=== PATIENT | female | born 1965 | race Caucasian/White ===

== ENCOUNTER → 2016-08-13 | Outpatient (CLI) | payer OTHER ==
[~2016-08-13] MED LIST: ACIDOPHILUS1 CAP PO; ALDACTONE 25MG25 MG PO; ASPIRIN CHILDRE81 M1 PO; BACTRIM DS 8001 TAB PO; CARVEDILOL12.5 MG PO; CARVEDILOL3.125 MG PO; CARVEDILOL6.25 MG PO; CECLOR PULVULE500 MG PO; COUMADIN3 M1 PO; COUMADIN3 MG PO; CYCLOPHOSPHAMID50 M1 PO; DIGOXIN0.25 MG PO; FAMOTIDINE20 MG PO; FOLIC ACID 1MG T1 MG PO; FUROSEMIDE80 M1 PO; HYDRALAZINE HCL25 M1 PO; HYDROCORT 1% OI30 GM TP; K-DUR 2020 MEQ PO; KCL 10% 2020 MEQ/15 PO; LASIX40 MG PO; LOSARTAN POTASS25 MG PO; LOSARTAN POTASS50 MG PO; MAGNESIUM OXID400 M1 PO; METOLAZONE 2.52.5 MG PO; MYCOPHENOLIC A360 MG PO; NYSTATIN SU60 ML/BOT PO; NYSTATIN100000 U/M PO; PEPCID 20MG TAB20 MG PO; PHENERGAN25 M3 PO; PLAQUENIL200 MG PO; POTASSIUM CHLO10 ME3 PO; PREDNISONE 10MG10 MG PO; PREDNISONE 20MG20 MG PO; PREDNISONE 5MG.5 MG PO; TAMIFLU 75MG CA75 MG PO; TORSEMIDE 20MG20 MG PO; TORSEMIDE20 M1 PO; VANCOCIN HCL P125 MG PO; VANCOCIN PO; VANCOMYCIN PO; VITAMIN D50000 IU PO
== END ==
LOC: LAB 15:03
DX: I42.9 Cardiomyopathy, unspecified (principal)

== ENCOUNTER → 2016-11-26 | Outpatient (CLI) | payer MEDICARE, OTHER | LOC: LAB 11:39 | DX: I42.9 Cardiomyopathy, unspecified (principal); Z79.01 Long term (current) use of anticoagulants; Z51.81 Encounter for therapeutic drug level monitoring ==

== ENCOUNTER → 2017-02-05 | Outpatient (CLI) | payer OTHER, MEDICARE | LOC: LAB 10:02 | DX: I42.9 Cardiomyopathy, unspecified (principal); Z79.01 Long term (current) use of anticoagulants; Z51.81 Encounter for therapeutic drug level monitoring ==

== ENCOUNTER → 2017-02-15 | Outpatient (CLI) | payer OTHER, MEDICARE | LOC: LAB 12:51 | DX: I42.9 Cardiomyopathy, unspecified (principal); Z79.01 Long term (current) use of anticoagulants; Z51.81 Encounter for therapeutic drug level monitoring ==

== ENCOUNTER → 2017-03-08 | Outpatient (CLI) | payer OTHER, MEDICARE ==
[2017-03-08 21:22] LABS: BUN 15 mg/dL (7-18)
[2017-03-08 21:24] LABS: GFR (ESTIMATED) 129 ML/MIN (59-)
--- NOTE | 2017-03-09 08:08 | RADIOLOGY REPORT PS360 ---
US PELVIS-TRANSVAGINAL ONLY HISTORY: ABDOMINAL PAIN,ABD DISTENSION,VAGINAL DISCHARGE left-sided pain left pelvic pain. Postmenopausal 5 years Patient Age: 51 years: FemaleOrdering Physician: Benjy Marcos MD TECHNIQUE: Transvaginal pelvic ultrasound COMPARISON February 2014 pelvic ultrasound.. :CT abdomen 03/16/2016 FINDINGS Uterus is moderate size measuring 5.75 seem in length x2.45 x 3.8 cm. Endometrial stripe measuring 3.6 mm the body of uterus is slightly more generous at the lower uterus. A calcification at the lower uterine segment. This calcification at or adjacent to endometrium measures roughly 1 cm length x 0.8 cm AP. It was seen on the prior CT studies from 2015 and unchanged. Could reflect a small calcified submucosal fibroid versus a dystrophic calcification of some some other form. The right ovary measures 2.2 x 1.5 x 1.7 cm. It appears similar to the 2013 pelvic ultrasound study. The left ovary is larger measuring 4.4 x 1.6 x 1.1 cm . Homogeneous the left ovary measures 3.1 cm with a slight additional area its proximal pole. Accounting for this total length. No cysts.. No shadowing calcified structures. No fluid in cul-de-sac IMPRESSION: The uterus is modest in size. Contains a calcified focus along endometrial canal at lower uterine segment. This is seen on CT pelvis February 2016, similar in size since then. Question small calcified fibroid subserosal versus some other form of dystrophic calcification. On the left ovary is larger than right. No ovarian cyst nor or unique solid adnexal mass on today's study. No fluid in cul-de-sac.
== END ==
LOC: LAB 14:36 → RAD 14:36
PROVIDERS: Internal Medicine Adolescent Medicine
DX: N89.8 Other specified noninflammatory disorders of vagina (principal); R14.0 Abdominal distension (gaseous); R10.84 Generalized abdominal pain; E87.6 Hypokalemia

== ENCOUNTER → 2017-04-15 | Outpatient (CLI) | payer OTHER, MEDICARE | LOC: LAB 13:39 | DX: I42.9 Cardiomyopathy, unspecified (principal); Z79.01 Long term (current) use of anticoagulants; Z51.81 Encounter for therapeutic drug level monitoring ==

== ENCOUNTER → 2017-04-28 | Outpatient (CLI) | payer OTHER, MEDICARE | LOC: LAB 07:09 | DX: I42.9 Cardiomyopathy, unspecified (principal); Z79.01 Long term (current) use of anticoagulants; Z51.81 Encounter for therapeutic drug level monitoring ==

== ENCOUNTER → 2017-05-12 | Outpatient (CLI) | payer OTHER, MEDICARE | LOC: LAB 07:44 | DX: I42.9 Cardiomyopathy, unspecified (principal); Z79.01 Long term (current) use of anticoagulants; Z51.81 Encounter for therapeutic drug level monitoring ==

== ENCOUNTER 2017-05-22 14:49 | Emergency (ER) | payer OTHER, MEDICARE ==
[~2017-05-22] VITALS: Ht 170.2 cm; Wt 69.9 kg
--- OUTSIDE RECORDS SUMMARY | 2017-05-22 15:07 | External Medical Summary Rpt | CCD ---
Author Author , [facility]YSE Organization AYSE Address Unknown Phone [email or web address] Care Team Providers Care Broke Beater Operator Name Role Phone ABBAS JAZMINE, ABBAS JAZMINE Unavailable Unavailable [facility], [facility] Unavailable Unavailable [facility], [facility] Unavailable Unavailable TANVIR MAGGIE, TANVIR Unavailable Unavailable MAGGIE HENDRIX SILVIANO, HENDRIX Unavailable Unavailable SILVIANO SARAHY KAN JARVIS, Unavailable Unavailable SARAHY KAN JARVIS [facility], Unavailable Unavailable [facility], Unavailable Unavailable [facility] [place] ALFARIS MOH, ALFARIS Unavailable Unavailable MOH ALMAGDUB IHA, Unavailable Unavailable ALMAGDUB IHA [facility], [facility] Unavailable Unavailable BERRY KAMILLA, BERRY KAMILLA Unavailable Unavailable AYACH JUAN R, AYACH JUAN R Unavailable Unavailable PAREDES ESTEBAN, PAREDES Unavailable Unavailable [facility] Unavailable Unavailable MEDICAL GROUP, [facility] Unavailable Unavailable [facility]OM[facility] C[facility], [facility] Unavailable Unavailable ONCOLOGY A, [facility] BEINEKE PATY, BEINEKE Unavailable Unavailable PATY BELCASTRO MAR, Unavailable Unavailable BELCASTRO MAR BESSON IJEOMA, BESSON Unavailable Unavailable IJEOMA KAYLEEN CHEVY, KAYLEEN CHEVY Unavailable Unavailable BOLIEK TYLER, BOLIEK Unavailable Unavailable TYLER BREAZEALE GRA, Unavailable Unavailable BREAZEALE GRA GARCIA SARAH, GARCIA Unavailable Unavailable SARAH CANDELARIA ASH, CANDELARIA Unavailable Unavailable ASH [facility] Unavailable Unavailable SERVICE, [facility] Unavailable Unavailable SERVICE, [facility] VICTOR M KET, VICTOR M KET Unavailable Unavailable MARINA CAR, MARINA Unavailable Unavailable CAR CARDOZA LEI, Unavailable Unavailable CARDOZA LEI CAMP TYLER, CAMP TYLER Unavailable Unavailable BRUSH DIETER, Unavailable Unavailable [facility] DIET[facility] Unavailable Unavailable [facility] Unavailable Unavailable [facility], [facility] Unavailable Unavailable [facility], [facility] CHIPPS GREYSON & Unavailable Unavailable DUBILIER, [facility] DUBILIER [facility], Unavailable Unavailable [facility] COLON-LYN CHRIS, Unavailable Unavailable COLON-LYN CHRIS BAY JR BETHANY, Unavailable Unavailable BAY JR BETHANY [facility] Unavailable Unavailable EQUIPMENT, [facility] Unavailable Unavailable EQUIP[facility], [facility], Unavailable Unavailable [facility] CRAGER JAM, CRAGER Unavailable Unavailable JAM JAIRON LIZZIE, Unavailable Unavailable JAIRON LIZZIE ABRAHAN TYLER, ABRAHAN Unavailable Unavailable TYLER DAY KRI, DAY KRI Unavailable Unavailable MERRY PHI, Unavailable Unavailable MERRY PHI DISANTIS SILVIANO, Unavailable Unavailable DISANTIS SILVIANO EL-SIOUFI SHE, Unavailable Unavailable EL-SIOUFI SHE MARY ELLEN KAMILLA, MARY ELLEN Unavailable Unavailable KAMILLA ENDEAN MEAGAN, ENDEAN Unavailable Unavailable MEAGAN JYOTSNA GENNA, Unavailable Unavailable JYOTSNA GENNA OLIVARES NAN, OLIVARES Unavailable Unavailable NAN BLACK MAR, BLACK MAR Unavailable Unavailable FRANCISCO, JR DISLA, Unavailable Unavailable FRANCISCO, JR ELZ YOSEF ASH, YOSEF Unavailable Unavailable ASH KARMEN SUSANNA, KARMEN Unavailable Unavailable SUSANNA GERHARDSTEIN DON, Unavailable Unavailable GERHARDSTEIN DON HARTMAN CHEVY, HARTMAN CHEVY Unavailable Unavailable LIZZIE THO, LIZZIE THO Unavailable Unavailable PRAJAPATI BERHANE, PRAJAPATI Unavailable Unavailable BERHANE PRAJAPATI RAC, PRAJAPATI Unavailable Unavailable RAC [facility] Unavailable Unavailable INC, [facility] Unavailable Unavailable HOSPITAL P, [facility] Unavailable Unavailable INC, [facility] WILSON LESLEY, WILSON Unavailable Unavailable [facility], Unavailable Unavailable [facility] BOYLE IJEOMA, BOYLE IJEOMA Unavailable Unavailable HOLLAN TRA, HOLLAN Unavailable Unavailable TRA HORN ASH, HORN ASH Unavailable [facility]available [facility] Unavailable Unavailable SERVICES,, [facility], PELAEZ WARD, PELAEZ Unavailable Unavailable WARD ROSANGELA RYA, ROSANGELA RYA Unavailable Unavailable Andrea Newton MD, Unavailable Unavailable Andrea Newton MD [facility] Unavailable Unavailable IMAGING ASS, [facility] Unavailable Unavailable MEDICAL G, [facility] ESAU CONLEY, ESAU Unavailable Unavailable JARVIS GIRALDO JUSTUS, KRISTAL JUSTUS Unavailable Unavailable SESAR NATHAN, SESAR NATHAN Unavailable Unavailable [facility] NURSE Unavailable Unavailable PRACTITIONER GR, [facility] N[facility] PRACTITIONER GR MARYAM ESTEBAN, Unavailable Unavailable KOSTEJF ESTEBAN KSEIBI IVANNA, KSEIBI Unavailable Unavailable IVANNA APRYL [facility], [facility] Un[facility] LENERT KIRIT, LENERT Unavailable Unavailable KIRIT BOWEN JR DWI, BOWEN Unavailable Unavailable JR DWI [facility] Unavailable Unavailable AT [facility], [facility] Unavailable Unavailable INTERNAL MED, [facility] MED GIOVANNA JENNA, GIOVANNA Unavailable Unavailable JENNA MIS JR TRACIE, Unavailable Unavailable MIS JR TRACIE MONISHA KRI, MONISHA KRI Unavailable Unavailable [facility], [facility] Unavailable Unavailable RICARDO KARLY, RICARDO Unavailable Unavailable KARLY [facility] Unavailable Unavailable SERVICES, [facility] MASKEY MANE, MASKEY Unavailable Unavailable MANE MAWAD ARROYO, MAWAD ARROYO Unavailable Unavailable MC VIRGINIA BETHANY, MC Unavailable Unavailable VIRGINIA BETHANY CARDONA MAT, Unavailable Unavailable CARDONA MAT SULLIVAN MERLIN, SULLIVAN MERLIN Unavailable Unavailable MINION SILVIANO, MINION Unavailable Unavailable SILVIANO MOHAMED [facility], [facility] Unavailable Unavailable [facility] ELIZONDO-BUSTAMANTE MANE, Unavailable Unavailable ELIZONDO-BUSTAMANTE MANE MEDRANO ANH, MEDRANO ANH Unavailable Unavailable [facility] Unavailable Unavailable P[facility], [facility] RADHA TRACIE, Unavailable Unavailable RADHA TRACIE HARRIS TER, HARRIS Unavailable Unavailable TER JERI ARV, Unavailable Unavailable JERI ARV [facility], Unavailable [facility]available [facility], [facility] MACKENZIE GIPSON ADO, Unavailable Unavailable MACKENZIE GIPSON ADO JOHNS DEN, Unavailable Unavailable JOHNS DEN PICKLESIMER JR SANDEEP, Unavailable Unavailable PICKLESIMER JR SANDEEP Xavier Ram MD, Unavailable Unavailable Xavier Ram MD REENA TOD, REENA TOD Unavailable Unavailable REKHRAJ CAIN, REKHRAJ Unavailable Unavailable CAIN VACA IV HEN, Unavailable Unavailable VACA IV HEN BARTLETT FER, Unavailable Unavailable BARTLETT FER GRAYSON YOLANDA, GRAYSON Unavailable Unavailable YOLANDA SALAM MAA, SALAM MAA Unavailable Unavailable SCHUMER BAR, SCHUMER Unavailable Unavailable BAR SCHWARCZ THO, Unavailable Unavailable SCHWARCZ THO REINA NINOSKA, REINA Unavailable Unavailable NINOSKA ATIF ELL, ATIF Unavailable Unavailable PONCHO ELLIS ADA, ELLIS ADA Unavailable Unavailable ELLIS MARISOL, ELLIS MARISOL Unavailable Unavailable ELLIS NINOSKA, ELLIS NINOSKA Unavailable Unavailable ELLIS BRITTANY, ELLIS BRITTANY Unavailable Unavailable SORIAL EHA, SORIAL Unavailable Unavailable EHA OLVIN PAULO, OLVIN Unavailable Unavailable PAULO [facility] BUDDY KAMILLA, BUDDY Unavailable Unavailable KAMILLA JESS JENNA, JESS Unavailable Unavailable JENNA [facility], Unavailable Unavailable [facility] DENISE SHASTA DO, Unavailable Unavailable DENISE SHASTA DO BAUMAN SCO, BAUMAN Unavailable Unavailable SCO SUPINSKI GILBERT, Unavailable Unavailable SUPINSKI GILBERT YOUNG HANSEL IJEOMA, Unavailable Unavailable YOUNG HANSEL IJEOMA TZOUANAKIS KIRIT, Unavailable Unavailable TZOUANAKIS KIRIT [facility] Unavailable Unavailable MEDICINE , [facility], Unavailable Unavailable [facility] Unavailable Unavailable [facility], [facility] USERY AND, USERY AND Unavailable Unavailable VERHEY PET, VERHEY Unavailable Unavailable PET [facility] Unavailable Unavailable [facility]ENC[facility], [facility] DEE DEE KRISTAL, DEE DEE GIRALDO Unavailable Unavailable WEST SILVIANO, WEST SILVIANO Unavailable Unavailable SIMON IV ALL, Unavailable Unavailable SIMON IV ALL WHAYNE JR THO, WHAYNE Unavailable Unavailable JR THO ARSLAN ASH, ARSLAN Unavailable Unavailable ASH WOODY WARD, WOODY WARD Unavailable Unavailable XENOS VIRGINIA, XENOS VIRGINIA Unavailable Unavailable ALBERTS MAT, Unavailable Unavailable ALBERTS MAT Purpose Continuity of Care Document - 04-10-2013 through 2016 Problems Code Diagnosis DOS Provider Status [id number] ENCOUNTER 12-23-2015 [facility] THERAPEUTIC INC DRUG LEVEL MONITORING Z7901 CLAIM MANAGER 12-23-2015 [facility] CURRENT USE [facility] OF INC ANTICOAGULA NTS E559 VITAMIN D 12-12-2015 [facility] UNSPECIFIED [id number] ACUTE EMBO 12-12-2015 [facility] DEEP VEINS UNS LOW EXTREM M329 SYSTEMIC 12-12-2015 [facility] ERYTHEMATOS US UNSPECIFIED R760 RAISED 12-12-2015 [facility] TITER Z7952 LONGTERM 12-12-2015 [facility] OF [facility] SYSTEMIC STEROIDS [id number] OTHER LONG 12-12-2015 [facility] CURRENT DRUG THERAPY N950 POSTMENOPAU 11-12-2015 [facility] BLEEDING HOSPI N952 POSTMENOPAU 11-12-2015 [facility] ATROPHIC HOSPI VAGINITIS B78189 SATISFACTOR 11-12-2015 [facility] HOS[facility] TRANSFORMAT N ZONE H109 UNSPECIFIED 10-25-2015 [facility] CON[facility]UNCT[facility] TIS D509 IRON 10-16-2015 [facility] DEFICIENCY [facility] ANEMIA INC UNSPECIFIED I352 NONRHEUMATI 10-16-2015 [facility] AORTIC [facility] VALVE INC STENOSIS W/INSUFF B373 CANDIDIASIS 10-03-2015 [facility] VULVA SERV AND VAGINA FOUNDATION H2513 AGE-RELATED 10-03-2015 [facility] CATARACT BILATERAL Z9119 PATIENTS 10-03-2015 [facility] NONCOMPLIAN SERV CE W/OTH FOUNDATION MED TX & REGIMEN E876 HYPOKALEMIA 08-23-2015 [facility] J101 FLU D/T OTH 08-23-2015 [facility] P RESP MANIFESTATI ONS J1189 FLU D/T 08-23-2015 [facility] UNIDENTIFIE PHYSICIANS, D FLU VIRUS PLLC W/OTH MANIF R05 COUGH 08-23-2015 [facility] R509 FEVER 08-23-2015 [facility]PEC[facility]IED [facility] I509 HEART 06-18-2015 [facility] FAILURE [facility]ALTH UNSPECIFIED MEDICAL GROUP R0600 DYSPNEA 06-18-2015 [facility] UNSPECIFIED [facility]ALTH MEDICAL GROUP E871 HYPO-OSMOLA 05-24-2015 [facility] LITOsmar AND PHYSICIANS, HYPONATREMI PLLC A I10 ESSENTIAL 05-24-2015 [facility] HYPERTENSIO INC N N3000 ACUTE 05-24-2015 [facility] CYSTITIS PHYSICIANS, WITHOUT PLLC HEMATURIA N390 URINARY 05-24-2015 [facility] TRACT PHYSICIANS, INFECTION PLLC SITE NOT SPECIFIED 5259 UNSPECIFIED 03-28-2015 [facility] DISORDER [facility] TEETH&SUPPO FOUNDATION RTING STRUCTURES 7100 SYSTEMIC 03-28-2015 [facility] [place] [address] OTHER&UNSPE 03-28-2015 [facility] C SERV NONSPECIFIC FOUNDATION IMMUNOLOGIC AL FINDINGS V1251 PERSONAL 03-28-2015 [facility] HISTORY, SERV VENOUS FOUNDATION THROMBOSIS AND EMBOLISM V1581 PERS HX 03-28-2015 [facility] NONCOMPLIAN SERV CE W/MED TX FOUNDATION PRS HAZARDS HLTH V5869 LONG-TERM 03-28-2015 [facility] (CURRENT) SERV USE OF FOUNDATION OTHER MEDICATIONS V5883 ENCOUNTER 03-28-2015 [facility] FOR SERV THERAPEUTIC [facility] DRUG MONITORING 64207 AC CHENCHO 03-27-2015 [facility] THROMB INC UNSPEC DEEP VES LOWER EXT 4019 UNSPECIFIED 02-27-2015 [facility] E[facility]ENTIAL [facility]ALTH HYPERTENSIO AGENCY N 75535 UNSPECIFIED 02-27-2015 [facility] SYSTOLIC HEALTH HEART AGENCY FAILURE 6959 UNSPECIFIED 02-27-2015 [facility] HEALTH ERYTHEMATOU AGENCY S CONDITION 45083 MUSCLE 02-27-2015 [facility] WEAKNESS HEALTH (GENERALIZE AGENCY D) V5861 LONG-TERM 02-27-2015 [facility] (CURRENT) HEALTH [place] 54825 STEELE 02-15-2015 [facility] SYNDROME MEDICAL EQUIPMENT 486 PNEUMONIA, 02-15-2015 [facility] ORGANISM MEDICAL UNSPECIFIED EQUIPMENT 86709 VOMITING 01-01-2015 [facility] ALONE [facility] 21395 DIARRHEA 01-01-2015 [facility] 2830 AUTOIMMUNE 12-31-2014 [facility] HEMOLYTIC [facility] ANEMIAS INC 82975 SUPRAVENTRI 12-19-2014 [facility] PREMATURE MEDICAL BEATS GROUP 4280 CONGESTIVE 12-19-2014 [facility] FAILURE MEDICAL UNSPECIFIED GROUP 83014 OTHER 11-26-2014 [facility] A 7906 OTHER 11-26-2014 [facility] ABNORMAL FAMILY BLOOD MEDICINE P CHEMISTRY 09491 NEUTROPENIA 11-14-2014 [facility] UNSPECIFIED FOUNDATION 85536 CHRONIC 11-14-2014 [facility] SYSTOLIC SERV HEART [facility]OUND[facility] FAILURE 49249 ACUT CHENCHO 11-14-2014 [facility] EMBO&THROMB SERV DEEP VES FOUNDATION PROX LOWR EXTREM 4820 PNEUMONIA 11-13-2014 [facility] DUE TO KLEBSIELLA PNEUMONIAE 44258 SEPSIS 11-13-2014 [facility] 0539 HERPES 11-12-2014 [facility] NURSE ZOSTER PRACTITIONE WITHOUT R GR MENTION OF COMPLICATIO N 71635 DYSPHAGIA 11-02-2014 [facility] UNSPECIFIED SERV FOUNDATION 2639 UNSPECIFIED 10-31-2014 [facility] PROTEIN-DEBI [facility] ORIE MALNUTRITIO N 03030 CALCU 10-28-2014 [facility] GALLBLADD SERV W/O MENTION FOUNDATION CHOLECYST/O BST 3561 PERONEAL 10-26-2014 [facility]CULAR [facility] ATROPHY [facility] 3599 UNSPECIFIED 10-26-2014 [facility] MYOPATHY SERV [facility] 01245 OTHER 10-26-2014 [facility] MALAISE AND SERV FATIGUE FOUNDATION 2761 HYPOSMOLALI 10-24-2014 [facility] TY AND/OR SERV HYPONATREMI FOUNDATION A 2859 UNSPECIFIED 10-23-2014 [facility] ANEMIA [facility] V5865 LONG-TERM 10-23-2014 [facility] USE OF SERV STEROIDS FOUNDATION 98783 OTH & UNS E 10-22-2014 [facility] COLI SERV INFECTION [facility] CLASS ELSW UNS SITE 21649 ACUT CA 10-22-2014 [facility] SUBENDOCARD SERV IAL INFARCT FOUNDATION INIT EPIS CARE 80781 ACUTE 10-22-2014 [facility] SERV FAILURE [facility] 8208 CLOSED 10-22-2014 [facility] FRACTURE SERV UNSPECIFIED FOUNDATION PART NECK FEMUR 58909 SEVERE 10-22-2014 [facility] SEPSIS SERV [facility] V7281 PRE-OPERATI 10-22-2014 [facility] VE SERV CARDIOVASCU FOUNDATION LAR EXAMINATION 08887 ACUTE AND 10-19-2014 [facility] NURSE CHRONIC PRACTITIONE RESPIRATORY R GR FAILURE 4254 OTHER 10-18-2014 [facility] PRIMARY SERV CARDIOMYOPA FOUNDATION PETRA 4293 CARDIOMEGAL 10-18-2014 [facility] Y SERV [facility] 18676 NONSPECIFIC 10-18-2014 [facility] ABNORMAL SERV ELECTROCARD FOUNDATION IOGRAM 4240 MITRAL 10-16-2014 [facility] VAL[facility] DISORDERS [facility] 88433 CHRONIC 10-15-2014 [facility] RESPIRATORY SERV FAILURE [facility]OUND[facility] 42840 OTHER 10-11-2014 [facility] NONSPECIFIC SERV ABNORMAL FOUNDATION FINDING OF LUNG FIELD 5119 UNSPECIFIED 10-10-2014 [facility] PLEURAL SERV EFFUSION FOUNDATION 5180 PULMONARY 10-10-2014 [facility] COLLAPSE SERV [facility] V5882 ENCOUNTER 10-10-2014 [facility] FITTING&ADJ SERV [facility]OUND[facility] NON-VASCULA R CATHETER NEC 0417 PSEUDOMONAS 10-07-2014 [facility] INFECTION SERV IN CCE & FOUNDATION UNS SITE 5990 URINARY 10-07-2014 [facility] TRACT [facility] INFECTION F[facility] SITE NOT SPECIFIED 88478 FEVER 10-02-2014 [facility] UNSPECIFIED SERV FOUNDATION 05519 OTHER FLUID 09-30-2014 [facility] OVERLOAD [facility] 38494 OTHER 09-28-2014 [facility] DISEASES OF SERV LUNG NOT FOUNDATION ELSEWHERE CLASSIFIED 514 PULMONARY 09-26-2014 [facility] CONGESTION SERV AND FOUNDATION HYPOSTASIS 02074 NEUROGENIC 09-25-2014 [facility] BLADDER, SERV NOS FOUNDATION 4590 UNSPECIFIED 09-22-2014 [facility] HEMORRHAGE SERV [facility] 02397 OTHER 09-21-2014 [facility] SEPTICEMIA SERV DUE TO FOUNDATION GRAM-NEGATI VE ORGANISM 5846 ACUTE 09-21-2014 [facility]NEY [facility] FAILURE [facility] W/LES RENAL CORTICAL NECRO V4611 DEPENDENCE 09-20-2014 [facility] ON [facility] RESPIRATOR FOUNDATION STATUS 5289 OTHER&UNSPE 09-19-2014 [facility] CIFIED SERV DISEASES FOUNDATION THE ORAL SOFT TISSUES 0389 UNSPECIFIED 09-17-2014 [facility] SEPTICEMIA SERV FOUNDATION 93675 OTHER 09-15-2014 [facility] DISEASES OF SERV NASAL FOUNDATION CAVITY AND SINUSES 5849 ACUTE 09-15-2014 [facility] FAILURE [facility] UNSPECIFIED 7842 SWELLING 09-15-2014 [facility] MASS OR SERV LUMP IN FOUNDATION HEAD AND NECK 2760 HYPEROSMOLA 09-14-2014 [facility] LITY AND/OR SERV FOUNDATION HYPERNATREM IA 4476 UNSPECIFIED 09-14-2014 [facility] ARTERITIS SERV [facility] 5845 ACUTE 09-14-2014 [facility] FAILURE [facility] W/LESION TUBULAR NECROSIS 91637 SEPTIC 09-14-2014 [facility] SHOCK [facility] 20319 OTHER 09-13-2014 [facility] SPECIFIED SERV CARDIAC FOUNDATION DYSRHYTHMIA S 73920 SHORTNESS 09-11-2014 [facility] OF BREATH SERV FOUNDATION 21364 OTHER 09-06-2014 [facility] PREMATURE SERV BEATS FOUNDATION 5168 OTH SPEC 09-06-2014 [facility] ALVEOL&BUBBA SERV ETOALVEOL FOUNDATION PNEUMONOPAT HIES 56089 HYPOXEMIA 09-06-2014 [facility] 2762 ACIDOSIS 09-01-2014 [facility] 11087 UNSPECIFIED 09-01-2014 [facility] SHOCK [facility] 7873 FLATULENCE 09-01-2014 [facility] ERUCTATION SERV AND GAS FOUNDATION PAIN V5881 FITTING AND 08-31-2014 [facility] ADJUSTMENT SERV OF FOUNDATION VASCULAR CATHETER 30546 OTHER 08-29-2014 [facility] ASCITES SERV [facility] 61558 SEPTICEMIA 08-28-2014 [facility] ESCHERICHIA COLI 07168 ANEMIA OF 08-28-2014 [facility] CHRONIC HOSPI DISEASE 56879 LEUKOCYTOPE 08-28-2014 [facility] UNSPECIFIED HOSPI 33647 CRITICAL 08-28-2014 [facility] MYOPATHY 4139 OTHER AND 08-28-2014 [facility] UNSPECIFIED [facility] ANGINA INC PECTORIS 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 5853 CHRONIC 08-28-2014 [place] DISEASE STAGE III (MODERATE) 94814 OTHER 08-28-2014 [facility] BLOOD CELLS 7910 PROTEINURIA 07-23-2014 [facility] 4299 UNSPECIFIED 07-16-2014 [facility] DISEASE MEDICAL G 49070 CORONARY 07-14-2014 [facility] CORONARY ARTERY 2851 ACUTE 07-07-2014 [facility] ANEMIA MEDICAL G 4279 UNSPECIFIED 07-05-2014 [facility] CARDIAC DYSRHYTHMIA 36473 ACUTE 07-02-2014 [facility] SYSTOLIC HEALTH HEART MEDICAL G FAILURE 02848 SWELLING OF 06-29-2014 [facility] G 2724 OTHER AND 06-28-2014 [facility]PECIFIED [facility] HYPERLIPIDE ZEINAB 15129 ANEMIA IN 06-25-2014 [facility] CHRONIC KIDNEY CARE KIDNEY DISEASE 4539 EMBOLISM 06-25-2014 [facility] THROMBOS[facility] MEDICAL G OF UNSPECIFIED SITE 2839 ACQUIRED 06-24-2014 [facility] UNSPECIFIED 7103 DERMATOMYOS 06-20-2014 [facility] 7919 OTHER 06-19-2014 [facility] [place] NONSPECIFIC RADIOLOGY FINDING EXAMINATION OF URINE 50187 ACUTE ON 06-18-2014 [facility] SYSTOLIC HEART FAILURE 4599 UNSPECIFIED 06-18-2014 [facility] CIRCULATORY INC SYSTEM DISORDER 5187 TRANSFUSION 06-18-2014 [facility] ACUTE LUNG INJURY V148 PERSONAL 06-18-2014 [facility] HISTORY [facility] ALLERGY OTH INC SPEC MEDICINAL AGTS 92868 DEHYDRATION 06-15-2014 [facility] 4239 UNSPECIFIED 06-15-2014 [place] [facility] OF SERV [facility]OUND[facility] PERICARDIUM 4589 UNSPECIFIED 06-15-2014 [facility] HYPOTENSION FOUNDATION 37090 HEMATURIA 06-15-2014 [facility] UNSPECIFIED SERV FOUNDATION 05252 MICROSCOPIC 06-13-2014 [facility] HEMATURIA [facility] INC 98918 ABDOMINAL 06-13-2014 [place] [facility] [place] SPECIFIED INTERNAL SITE MED V1083 PERSONAL 06-05-2014 [facility] H[facility]ORY [facility] OTHER INC MALIGNANT NEOPLASM SKIN V140 PERSONAL 06-05-2014 [facility]ORY OF [facility]OS[facility] ALLERGY TO INC PENICILLIN V141 PERSONAL 06-05-2014 [facility]ORY [facility] ALLERGY INC OTHER ANTIBIOTIC AGENT V142 PERSONAL 06-05-2014 [facility] H[facility]ORY OF [facility]OS[facility] ALLERGY TO INC SULFONAMIDE S 4289 UNSPECIFIED 05-18-2014 [facility] FAILURE [facility]OSP 04907 OTHER 05-09-2014 [facility] ONCOLOG[facility] A AND INFARCTION 6202 OTHER AND 05-09-2014 [facility] UNSPECIFIED [facility]ATIONAL OVARIAN HOSP CYST 1120 CANDIDIASIS 10-07-2014 [facility], 4919 UNSPECIFIED 04-18-2014 [facility] CHRONIC GREYSON & BRONCHITIS DUBILIER 5183 PULMONARY 04-18-2014 [facility] EOSINOPHILI RADIOLOGY A ASSOC 3970 DISEASES OF 04-13-2014 [place] TRICUSPID CARDIOLOGY VALVE AT CENT 79149 OTHER 04-13-2014 [facility] PULMONARY AMBULANCE INSUFFICIEN SERVICE CY NEC 64809 OTHER 04-13-2014 [facility] DYSPNEA [facility] [place] [address] OTHER 04-13-2014 [facility] HEMOPTYSIS [facility]ATIONAL [facility]OSP V642 SURG/OTH 04-10-2014 [facility] PROC NOT MEM [facility]OS[facility] CARRIED OUT INC BECAUSE PTS DECN 5859 CHRONIC 03-31-2014 [facility] KIDNEY PHYSICIANS DISEASE GROUP UNSPECIFIED 5939 UNSPECIFIED 03-31-2014 [facility] DISORDER [facility]OS[facility] OF KIDNEY INC AND URETER 7892 SPLENOMEGAL 03-31-2014 [facility] Y PHYSICIANS GROUP 6259 UNSPEC 03-22-2014 [facility] WOMEN'S W/FEMALE CARE GENITAL ORGANS V7231 ROUTINE 03-22-2014 [facility] GYNECOLOGIC HEALTH AL WOMEN'S EXAMINATION CARE 64102 ABDOMINAL 03-19-2014 [facility], LEFT N EMERGENCY LOWER PHYS QUADRANT 5756 CHOLESTEROL 03-08-2014 [facility] OF MEDICAL GALLBLADDER IMAGING ASS 39810 ABDOMINAL 03-08-2014 [facility] PAIN, MEDICAL UNSPECIFIED IMAGING ASS SITE V1090 PERSONAL 03-08-2014 [facility] HISTORY [facility] UNSPECIFIED INC MALIGNANT NEOPLASM 44679 DIAB W/O 02-26-2014 [facility] COMP TYPE PHYSICIANS II/UNS NOT GROUP STATED UNCNTRL 4011 ESSENTIAL 02-26-2014 [facility] HYPERTENSIO PHYSICIANS N, BENIGN GROUP 95975 OTHER 02-19-2014 [facility] NEUTROPENIA [facility] 43648 HTN CKD UNS 02-19-2014 [facility] W/CKD [facility] STAGE I INC THRU STAGE IV/UNS 5239 UNSPECIFIED 02-19-2014 [facility] GINGIVAL DENOMINATIONAL AND HOSP PERIODONTAL DISEASE 7291 UNSPECIFIED 02-19-2014 [facility] MYALGIA [facility]ATIONAL AND HOSP MYOSITIS 7862 COUGH 02-19-2014 [facility]ULANCE SERVICE [id number] OTHER 02-19-2014 [facility] [id number] FEVER 01-26-2014 [facility] CONDITIONS INC CLASSIFIED ELSEWHERE [id number] DIZZINESS 08-21-2013 [facility] [id number] Neutropenic [facility] [id number] [facility] Allergies, Adverse Reactions, Alerts Type Drug Allergy Adverse Reaction to Substance Substance Reaction Severity Penicillin TINGUE SPLIT OPEN Unknown SULFA (sulfonamide) I-RASH Unknown Cephalexin Unknown Unknown Tetracycline UNKNOWN Unknown Atropine UNKNOWN Unknown Chlorpheniramine UNKNOWN Unknown Amoxicillin UNKNOWN Unknown Nitrofurantoin UNKNOWN Unknown Guaifenesin I-RASH Unknown Pseudoephedrine UNKNOWN Unknown Gentamicin I-RASH Unknown Phenobarbital I-RASH Unknown Acetaminophen DEPEND ON DOSE 750MG Unknown CAUSES C.P. Scopolamine UNKNOWN Unknown Hyoscyamine UNKNOWN Unknown Medications Na ND Rx Da Fi Fi Am Da Di Ph RX Ph St me C No te ll ll ou ys ag ar # ys at rm s nt no ma ic us Or Da si cy ia de te s n re d DI 63 12 0 No TX 32 -1 IV 30 2- Lo AN 26 20 ng 96 13 er 1, 5 00 Ac 0 ti MG ve /1 00 ML AL Sa 63 12 0 No li 80 -1 ne 70 2- Lo 10 20 ng Fl 07 13 er us 5 h Ac 10 ti ML ve Sy ri ng e IP 00 12 0 No RA 48 -1 T- 70 2- Lo AL 20 20 ng BU 10 13 er T 1 0. Ac 5- ti 3( ve 2. 5) MG /3 ML SO 00 12 0 No JEANA 00 -1 -M 90 2- Lo ED 04 20 ng RO 72 13 er L 2 12 Ac 5 ti MG ve AL Mo 00 12 0 No rp 40 -1 hi 91 2- Lo ne 25 20 ng 83 13 er 4M 0 G/ Ac Ml ti ve Sy ri ng e AM 00 12 0 No ID 40 -1 AT 96 2- Lo E 69 20 ng 40 50 13 er 2 MG Ac /2 ti 0 ve ML AL QU 00 12 0 No EL 40 -1 IC 96 2- Lo IN 62 20 ng 90 13 er 20 2 0 Ac MG ti /1 ve 0 ML AL VA 00 12 0 No NC 40 -1 OM 94 2- Lo YC 33 20 ng IN 20 13 er 1 50 Ac 0 ti MG ve AL SO 00 12 0 No DI 40 -1 UM 97 2- Lo 98 20 ng CH 30 13 er LO 2 RI Ac DE ti ve 0. 9% SO JEANA TI ON Sa 63 12 0 No li 80 -1 ne 70 2- Lo 10 20 ng Fl 07 13 er us 5 h Ac 10 ti ML ve Sy ri ng e Mo 00 12 0 No rp 40 -1 hi 91 2- Lo ne 25 20 ng 83 13 er 4M 0 G/ Ac Ml ti ve Sy ri ng e Sa 63 11 0 No li 80 -2 ne 70 2- Lo 10 20 ng Fl 07 13 er us 5 h Ac 10 ti ML ve Sy ri ng e Sa 63 11 0 No li 80 -2 ne 70 2- Lo 10 20 ng Fl 07 13 er us 5 h Ac 10 ti ML ve Sy ri ng e Sa 63 09 0 No li 80 -1 ne 70 6- Lo 10 20 ng Fl 07 13 er us 5 h Ac 10 ti ML ve Sy ri ng e CE 60 09 0 No FE 50 -1 PI 50 6- Lo ME 68 20 ng 10 13 er HC 4 L Ac 2 ti GR ve AM AL SO 00 09 0 No DI 40 -1 UM 97 6- Lo 98 20 ng CH 43 13 er LO 7 RI Ac DE ti ve 0. 9% SO JEANA TI ON VA 00 09 0 No NC 40 -1 OM 96 6- Lo YC 53 20 ng IN 50 13 er 1 1 Ac GM ti ve AD D- VA N AL Vital Signs 08-21-2013 12:16 Name Value Interpretat Reference Comment ion Range Body 98.2 [degF] Temperature BP 58 mm[Hg] Diastolic BP Systolic 108 mm[Hg] Heart 88 /min Rate/Pulse O2% 100 % Respiratory 20 /min Rate 08-21-2013 10:51 Name Value Interpretat Reference Comment ion Range BP 69 mm[Hg] Diastolic BP Systolic 95 mm[Hg] Heart 90 /min Rate/Pulse O2% 100 % Respiratory 20 /min Rate 07-06-2013 10:07 Name Value Interpretat Reference Comment ion Range Body 98.9 [degF] Temperature BP 57 mm[Hg] Diastolic BP Systolic 87 mm[Hg] Heart 87 /min Rate/Pulse O2% 100 % Respiratory 12 /min Rate 07-06-2013 08:58 Name Value Interpretat Reference Comment ion Range Body 99.2 [degF] Temperature 07-06-2013 05:01 Name Value Interpretat Reference Comment ion Range BP 99 mm[Hg] Diastolic BP Systolic 168 mm[Hg] Heart 150 /min Rate/Pulse O2% 82 % Respiratory 36 /min Rate 06-16-2013 12:14 Name Value Interpretat Reference Comment ion Range Body 98.2 [degF] Temperature BP 65 mm[Hg] Diastolic BP Systolic 112 mm[Hg] Heart 90 /min Rate/Pulse O2% 97 % Respiratory 18 /min Rate 04-10-2013 16:48 Name Value Interpretat Reference Comment ion Range BP 64 mm[Hg] Diastolic BP Systolic 136 mm[Hg] Heart 92 /min Rate/Pulse O2% 98 % Respiratory 20 /min Rate 04-10-2013 16:20 Name Value Interpretat Reference Comment ion Range Body 100.2 Temperature [degF] 04-10-2013 16:14 Name Value Interpretat Reference Comment ion Range Body 100.3 Temperature [degF] 04-10-2013 13:13 Name Value Interpretat Reference Comment ion Range BP 70 mm[Hg] Diastolic BP Systolic 127 mm[Hg] Heart 105 /min Rate/Pulse O2% 92 % Respiratory 18 /min Rate Results Labs Lab Lab Date Result Refere Interp Status Commen Order Detail nces retati t Range on Whole blood INR measurement (05-12-2017 07:47) Prothro = 31.4 9.4-11. complet mbin 017 SECONDS 8 ed time 07:47 (PT) in platele t poor p Whole = 2.88 0.9-1.1 complet blood 017 ed INR 07:47 measure ment Comment: INDICATION INR RANGE Comment: Comment: THERAPY FOR DVT, PE, ATRIAL FIB; 2.0 - 3.0 Comment: PROPHYLAXIS FOR VTE Comment: Comment: THERAPY FOR MECHANICAL HEART 2.5 - 3.5 Comment: VALVE; PREVENTION OF SYSTEMIC Comment: EMBOLISM SECONDARY TO AMI Bacteria identified in Urine by Culture (12-30-2016 14:32) Bacteri YEAST complet a 017 ID- ed identif 14:32 NICOLAS ied in Urine ALBICAN by S Culture Bacteri Yeast complet a 017 ed identif 14:32 ied in Urine by Culture Urinalysis dipstick W Reflex Microscopic panel in Urine (12-30-2016 14:32) Bacteri 2+ O complet a 017 ed [Presen 14:32 ce] in Urine sedimen t by Light microsc opy Erythro 3-5 0 complet cytes 017 ed [Presen 14:32 ce] in Urine sedimen t by Light microsc opy Epithel NONE 0#/hp complet ial 017 f - ed cells.s 14:32 5#/hp quamous f [Presen ce] in Urine sedimen t by Microsc opy high power field Leukocy 20-50 O complet nick 017 wbc/hpf ed [#/volu 14:32 me] in Urine Protein [Presence] in Urine (12-30-2016 14:32) Protein 72.4 0.0mg High complet 017 /dL - ed [Presen 14:32 11.9m ce] in g/dL Urine Urinalysis dipstick W Reflex Microscopic panel in Urine (12-30-2016 14:32) Appeara SL CLEAR complet nce of 017 CLOUDY ed Urine 14:32 Bilirub NEGATIV NEG complet in 017 E ed [Presen 14:32 ce] in Urine by Test strip Erythro 3+ NEG Abnorma complet cytes 017 l ed [Presen 14:32 ce] in Urine Color YELLOW YELLOW complet of 017 ed Urine 14:32 Ketones NEGATIV NEG complet 017 E ed [Presen 14:32 ce] in Urine by Automat ed test strip Mucus 2+ NEG Abnorma complet [Presen 017 l ed ce] in 14:32 Urine sedimen t by Light microsc opy Nitrite POSITIV NEG Abnorma complet 017 E l ed [Presen 14:32 ce] in Urine by Test strip Urobili 0.2 NEG complet nogen 017 ed [Presen 14:32 ce] in Urine by Test strip dsDNA Ab Titr Ser VASU (12-30-2016 11:51) dsDNA [id number] complet Ab Titr 017 07 ed Ser 11:51 antibod VASU y titer measure ment SCT D40 POSITIV E THROUGH 1:40 DILUTIO N L ESR Bld Qn (12-30-2016 11:51) ESR Bld 19 0-20 complet Qn 017 mm/hr ed 11:51 CRP SerPl-mCnc (12-30-2016 11:51) CRP 0.1 0-0.9 complet SerPl-m 017 mg/dL ed Cnc 11:51 C4 SerPl-mCnc (12-30-2016 11:51) C4 18 13-36 complet SerPl-m 017 mg/dL ed Cnc 11:51 C3c SerPl-mCnc (12-30-2016 11:51) C3c 100 84-166 complet SerPl-m 017 mg/dL ed Cnc 11:51 COMPREHENSIVE METABOLIC PANEL (08-21-2013 10:49) Glucose 89 74-106 complet 014 mg/dL ed Bld-mCn 10:49 c BUN 20 7-18 complet Bld-mCn 014 mg/dL ed c 10:49 Creat 1.1 0.6-1.0 complet SerPl-m 014 mg/dL ed Cnc 10:49 Creat 60 50-200 complet Cl 014 ML/MIN ed predict 10:49 ed SerPl C-G-vRa te GFR/BSA 53 59- complet .pred 014 ML/MIN ed SerPl 10:49 Schwart z-vRate Sodium 133 136-145 complet SerPl-s 014 mmoL/L ed Cnc 10:49 Potassi 3.8 3.5-5.1 complet um 014 mmoL/L ed SerPl-s 10:49 Cnc Chlorid 97 98-107 complet e 014 mmoL/L ed SerPl-s 10:49 Cnc CO2 30 21.0-32 complet SerPl-s 014 mmoL/L .0 ed Cnc 10:49 Calcium 8.8 8.5-10. complet 014 mg/dL 1 ed SerPl-m 10:49 Cnc Prot 7.7 6.4-8.2 complet SerPl-m 014 gm/dL ed Cnc 10:49 Albumin 3.5 3.4-5.0 complet 014 gm/dL ed SerPl-m 10:49 Cnc Globuli 4.2 1.3-3.2 complet n 014 gm/dL ed Ser-mCn 10:49 c Albumin 0.8 UNK 1.1-1.8 complet /Glob 014 ed SerPl-m 10:49 Rto Bilirub 01-27-2 0.2 0.2-1.0 complet 014 mg/dL ed SerPl-m 10:49 Cnc AST 08-21-2 20 U/L 15-37 complet SerPl-c 014 ed Cnc 10:49 ALT 08-21-2 32 U/L 12-78 complet SerPl-c 014 ed Cnc 10:49 ALP 2 75 U/L 50-136 complet SerPl-c 014 ed Cnc 10:49 CBC with AUTO DIFF (08-21-2013 10:49) WBC # 08-21-2 3.9 4.8-10. complet Bld 014 K/MM3 8 ed Auto 10:49 RBC # 08-21-2 3.97 4.2-5.4 complet Bld 014 M/mm3 ed Auto 10:49 Hgb 2 11.7 12.2-16 complet Bld-mCn 014 g/dL .2 ed c 10:49 Hct Fr 33.3 % 37.0-47 complet Bld 014 .0 ed 10:49 MCV RBC 2 83.9 fl 82.2-97 complet 014 .8 ed 10:49 MCH RBC 08-21-2 29.4 pg 27-31.2 complet Qn 014 ed Auto 10:49 MEAN 08-21-2 35.1 31.8-35 complet CORPUSC 014 g/dl .4 ed ULAR 10:49 HGB CONC RDW RBC 08-21-2 17.5 % 11.5-17 complet Auto 014 .5 ed 10:49 Platele 2 328 142-424 complet t Bld 014 K/mm3 ed Ql 10:49 Manual MEAN 2 6.9 fl 7.4-10. complet PLATELE 014 4 ed T 10:49 VOLUME Granulo 08-21-2 86.1 % 37.0-80 complet cytes 014 .0 ed Fr Bld 10:49 Auto LYMPH % 08-21-2 9.7 % 10-50.0 complet 014 ed 10:49 Monocyt 08-21-2 2.6 % 1.7-9.3 complet es Fr 014 ed Bld 10:49 Auto Eosinop 08-21-2 0.9 % 0.1-12. complet hil Fr 014 0 ed Bld 10:49 Auto Basophi 08-21-2 0.7 % 0.1-2.0 complet ls Fr 014 ed Bld 10:49 Auto Granulo 08-21-2 3.3 1.8-7.8 complet cytes # 014 K/mm3 ed Bld 10:49 Auto Lymphoc 08-21-2 0.4 0.7-4.5 complet ytes Fr 014 K/mm3 ed Bld 10:49 Auto Monocyt 08-21-2 0.1 0.1-1.0 complet es # 014 K/mm3 ed Bld 10:49 Auto Eosinop 08-21-2 0.0 0.0-0.4 complet hil # 014 K/mm3 ed Bld 10:49 Auto Basophi 08-21-2 0.0 0-0.2 complet ls # 014 K/MM3 ed Bld 10:49 Auto URINALYSIS/COMPLETE (07-06-2013 07:35) URINE 07-06-2 YELLOW YELLOW complet COLOR 013 ed 07:35 URINE 2 CLEAR CLEAR complet APPEARA 013 ed NCE 07:35 URINE 07-06-2 NEGATIV NEG complet GLUCOSE 013 E ed - 07:35 DIPSTIC K URINE 07-06-2 NEGATIV NEG complet BILIRUB 013 E ed IN - 07:35 DIPSTIC K URINE 07-06-2 NEGATIV NEG complet KETONE 013 E mg/dL ed 07:35 URINE 07-06-2 Greater 1.005-1 complet SPECIFI 013 than .030 ed C 07:35 or GRAVITY equal to 1.030 URINE 2 3+ NEG complet BLOOD 013 ed 07:35 URINE 07-06-2 6.0 UNK 5.0-8.5 complet PH 013 ed 07:35 URINE 07-06-2 3+ NEG complet PROTEIN 013 mg/dL ed - 07:35 DIPSTIC K URINE 07-06-2 0.2 NEG complet UROBILI 013 E.U./dL ed NOGEN - 07:35 DIPSTIC K URINE 1212-2 NEGATIV NEG complet NITRATE 013 E ed - 07:35 DIPSTIC K URINE 12-12-2 NEGATIV NEG complet LEUK 013 E ed ESTERAS 07:35 E URINE 07-06-2 20-50 0 complet RBC 013 rbc/hpf ed 07:35 URINE 1212-2 10-20 O complet WBC 013 wbc/hpf ed 07:35 URINE 07-06-2 5-10 0-5 complet SQUAMOU 013 #/hpf ed S CELLS 07:35 URINE 2 1+ O complet BACTERI 013 ed A 07:35 URINE 07-06-2 3+ NONE complet AMORPH 013 ed SEDIMEN 07:35 T BASIC METABOLIC PANEL (07-06-2013 07:10) Glucose 195 74-106 complet 013 mg/dL ed Bld-mCn 07:10 c BUN 15 7-18 complet Bld-mCn 013 mg/dL ed c 07:10 Creat 1.1 0.6-1.0 complet SerPl-m 013 mg/dL ed Cnc 07:10 Creat 68 50-200 complet Cl 013 ML/MIN ed predict 07:10 ed SerPl C-G-vRa te GFR/BSA 53 59- complet .pred 013 ML/MIN ed SerPl 07:10 Schwart z-vRate Sodium 138 136-145 complet SerPl-s 013 mmoL/L ed Cnc 07:10 Potassi 3.5 3.5-5.1 complet um 013 mmoL/L ed SerPl-s 07:10 Cnc Chlorid 104 98-107 complet e 013 mmoL/L ed SerPl-s 07:10 Cnc CO2 25 21.0-32 complet SerPl-s 013 mmoL/L .0 ed Cnc 07:10 Calcium 8.2 8.5-10. complet 013 mg/dL 1 ed SerPl-m 07:10 Cnc LIVER PROFILE (07-06-2013 07:10) Prot 07-06- 7.0 6.4-8.2 complet SerPl-m 013 gm/dL ed Cnc 07:10 Albumin 07-06- 3.0 3.4-5.0 complet 013 gm/dL ed SerPl-m 07:10 Cnc Bilirub 07-06- 0.3 0.2-1.0 complet 013 mg/dL ed SerPl-m 07:10 Cnc Bilirub 07-06-2 0.12 0.0-0.2 complet Direct 013 mg/dL ed 07:10 SerPl-m Cnc Bilirub 12-12-2 0.18 0-0.9 complet 013 mg/dL ed Indirec 07:10 t SerPl-m Cnc AST 12-12-2 60 U/L 15-37 complet SerPl-c 013 ed Cnc 07:10 ALT 12-12-2 37 U/L 30-65 complet SerPl-c 013 ed Cnc 07:10 ALP 12-12-2 82 U/L 50-136 complet SerPl-c 013 ed Cnc 07:10 BNP Bld-mCnc (07-06-2013 07:10) BNP 12-12-2 886 0-100 complet Bld-mCn 013 pg/mL ed c 07:10 CBC with AUTO DIFF (07-06-2013 07:10) WBC # 12-12-2 13.3 4.8-10. complet Bld 013 K/MM3 8 ed Auto 07:10 RBC # 12-12-2 2.79 4.2-5.4 complet Bld 013 M/mm3 ed Auto 07:10 Hgb 12-12-2 8.1 12.2-16 complet Bld-mCn 013 g/dL .2 ed c 07:10 Hct Fr 1212-2 24.9 % 37.0-47 complet Bld 013 .0 ed 07:10 MCV RBC 12-12-2 89.2 fl 82.2-97 complet 013 .8 ed 07:10 MCH RBC 12-12-2 28.9 pg 27-31.2 complet Qn 013 ed Auto 07:10 MEAN 12-12-2 32.4 31.8-35 complet CORPUSC 013 g/dl .4 ed ULAR 07:10 HGB CONC RDW RBC 12-12-2 23.8 % 11.5-17 complet Auto 013 .5 ed 07:10 Platele 12-12-2 425 142-424 complet t Bld 013 K/mm3 ed Ql 07:10 Manual MEAN 12-12-2 7.4 fl 7.4-10. complet PLATELE 013 4 ed T 07:10 VOLUME Granulo 12-12-2 86.8 % 37.0-80 complet cytes 013 .0 ed Fr Bld 07:10 Auto LYMPH % 12-12-2 10.8 % 10-50.0 complet 013 ed 07:10 Monocyt 12-12-2 1.7 % 1.7-9.3 complet es Fr 013 ed Bld 07:10 Auto Eosinop 12-12-2 0.5 % 0.1-12. complet hil Fr 013 0 ed Bld 07:10 Auto Basophi 12-12-2 0.3 % 0.1-2.0 complet ls Fr 013 ed Bld 07:10 Auto Granulo 12-12-2 11.5 1.8-7.8 complet cytes # 013 K/mm3 ed Bld 07:10 Auto Lymphoc 12-12-2 1.4 0.7-4.5 complet ytes Fr 013 K/mm3 ed Bld 07:10 Auto Monocyt 12-12-2 0.2 0.1-1.0 complet es # 013 K/mm3 ed Bld 07:10 Auto Eosinop 12-12-2 0.1 0.0-0.4 complet hil # 013 K/mm3 ed Bld 07:10 Auto Basophi 12-12-2 0.0 0-0.2 complet ls # 013 K/MM3 ed Bld 07:10 Auto ESR Bld Qn 15M (07-06-2013 07:10) ESR Bld 12-12-2 45 0-20 complet Qn 15M 013 mm/hr ed 07:10 ARTERIAL BLOOD GAS (07-06-2013 04:43) ARTERIA 12-12-2 7.24 7.35-7. Low complet L PH 013 MMOL/L 45 alert ed 04:43 ARTERIA 12-12-2 31.6 35.0-45 complet L PCO2 013 MMHG .0 ed 04:43 ARTERIA 12-12-2 105.5 80-100 complet L PO2 013 MMHG ed 04:43 ARTERIA 12-12-2 13.2 22.0-26 complet L HCO3 013 MMOL/L .0 ed 04:43 ARTERIA 12-12-2 14.1 23-27 complet L TCO2 013 MMOL/L ed 04:43 Base 12-12-2 -14.2 -2.4-+2 complet excess 013 MMOL/L .3 ed BldA-sC 04:43 nc ARTERIA 12-12-2 96.4 % 90-100 complet L O2 013 ed SAT 04:43 OXYGEN 12-12-2 100% X complet 013 10 MIN ed 04:43 Arteria 12-12-2 ACCEPTA complet l 013 BLE ed patency 04:43 Wrist a Blood group antibodies SerPl (06-16-2013 11:30) Blood ANTI-A1 complet group 013 , WARM ed antibod 11:30 AUTOAB ies SerPl COMPREHENSIVE METABOLIC PANEL (06-16-2013 10:30) Glucose 94 74-106 complet 013 mg/dL ed Bld-mCn 10:30 c BUN 20 7-18 complet Bld-mCn 013 mg/dL ed c 10:30 Creat 1.0 0.6-1.0 complet SerPl-m 013 mg/dL ed Cnc 10:30 Creat 73 50-200 complet Cl 013 ML/MIN ed predict 10:30 ed SerPl C-G-vRa te GFR/BSA 59 59- complet .pred 013 ML/MIN ed SerPl 10:30 Schwart z-vRate Sodium 136 136-145 complet SerPl-s 013 mmoL/L ed Cnc 10:30 Potassi 3.4 3.5-5.1 complet um 013 mmoL/L ed SerPl-s 10:30 Cnc Chlorid 102 98-107 complet e 013 mmoL/L ed SerPl-s 10:30 Cnc CO2 22 21.0-32 complet SerPl-s 013 mmoL/L .0 ed Cnc 10:30 Calcium 06-16- 8.2 8.5-10. complet 013 mg/dL 1 ed SerPl-m 10:30 Cnc Prot 06-16- 7.1 6.4-8.2 complet SerPl-m 013 gm/dL ed Cnc 10:30 Albumin 06-16-2 2.9 3.4-5.0 complet 013 gm/dL ed SerPl-m 10:30 Cnc Globuli 06-16-2 4.2 1.3-3.2 complet n 013 gm/dL ed Ser-mCn 10:30 c Albumin 06-16-2 0.7 UNK 1.1-1.8 complet /Glob 013 ed SerPl-m 10:30 Rto Bilirub 06-16-2 0.4 0.2-1.0 complet 013 mg/dL ed SerPl-m 10:30 Cnc AST 11-22-2 44 U/L 15-37 complet SerPl-c 013 ed Cnc 10:30 ALT 11-22-2 34 U/L 30-65 complet SerPl-c 013 ed Cnc 10:30 ALP 11-22-2 65 U/L 50-136 complet SerPl-c 013 ed Cnc 10:30 CBC with AUTO DIFF (06-16-2013 10:30) WBC # 11-22-2 3.1 4.8-10. complet Bld 013 K/MM3 8 ed Auto 10:30 RBC # 11-22-2 2.48 4.2-5.4 complet Bld 013 M/mm3 ed Auto 10:30 Hgb 11-22-2 7.0 12.2-16 Low complet Bld-mCn 013 g/dL .2 alert ed c 10:30 Hct Fr 11-22-2 21.6 % 37.0-47 Low complet Bld 013 .0 alert ed 10:30 MCV RBC 11-22-2 86.9 fl 82.2-97 complet 013 .8 ed 10:30 MCH RBC 11-22-2 28.4 pg 27-31.2 complet Qn 013 ed Auto 10:30 MEAN 11-22-2 32.6 31.8-35 complet CORPUSC 013 g/dl .4 ed ULAR 10:30 HGB CONC RDW RBC 11-22-2 17.1 % 11.5-17 complet Auto 013 .5 ed 10:30 Platele 11-22-2 361 142-424 complet t Bld 013 K/mm3 ed Ql 10:30 Manual MEAN 11-22-2 7.5 fl 7.4-10. complet PLATELE 013 4 ed T 10:30 VOLUME Granulo 11-22-2 73.6 % 37.0-80 complet cytes 013 .0 ed Fr Bld 10:30 Auto LYMPH % 11-22-2 20.2 % 10-50.0 complet 013 ed 10:30 Monocyt 11-22-2 5.3 % 1.7-9.3 complet es Fr 013 ed Bld 10:30 Auto Eosinop 11-22-2 0.7 % 0.1-12. complet hil Fr 013 0 ed Bld 10:30 Auto Basophi 11-22-2 0.2 % 0.1-2.0 complet ls Fr 013 ed Bld 10:30 Auto Granulo 11-22-2 2.3 1.8-7.8 complet cytes # 013 K/mm3 ed Bld 10:30 Auto Lymphoc 11-22-2 0.6 0.7-4.5 complet ytes Fr 013 K/mm3 ed Bld 10:30 Auto Monocyt 11-22-2 0.2 0.1-1.0 complet es # 013 K/mm3 ed Bld 10:30 Auto Eosinop 11-22-2 0.0 0.0-0.4 complet hil # 013 K/mm3 ed Bld 10:30 Auto Basophi 11-22-2 0.0 0-0.2 complet ls # 013 K/MM3 ed Bld 10:30 Auto URINALYSIS/COMPLETE (04-10-2013 13:30) URINE 09-16-2 YELLOW YELLOW complet COLOR 013 ed 13:30 URINE 09-16-2 SL CLEAR complet APPEARA 013 CLOUDY ed NCE 13:30 URINE 09-16-2 NEGATIV NEG complet GLUCOSE 013 E ed - 13:30 DIPSTIC K URINE 09-16-2 NEGATIV NEG complet BILIRUB 013 E ed IN - 13:30 DIPSTIC K URINE 09-16-2 NEGATIV NEG complet KETONE 013 E mg/dL ed 13:30 URINE 09-16-2 1.020 1.005-1 complet SPECIFI 013 UNK .030 ed C 13:30 GRAVITY URINE 09-16-2 3+ NEG complet BLOOD 013 ed 13:30 URINE 09-16-2 6.5 UNK 5.0-8.5 complet PH 013 ed 13:30 URINE 09-16-2 3+ NEG complet PROTEIN 013 mg/dL ed - 13:30 DIPSTIC K URINE 09-16-2 1.0 NEG complet UROBILI 013 E.U./dL ed NOGEN - 13:30 DIPSTIC K URINE 09-16-2 NEGATIV NEG complet NITRATE 013 E ed - 13:30 DIPSTIC K URINE 09-16-2 1+ NEG complet LEUK 013 ed ESTERAS 13:30 E URINE 09-16-2 20-50 0 complet RBC 013 rbc/hpf ed 13:30 URINE 09-16-2 3-5 O complet WBC 013 wbc/hpf ed 13:30 URINE 09-16-2 5-10 0-5 complet SQUAMOU 013 #/hpf ed S CELLS 13:30 URINE 1+ O complet BACTERI 013 ed A 13:30 URINE 1+ NONE complet AMORPH 013 ed SEDIMEN 13:30 T COMPREHENSIVE METABOLIC PANEL (04-10-2013 13:20) Glucose 96 74-106 complet 013 mg/dL ed Bld-mCn 13:20 c BUN 11 7-18 complet Bld-mCn 013 mg/dL ed c 13:20 Creat 1.0 0.6-1.0 complet SerPl-m 013 mg/dL ed Cnc 13:20 ESTIMAT 80 50-200 complet ED 013 ML/MIN ed CREATIN 13:20 INE CLEARAN CE GFR 59 59- complet (ESTIMA 013 ML/MIN ed MALIKA) 13:20 Sodium 128 136-145 complet SerPl-s 013 mmoL/L ed Cnc 13:20 Potassi 3.7 3.5-5.1 complet um 013 mmoL/L ed SerPl-s 13:20 Cnc Chlorid 95 98-107 complet e 013 mmoL/L ed SerPl-s 13:20 Cnc CO2 24 21.0-32 complet SerPl-s 013 mmoL/L .0 ed Cnc 13:20 Calcium 7.7 8.5-10. complet 013 mg/dL 1 ed SerPl-m 13:20 Cnc Prot 6.9 6.4-8.2 complet SerPl-m 013 gm/dL ed Cnc 13:20 Albumin 3.1 3.4-5.0 complet 013 gm/dL ed SerPl-m 13:20 Cnc Globuli 3.8 1.3-3.2 complet n 013 gm/dL ed Ser-mCn 13:20 c Albumin 0.8 UNK 1.1-1.8 complet /Glob 013 ed SerPl-m 13:20 Rto Bilirub 0.4 0.2-1.0 complet 013 mg/dL ed SerPl-m 13:20 Cnc AST 09-16-2 47 U/L 15-37 complet SerPl-c 013 ed Cnc 13:20 ALT 09-16-2 34 U/L 30-65 complet SerPl-c 013 ed Cnc 13:20 ALP 09-16-2 64 U/L 50-136 complet SerPl-c 013 ed Cnc 13:20 CBC with AUTO DIFF (04-10-2013 13:20) WBC # 09-16-2 1.6 4.8-10. Low complet Bld 013 K/MM3 8 alert ed Auto 13:20 RBC # 09-16-2 2.68 4.2-5.4 complet Bld 013 M/mm3 ed Auto 13:20 Hgb 09-16-2 8.3 12.2-16 complet Bld-mCn 013 g/dL .2 ed c 13:20 Hct Fr 09-16-2 24.0 % 37.0-47 complet Bld 013 .0 ed 13:20 MCV RBC 09-16-2 89.5 fl 82.2-97 complet 013 .8 ed 13:20 MCH RBC 09-16-2 31.1 pg 27-31.2 complet Qn 013 ed Auto 13:20 MEAN 09-16-2 34.8 31.8-35 complet CORPUSC 013 g/dl .4 ed ULAR 13:20 HGB CONC RDW RBC 09-16-2 16.5 % 11.5-17 complet Auto 013 .5 ed 13:20 Platele 09-16-2 260 142-424 complet t Bld 013 K/mm3 ed Ql 13:20 Manual MEAN 09-16-2 7.4 fl 7.4-10. complet PLATELE 013 4 ed T 13:20 VOLUME Granulo 09-16-2 75.2 % 37.0-80 complet cytes 013 .0 ed Fr Bld 13:20 Auto LYMPH % 09-16-2 20.5 % 10-50.0 complet 013 ed 13:20 Monocyt 09-16-2 3.1 % 1.7-9.3 complet es Fr 013 ed Bld 13:20 Auto Eosinop 09-16-2 0.6 % 0.1-12. complet hil Fr 013 0 ed Bld 13:20 Auto Basophi 09-16-2 0.6 % 0.1-2.0 complet ls Fr 013 ed Bld 13:20 Auto Granulo 04-10-2 1.2 1.8-7.8 complet cytes # 013 K/mm3 ed Bld 13:20 Auto Lymphoc 16-2 0.3 0.7-4.5 complet ytes Fr 013 K/mm3 ed Bld 13:20 Auto Monocyt 16-2 0.1 0.1-1.0 complet es # 013 K/mm3 ed Bld 13:20 Auto Eosinop 16-2 0.0 0.0-0.4 complet hil # 013 K/mm3 ed Bld 13:20 Auto Basophi 16-2 0.0 0-0.2 complet ls # 013 K/MM3 ed Bld 13:20 Auto Procedures Procedure DOS Code Location Performer Comment PROTHROMB [id number] [facility] COLLECTIO [id number] [facility] N VENOUS 6 [facility] BLOOD INC INC VENIPUNCT URE COMPLEMEN [id number] [facility] T ANTIGEN 6 [facility] COMPONENT PROTHROMB [id number] [facility] UNIVERS IN TIME 6 Y Y HOSPITAL HOSPITAL C-REACTIV 01726 [facility] E PROTEIN 6 Y Y [facility]PITAL FLUORESCE 79216 [facility] UNIVERS NT 6 Y Y NONNFCT [facility] AGT ANTB TITER EA ANTIBODY SEDIMENTA 39415 [facility] TION RATE 6 Y Y RBC [facility] AUTOMATED FLUORESCE 94318 [facility] UN[facility] NT 6 Y Y NONNFCT [facility] AGT ANTB SCREEN EA ANTIBODY URNLS DIP 54270 [facility] UNIVERS 6 Y Y STICK/TAB [facility] LET REAGENT AUTO MICROSCOP Y BLOOD 10620 [facility] UNIVERS COUNT 6 Y Y COMPLETE HOSPITAL HOSPITAL AUTO&AUTO DIFRNTL WBC 25 41171 [facility] HYDROXY 6 Y Y INCLUDES HOSPITAL HOSPITAL FRACTIONS IF PERFORMED COL-CHR/M 00179 [facility] S NONDRUG 6 Y Y ANALYTE [facility]PITAL AYDIN QUAL/PAULO EA SPEC CREATININ 33352 [facility] E OTHER 6 Y Y SOURCE [facility] DXA BONE 72902 RIGOBERTO ARROYO DENSITY 6 MEDICAL STUDY 1/> SERV SITES FOUNDATIO AXIAL N SKEL COMPREHEN 46284 [facility] SIVE 6 Y [facility] PANEL PROTEIN 49915 [facility] TOTAL 6 Y Y XCPT [facility] REFRACTOM ETRY URINE PROTHROMB 65904 [facility] 6 [facility] INC INC COLLECTIO 50145 [facility] B[facility] N VENOUS 6 [facility] BLOOD INC INC VENIPUNCT URE CYTP 41284 [facility] CERVICAL/ 6 Y OF [facility] INTERP PHYSICIAN CYTP C/V 49403 [facility] AUTO THIN 6 Y Y LYR [facility] PREPJ SCR MNL RESCR PHYS IADNA 90259 [facility] NEISSERIA 6 Y Y [facility] GONORRHOE AE AMPLIFIED PROBE TQ SUSCEPTIB 19780 [facility] LTY STDY 6 Y Y ANTIMICRB [facility] IAL MICRO/AGA R DILUTJ SMR PRIM 42074 [facility] SRC 6 Y Y GRAM/GIEM [facility] SA STAIN BCT FUNGI/MARLON L CUL BACT 38936 [facility] XCPT 6 Y Y URINE [facility] BLOOD/STO OL AEROBIC ISOL CUL BACT 76389 [facility] AEROBIC 6 Y Y ADDL [facility] METHS DEFINITIV E EA ISOL IADNA 79662 [facility] CHLAMYDIA 6 Y Y [facility] TRACHOMAT IS AMPLIFIED PROBE TQ IADNA 47560 [facility] HUMAN 6 Y Y [place] [facility] VIRUS HIGH-RISK TYPES COLLECTIO 77623 [facility] N VENOUS 6 [facility] BLOOD INC INC VENIPUNCT URE PROTHROMB 02049 [facility] 6 [facility] INC INC PROTHROMB 92150 [facility] B[facility] 6 [facility] INC INC COLLECTIO 27578 [facility] N VENOUS 6 [facility] BLOOD INC INC VENIPUNCT URE COLLECTIO 53345 [facility] B[facility] N VENOUS 6 [facility] BLOOD INC INC VENIPUNCT URE PROTHROMB 53967 [facility] 6 [facility] INC INC PROTHROMB 15844 [facility] B[facility] 6 [facility] INC COLLECTIO 06282 [facility] N VENOUS 6 [facility] [place] [address] [facility] IRON 6 [facility] INC COLLECTIO 21925 [facility] N [facility]ENOUS 6 [facility] BLOOD INC INC VENIPUNCT URE PROTHROMB 71813 [facility] B[facility] TIME 6 [facility] INC INC COLLECTIO 01920 [facility] UNIVERS N VENOUS 6 Y Y BLOOD [facility] VENIPUNCT URE COMPLEMEN 99037 [facility] T ANTIGEN 6 Y Y [facility] COMPONENT C-REACTIV 63482 [facility] E PROTEIN 6 Y Y [facility] FLUORESCE 62802 [facility] UNIVERS NT 6 Y Y NONNFCT [facility] AGT ANTB TITER EA ANTIBODY SEDIMENTA 34570 [facility] TION RATE 6 Y Y RBC [facility] AUTOMATED FLUORESCE 00553 [facility] NT 6 Y Y NONNFCT [facility] AGT ANTB SCREEN EA ANTIBODY 25 18906 [facility] HYDROXY 6 Y Y INCLUDES HOSPITAL HOSPITAL FRACTIONS IF PERFORMED COL-CHR/M 59925 [facility] S NONDRUG 6 Y Y ANALYTE [facility] AYDIN QUAL/PAULO EA SPEC BLOOD 88277 [facility] UNIVERSIT COUNT 6 Y Y COMPLETE [facility] AUTO&AUTO DIFRNTL WBC URNLS DIP 31184 [facility] UNIVERS 6 Y Y STICK/TAB [facility] LET REAGENT AUTO MICROSCOP Y CREATININ 72472 [facility] UNIVERS E OTHER 6 Y Y SOURCE [facility] COMPREHEN 48261 [facility] SIVE 6 Y Y METABOLIC [facility] PANEL PROTEIN 58862 [facility] TOTAL 6 Y Y XCPT [facility] REFRACTOM ETRY URINE COLLECTIO 34398 [facility] B[facility] N VENOUS 6 [facility] BLOOD INC INC VENIPUNCT URE PROTHROMB 02246 [facility] TIME 6 [facility] INC INC PROTHROMB 84918 [facility] IN TIME 6 [facility] INC INC IAADI 12588 ST[facility] B[facility] INFLUENZA 6 [facility] B VIRUS INC INC IAADI 46766 ST[facility] B[facility]OWS INFFLUENZ 6 [facility] A VIRUS INC INC RADIOLOGI 30715 ST[facility] BURROWS C EXAM 6 [facility] CHEST 2 INC INC VIEWS FRONTAL&L ATERAL BLOOD 95893 STORMY BURROWS COUNT 6 [facility] COMPLETE INC INC AUTO&AUTO DIFRNTL WBC ECG 54889 STORMY WISEMAN JR ROUTINE 6 [facility] W/LEAST P 12 LDS I&R ONLY ECG 05166 STORMY BURROWS ROUTINE 6 [facility] ECG INC INC W/LEAST 12 LDS TRCG ONLY W/O I&R COMPREHEN 45287 [facility]OWS SIVE 6 [facility] METABOLIC INC INC PANEL PROTHROMB 69845 ST[facility]URROWS IN TIME 6 [facility] INC INC COLLECTIO 14391 ST[facility] BUR[facility]OWS N VENOUS 6 [facility] BLOOD INC INC VENIPUNCT URE COLLECTIO 41947 ST[facility] BURROWS N VENOUS 6 [facility] BLOOD INC INC VENIPUNCT URE PROTHROMB 60157 ST[facility]MY BURROWS IN TIME 6 [facility] INC INC PROTHROMB 19503 ST[facility]MY BURROWS IN TIME 5 [facility] INC INC COLLECTIO 62253 ST[facility] BURROWS N VENOUS 5 [facility] BLOOD INC INC VENIPUNCT URE COLLECTIO 34449 ST[facility] BURROWS N VENOUS 5 [facility] BLOOD INC INC VENIPUNCT URE PROTHROMB 73765 [facility] BURROWS IN TIME 5 [facility] INC INC PROTHROMB 78585 ST[facility] BURROWS IN TIME 5 [facility] INC INC COLLECTIO 15180 [facility] B[facility] N VENOUS 5 [facility] BLOOD INC INC VENIPUNCT URE COLLECTIO 72686 STORMYJASON BURROWS N VENOUS 5 [facility] BLOOD INC INC VENIPUNCT URE PROTHROMB 37980 [facility] B[facility] IN TIME 5 [facility] INC INC RADIOLOGI 35445 ST[facility] BURROWS C EXAM 5 [facility] CHEST 2 INC INC VIEWS FRONTAL&L ATERAL CULTURE 44288 [facility] B[facility] BCT 5 [facility] ISOL&PRSM INC INC PTV ID ISOLATE EA URINE CULTURE 81173 STORMYJASON BURROWS BACTERIAL 5 [facility] INC INC QUANTTATI VE COLONY COUNT URINE SUSCEPTIB 04634 ST[facility] B[facility]OWS LTY STDY 5 [facility] ANTIMICRB INC [place] IAL [place] [address] ST[facility] BURROWS INFUSION 5 [facility] THERAPY/P INC INC ROPHYLAXI S /DX 1ST TO 1 HR BLOOD 32978 [facility] COUNT 5 [facility] COMPLETE INC INC AUTO&AUTO DIFRNTL WBC URNLS DIP 56607 [facility] 5 [facility] STICK/TAB INC INC LET REAGENT AUTO MICROSCOP Y COMPREHEN 09651 [facility] SIVE 5 [facility] METABOLIC INC INC PANEL VISUAL 94407 [place] [facility] XM 5 MEDICAL JR BETHANY UNI/BI SERV W/INTERP FOUNDATIO EXTENDED N EXAM COMPREHEN 34089 [facility] 5 Y Y [facility] PANEL PROTEIN 70747 [facility] TOTAL 5 Y Y XCPT [facility] REFRACTOM ETRY URINE CREATININ 24210 [facility] E OTHER 5 Y Y SOURCE [facility] CHROMATOG 33844 [facility] ALYSHA 5 Y Y [facility] COLUMN 1 ANALYTE AYDIN URNLS DIP 99158 [facility] 5 Y Y STICK/TAB [facility] LET REAGENT AUTO MICROSCOP Y BLOOD 64071 [facility] Y Y COMPLETE [facility] AUTO&AUTO DIFRNTL WBC SEDIMENTA 56151 [facility] UN[facility]ERS TION RATE 5 Y Y RBC HOSPITAL HOSPITAL AUTOMATED COLLECTIO 51183 [facility] N [facility]ENOUS 5 Y Y BLOOD [facility] VENIPUNCT URE COMPLEMEN 06402 [facility] T ANTIGEN 5 Y Y EACH [facility]ITAL HOSPITAL COMPONENT C-REACTIV 76248 [facility] E PROTEIN 5 Y Y [facility] DNA 33878 [facility] UNIVERS ANTIBODY 5 Y Y STILLAGUAMISH/DO HOSPITAL HOSPITAL UBLE STRANDED COLLECTIO 98729 [facility] N VENOUS 5 [facility] BLOOD INC INC VENIPUNCT URE PROTHROMB 69641 [facility] B[facility]ROWS IN TIME 5 [facility] INC INC SERVICE G0151 [facility] HOME AGENCY AGENCY HLTH/HOSP ICE EA 15 MIN DIRECT G0154 [facility] SK[facility] 5 HOME [facility] AGENCY AGENCY HH/HOSPIC E EA 15 MIN SERVICE G0151 [facility] 5 HOME HOME [facility] HOME AGENCY AGENCY HLTH/HOSP ICE EA 15 MIN DIRECT G0154 [facility] SKILL 5 HOME [facility] AGENCY AGENCY HH/HOSPIC E EA 15 MIN DIRECT G0154 [facility] SKILL 5 HOME HOME [facility] AGENCY AGENCY HH/HOSPIC E EA 15 MIN DIRECT G0154 [facility] SKILL 5 HOME HOME [facility] AGENCY AGENCY HH/HOSPIC E EA 15 MIN SERVICE G0151 [facility] 5 HOME HOME [facility] HOME AGENCY AGENCY HLTH/HOSP ICE EA 15 MIN O2 CONC 1 E1390 [facility] [place] 5 MEDICAL MEDICAL 85%/>02 EQUIPMENT EQUIPMENT CONC AT [facility] FLW RATE PRTBLE E0431 MURPHY MURPHY GASEOUS 5 MEDICAL MEDICAL O2 SYS EQUIPMENT EQUIPMENT RENT; FLWMTR HUMIDFR&M ASK SERVICE G0151 [facility] 5 HOME HOME [facility] HOME AGENCY AGENCY HLTH/HOSP ICE EA 15 MIN PROTHROMB 47184 [place] IN TIME 5 [place] [facility] P SERVICE G0151 [facility] 5 HOME HOME [facility] HOME AGENCY AGENCY HLTH/HOSP ICE EA 15 MIN DIRECT G0154 [facility] SKILL 5 HOME HOME [facility] AGENCY AGENCY HH/HOSPIC E EA 15 MIN SEDIMENTA 29732 [facility] TION RATE 5 Y Y RBC [facility] AUTOMATED COMPLEMEN 03149 [facility] T ANTIGEN 5 Y Y EACH [facility]PITAL COMPONENT COLLECTIO 55297 [facility] N VENOUS 5 Y Y BLOOD [facility] VENIPUNCT URE SYPHILIS 36024 [facility] TEST 5 Y Y NON-TREPO [facility] NEMAL ANTIBODY QUAL SYPHILIS 70142 [facility] TEST 5 Y Y QUANTITAT [facility] CRISTIAN C-REACTIV 99744 [facility] E PROTEIN 5 Y Y [facility] DNA 43038 [facility] ANTIBODY 5 Y Y STILLAGUAMISH/DO [facility] UBLE STRANDED ANTIBODY 93453 [facility] TREPONEMA 5 Y Y PALLIDUM [facility] BLOOD 02779 [facility] COUNT 5 Y Y COMPLETE [facility] AUTO&AUTO DIFRNTL WBC URNLS DIP 69903 [facility] 5 Y Y STICK/TAB [facility] LET REAGENT AUTO MICROSCOP Y 25 48429 [facility] HYDROXY 5 Y Y INCLUDES HOSPITAL HOSPITAL FRACTIONS IF PERFORMED COMPREHEN 34162 [facility] SIVE 5 Y Y METABOLIC [facility] PANEL SERVICE G0151 [facility] 5 HOME HOME [facility] HOME AGENCY AGENCY HLTH/HOSP ICE EA 15 MIN SERVICE G0151 [facility] 5 HOME HOME [facility] HOME AGENCY AGENCY HLTH/HOSP ICE EA 15 MIN DIRECT G0154 [facility] SKILL 5 HOME HOME [facility] SERVICES AGENCY AGENCY HH/HOSPIC E EA 15 MIN SERVICE G0151 [facility] 5 HOME HOME [facility]ER[facility] HOME AGENCY AGENCY HLTH/HOSP ICE EA 15 MIN SERVICE G0151 [facility] 5 HOME HOME [facility] HOME AGENCY AGENCY HLTH/HOSP ICE EA 15 MIN DIRECT G0154 [facility] SKILL 5 HOME HOME [facility] AGENCY AGENCY HH/HOSPIC E EA 15 MIN O2 CONC 1 E1390 [facility] [place] 5 MEDICAL MEDICAL 85%/>02 EQUIPMENT EQUIPMENT CONC AT PRS FLW RATE PRTBLE E0431 M[facility] MURPHY GASEOUS 5 MEDICAL MEDICAL O2 SYS EQUIPMENT EQUIPMENT RENT; FL[facility]TR HUMIDFR&M ASK SERVICE G0151 [facility] 5 HOME HOME [facility] HOME AGENCY AGENCY HLTH/HOSP ICE EA 15 MIN SERVICE G0151 [facility] 5 HOME HOME [facility] HOME AGENCY AGENCY HLTH/HOSP ICE EA 15 MIN DIRECT G0154 [facility] SKILL 5 HOME HOME [facility] AGENCY AGENCY HH/HOSPIC E EA 15 MIN PROTHROMB 56129 [place] IN TIME 5 [place] [facility] P SERVICE G0151 [facility] 5 HOME HOME [facility] HOME AGENCY AGENCY HLTH/HOSP ICE EA 15 MIN SERVICE G0151 [facility] 5 HOME HOME [facility] HOME AGENCY AGENCY HLTH/HOSP ICE EA 15 MIN DIRECT G0154 [facility] SKILL 5 HOME HOME [facility] AGENCY AGENCY HH/HOSPIC E EA 15 MIN PROTHROMB 52304 RIGOBERTO PAREDES IN TIME 5 MEDICAL ESTEBAN SERV FOUNDATIO N COLLECTIO 90336 [facility] N VENOUS 5 [facility] BLOOD INC INC VENIPUNCT URE BLOOD 24850 [facility] COUNT 5 [facility] COMPLETE INC INC AUTO&AUTO DIFRNTL WBC DIRECT G0154 [facility] SKILL 5 HOME HOME [facility] AGENCY AGENCY HH/HOSPIC E EA 15 MIN SERVICE G0151 [facility] 5 HOME HOME [facility] HOME AGENCY AGENCY HLTH/HOSP ICE EA 15 MIN SERVICE G0151 [facility] 5 HOME HOME [facility] HOME AGENCY AGENCY HLTH/HOSP ICE EA 15 MIN DIRECT G0154 [facility] SKILL 5 HOME HOME [facility] AGENCY AGENCY HH/HOSPIC E EA 15 MIN PROTHROMB 02476 RIGOBERTO PAREDES IN TIME 5 MEDICAL ESTEBAN SERV FOUNDATIO N SERVICE G0151 [facility] 5 HOME HOME [facility] HOME AGENCY AGENCY HLTH/HOSP ICE EA 15 MIN SERVICE G0151 [facility] 5 HOME HOME [facility] HOME AGENCY AGENCY HLTH/HOSP ICE EA 15 MIN O2 CONC 1 E1390 [facility] 5 MEDICAL MEDICAL 85%/>02 EQUIPMENT EQUIPMENT CONC AT [facility] FLW RATE PRTBLE E0431 MURPHY MURPHY GASEOUS 5 MEDICAL MEDICAL O2 SYS EQUIPMENT EQUIPMENT RENT; FLWMTR HUMIDFR&M ASK SERVICE G0151 [facility] 5 HOME HOME [facility] HOME AGENCY AGENCY HLTH/HOSP ICE EA 15 MIN DIRECT G0154 [facility] SKILL 5 HOME HOME [facility] AGENCY AGENCY HH/HOSPIC E EA 15 MIN SERVICE G0151 [facility] 5 HOME HOME [facility] HOME AGENCY AGENCY HLTH/HOSP ICE EA 15 MIN SERVICE G0151 [facility] 5 HOME HOME [facility] HOME AGENCY AGENCY HLTH/HOSP ICE EA 15 MIN SERVICE G0151 [facility] 5 HOME HOME [facility] HOME AGENCY AGENCY HLTH/HOSP ICE EA 15 MIN DIRECT G0154 [facility] SKILL 5 HOME HOME [facility] AGENCY AGENCY HH/HOSPIC E EA 15 MIN COLLECTIO 70949 [facility] N VENOUS 5 [facility] [place] [address] [facility] B[facility] THYROID 5 [facility] STIMULATI INC INC NG HORMONE TSH DIRECT G0154 [facility] SKILL 5 HOME HOME [facility] AGENCY AGENCY HH/HOSPIC E EA 15 MIN SERVICE G0151 [facility] 5 HOME HOME [facility] HOME AGENCY AGENCY HLTH/HOSP ICE EA 15 MIN SERVICE G0151 [facility] 5 HOME HOME [facility] HOME AGENCY AGENCY HLTH/HOSP ICE EA 15 MIN SEDIMENTA 66143 [facility] TI RATE 5 Y Y [facility] AUTOMATED URNLS DIP 18639 [facility] UNIVERS 5 Y Y STICK/TAB HOSPITAL HOSPITAL LET REAGENT AUTO MICROSCOP Y COLLECTIO 12925 [facility]IVERS N VENOUS 5 Y Y BLOOD [facility] VENIPUNCT URE COMPLEMEN 97402 [facility] UNIVERS T ANTIGEN 5 Y Y [facility] COMPONENT ANTIBODY 22739 [facility] TREPONEMA 5 Y [facility] CARD[facility] 83315 [facility] UNIVERS IN 5 Y Y ANTIBODY [facility] EACH IG CLASS DNA 56359 [facility]ERS ANTIBODY 5 Y Y STILLAGUAMISH/DO [facility] UBLE STRANDED C-REACTIV 17285 [facility] E PROTEIN 5 Y Y [facility] SYPHILIS 13686 [facility] TEST 5 [facility] SYPHIL[facility] 24742 [facility] TEST 5 Y Y NON-TREPO [facility] NEMAL ANTIBODY QUAL CLOTTING 29780 [facility]IVERS INHIBITOR 5 Y Y S [facility] ANTITHROM BIN III ACTIVITY BLOOD 39201 [facility] COUNT 5 Y Y COMPLETE [facility] AUTO&AUTO DIFRNTL WBC BETA-2 20228 [facility] MICROGLOB 5 Y Y [facility] CREATININ 41469 [facility]ERS E OTHER 5 Y Y SOURCE [facility] CHROMATOG 43828 [facility]ERS ALYSHA 5 Y Y [facility] COLUMN 1 ANALYTE AYDIN COMPREHEN 36320 [facility] SIVE 5 Y Y METABOLIC [facility] PANEL PROTEIN 99121 [facility] TOTAL 5 Y Y XCPT [facility] REFRACTOM ETRY URINE SERVICE G0151 [facility] 5 HOME HOME [facility] HOME AGENCY AGENCY HLTH/HOSP ICE EA 15 MIN DIRECT G0154 [facility] SKILL 5 HOME HOME [facility] AGENCY AGENCY HH/HOSPIC E EA 15 MIN O2 CONC 1 E1390 [facility] [place] 5 MEDICAL MEDICAL 85%/>02 EQUIPMENT EQUIPMENT CONC AT PRSC FLW RATE PRTBLE E0431 M[facility] MURPHY GASEOUS 5 MEDICAL MEDICAL O2 SYS EQUIPMENT EQUIPMENT RENT; [facility] 49125 [facility] 5 NURSE LESLEY DAY PRACTITIO MANAGEMEN NER GR T 30 MIN/< SBSQ 69965 [place] [address] MEDICAL CARE/DAY SERV 25 FOUNDATIO MINUTES N SBSQ 32104 [place] [address] MEDICAL CARE/DAY SERV 25 FOUNDATIO MINUTES N SBSQ 28573 [facility] 5 NURSE LESLEY CARE/DAY PRACTITIO 25 NER GR MINUTES COMMODE E0163 [facility] 5 MOBILE OR STATIONAR Y W/FIXED ARMS SBSQ 05599 [place] [address] NURSE LESLEY CARE/DAY PRACTITIO 25 NER GR MINUTES SBSQ 12245 [place] [address] MEDICAL CARE/DAY SERV 25 FOUNDATIO MINUTES N SBSQ 50124 [facility] 5 MEDICAL CARE/DAY SERV 25 FOUNDATIO MINUTES N SBSQ 80136 [facility] 5 MEDICAL CARE/DAY SERV 25 FOUNDATIO MINUTES N SBSQ 42015 [facility] 5 MEDICAL CARE/DAY SERV 25 FOUNDATIO MINUTES N SBSQ 54125 [facility] 5 MEDICAL CARE/DAY SERV 25 FOUNDATIO MINUTES N WALKER E0143 [facility] 5 WHEELED ADJUSTABL E/FIXED HEIGHT SBSQ 55728 [facility] 5 NURSE LESLEY CARE/DAY PRACTITIO 25 NER GR MINUTES SBSQ 27979 [facility] 5 NURSE LESLEY CARE/DAY PRACTITIO 25 NER GR MINUTES SBSQ 76739 [facility] 5 NURSE LESLEY CARE/DAY PRACTITIO 25 NER GR MINUTES SBSQ 13856 [facility] 5 NURSE LESLEY CARE/DAY PRACTITIO 25 NER GR MINUTES SBSQ 07337 [facility] 5 NURSE LESLEY CARE/DAY PRACTITIO 25 NER GR MINUTES SWALLOWIN 49599 RIGOBERTO SIERRACJ 5 MEDICAL SCO W/CINERAD SERV IOGRAPY/V FOUNDATIO IDRADIOG N SBSQ 56877 [facility] 5 MEDICAL IHA CARE/DAY SERV 25 FOUNDATIO MINUTES N SBSQ 32304 [facility] 5 MEDICAL IHA CARE/DAY SERV 25 FOUNDATIO MINUTES N SBSQ 03236 [facility] 5 NURSE LESLEY CARE/DAY PRACTITIO 25 NER GR MINUTES SBSQ 80407 [place] [address] NURSE LESLEY CARE/DAY PRACTITIO 25 NER GR MINUTES SBSQ 89751 [facility] 5 MEDICAL CARE/DAY [place] [address] [facility] ABDOMINAL 5 MEDICAL REAL SERV TIME FOUNDATIO W/IMAGE N LIMITED SBSQ 41899 [facility] 5 MEDICAL CARE/DAY SERV 25 FOUNDATIO MINUTES N SBSQ 83391 [facility] 5 MEDICAL CARE/DAY SERV 25 FOUNDATIO MINUTES N INITIAL 55122 [facility] INPATIENT 5 MEDICAL CONSULT SERV NEW/ESTAB FOUNDATIO PT 55 N MIN SBSQ 95762 [facility] 5 MEDICAL CARE/DAY SERV 25 FOUNDATIO MINUTES N SBSQ 21715 [facility] 5 MEDICAL TRACIE CARE/DAY SERV 25 FOUNDATIO MINUTES N SBSQ 56189 [facility] 5 NURSE LESLEY CARE/DAY PRACTITIO 25 NER GR MINUTES SBSQ 68781 [facility] 5 MEDICAL KIRIT CARE/DAY SERV 35 FOUNDATIO MINUTES N INITIAL 57427 [facility] INPATIENT 5 MEDICAL KAN JARVIS CONSULT SERV NEW/ESTAB FOUNDATIO PT 110 N MIN SBSQ 92052 [facility] 5 MEDICAL TRACIE CARE/DAY SERV 25 FOUNDATIO MINUTES N SBSQ 98288 [facility] 5 MEDICAL KIRIT CARE/DAY SERV 35 FOUNDATIO MINUTES N SBSQ 35352 [facility] 5 NURSE LESLEY CARE/DAY PRACTITIO 25 NER GR MINUTES SBSQ 19430 [facility] 5 NURSE LESLEY CARE/DAY PRACTITIO 25 NER GR MINUTES SBSQ 04091 [facility] 5 NURSE LESLEY CARE/DAY PRACTITIO 25 NER GR MINUTES SBSQ 45100 [place] [address] MEDICAL KIRIT CARE/DAY SERV 35 FOUNDATIO MINUTES N SBSQ 80024 [place] [address] MEDICAL KIRIT CARE/DAY SERV 35 FOUNDATIO MINUTES N SBSQ 75021 [place] [address] MEDICAL GIPSON CARE/DAY SERV ADO 25 FOUNDATIO MINUTES N ECG 90002 [facility] 5 MEDICAL NAN ECG SERV W/LEAST FOUNDATIO 12 LDS N I&R ONLY SBSQ 46589 [place] [address] MEDICAL KIRIT CARE/DAY SERV 35 FOUNDATIO MINUTES N INITIAL 08023 [facility]IENT 5 MEDICAL THO CONSULT SERV NEW/ESTAB FOUNDATIO PT 110 N MIN O2 CONC 1 E1390 [facility] [place] 5 MEDICAL MEDICAL 85%/>02 EQUIPMENT EQUIPMENT CONC AT PRS FLW RATE SBSQ 75240 [place] [address] MEDICAL KIRIT CARE/DAY SERV 35 FOUNDATIO MINUTES N ECHO 44911 [facility]-T 5 MEDICAL PAULO 2D SERV W/WOM-MOD FOUNDATIO E COMPL N SPEC&COLR D PRTBLE E0431 M[facility] MURPHY GASEOUS 5 MEDICAL MEDICAL O2 SYS EQUIPMENT EQUIPMENT RENT; FLWMTR HUMIDFR&M ASK SBSQ 73420 [place] [address] MEDICAL KIRIT CARE/DAY SERV 35 FOUNDATIO MINUTES N SBSQ 98405 [place] [address] MEDICAL KIRIT CARE/DAY SERV 35 FOUNDATIO MINUTES N SBSQ 20640 [place] [address] MEDICAL KIRIT CARE/DAY SERV 35 FOUNDATIO MINUTES N RADIOLOGI 03430 [place] [address] MEDICAL ASH EXAMINATI SERV ON CHEST FOUNDATIO SINGLE N VIEW FRONTAL RADIOLOGI 02641 [place] [facility] 5 MEDICAL ASH EXAMINATI SERV ON CHEST FOUNDATIO SINGLE N [place]IEW FRONTAL RADIOLOGI 08105 [place] [facility] 5 MEDICAL ASH EXAMINATI SERV ON CHEST FOUNDATIO SINGLE N VIEW FRONTAL SBSQ 61972 [place] [address] MEDICAL KIRIT CARE/DAY SERV 35 FOUNDATIO MINUTES N RADIOLOGI 24153 [place] [facility] 5 MEDICAL ASH EXAMINATI SERV ON CHEST FOUNDATIO SINGLE N VIEW FRONTAL SBSQ 21435 [place] [address] MEDICAL LEI CARE/DAY SERV 35 FOUNDATIO MINUTES N RADIOLOGI 68034 [place] [facility] 5 MEDICAL AKMILLA EXAMINATI SERV ON CHEST FOUNDATIO SINGLE N [place]IEW FRONTAL RADIOLOGI 04528 [place] [facility] 5 MEDICAL KAMILLA EXAMINATI SERV ON CHEST FOUNDATIO SINGLE N VIEW FRONTAL SBSQ 70106 [place] [address] MEDICAL LEI CARE/DAY SERV 35 FOUNDATIO MINUTES N SBSQ 81821 [place] [address] MEDICAL CARE/DAY SERV 35 FOUNDATIO MINUTES N RADIOLOGI 11040 [place] [facility] 5 MEDICAL EXAMINATI SERV ON CHEST FOUNDATIO SINGLE N [place] FRONTAL [place] 05255 [place] DISANTIS G FUNCJ 5 MEDICAL SILVIANO W/CINERAD SERV IOGRAPY/V FOUNDATIO IDRADIOG N SBSQ 72056 [place] [address] MEDICAL CARE/DAY SERV 35 FOUNDATIO MINUTES N SBSQ 45515 [place] [address] MEDICAL CARE/DAY SERV 35 FOUNDATIO MINUTES N SBSQ 48553 [place] [address] MEDICAL CARE/DAY SERV 35 FOUNDATIO MINUTES N RADIOLOGI 47190 [place] [facility] 5 MEDICAL ASH EXAMINATI SERV ON CHEST FOUNDATIO SINGLE N [place]IEW FRONTAL RADEX 35657 [place] DISANTIS ABDOMEN 1 5 MEDICAL SILVIANO SERV ANTEROPOS FOUNDATIO TERIOR N VIEW RADIOLOGI 11102 [place] [facility] 5 MEDICAL ASH EXAMINATI SERV ON CHEST FOUNDATIO SINGLE N VIEW FRONTAL SBSQ 02998 [place] [address] MEDICAL CARE/DAY SERV 35 FOUNDATIO MINUTES N DUP-SCAN 68529 [place] MINION XTR VEINS 5 MEDICAL SILVIANO COMPLETE SERV FOUNDATIO BILATERAL N STUDY CRITICAL 94710 [place] [facility] 5 MEDICAL GILBERT ILL/INJUR SERV ED FOUNDATIO PATIENT N INIT 30-74 MIN RADIOLOGI 58273 [place] SESAR NATHAN C 5 MEDICAL EXAMINATI SERV ON CHEST FOUNDATIO SINGLE N VIEW FRONTAL RADIOLOGI 62597 [place] SESAR NATHAN C 5 MEDICAL EXAMINATI SERV ON CHEST FOUNDATIO SINGLE N VIEW FRONTAL CRITICAL 44404 [place] [facility] 5 MEDICAL GILBERT ILL/INJUR SERV ED FOUNDATIO PATIENT N INIT 30-74 MIN RADIOLOGI 32537 [place] [facility] 5 MEDICAL EXAMINATI SERV ON CHEST FOUNDATIO SINGLE N VIEW FRONTAL SBSQ 40216 [place] [facility] MEDICAL CARE/DAY SERV 35 FOUNDATIO MINUTES N SBSQ 35808 [place] [facility] 5 MEDICAL CARE/DAY SERV 35 FOUNDATIO MINUTES N RADIOLOGI 18240 [place] [facility] 5 MEDICAL ASH EXAMINATI SERV ON CHEST FOUNDATIO SINGLE N VIEW FRONTAL SBSQ 00878 [place] [facility] 5 MEDICAL CARE/DAY SERV 35 FOUNDATIO MINUTES N RADIOLOGI 88297 [place] [facility] 5 MEDICAL ASH EXAMINATI SERV ON CHEST FOUNDATIO SINGLE N VIEW FRONTAL CT THORAX [address]132 [place] [facility] W/O 5 MEDICAL CONTRAST SERV MATERIAL FOUNDATIO N SBSQ 62770 [place] [facility] 5 MEDICAL CARE/DAY SERV 35 FOUNDATIO MINUTES N SBSQ 11001 [place] [facility] 5 MEDICAL CARE/DAY SERV 35 FOUNDATIO MINUTES N RADIOLOGI 84451 [place] [facility] 5 MEDICAL ASH EXAMINATI SERV ON CHEST FOUNDATIO SINGLE N VIEW FRONTAL CRITICAL 16147 [place] [facility] 5 MEDICAL SILVIANO ILL/INJUR SERV ED FOUNDATIO PATIENT N INIT 30-74 MIN CRITICAL 24014 [place] [facility] 5 MEDICAL SILVIANO ILL/INJUR SERV ED FOUNDATIO PATIENT N INIT 30-74 MIN RADIOLOGI 00255 [place] [facility] 5 MEDICAL EXAMINATI SERV ON CHEST FOUNDATIO SINGLE N VIEW FRONTAL RADIOLOGI 47690 [place] [facility] 5 MEDICAL EXAMINATI SERV ON CHEST FOUNDATIO SINGLE N VIEW FRONTAL SBSQ 33591 [place] [facility] 5 MEDICAL CARE/DAY SERV 35 FOUNDATIO MINUTES N TEMPORARY 311 [facility] Y [facility] CRITICAL 39998 [place] [facility] 5 MEDICAL HANSEL ILL/INJUR SERV IJEOMA ED FOUNDATIO PATIENT N INIT 30-74 MIN TRACHEOST 45452 [place] [facility] 5 MEDICAL MANE PLANNED SERV SEPARATE FOUNDATIO PROCEDURE N CRITICAL 14662 [place] [facility] 5 MEDICAL HANSEL ILL/INJUR SERV IJEOMA ED FOUNDATIO PATIENT N INIT 30-74 MIN CRITICAL 49047 [place] [facility] 5 MEDICAL HANSEL ILL/INJUR SERV IJEOMA ED FOUNDATIO PATIENT N INIT 30-74 MIN O2 CONC 1 [id number] [facility] [place] 5 MEDICAL MEDICAL 85%/>02 EQUIPMENT EQUIPMENT [facility]C AT [facility] FLW RATE PRTBLE [id number] M[facility] MUR[facility] 5 MEDICAL MEDICAL O2 SYS EQUIPMENT EQUIPMENT RENT; FLWIAR HUMIDFR&M ASK RADIOLOGI 98339 [place] [facility] 5 MEDICAL ASH EXAMINATI SERV ON CHEST FOUNDATIO SINGLE N VIEW FRONTAL ECHO 35381 [place] [facility] R-T 5 MEDICAL 2D SERV W/WOM-MOD FOUNDATIO E COMPL N SPEC&COLR D SBSQ 02560 [place] [facility] 5 MEDICAL CARE/DAY SERV [address] THORAX [address]900 [place] [facility] W/O 5 MEDICAL CONTRAST SERV MATERIAL FOUNDATIO N CRITICAL 22834 [place] [facility] 5 MEDICAL Y-BUSTAMANTE ILL/INJUR SERV MANE ED FOUNDATIO PATIENT N INIT 30-74 MIN CRITICAL 92498 [place] [facility] 5 MEDICAL Y-[place]AN[place] ILL/INJUR SERV MANE ED FOUNDATIO PATIENT N INIT 30-74 MIN RADIOLOGI 88394 [place] [facility] 5 MEDICAL EXAMINATI SERV ON CHEST FOUNDATIO SINGLE N VIEW FRONTAL RADIOLOGI 01786 [place] [facility] 5 MEDICAL EXAMINATI SERV ON CHEST FOUNDATIO SINGLE N VIEW FRONT[place] SOFT 53457 [place] [facility] T[facility] 5 MEDICAL NECK W/O SERV CONTRAST FOUNDATIO MATERIAL N CRITICAL 93096 [place] [facility] 5 MEDICAL Y-BUSTAMANTE ILL/INJUR SERV MANE ED FOUNDATIO PATIENT N INIT 30-74 MIN US SOFT 56128 [place] [facility] 5 MEDICAL SUSANNA HEAD & SERV NECK REAL FOUNDATIO TIME N IMGE DOCM CRITICAL 24582 [place] [facility] 5 MEDICAL HANSEL ILL/INJUR SERV IJEOMA ED FOUNDATIO PATIENT N INIT 30-74 MIN RADIOLOGI 99696 [place] [facility] 5 MEDICAL ASH EXAMINATI SERV ON CHEST FOUNDATIO SINGLE N VIEW FRONTAL SBSQ 23899 [facility] 5 MEDICAL CARE/DAY SERV 35 FOUNDATIO MINUTES N SBSQ 74394 [place] [address] MEDICAL FER CARE/DAY SERV 35 FOUNDATIO MINUTES N RADIOLOGI 13153 [place] [facility] 5 MEDICAL EXAMINATI SERV ON CHEST FOUNDATIO SINGLE N [place] FRONT[place] [address] [place] [facility] ROUTINE 5 MEDICAL ECG SERV W/LEAST FOUNDATIO 12 LDS N I&R ONLY CRITICAL 21479 [facility] 5 MEDICAL HANSEL ILL/INJUR SERV IJEOMA ED FOUNDATIO PATIENT N INIT 30-74 MIN INITIAL 73128 [facility] INPATIENT 5 CLINIC TYLER CONSULT NEW/ESTAB PT 40 MIN CRITICAL 78234 [facility] 5 MEDICAL HANSEL ILL/INJUR SERV IJEOMA ED FOUNDATIO PATIENT N INIT 30-74 MIN SBSQ 03531 [place] [address] MEDICAL FER CARE/DAY SERV 35 FOUNDATIO MINUTES N SBSQ 46966 [place] [address] MEDICAL AMR CARE/DAY SERV 35 FOUNDATIO MINUTES N RADIOLOGI 07364 [place] [facility] 5 MEDICAL EXAMINATI SERV ON CHEST FOUNDATIO SINGLE N VIEW FRONTAL CRITICAL 14543 [place] [facility] 5 MEDICAL HANSEL ILL/INJUR SERV IJEOMA ED FOUNDATIO PATIENT N INIT 30-74 MIN DUP-SCAN 75419 [place] [facility] [place] [facility] 5 MEDICAL COMPLETE SERV FOUNDATIO BILATERAL N STUDY CRITICAL 61171 [place] [facility] 5 MEDICAL HANSEL ILL/INJUR SERV IJEOMA ED FOUNDATIO PATIENT N INIT 30-74 MIN RADIOLOGI 93184 [place] [facility] 5 MEDICAL EXAMINATI SERV ON CHEST FOUNDATIO SINGLE N VIEW FRONTAL SBSQ 46271 [place] [facility] 5 MEDICAL AMR CARE/DAY SERV 35 FOUNDATIO MINUTES N RADIOLOGI 22006 [place] [facility] 5 MEDICAL EXAMINATI SERV ON CHEST FOUNDATIO SINGLE N VIEW FRONTAL CRITICAL 53889 [facility] 5 MEDICAL LEI ILL/INJUR SERV ED FOUNDATIO PATIENT N INIT 30-74 MIN CRITICAL 22634 [place] [facility] 5 MEDICAL LEI ILL/INJUR SERV ED FOUNDATIO PATIENT N INIT 30-74 MIN RADIOLOGI 60729 [place] [facility] 5 MEDICAL EXAMINATI SERV ON CHEST FOUNDATIO SINGLE N VIEW FRONTAL SBSQ 64066 [place] [facility] 5 MEDICAL BETHANY CARE/DAY SERV 35 FOUNDATIO MINUTES N SBSQ 38640 [facility] 5 MEDICAL SILVIANO CARE/DAY SERV 35 FOUNDATIO MINUTES N ECG 84316 [place] [facility] 5 MEDICAL ECG SERV W/LEAST FOUNDATIO 12 LDS N I&R ONLY RADIOLOGI 83520 [facility] 5 MEDICAL EXAMINATI SERV ON CHEST FOUNDATIO SINGLE N VIEW FRONTAL ECG [address] [facility] ROUTINE 5 MEDICAL ECG SERV W/LEAST FOUNDATIO 12 LDS N I&R ONLY SBSQ 87155 [place] [facility] 5 MEDICAL CARE/DAY SERV 35 FOUNDATIO MINUTES N SBSQ 51852 [place] [facility] 5 MEDICAL CARE/DAY SERV 35 FOUNDATIO MINUTES N DUP-SCAN 47231 [place] [facility] 5 MEDICAL MEAGAN COMPLETE SERV FOUNDATIO BILATERAL N STUDY CRITICAL 12471 [place] [facility] 5 MEDICAL SILVIANO ILL/INJUR SERV ED FOUNDATIO PATIENT N INIT 30-74 MIN SBSQ 37830 [place] [facility] 5 MEDICAL AMR CARE/DAY SERV 35 FOUNDATIO MINUTES N RADIOLOGI 49720 [place] [facility] 5 MEDICAL ASH EXAMINATI SERV ON CHEST FOUNDATIO SING[place] N [place] FRONTAL INITIAL 61172 [place] [facility] K[facility] INPATIENT 5 MEDICAL CONSULT SERV NEW/ESTAB FOUNDATIO PT 110 N MIN CRITICAL 84217 [place] [facility] 5 MEDICAL SILVIANO ILL/INJUR SERV ED FOUNDATIO PATIENT N INIT 30-74 MIN CRITICAL 36845 [place] [facility] 5 MEDICAL ILL/INJUR SERV ED FOUNDATIO PATIENT N INIT 30-74 MIN RADEX 85566 [place] [facility]OM[facility] 1 5 MEDICAL SERV ANTEROPOS FOUNDATIO TERIOR N VIEW RADIOLOGI 08631 [place] [facility] 5 MEDICAL EXAMINATI SERV ON CHEST FOUNDATIO SINGLE N VIEW FRONTAL SBSQ 78258 [place] [facility] 5 MEDICAL OS DIETER CARE/DAY SERV 35 FOUNDATIO MINUTES N SBSQ 52273 [facility] 5 MEDICAL OS DIETER CARE/DAY SERV 35 FOUNDATIO MINUTES N RADIOLOGI 63000 [place] [facility] 5 MEDICAL EXAMINATI SERV ON CHEST FOUNDATIO SINGLE N VIEW FRONTAL CRITICAL 90289 [place] [facility] 5 MEDICAL ILL/INJUR SERV ED FOUNDATIO PATIENT N INIT 30-74 MIN CRITICAL 51549 [place] [facility] 5 MEDICAL SILVIANO ILL/INJUR SERV ED FOUNDATIO PATIENT N INIT 30-74 MIN RADIOLOGI 12527 [place] [facility] 5 MEDICAL ASH EXAMINATI SERV ON CHEST FOUNDATIO SINGLE N VIEW FRONTAL SBSQ 80506 [place] [facility] 5 MEDICAL AMR CARE/DAY SERV 35 FOUNDATIO MINUTES N SBSQ 76827 [place] [facility] 5 MEDICAL AMR CARE/DAY SERV 35 FOUNDATIO MINUTES N RADIOLOGI 03213 [place] [facility] 5 MEDICAL ASH EXAMINATI SERV ON CHEST FOUNDATIO SINGLE N VIEW FRONTAL CRITICAL 55164 [place] [facility] 5 MEDICAL SILVIANO ILL/INJUR SERV ED FOUNDATIO PATIENT N INIT 30-74 MIN CRITICAL 91303 [place] [facility] 5 MEDICAL SILVIANO ILL/INJUR SERV ED FOUNDATIO PATIENT N INIT 30-74 MIN BLOOD 54723 [facility] 5 Y OF [facility] PHYS W/WRIT REPORT RADIOLOGI 32036 [place] [facility] 5 MEDICAL EXAMINATI SERV ON [place] [address] [place] [facility] RETROPER[facility] 5 MEDICAL TONEAL SERV REAL TIME FOUNDATIO W/IMAGE N COMPLETE SBSQ 79320 [place] [facility] 5 MEDICAL AMR CARE/DAY SERV 35 FOUNDATIO MINUTES N ARTL 57949 [place] VICTOR M KET CATHJ/CAN 5 MEDICAL NULJ SERV MNTR/HEATON FOUNDATIO SFUSION N SPX PRQ INSJ 10348 [place] [facility] NON-TUNNE 5 MEDICAL SILVIANO LED SERV CENTRAL FOUNDATIO VENOUS N CATH AGE 3 YR/> CULTURE 25519 [facility] BACTERIAL 5 [facility] BLOOD INC INC AEROBIC W/ID ISOLATES CYTP 06798 [facility] SILVIANO SLCTV 5 Y OF CELL [facility] INTER[facility] XCPT C/V COLLECTIO 01295 [facility] N VENOUS 5 [facility] BLOOD INC INC VENIPUNCT URE RADIOLOGI 84949 [facility] C 5 [facility] EXAMINATI INC INC ON CHEST SINGLE VIEW FRONTAL INITIAL [address] [place] [facility] INPATIENT 5 MEDICAL AMR CONSULT SERV NEW/ESTAB FOUNDATIO PT 110 N MIN CUL BACT 79766 [facility] AEROBIC 5 [facility] ADDL INC INC METHS DEFINITIV E EA ISOL BRNCHSC 37963 [place] [facility] W/BRNCL 5 MEDICAL SILVIANO ALVEOLAR SERV LAVAGE FOUNDATIO N SUSCEPTIB 81049 [facility] LTY STDY 5 [facility] ANTIMICRB INC INC IAL MICRO/AGA R DILUTJ THERAPEUT 11010 [facility] IC 5 [facility] INJECTION INC INC IV PUSH EACH NEW DRUG CREATINE 35789 [facility] KINASE 5 [facility] TOTAL INC INC ECG 73406 [facility] ROUTINE 5 [facility] ECG INC INC W/LEAST 12 LDS TRCG ONLY W/O I&R ECG 01543 [facility] ROUTINE [facility] W/LEAST P 12 LDS I&R ONLY ECHO 68821 [facility] MEDICAL 2D SERV W/WOM-MOD FOUNDATIO E COMPL N SPEC&COLR D PRESSURIZ 41255 [facility] ED/NONPRE 5 [facility] SSURIZED [place] [address] [facility] INFUSION 5 [facility] THERAPY/P INC INC ROPHYLAXI S /DX 1ST [place] 1 [place] [address] [facility] TROPONIN 5 [facility] QUANTITAT INC INC CRISTIAN BLOOD 47495 [facility] COUNT 5 [facility] COMPLETE INC INC AUTO&AUTO DIFRNTL WBC BLOOD 83843 [facility] ESAU SMEAR 5 Y OF JARVIS PERIPHERA [facility] PHYS W/WRIT REPORT DUP-SCAN 68276 [place] S[facility] XTR [facility] 5 MEDICAL EHA COMPLETE SERV FOUNDATIO BILATERAL N STUDY CONT 9672 [facility] INVASIVE 5 Y Y [facility] 96 CONSECUTI VE HRS/MORE CENTRAL 3897 [facility] VENOUS 5 Y Y CATHETER [facility] PLACEMENT WITH GUIDANCE ARTERIAL 3891 [facility] CATHETER 5 Y Y [facility] INSERTION 9604 [facility] 5 Y Y [facility] [place] [address] [facility] INFUSION 5 [facility] THER INC INC PROPH ADDL SEQUENTIA L TO 1 HR CRITICAL 87371 [facility] 5 MEDICAL SILVIANO ILL/INJUR SERV ED FOUNDATIO PATIENT N INIT 30-74 MIN COMPREHEN 27799 [facility] SIVE 5 [facility] METABOLIC INC INC PANEL CREATINE 08124 [facility] KINASE MB 5 [facility] FRACTION INC INC ONLY BLOOD 41904 [facility] COUNT 5 [facility] COMPLETE INC INC AUTO&AUTO DIFRNTL WBC COLLECTIO 18139 [facility] N VENOUS 5 [facility] BLOOD INC INC VENIPUNCT URE COLLECTIO 24349 [facility] N VENOUS 5 [facility] BLOOD INC INC VENIPUNCT URE BLOOD 57711 [facility] COUNT 5 [facility] COMPLETE INC INC AUTO&AUTO DIFRNTL WBC PRTBLE E0431 MURPHY MURPHY GASEOUS 5 MEDICAL MEDICAL O2 SYS EQUIPMENT EQUIPMENT RENT; FLWMTR HUMIDFR&M ASK O2 CONC 1 E1390 MURPHY MURPHY [place] 5 MEDICAL MEDICAL 85%/>02 EQUIPMENT EQUIPMENT CONC AT [facility] FLW RATE TRANSFUSI 89428 [facility] ON 5 [facility] BLOOD/BLO INC INC OD COMPONENT S BLOOD 25774 [facility] COUNT 5 [facility] HEMOGLOBI INC INC N RED BLOOD P9016 [facility] CELLS 5 [facility] LEUKOCYTE INC INC S REDUCED EACH UNIT BLOOD 52888 [facility] COUNT 5 [facility] HEMATOCRI INC INC T BLOOD 23356 [facility] COUNT 5 [facility] COMPLETE INC INC AUTO&AUTO DIFRNTL WBC COLLECTIO 40911 [facility] N VENOUS 5 [facility] BLOOD INC INC VENIPUNCT URE ANTIBODY 03064 [facility] SCREEN 5 [facility] RBC EACH INC INC SERUM TECHNIQUE BLOOD 36624 [facility] TYPING 5 [facility] SEROLOGIC INC INC ABO ANTIBODY 28382 [facility] ID RBC 5 [facility] ANTIBODIE INC INC S EA PANEL EA SERUM TQ COMPATIBI 52649 [facility] B[facility] LITY EACH 5 [facility] UNIT INC INC ANTIGLOBU HARINI COMPATIBI 16026 [facility] LITY EACH 5 [facility] UNIT INC INC IMMEDIATE SPIN TECHNIQUE BLOOD 57651 [facility] TYPING 5 [facility] SEROLOGIC INC INC RH (D) COLLECTIO 18774 [facility]JASON [facility] N VENOUS 5 [facility] BLOOD INC INC VENIPUNCT URE BLOOD 29222 [facility] [place] COUNT 5 [facility] COMPLETE INC INC AUTO&AUTO DIFRNTL WBC BLOOD 97217 [facility] COUNT 5 [facility] HEMOGLOBI INC INC N RED BLOOD P9016 [facility] [place] CELLS 5 [facility] LEUKOCYTE INC INC S REDUCED EACH UNIT TRANSFUSI 98292 [facility] ON 5 [facility] BLOOD/BLO INC INC OD COMPONENT S BLOOD 62565 [facility] COUNT 5 [facility] HEMATOCRI INC INC T COMPREHEN 02271 [facility] SIVE 5 [facility] METABOLIC INC INC PANEL ANTIBODY 07768 [facility] ID RBC 5 [facility] ANTIBODIE INC INC S EA PANEL EA SERUM TQ BLOOD 40468 [facility] TYPING 5 [facility] SEROLOGIC INC INC ABO ANTIBODY 06536 [facility] SCREEN 5 [facility] RBC EACH INC INC SERUM TECHNIQUE BLOOD 14371 [facility] TYPING 5 [facility] SEROLOGIC INC INC RH (D) COMPATIBI 62492 [facility] LITY EACH 5 [facility] UNIT INC INC IMMEDIATE SPIN TECHNIQUE COMPATIBI 49537 [facility] LITY EACH 5 [facility] UNIT INC INC ANTIGLOBU HARINI BLOOD 65562 [facility] COUNT 5 [facility] COMPLETE INC INC AUTO&AUTO DIFRNTL WBC BLOOD 29373 [facility] COUNT 4 [facility] COMPLETE INC INC AUTO&AUTO DIFRNTL WBC COMPREHEN 27350 [facility] B[facility] SIVE 4 [facility] METABOLIC INC INC PANEL [facility]OSP[facility] 91801 [place] [facility] MANAGEMEN PSC T > 30 MIN PRTBLE E0431 MURPHY MURPHY GASEOUS 4 MEDICAL MEDICAL O2 SYS EQUIPMENT EQUIPMENT RENT; FLWMTR HUMIDFR&M ASK O2 CONC 1 E1390 M[place]PHY [place] 4 MEDICAL MEDICAL 85%/>02 EQUIPMENT EQUIPMENT CONC AT [facility] FLW RATE SBSQ [address] JENNA CARE/DAY CLINIC 25 PSC MINUTES SBSQ [address] [place] CARE/DAY CLINIC 25 PSC MINUTES RADIOLOGI 59235 [facility] [place] C EXAM 4 RADIOLOGY CAR CHEST 2 VIEWS FRONTAL&L ATERAL SBSQ [address] [place] CARE/DAY CLINIC 25 PSC MINUTES SBSQ [address] CAIN CARE/DAY CLINIC 25 PSC MINUTES SBSQ [address] [place] CARE/DAY CLINIC 35 PSC MINUTES SBSQ [address] [place] CARE/DAY CLINIC 25 PSC MINUTES SBSQ [address] MAT CARE/DAY CLINIC 15 PSC MINUTES SBSQ [address] [place] CARE/DAY CLINIC 25 PSC MINUTES SBSQ [address] CARE/DAY MEDICAL 25 G MINUTES SBSQ [address] MAT CARE/DAY CLINIC 15 PSC MINUTES SBSQ [address] JEN[place] CARE/DAY CLINIC 35 PSC MINUTES RADIOLOGI 61617 [facility] [place] PRAJAPATI C EXAM 4 RADIOLOGY BERHANE CHEST 2 VIEWS FRONTAL&L ATERAL ECHO 90356 [facility] 4 [facility] 2D CLINIC W/WOM-MOD PSC E COMPL SPEC&COLR D SBSQ [address] [place] CARE/DAY CLINIC 25 PSC MINUTES SBSQ [address] [place] CARE/DAY CLINIC 25 PSC MINUTES SBSQ 90810 [facility] 4 MIDDLE BASS JENNA CARE/DAY CLINIC 25 PSC MINUTES SBSQ 92158 [facility] 4 MIDDLE BASS JENNA CARE/DAY CLINIC 25 PSC MINUTES SBSQ 29210 [facility] 4 [facility] CARE/DAY MEDICAL 35 G MINUTES SBSQ 59662 [facility] 4 NE HEALTH GRA CARE/DAY MEDICAL 35 G MINUTES SBSQ 07926 [facility] 4 MIDDLE BASS JENNA CARE/DAY CLINIC 25 PSC MINUTES RADIOLOGI 53294 [facility] [place] WE[place] C 4 RADIOLOGY LD IV ALL EXAMINATI ON CHEST SINGLE VIEW FRONTAL ECG 71912 LAURIE SHEEHAN ROUTINE 4 BAR ECG W/LEAST 12 LDS I&R ONLY SBSQ 42266 [facility] 4 NE HEALTH GRA CARE/DAY MEDICAL 35 G MINUTES SBSQ [address] JEN[place] CARE/DAY CLINIC 25 PSC MINUTES RADIOLOGI 52349 [facility] [place] TANVIR C 4 RADIOLOGY MAGGIE EXAMINATI [place] [address] [facility] [place] KOSTELIC ANGIOGRAP 4 RADIOLOGY ESTEBAN HY CHEST W/CONTRAS T/NONCONT RAST SBSQ [address] JENNA CARE/DAY CLINIC 25 PSC MINUTES SBSQ 58186 [facility] 4 NE HEALTH GRA CARE/DAY MEDICAL 25 G MINUTES SBSQ 71818 [facility] 4 MIDDLE BASS JENNA CARE/DAY CLINIC 35 PSC MINUTES RADIOLOGI 51826 [facility] [place] C EXAM 4 RADIOLOGY LD IV ALL CHEST 2 VIEWS FRONTAL&L ATERAL SBSQ 66487 [facility] 4 MIDDLE BASS CARE/DAY CLINIC 25 PSC MINUTES SBSQ [address] CARE/DAY CLINIC 25 PSC MINUTES SBSQ [address] CARE/DAY CLINIC 25 PSC MINUTES SBSQ [address] CARE/DAY CLINIC 25 PSC MINUTES DUP-SCAN 45691 [facility] THO XTR VEINS 4 [facility] MEDICAL UNILATERA G L/LIMITED STUDY SBSQ 60097 [facility] 4 MIDDLE BASS CARE/DAY CLINIC 15 PSC MINUTES RADIOLOGI 13430 [facility] [place] KOSTELIC C EXAM 4 RADIOLOGY ESTEBAN CHEST 2 VIEWS FRONTAL&L ATERAL SBSQ [address] CARE/DAY CLINIC 25 PSC MINUTES SBSQ [address] CARE/DAY CLINIC 25 PSC MINUTES SBSQ 47066 [facility] 4 [facility] CARE/DAY MEDICAL 35 G MINUTES SBSQ [address] CARE/DAY CLINIC 25 PSC MINUTES SBSQ [address] CARE/DAY CARE 25 MINUTES SBSQ [address] CARE/DAY CLINIC 35 PSC MINUTES RADIOLOGI 42834 [facility] [place] EXAM 4 RADIOLOGY LD IV ALL CHEST 2 VIEWS FRONTAL&L ATERAL SBSQ [address] CARE/DAY CLINIC 25 PSC MINUTES SBSQ [address] CARE/DAY CLINIC 25 PSC MINUTES SBSQ [address] CARE/DAY CLINIC 15 PSC MINUTES SBSQ [address] CARE/DAY CLINIC 15 PSC MINUTES SBSQ 78547 [facility] 4 [facility] CARE/DAY MEDICAL 35 G MINUTES RADIOLOGI 36203 [facility] [place] C 4 RADIOLOGY CAR EXAMINATI ON CHEST SINGLE VIEW FRONTAL SBSQ [address] CARE/DAY CLINIC 25 PSC MINUTES SBSQ [address] CARE/DAY CLINIC 25 PSC MINUTES INITIAL [address] MAT CONSULT CLINIC NEW/ESTAB PSC PT 40 MIN SBSQ 62776 [facility] 4 MIDDLE BASS RAC CARE/DAY CLINIC 25 PSC MINUTES RADIOLOGI 80116 [facility] [place] TANVIR C 4 RADIOLOGY MAGGIE EXAMINATI ON CHEST SINGLE VIEW FRONTAL ECHO 66000 [facility] MOLINA T[facility]RC R-T 4 MIDDLE BASS CAIN 2D CLINIC W/WOM-MOD PSC E COMPL SPEC&COLR D INITIAL 24379 [facility] 4 MIDDLE BASS CARE/DAY CLINIC 30 PSC MINUTES SBSQ [address] [facility] 4 [place] KIDNEY CARE/DAY CARE 35 MINUTES SBSQ 74198 [facility] 4 MIDDLE BASS JENNA CARE/[place] 25 [place] [address] [facility] [place] RETROPERI 4 RADIOLOGY CAR TONEAL REAL TIME W/IMAGE LIMITED INITIAL 28708 [facility] 4 UT KIDNEY KAMILLA CARE/DAY CARE 50 MINUTES INITIAL 60941 [facility] INPATIENT 4 [facility] CONSULT MEDICAL NEW/ESTAB G PT [address] THORAX 23760 [facility] [place] W/O 4 RADIOLOGY CAR CONTRAST MATERIAL DUP-SCAN [address] [facility] XTR VEINS [address] COMPLETE CLINIC PSC BILATERAL STUDY AMB [id number] [facility] SERVICE 4 AMBULANCE AMBULANCE ALS SERVICE SERVICE EMERGENCY TRANSPORT LEVEL 1 GROUND A0425 [facility] MILEAGE 4 AMBULANCE AMBULANCE PER SERVICE SERVICE STATUTE MILE INITIAL 32661 [facility] 4 MIDDLE BASS JENNA CARE/DAY CLINIC 70 PSC MINUTES RADIOLOGI 50413 [facility] [place] ANGELICAERALLIE C 4 RADIOLOGY LD IV ALL EXAMINATI ON CHEST SINGLE VIEW FRONTAL ECG 17286 [facility] WISEMAN JR ROUTINE 4 [facility] W/LEAST P 12 LDS I&R ONLY RADIOLOGI 05697 [facility] JA[facility] C 4 MEDICAL LIZZIE EXAMINATI IMAGING ON CHEST ASS SINGLE VIEW FRONTAL ECHO 07431 [facility] R-T 4 MEDICAL PAULO 2D SERV W/WOM-MOD FOUNDATIO E COMPL N SPEC&COLR D HOSP[facility] 68393 [facility] 4 [facility] DAY INTERNAL MANAGEMEN MED T 30 MIN/< SBSQ 95440 [facility] 4 JAROSO CARE/DAY INTERNAL 25 MED MINUTES INITIAL 31942 [facility] 4 [facility] CARE/DAY INTERNAL 50 MED MINUTES INSJ PRPH 80509 [facility] REENA TOD CTR VAD 4 PHYSICIAN W/SUBQ S GROUP PORT AGE 5 YR/> TRANSFUSI 9904 [facility] ON OF 4 MEM H[facility] PACKED INC INC CELLS VENOUS 3893 [facility] CATHETERI 4 [facility] HOSP ZATION INC INC NOT ELSEWHERE CLASSIFIE D URNLS DIP 81005 [facility] JYOTS[facility] 4 JAROSO GENNA STICK/TAB INTERNAL LET RGNT MED NON-AUTO W/O [facility] [id number] [facility] OBSERVATI 4 [facility]OS[facility] ON INC INC SERVICE PER HOUR BLOOD 66066 [facility] COUNT 4 [facility] HOSP HEMATOCRI INC INC T UNCLASSIF J3490 [facility] B[facility] IED DRUGS 4 [facility]OS[facility] INC INC OBSERVATI 26143 [facility] ON CARE 4 [facility] DISCHARGE INTERNAL MED MANAGEMEN T RED BLOOD P9016 [facility] CELLS 4 [facility] HOSP LEUKOCYTE INC INC S REDUCED EACH UNIT BLOOD 29175 [facility] OCCULT 4 [facility] HOSP PEROXIDAS INC INC E ACTV QUAL FECES 1-3 SPEC BLOOD 30621 [facility] COUNT 4 [facility] HEMOGLOBI INC INC N BLOOD 90303 [facility] COUNT 4 [facility] COMPLETE INC INC AUTO&AUTO DIFRNTL WBC PROTHROMB 11542 [facility] IN TIME 4 [facility] INC INC ANTIBODY 47718 [facility] B[facility] ID RBC 4 [facility] ANTIBODIE INC INC S EA PANEL EA SERUM TQ ANTIBODY 77239 [facility] SCREEN 4 [facility] RBC EACH INC INC SERUM TECHNIQUE BLOOD 45582 [facility] TYPING 4 [facility] SEROLOGIC INC INC ABO URNLS DIP 68880 ST[facility]MYJASON [facility]UR[facility]OWS 4 [facility] STICK/TAB INC INC LET REAGENT AUTO MICROSCOP Y INITIAL 54050 [facility] OBSERVATI 4 [facility]/DAY MED 30 MINUTES COMPATIBI 46793 [facility] LITY EACH 4 [facility] UNIT INC INC ANTIGLOBU HARINI COMPATIBI 91001 [facility] LITY EACH 4 [facility] UN[facility] INC INC IMMEDIATE SPIN TECHNIQUE BLOOD 43445 [facility] TYPING 4 [facility] SEROLOGIC INC INC RH (D) UNCLASSIF J3490 [facility] IED DRUGS 4 [facility] INC INC HOSPITAL [id number] [facility] OBSERVATI 4 [facility] ON INC INC SERVICE PER HOUR COMPREHEN 96922 [facility] SIVE 4 [facility] METABOLIC INC INC PANEL PROTHROMB 85822 [facility] IN TIME 4 [facility] INC INC PROTHROMB 91156 [facility] IN TIME 4 [facility] INC INC PROTHROMB 69553 [facility] IN TIME 4 [facility] INC INC TRANSFUSI 68975 [facility] ON 4 [facility] BLOOD/BLO INC INC OD COMPONENT S BLOOD 86328 [facility] COUNT 4 [facility] HEMOGLOBI INC INC N RED BLOOD P9016 [facility] CELLS 4 [facility] LEUKOCYTE INC INC S REDUCED EACH UNIT BLOOD 82765 [facility] COUNT 4 [facility] HEMATOCRI INC INC T UNCLASSIF J3490 [facility] B[facility] IED DRUGS 4 [facility] INC INC BASIC 01273 [facility] METABOLIC 4 [facility] PANEL [facility] CALCIUM TOTAL NATRIURET 45905 [facility] IC 4 [facility] PEPTIDE [facility]OS[facility] BLOOD 75406 [facility] COUNT 4 [facility]ATIONAL COMPLETE HOSP HOSP AUTOMATED PROTHROMB 90266 [facility] IN TIME 4 [facility] HOSP PROTHROMB 44037 [facility] IN TIME 4 [facility] HOSP COLLECTIO 40497 [facility] N VENOUS 4 [facility] BLOOD HOSP HOSP VENIPUNCT URE BLOOD 06281 [facility] COUNT 4 [facility] COMPLETE HOSP HOSP AUTO&AUTO DIFRNTL WBC PROTHROMB 95277 [facility] IN TIME 4 [facility] INC INC SBSQ 38033 [facility] 4 MEDICINE CARE/DAY SERVICES, 25 MINUTES SBSQ 71962 [facility] 4 MEDICINE CARE/DAY SERVICES, 35 MINUTES SBSQ 07189 [facility] 4 MEDICINE DEN CARE/DAY SERVICES, 35 MINUTES SBSQ [phone] [place] [address] MEDICINE DEN CARE/DAY SERVICES, [address]Q [phone] [place] [address] 4 PULMONARY SHE CARE/DAY & 25 CRITICAL MINUTES SBSQ [phone] [place] [address] ARV CARE/DAY ONCOLOGY 15 A MINUTES RADIOLOGI 68929 [facility] 4 RADIOLOGY [facility] ON CHEST [place] FRONTAL SBSQ [phone] [place] [address] 4 PULMONARY S KIRIT CARE/DAY & 25 CRITICAL MINUTES SBSQ [phone] [place] [address] 4 PULMONARY S KIRIT CARE/DAY & 25 CRITICAL MINUTES SBSQ [phone] [place] [address] AN ARV CARE/DAY ONCOLOGY 15 A MINUTES RADIOLOGI 09843 [facility] ADA C 4 [facility]IOLOGY EX[facility]INATI [facility] ON CHEST SINGLE VIEW FRONTAL SBSQ [id number] [place] [address] ARV CARE/DAY ONCOLOGY 25 A MINUTES SBSQ [address] [place] [address] 4 PULMONARY MAT CARE/DAY & 35 CRITICAL MINUTES SBSQ [address] [place] [address] 4 PULMONARY MAT CARE/DAY & 35 CRITICAL MINUTES SBSQ 88374 [facility] 4 PULMONARY MAT CARE/DAY & 35 CRITICAL MINUTES CYTP 40295 [facility] SLCTV 4 GREYSON & ER JR SANDEEP CELL DUBILIER ENHANCEME NT INTERPJ XCP[place] C/[place] [address] [facility] SURG 4 GREYSON & ER JR SANDEEP PATHOLOGY DUBILIER GROSS&ASH ROSCOPIC EXAM RADIOLOGI 04050 [facility] P[facility] C 4 RADIOLOGY WARD EXAMINATI ASSOC ON CHEST SINGLE VIEW FRONTAL SBSQ 21172 [facility] 4 [facility] ARV CARE/DAY ONCOLOGY 15 A MINUTES CONTROL 2101 [facility] OF 4 [facility]OM[facility]ATIONAL [facility] HOSP BY ANTERIOR NASAL PACKING CLOSED 3324 [facility] BIOPSY OF 4 DENOMINATIONAL DENOMINATIONAL BRONCHUS HOSP HOSP INITIAL 63826 [facility] INPATIENT 4 SURGICAL THO CONSULT ASSOCIATE NEW/ESTAB S PT 80 MIN RADIOLOGI 90050 [facility] BLACK MAR C 4 RADIOLOGY EXAMINATI ASSOC ON CHEST SINGLE VIEW FRONTAL SBSQ 88155 [facility] 4 [facility] ARV CARE/DAY ONCOLOGY 35 A MINUTES SBSQ 55193 [facility] 4 JAM CARE/DAY CARDIOLOG 25 Y AT CENT MINUTES RADIOLOGI 92007 [facility] PELAEZ C 4 RADIOLOGY WARD EXAMINATI ASSOC ON CHEST SINGLE VIEW FRONTAL SBSQ 01009 [facility] 4 PULMONARY MAT CARE/DAY & 35 CRITICAL MINUTES INITIAL 00229 [facility] INPATIENT 4 IV HEN CONSULT CARDIOLOG NEW/ESTAB Y AT CENT PT 40 MIN RADIOLOGI 66147 [facility] C 4 RADIOLOGY WARD EXAMINATI ASSOC ON CHEST SINGLE VIEW FRONTAL DUP-SCAN 09683 [facility] XTR VEINS 4 NINOSKA CARDIOLOG UNILATERA Y AT CENT L/LIMITED STUDY SBSQ 33559 [facility] 4 PULMONARY EIN DON CARE/DAY & 25 CRITICAL MINUTES RADIOLOGI 93936 [facility] PELAEZ C 4 RADIOLOGY WARD EXAMINATI ASSOC ON CHEST SINGLE VIEW FRONTAL SBSQ 20419 [facility] 4 PULMONARY EIN DON CARE/DAY & 35 CRITICAL MINUTES IAADI 57352 [facility] INFLUENZA 4 [facility] B VIRUS INC INC IAADI 82411 [facility] INFFLUENZ 4 [facility] A A VIRUS INC INC CULTURE 18762 [facility] B[facility] BACTERIAL 4 [facility] BLOOD INC INC AEROBIC W/ID ISOLATES GROUND A[address] [facility] MILEAGE 4 AMBULANCE AMBULANCE PER SERVICE SERVICE STATUTE MILE ROTARY A0436 AIR AIR WING AIR 4 METHODS [facility] PER STATUTE MILE ECHO 87722 [facility] TTHRC R-T 4 JAM 2D CARDIOLOG W/WOM-MOD Y AT CENT E COMPL SPEC&[place] [address] [facility] INFUSION 4 [facility] THERAPY/P INC INC ROPHYLAXI S /DX 1ST TO 1 HR BLOOD 16563 [facility] COUNT 4 [facility] COMPLETE INC INC AUTO&[place] [address] [facility] B[facility] TROPONIN 4 [facility] QUANTITAT INC INC CRISTIAN NATRIURET 11418 [facility] B[facility] IC 4 [facility] PEPTIDE INC INC BLOOD 60025 [facility] OCCULT 4 [facility] PEROXIDAS INC INC E ACTV QUAL FECES 1-3 SPEC BLOOD 40318 [facility] GASES ANY 4 [facility] INC INC COMBINATI ON PH PCO2 PO2 CO2 HCO3 RADIOLOGI 97765 [place] [facility] 4 MEDICAL LIZZIE EXAMINATI IMAGING ON CHEST ASS SINGLE VIEW FRONTAL AMB A0431 AIR AIR SERVICE 4 METHODS METHODS CONVNTION [facility] SRVC TRANSPORT [address] THERAPEUT 56633 [facility] IC 4 [facility] INJECTION INC INC IV PUSH EACH NEW DRUG CREATINE 74248 [facility] B[facility] KINASE 4 [facility] TOTAL INC INC ECG 98928 [facility] ROUTINE 4 [facility] ECG INC INC W/LEAST 12 LDS TRCG ONLY W/O I&R CRITICAL 31996 [facility] CARE 4 [facility] ILL/INJUR INC INC ED PATIENT INIT 30-74 MIN INJECTION J0456 [facility] AZITHROMY INC INC KIANNA 500 MG CREATINE 74334 [facility] KINASE MB 4 [facility] FRACTION INC INC ONLY INSERTION 9604 [facility] OF 4 DENOMINATIONAL DENOMINATIONAL ENDOTRACH HOSP HOSP EAL TUBE VENOUS 3893 [facility] CATHETERI 4 DENOMINATIONAL DENOMINATIONAL ZATION HOSP HOSP NOT ELSEWHERE CLASSIFIE D CONT 9671 [facility] INVASIVE 4 DENOMINATIONAL DENOMINATIONAL [facility] HOSP < 96 CONSECUTI VE HOURS AMB A0427 [facility] SERVICE 4 AMBULANCE AMBULANCE ALS SERVICE SERVICE EMERGENCY [place]ORT L[place] 1 [place] [address] [facility] INFUSION 4 [facility] THER INC INC PROPH ADDL SEQUENTIA L TO 1 HR COMPREHEN 26271 [facility] B[facility] SIVE 4 [facility] METABOLIC INC INC PANEL COMPREHEN 25750 [facility] SIVE 4 [facility] METABOLIC INC INC PANEL CREATINE 32578 [facility] B[facility] KINASE MB 4 [facility] FRACTION INC INC ONLY CREATINE 67323 [facility] B[facility] KINASE 4 [facility] [place] [address] [facility] B[facility] TROPONIN 4 [facility] QUANTITAT INC INC CRISTIAN NATRIURET 62054 [facility] IC 4 [facility] PEPTIDE INC INC BLOOD 38341 [facility] COUNT 4 [facility] COMPLETE INC INC AUTO&AUTO DIFRNTL WBC RADIOLOGI 75281 [facility] B[facility] C EXAM 4 [facility] CHEST 2 INC INC VIEWS FRONTAL&L [facility] 62033 [facility] 4 PHYSICIAN ASH DAY S GROUP MANAGEMEN T 30 MIN/< SBSQ 39624 [facility] 4 PHYSICIAN ASH CARE/DAY S GROUP 15 MINUTES INITIAL 13349 [facility] 4 PHYSICIAN ASH CARE/DAY S GROUP 50 MINUTES US PELVIC 63773 NICHELLE MORAN 4 [facility] NONOBSTET [facility] REAL-TIME IMAGE COMPLETE BLOOD 59694 [facility] COUNT 4 [facility] COMPLETE INC INC AUTO&AUTO DIFRNTL WBC CULTURE 08658 [facility] BACTERIAL 4 [facility] BLOOD INC INC AEROBIC W/ID ISOLATES COMPREHEN 49337 [facility] SIVE 4 [facility] METABOLIC INC INC PANEL UNCLASSIF J3490 [facility] IED DRUGS 4 [facility] INC INC BLOOD 26909 [facility] B[facility] COUNT 4 [facility] HEMATOCRI INC INC T TRANSFUSI 66916 [facility] ON 4 [facility] BLOOD/BLO INC INC OD COMPONENT S BLOOD 31006 [facility] COUNT 4 [facility] HEMOGLOBI INC INC N RED BLOOD P9016 [facility] CELLS 4 [facility] LEUKOCYTE INC INC S REDUCED EACH UNIT BLOOD 95179 [facility] COUNT 4 [facility] COMPLETE INC INC AUTO&AUTO DIFRNTL WBC ANTIBODY 50740 [facility] ID RBC 4 [facility] ANTIBODIE INC INC S EA PANEL EA SERUM TQ BLOOD 36653 [facility] TYPING 4 [facility] SEROLOGIC INC INC ABO ANTIBODY 85499 [facility] B[facility] SCREEN 4 [facility] RBC EACH INC INC SERUM TECHNIQUE RADIOLOGI 22877 [facility] C EXAM 4 [facility] CHEST 2 INC INC VIEWS FRONTAL&L ATERAL COMPATIBI 66847 [facility] LITY EACH 4 [facility] UNIT INC INC ANTIGLOBU HARINI BLOOD 47414 [facility] TYPING 4 [facility] SEROLOGIC INC INC RH (D) COMPATIBI 62159 [facility] LITY EACH 4 [facility] UNIT INC INC IMMEDIATE SPIN TECHNIQUE BLOOD 03096 [facility] TYPING 4 [facility] SEROLOGIC INC INC RH (D) THROMBOPL 60849 [facility] ASTIN 4 [facility] TIME INC INC PARTIAL PLASMA/WH OLE BLOOD SUSCEPTIB 84307 [facility] LTY STDY 4 [facility] ANTIMICRB INC INC IAL MICRO/AGA R DILUTJ COMPATIBI 26999 [facility] LITY EACH 4 [facility] UNIT INC INC IMMEDIATE SPIN TECHNIQUE COMPATIBI 58735 [facility] LITY EACH 4 [facility] UNIT INC INC ANTIGLOBU HARINI CULTURE 10042 [facility] B[facility] BCT 4 [facility] ISOL&PRSM INC INC PTV ID ISOLATE EA URINE CULTURE 46026 [facility] [place] BACTERIAL 4 [facility] INC INC QUANTTATI VE COLONY COUNT URINE ANTIBODY 24088 [facility] SCREEN 4 [facility] RBC EACH INC INC SERUM TECHNIQUE BLOOD 09773 [facility] TYPING 4 [facility] SEROLOGIC INC INC ABO ANTIBODY 39590 [facility] ID RBC 4 [facility] ANTIBODIE INC INC S EA PANEL EA SERUM TQ PROTHROMB 32069 [facility] IN TIME 4 [facility] INC INC BLOOD 64289 [facility] COUNT 4 [facility] COMPLETE INC INC AUTO&AUTO DIFRNTL WBC URNLS DIP 54216 [facility] 4 [facility] STICK/TAB INC [place] [address] [facility] ABDOMINAL 4 MEDICAL LIZZIE REAL IMAGING [place] [address] [facility] ABDOMINAL 4 [facility] REAL INC INC TIME W/[place] [address] [facility] TRANSVAGI 4 [facility] NAL INC INC FIBRIN 28828 [facility] B[facility] DGRADJ 4 [facility] PRODUCTS INC INC D-DIMER QUAL/SEMI PAULO COMPREHEN 94350 [facility] SIVE 4 [facility] METABOLIC INC INC PANEL HOSPITAL 15858 [facility] DISCHARGE 4 PHYSICIAN ASH DAY S GROUP MANAGEMEN T 30 MIN/< SBSQ 69692 [facility] 4 PHYSICIAN ASH CARE/DAY S GROUP 15 MINUTES INITIAL 72094 [facility] 4 PHYSICIAN ASH CARE/DAY S GROUP 50 MINUTES HOSPITAL 67308 [facility] 4 MEDICINE MAR DAY SERVICES, MANAGEMEN T 30 MIN/< SBSQ 52186 [place] [address] MEDICINE CARE/DAY SERVICES, 35 MINUTES SBSQ 53821 [place] [address] MEDICINE CARE/DAY SERVICES, 35 MINUTES SBSQ [address] CARE/DAY CARDIOLOG 25 Y AT CENT MINUTES SBSQ 48524 [place] [address] MEDICINE CARE/DAY SERVICES, 35 MINUTES ECG 64156 [facility] ROUTINE 4 TYLER ECG CARDIOLOG W/LEAST Y AT CENT 12 LDS I&R ONLY FLOW 55472 [facility] CYTOMETRY 4 [facility] INTERPRET FOUNDATIO INC ATION N 16/> MARKERS INITIAL 06008 [facility] INPATIENT 4 [facility]ER CONSULT CARDIOLOG NEW/ESTAB Y AT CENT PT 40 MIN ONDANSETR S0119 [facility] ON ORAL 4 4 [facility] MG INC INC BASIC 61548 [facility] B[facility] METABOLIC 4 [facility] PANEL INC INC CALCIUM TOTAL RADIOLOGI 60912 [facility] 4 RADIOLOGI PET EXAMINATI C ON CHEST PROFESSIO SINGLE VIEW FRONTAL GROUND A0425 [facility]ULANCE AMBULANCE [place] [address] [facility] INFUSION 4 [facility] THERAPY/P INC INC ROPHYLAXI S /DX 1ST TO 1 HR BLOOD 03060 [facility] COUNT 4 [facility] COMPLETE INC INC AUTO&AUTO DIFRNTL WBC INITIAL 14303 [facility] 4 MEDICINE CARE/DAY SERVICES, 70 MINUTES BLOOD 47155 [facility] COUNT 4 [facility] COMPLETE INC INC AUTO&AUTO DIFRNTL WBC HEMOGLOBI 91793 [facility] N 4 [facility] GLYCOSYLA INC INC MALIKA A1C LIPID 11407 [facility] B[facility] PANEL 4 [place] [address] [place] [facility] 4 MEDICAL PATY TONEAL IMAGING REAL TIME [place] W/[place] [address] [facility] B[facility] RETROPERI 4 [facility] TONEAL INC INC REAL TIME W/IMAGE COMPLETE CYANOCOBA 22233 [facility] BOBBI 4 [facility] VITAMIN INC INC B-12 [place] [address] [facility] THYROXINE 4 [facility] [place] [address] [facility] B[facility] THYROID 4 [facility] STIMULATI INC INC NG HORMONE TSH THERAPEUT 22461 [facility] IC 4 PHYSICIAN ASH PROPHYLAC S GROUP TIC/DX INJECTION SUBQ/IM HOSPITAL 41637 [facility] DISCHARGE 4 PHYSICIAN ASH DAY S GROUP MANAGEMEN T 30 MIN/< SBSQ 38545 [facility] 4 PHYSICIAN ASH CARE/DAY S GROUP 15 MINUTES ECG 91868 [facility] ROUTINE 4 DIMITRI ASH ECG EMERGENCY W/LEAST PHYS 12 LDS I&R ONLY INITIAL 45824 [facility] 4 PHYSICIAN ASH CARE/DAY S GROUP 50 MINUTES BLOOD 46436 [facility] COUNT 4 [facility] COMPLETE INC INC AUTO&AUTO DIFRNTL WBC RED BLOOD P9016 [facility] CELLS 4 [facility] LEUKOCYTE INC INC S REDUCED EACH UNIT HOSPITAL G0378 [facility] OBSERVATI 4 [facility] ON INC INC SERVICE PER HOUR UNCLASSIF J3490 [facility] IED DRUGS 4 [facility] INC INC UNCLASSIF J3490 [facility] B[facility] IED DRUGS 4 [facility] INC INC COMPREHEN 71872 [facility] B[facility] SIVE 4 [facility] METABOLIC INC INC PANEL HOSPITAL G0378 [facility] OBSERVATI 4 [facility] ON INC INC SERVICE PER HOUR UNCLASSIF C9399 [facility] IED DRUGS 4 [facility] OR INC INC BIOLOGICA LS BLOOD 22466 [facility] COUNT 4 [facility] COMPLETE INC INC AUTO&AUTO DIFRNTL WBC RADIOLOGI 42325 [facility] 4 MEDICAL LIZZIE EXAMINATI IMAGING [place] [address] [facility] INFUSION 4 [facility] THERAPY/P INC INC ROPHYLAXI S /DX 1ST TO 1 HR URNLS DIP 62372 [facility] [place] 4 [facility] STICK/TAB INC INC LET REAGENT AUTO MICROSCOP Y COMPATIBI 98158 [facility] LITY EACH 4 [facility] UNIT INC INC ANTIGLOBU HARINI BLOOD 78700 [facility] TYPING 4 [facility] SEROLOGIC INC INC RH (D) COMPATIBI 21742 [facility] LITY EACH 4 [facility] UNIT INC INC IMMEDIATE SPIN TECHNIQUE CULTURE 47997 [facility] BACTERIAL 4 [facility] BLOOD INC INC AEROBIC W/ID ISOLATES ANTIBODY 63039 [facility] ID RBC 4 [facility] ANTIBODIE INC INC S EA PANEL EA SERUM TQ BLOOD 54271 [facility] TYPING 4 [facility] SEROLOGIC INC INC ABO ANTIBODY 18880 [facility] SCREEN 4 [facility] RBC EACH INC INC SERUM TECHNIQUE ECHO 75544 VERENA ELW TTHRC R-T 4 JAM 2D CARDIOLOG W/WOM-MOD Y AT CENT E COMPL SPEC&COLR D BLOOD 17362 [facility] COUNT 4 [facility] COMPLETE INC INC AUTO&[place] [address] [facility] FERRITIN 4 [facility] INC INC RHEUMATOI 26096 [facility] B[facility] D FACTOR 4 [facility] QUANTITAT INC INC CRISTIAN ANTINUCLE 71075 [facility] B[facility] AR 4 [facility] [place] [address] [facility] B[facility] THYROID 4 [facility] STIMULATI INC INC NG HORMONE TSH COMPREHEN 23766 [facility] SIVE 4 [facility] METABOLIC INC INC PANEL BLOOD 20461 [facility] COUNT 4 [facility] [place]IC[place] [address] [facility] B[facility] THYROXINE 4 [facility] TOTAL INC INC BASIC 36326 [facility] METABOLIC 4 DENOMINATIONAL DENOMINATIONAL PANEL HOSP HOSP CALCIUM TOTAL NATRIURET 03130 [facility] IC 4 DENOMINATIONAL DENOMINATIONAL PEPTIDE HOSP HOSP BLOOD 87321 [facility] COUNT 4 DENOMINATIONAL DENOMINATIONAL COMPLETE HOSP HOSP AUTOMATED BLOOD 59816 [facility] COUNT 4 [facility] COMPLETE INC INC AUTO&[place] [address] [facility] B[facility] TROPONIN 4 [facility] QUANTITAT INC INC CRISTIAN CREATINE 56402 [facility] KINASE 4 [facility] TOTAL INC INC ECG 15032 [facility] ROUTINE 4 [facility] ECG INC INC W/LEAST 12 LDS TRCG ONLY W/O I&R THROMBOPL 20074 [facility] ASTIN 4 [facility] TIME INC INC PARTIAL PLASMA/WH OLE BLOOD RADIOLOGI 91028 [facility] C EXAM 4 [facility] CHEST 2 INC INC VIEWS FRONTAL&L ATERAL CULTURE 50623 [facility] B[facility] BACTERIAL 4 [facility] BLOOD INC INC AEROBIC W/ID ISOLATES PROTHROMB 40572 [facility] IN TIME 4 [facility] INC INC COMPREHEN 51215 [facility] B[facility] SIVE 4 [facility] METABOLIC INC INC PANEL CREATINE 86693 [facility] KINASE MB 4 [facility] FRACTION INC INC ONLY RADIOLOGI 12658 [facility] C EXAM 4 [facility] CHEST 2 INC INC VIEWS FRONTAL&L ATERAL BLOOD 18800 [facility] COUNT 4 [facility] COMPLETE INC INC AUTO&[place] [address] [facility] B[facility] ABDOMINAL 4 [facility] REAL INC INC TIME W/IMAGE DOCUMENTA TION INSERT 96.04 DENISE ENDOTRACH SHASTA DO EAL TUBE VENOUS 38.93 Andrea INIGUEZ MD NEC Encounters Encounter Start End Date Code Location Performer Type Date [facility] - 6 6 [facility] [place] [facility] 6 MEDICAL T VISIT SERV 25 FOUNDATIO MINUTES [facility] UNIVERSIT [facility] 6 6 [facility] - 6 6 [facility] OFFICE 33294 [facility] 6 6 [place] [facility] T [facility]ISIT MEDICINE 15 P MINUTES [facility] UN[facility]ERS[facility] - 6 6 Y [facility] - 6 6 [facility] EMERGENC[facility] 95602 [facility] NAVAS 6 6 PHYSICIAN ASH GUZMAN SSHARIF T VISIT MODERATE SEVERITY [facility] STORMY - 6 6 [facility] ST[facility] - 6 6 [facility] STORMY - 6 6 [facility] UNIVERSIT - 6 6 Y [facility] OFF[facility] [address]85 [place] ZAMUDIO [facility] 6 6 MEDICAL T VISIT SERV 25 FOUNDATIO MINUTES [facility] STORMY - 6 6 [facility] 6 [facility] EM[facility]ENC[facility] 67005 MARLON GERBER 6 6 PHYSICIAN JR DISLA VISIT S, PLLC HIGH SEVERITY& THREAT FUNCJ EMERGENCY 12288 [facility] 6 6 [facility] T VISIT MODERATE SEVERITY [facility]OSPITAL [facility] - 6 6 [facility] OUTPATIEN [facility] STORMY - 6 6 [facility] - 5 [facility] STORMY - 5 5 [facility] STORMY - 5 5 [facility]PATI[facility] STORMY - 5 5 [facility] OFFICE 89482 NICHELLE LEW [facility] 5 5 [facility] T [facility]ISIT MEDICAL 15 GROUP MINUTES EMERGENCY 38588 [facility] 5 5 PHYSICIAN KARLY GUZMAN S, [facility] T VISIT HIGH/URGE NT SEVERITY HOSPITAL [facility] - 5 5 [facility] OUTPATIEN [facility] HOSPITAL UNIVERSIT - 5 5 Y [facility] T OFFICE [address]36 [place] MONISHA KRI OUTPATIEN 5 5 MEDICAL T VISIT SERV 40 FOUNDATIO MINUTES HOSPITAL STORMY - 5 5 [facility], 5 5 HOME INPATIENT HEALTH AGENCY OFFICE [id number] [facility] ATIF OUTPATIEN 5 5 [place] FAMILY ELL T VISIT MEDICINE 15 P MINUTES HOSPITAL [facility] - 5 [facility] [address] [place] MIS OUTPATIEN 5 5 MEDICAL JR TRACIE T VISIT SERV 40 FOUNDATIO MINUTES N HOME [facility] 5 5 HOME INPATIENT HEALTH AGENCY OFFICE 05098 [facility] [place] OUTPATIEN 5 5 [place] SARAH T VISIT MEDICINE 15 P MINUTES OFFICE 81595 [place] PAREDES OUTPATIEN 5 5 MEDICAL ESTEBAN T VISIT SERV 25 FOUNDATIO MINUTES HOSPITAL [facility] - 5 5 [facility] OUTPATIEN INC T HOME [facility], 5 5 HOME INPATIENT HEALTH AGENCY OFFICE 38050 RIGOBERTO PAREDES OUTPATIEN 5 5 MEDICAL ESTEBAN T VISIT SERV 15 FOUNDATIO MINUTES N OFFICE 65553 DENOMINATIONALTabatha LEW OUTPATIEN 5 5 HEALTH JAM T VISIT MEDICAL 15 GROUP MINUTES HOSPITAL [facility] - 5 5 [facility] OUTPATIEN INC T OFFICE 19101 RIGOBERTO ZAMUDIO OUTPATIEN 5 5 MEDICAL T VISIT SERV 40 FOUNDATIO MINUTES [facility] 5 5 [facility] 81158 [facility] 5 [place] [facility] GUERRERO T NEW 45 MEDICINE MINUTES P HOME [facility] 5 5 HOME INPATIENT HEALTH AGENCY HOME [facility], 5 5 HOME [facility] 5 5 Y INPATIENT HOSPITAL EMERGENCY 29965 [facility] DEPT 5 5 [facility] VISIT INC HIGH SEVERITY& THREAT FUNCJ EMERGENCY 41833 [facility] NAVAS 5 5 [facility] T VISIT P HIGH/URGE NT SEVERITY [facility]OSPITAL [facility] - 5 5 [facility] OUTPATIEN [facility] - 5 5 [facility] - 5 5 [facility] 5 5 [facility]EN [facility] 5 5 [facility]EN [facility] 5 5 [facility] OUTPATIEN [facility] HOSPITAL STORMY - 5 5 [facility] OUTPATIEN [facility]PITAL STORMY [facility] 4 4 [facility] OUTPATIEN [facility] OFFICE 51111 [facility] OUTPATIEN 4 4 [facility] JENNA T VISIT CLINIC 25 [facility] [place] [id number] 4 HOSPITAL INPATIENT OFF[facility] 16401 [place] JYOT[facility] OUTPATIEN 4 4 [facility] VISIT INTERNAL 15 MED [facility] STORMY [facility] 4 4 [facility] INPATIENT INC OFFICE 07511 [facility] REENA BRIGHT OUTPATI[facility] 4 4 PHYSICIAN T [facility] STORMY [facility] 4 4 [facility] OUTPATIEN [facility] ST[facility] 4 4 [facility] OUTPATIEN [facility]PITAL STORMY - 4 4 [facility] OUTPATIEN [facility] STORMY [facility] 4 4 [facility] OUTPATIEN [facility]PITAL STORMY [facility] 4 4 [facility] OUTPATIEN [facility] - 4 4 DENOMINATIONAL OUTPATIEN [facility] OFFICE [id number] DENOMINATIONAL [facility] OUTPATIEN 4 4 HEART AND TRA T VISIT VASCULAR 25 I MINUTES OFFICE [id number] DENOMINATIONAL [facility] OUTPATIEN 4 4 [place] AN ARV T VISIT ONCOLOGY 15 A MINUTES [facility] CENTRAL - 4 4 DENOMINATIONAL OUTPATIEN [facility] STORMY - 4 4 [facility] OUTPATIEN [facility] CENTRAL - 4 4 DENOMINATIONAL INPATIENT [facility] STORMY [facility] 4 4 [facility] OUTPATIEN [facility] EMERGENCY 36110 STORMY 4 4 [facility] DEPARTMEN INC T VISIT HIGH/URGE NT SEVERITY HOSPITAL STORMY [facility] 4 4 [facility] INPATIENT INC EMERGENCY 88539 [facility] SARY DEPT 4 4 DIMITRI MOH VISIT EMERGENCY HIGH PHYS SEVERITY& THREAT FUNJ OFFICE 94830 DENOMINATIONAL [facility] OUTPATIEN 4 4 HEALTH HOP T VISIT WOMEN'S 15 CARE MINUTES OFFICE 84667 [facility] OUTPATIEN 4 4 [facility] T [facility]ISIT CARDIOLOG 15 Y AT [facility] STORMY [facility] 4 4 [facility] OUTPATIEN [facility] T EMERGENCY 04517 STORMY 4 4 [facility] DEPARTMEN INC T VISIT LOW/MODER SEVERITY EMERGENCY 28626 [facility] YOSEF DEPT 4 4 DIMITRI ASH VISIT EMERGENCY HIGH PHYS SEVERITY& THREAT [facility] STORMY - 4 4 [facility] OUTPATIEN INC T HOSPITAL STORMY [facility] 4 4 [facility] OUTPATIEN [facility] T OFFICE 96715 [facility] YOSEF OUTEVAEN 4 4 PHYSICIAN ASH T VISIT S GROUP 10 MINUTES EMERGENCY 40715 STOR[facility] 4 4 [facility] DEPARTMEN INC T VISIT MODERATE SEVERITY HOSPITAL STORMY - 4 4 [facility] OUTPATIEN INC T HOSPITAL STORMY - 4 4 [facility] INPATIENT INC EMERGENCY 73795 JUAN GIRALDO DEPT 4 4 DIMITRI VISIT EMERGENCY HIGH PHYS SEVERITY& THREAT FUN EMERGENCY 16588 ST[facility] 4 4 [facility] DEPARTMEN INC T VISIT HIGH/URGE NT SEVERITY EMERGENCY 96780 JUAN GIRALDO DEPT 4 4 DIMITRI VISIT EMERGENCY HIGH PHYS SEVERITY& THREAT [facility] ANASTAS[facility] - 4 4 DENOMINATIONAL INPATIENT [facility] STORMY - 4 4 [facility] OUTPATIEN [facility] 62256 [facility] PHYSICIAN ASH T VISIT 5 S GROUP [facility] STORMY - 4 4 [facility] INPATIENT INC EMERGENCY 39356 [facility] DEPT 4 4 DIMITRI ASH VISIT EMERGENCY HIGH PHYS SEVERITY& THREAT FUN EMERGENCY 14393 STORMY 4 4 [facility] DEPARTMEN INC T VISIT HIGH/URGE NT SEVERITY HOSPITAL STORMY - 4 4 [facility] OUTPATIEN [facility] CENTRAL - 4 4 DENOMINATIONAL OUTPATIEN [facility] STORMY [facility] 4 4 [facility] OUTPATIEN [facility] OFFICE 20540 [facility] MERRY OUTPATIEN [address] CENTRAL - 4 4 DENOMINATIONAL OUTPATIEN [facility] Emergency LINDA BALLARD MD (ER) 4 10:31 4 12:21 [facility] STORMY - 4 4 [facility] OUTPATIEN [facility] EMERGENCY 63673 ST[facility] DEPT 4 4 [facility] VISIT INC HIGH [facility]VERITY& THREAT [facility] STORMY - 4 4 [facility] OUTPATIEN [facility] Emergency LINDA VEGAS DO (ER) 3 04:33 3 10:15 [facility] Emergency LINDA Moe MD (ER) 3 10:21 3 12:18 [facility] Emergency LINDA OKEEFE (ER) 3 12:32 3 16:57 [facility]
--- OUTSIDE RECORDS SUMMARY | 2017-05-22 15:07 | External Medical Summary Rpt | CCD ---
Author Author , [facility] Organization [facility] Address Unknown Phone Care Team Providers Care Stone Paver Name Role Phone ABBAS JAZMINE, ABBAS JAZMINE Unavailable Unavailable [facility], [facility] Unavailable Unavailable [facility], [facility] Unavailable Unavailable TNAVIR MAGGIE, TANVIR Unavailable Unavailable MAGGIE HENDRIX SILVIANO, HENDRIX Unavailable Unavailable SILVIANO SARAHY KAN JARVIS, Unavailable Unavailable SARAHY KAN JARVIS [facility], Unavailable Unavailable [facility], Unavailable Unavailable [facility] [place] ALFARIS MOH, ALFARIS Unavailable Unavailable MOH ALMAGDUB IHA, Unavailable Unavailable ALMAGDUB IHA [facility] MOS, [facility] MOS Unavailable Unavailable BERRY KAMILLA, BERRY KAMILLA Unavailable Unavailable AYACH JUAN R, AYACH JUAN R Unavailable Unavailable PAREDES ESTEBAN, PAREDES Unavailable Unavailable [facility] Unavailable Unavailable [facility], [facility] Unavailable Unavailable [facility]OM[facility] C[facility], [facility] Unavailable Unavailable ONCOLOGY A, [facility] BEINEKE PATY, BEINEKE Unavailable Unavailable PATY BELCASTRO MAR, Unavailable Unavailable BELCASTRO MAR BESSON IJEOMA, BESSON Unavailable Unavailable IJEOMA KAYLEEN CHEVY, KAYLEEN CHEVY Unavailable Unavailable BOLIEK TLYER, BOLIEK Unavailable Unavailable TYLER BREAZEALE GRA, Unavailable Unavailable BREAZEALE GRA GARCIA SARAH, GARCIA Unavailable Unavailable SARAH CANDELARIA ASH, CANDELARIA Unavailable Unavailable ASH [facility] Unavailable Unavailable SERVICE, [facility] Unavailable Unavailable SERVICE, [facility] VICTOR M KET, VICTOR M KET Unavailable Unavailable MARINA CAR, MARINA Unavailable Unavailable CAR CARDOZA LEI, Unavailable Unavailable CARDOZA LEI CAMP TYLER, CAMP TYLER Unavailable Unavailable [facility]ET[facility], Unavailable Unavailable [facility] Unavailable Unavailable [facility] Unavailable Unavailable CARE, [facility] [...] BERHANE PRAJAPATI RAC, PRAJAPATI Unavailable Unavailable RAC [facility] Unavailable Unavailable INC, [facility] Unavailable [facility]available HOSPITAL P, [facility] Unavailable Unavailable INC, [facility] WILSON LESLEY, WILSON Unavailable Unavailable [facility], Unavailable Unavailable [facility] BOYLE IJEOMA, BOYLE IJEOMA Unavailable Unavailable HOLLAN TRA, HOLLAN Unavailable Unavailable TRA HORN ASH, HORN ASH Unavailable Unavailable [facility] Unavailable Unavailable SERVICES,, [facility], PELAEZ WARD, PELAEZ Unavailable Unavailable WARD ROSANGELA RYA, ROSANGELA RYA Unavailable Unavailable Andrea Newton MD, Unavailable Unavailable Andrea Newton MD [facility] Unavailable Unavailable IM[facility]ING [facility], [facility] Unavailable Unavailable MEDICAL G, [facility] ESAU CONLEY, ESAU Unavailable Unavailable [...] JR DWI, BOWEN Unavailable Unavailable JR DWI [facility] Unavailable Unavailable AT [facility], [facility] Unavailable Unavailable INTERNAL MED, [facility] MED GIOVANNA JENNA, GIOVANNA Unavailable Unavailable JENNA MIS JR TRACIE, Unavailable Unavailable MIS JR TRACIE MONISHA KRI, MONISHA KRI Unavailable Unavailable [facility], [facility] Unavailable Unavailable RICARDO KARLY, RICARDO Unavailable Unavailable KARLY [facility] Unavailable Unavailable SERVICES, [facility] MASKEY MANE, MASKEY Unavailable Unavailable MANE MAWAD ARROYO, MAWAD ARROYO Unavailable Unavailable MC VIRGINIA BETHANY, MC Unavailable Unavailable VIRGINIA BETHANY CARDONA MAT, Unavailable Unavailable CARDONA MAT SULLIVAN MERLIN, SULLIVAN MERLIN Unavailable Unavailable MINION SLIVIANO, MINION Unavailable Unavailable SILVIANO MOHAMED [facility], [facility] Unavailable Unavailable [facility] ELIZONDO-BUSTAMANTE MANE, Unavailable Unavailable ELIZONDO[facility]BUSTAMANTE MANE MEDRANO ANH, MEDRANO ANH Unavailable Unavailable [facility] Unavailable Unavailable [facility], [facility] RADHA TRACIE, Unavailable Unavailable RADHA TRACIE [...] KAMILLA JESS JENNA, JESS Unavailable Unavailable JENNA [facility], Unavailable Unavailable [facility] DENISE SHASTA DO, Unavailable Unavailable DENISE SHASTA DO BAUMAN SCO, BAUMAN Unavailable Unavailable SCO SUPINSKI GILBERT, Unavailable Unavailable SUPINSKI GILBERT YOUNG HANSEL IJEOMA, Unavailable Unavailable YOUNG HANSEL IJEOMA TZOUANAKIS KIRIT, Unavailable Unavailable TZOUANAKIS KIRIT [facility] Unavailable Unavailable MEDICINE , [facility], Unavailable Unavailable [facility] Unavailable Unavailable [facility], [facility] USERY AND, USERY AND Unavailable Unavailable VERHEY PET, VERHEY Unavailable Unavailable PET [facility] Unavailable Unavailable AGENCY, [facility] DEE DEE KRISTAL, DEE [...] Provider Status [id number] ENCOUNTER 12-23-2015 [facility] THERAPEUTIC INC DRUG LEVEL MONITORING Z7901 STEM MAKER 12-23-2015 [facility] CURRENT USE [facility] OF INC ANTICOAGULA NTS E559 VITAMIN D 12-12-2015 [facility] UNSPECIFIED [id number] ACUTE EMBO 12-12-2015 [facility] DEEP VEINS UNS LOW EXTREM M329 SYSTEMIC 12-12-2015 [facility] ERYTHEMATOS US UNSPECIFIED R760 RAISED 12-12-2015 [facility] TITER Z7952 HALF-WAY 12-12-2015 [facility] CURRENT USE SERV OF FOUNDATION SYSTEMIC STEROIDS U76116 OTHER LONG 12-12-2015 [facility] CURRENT DRUG THERAPY N950 POSTMENOPAU 11-12-2015 [facility] N952 POSTMENOPAU 11-12-2015 [facility] VAGINITIS B88149 SATISFACTOR 11-12-2015 [facility] L[facility] HOS[facility] TRANSFORMAT N ZONE H109 UNSPECIFIED 10-25-2015 [facility], CONJUNCTIVI PLLC TIS D509 IRON 10-16-2015 [facility] DEFICIENCY [facility] ANEMIA INC UNSPECIFIED I352 NONRHEUMATI 10-16-2015 [facility] AORT[facility] VALVE INC STENOSIS W/INSUFF B373 CANDIDIASIS 10-03-2015 [facility] OF VULVA SERV AND VAGINA FOUNDATION H2513 AGE-RELATED 10-03-2015 [facility] CATARACT BILATERAL Z9119 PATIENTS 10-03-2015 [facility] NONCOMPLIAN SERV CE W/OTH FOUNDATION MED TX & REGIMEN E876 HYPOKALEMIA 08-23-2015 [facility] PLLC J101 FLU D/T OTH 08-23-2015 [facility] ID FLU [facility] VIRUS OT HOSPITAL P RESP MANIFESTATI ONS J1189 FLU D/T 08-23-2015 [facility] UNIDENTIFIE PHYSICIANS, D FLU VIRUS PLLC W/OTH MANIF R05 COUGH 08-23-2015 [facility] R509 FEVER 08-23-2015 [facility]PECIFIED [facility] I509 HEART 06-18-2015 [facility] UNSPECIFIED MEDICAL GROUP R0600 DYSPNEA 06-18-2015 [facility] UNSPECIFIED [facility]ALTH MEDICAL GROUP E871 HYPO-OSMOLA 05-24-2015 [facility] LITOsmar AND PHYSICIANS, HYPONATREMI PLLC A I10 ESSENTIAL 05-24-2015 [facility] HYPERTENSIO INC N N3000 ACUTE 05-24-2015 [facility] CYSTITIS PHYSICIANS, WITHOUT PLLC HEMATURIA N390 URINARY 05-24-2015 [facility] TRACT PHYSICIANS, INFECTION PLLC SITE NOT SPECIFIED 5259 UNSPECIFIED 03-28-2015 [facility] DISORDER SERV TEETH&SUPPO FOUNDATION RTING STRUCTURES 7100 SYSTEMIC 03-28-2015 [facility] [place] [address] OTHER&UNSPE 03-28-2015 [facility] C SERV NONSPECIFIC FOUNDATION IMMUNOLOGIC AL FINDINGS V1251 PERSONAL 03-28-2015 [facility] HISTORY, SERV VENOUS FOUNDATION THROMBOSIS AND EMBOLISM V1581 PERS HX 03-28-2015 [facility] NONCOMPLIAN SERV CE W/MED TX FOUNDATION PRS HAZARDS HLTH V5869 LONG-TERM 03-28-2015 [facility] (CURRENT) SERV USE OF FOUNDATION OTHER MEDICATIONS V5883 ENCOUNTER 03-28-2015 [facility] FOR SERV THERAPEUTIC FOUNDATION DRUG MONITORING 78311 AC CHENCHO 03-27-2015 [facility] THROMB INC UNSPEC DEEP VES LOWER EXT 4019 UNSPECIFIED 02-27-2015 [facility] HYPERTENSIO AGENCY N 95109 UNSPECIFIED 02-27-2015 [facility] SYSTOLIC HEALTH HEART AGENCY FAILURE 6959 UNSPECIFIED 02-27-2015 [facility] ERYTHEMATOU AGENCY S CONDITION 47974 MUSCLE 02-27-2015 [facility] WEAKNESS HEALTH (GENERALIZE AGENCY D) V5861 LONG-TERM 02-27-2015 [facility] (CURRENT) HEALTH USE OF AGENCY ANTICOAGULA NTS 91710 STEELE 02-15-2015 [facility] MEDICAL EQUIPMENT 486 PNEUMONIA, 02-15-2015 [facility] ORGANISM MEDICAL UNSPECIFIED EQUIPMENT 00865 VOMITING 01-01-2015 [facility] ALONE SERV [facility] 10119 DIARRHEA 01-01-2015 [facility] 2830 AUTOIMMUNE 12-31-2014 [facility] HEMOLYTIC [facility] ANEMIAS INC 06769 SUPRAVENTRI 12-19-2014 [facility] 4280 CONGESTIVE 12-19-2014 [facility] FAILURE MEDICAL UNSPECIFIED GROUP 27999 OTHER 11-26-2014 [facility] A 7906 OTHER 11-26-2014 [facility] ABNORMAL FAMILY BLOOD MEDICINE P CHEMISTRY 95015 NEUTROPENIA 11-14-2014 [facility] SERV UNSPECIFIED FOUNDATION 43533 CHRONIC 11-14-2014 [facility] SYSTOLIC SERV HEART FOUNDATION FAILURE 11035 ACUT CHENCHO 11-14-2014 [facility] EMBO&THROMB SERV DEEP VES FOUNDATION PROX LOWR EXTREM 4820 PNEUMONIA 11-13-2014 [facility] DUE TO KLEBSIELLA PNEUMONIAE 83186 SEPSIS 11-13-2014 [facility] 0539 HERPES 11-12-2014 [facility] NURSE ZOSTER PRACTITIONE WITHOUT R GR MENTION OF COMPLICATIO N 35832 DYSPHAGIA 11-02-2014 [facility] UNSPECIFIED SERV FOUNDATION 2639 UNSPECIFIED 10-31-2014 [facility] SERV PROTEIN-DEBI FOUNDATION ORIE MALNUTRITIO N 63634 CALCU 10-28-2014 [facility] GALLBLADD SERV W/O MENTION FOUNDATION CHOLECYST/O BST 3561 PERONEAL 10-26-2014 [facility] MUSCULAR SERV ATROPHY FOUNDATION 3599 UNSPECIFIED 10-26-2014 [facility] MYOPATHY SERV FOUNDATION 31406 OTHER 10-26-2014 [facility] MALAISE AND SERV FATIGUE FOUNDATION 2761 HYPOSMOLALI 10-24-2014 [facility] TY AND/OR SERV HYPONATREMI FOUNDATION A 2859 UNSPECIFIED 10-23-2014 [facility] ANEMIA SERV FOUNDATION V5865 LONG-TERM 10-23-2014 [facility] USE OF SERV STEROIDS FOUNDATION 97784 OTH & UNS E 10-22-2014 [facility] COLI SERV INFECTION FOUNDATION CLASS ELSW UNS SITE 83820 ACUT VT 10-22-2014 [facility] SUBENDOCARD SERV IAL INFARCT FOUNDATION INIT EPIS CARE 08128 ACUTE 10-22-2014 [place] [facility] RESPIRATORY SERV FAILURE [facility]OUNDATION 8208 CLOSED 10-22-2014 [facility] FRACTURE SERV UNSPECIFIED FOUNDATION PART NECK FEMUR 11344 SEVERE 10-22-2014 [facility] SEPSIS SERV FOUNDATION V7281 PRE-OPERATI 10-22-2014 [facility] VE SERV CARDIOVASCU FOUNDATION LAR EXAMINATION 11048 ACUTE AND 10-19-2014 [facility] NURSE CHRONIC PRACTITIONE RESPIRATORY R GR FAILURE 4254 OTHER 10-18-2014 [facility] PRIMARY SERV CARDIOMYOPA FOUNDATION PETRA 4293 CARDIOMEGAL 10-18-2014 [facility] Y SERV FOUNDATION 48545 NONSPECIFIC 10-18-2014 [facility] ABNORMAL SERV ELECTROCARD FOUNDATION IOGRAM 4240 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 FOUNDATION 22980 CHRONIC 10-15-2014 [facility] RESPIRATORY SERV FAILURE FOUNDATION 37776 OTHER 10-11-2014 [facility] NONSPECIFIC SERV ABNORMAL FOUNDATION FINDING OF LUNG FIELD 5119 UNSPECIFIED 10-10-2014 [facility] PLEURAL SERV EFFUSION FOUNDATION 5180 PULMONARY 10-10-2014 [facility] COLLAPSE SERV FOUNDATION V5882 ENCOUNTER 10-10-2014 [facility] FITTING&ADJ SERV FOUNDATION NON-VASCULA R CATHETER NEC 0417 PSEUDOMONAS 10-07-2014 [facility] INFECTION SERV IN CCE & FOUNDATION UNS SITE 5990 URINARY 10-07-2014 [facility] TRACT SERV INFECTION FOUNDATION SITE NOT SPECIFIED 19447 FEVER 10-02-2014 [facility] UNSPECIFIED SERV FOUNDATION 50182 OTHER FLUID 09-30-2014 [place] [facility] OVERLOAD SERV [facility]OUND[facility] 78706 OTHER 09-28-2014 [facility] DISEASES OF SERV LUNG NOT FOUNDATION ELSEWHERE CLASSIFIED 514 PULMONARY 09-26-2014 [facility] CONGESTION SERV AND FOUNDATION HYPOSTASIS 91146 NEUROGENIC 09-25-2014 [facility] BLADDER, SERV NOS FOUNDATION 4590 UNSPECIFIED 09-22-2014 [facility] HEMORRHAGE SERV FOUNDATION 45902 OTHER 09-21-2014 [facility] SEPTICEMIA SERV DUE TO FOUNDATION GRAM-NEGATI VE ORGANISM 5846 ACUTE 09-21-2014 [facility] KIDNEY SERV FAILURE FOUNDATION W/LES RENAL CORTICAL NECRO V4611 DEPENDENCE 09-20-2014 [facility] ON SERV RESPIRATOR FOUNDATION STATUS 5289 OTHER&UNSPE 09-19-2014 [facility] CIFIED SERV DISEASES FOUNDATION THE ORAL SOFT TISSUES 0389 UNSPECIFIED 09-17-2014 [facility] SEPTICEMIA SERV FOUNDATION 52538 OTHER 09-15-2014 [facility] DISEASES OF SERV NASAL FOUNDATION CAVITY AND SINUSES 5849 ACUTE 09-15-2014 [facility] KIDNEY SERV FAILURE FOUNDATION UNSPECIFIED 7842 SWELLING 09-15-2014 [facility] MASS OR SERV LUMP IN FOUNDATION HEAD AND NECK 2760 HYPEROSMOLA 09-14-2014 [facility] LITY AND/OR SERV FOUNDATION HYPERNATREM IA 4476 UNSPECIFIED 09-14-2014 [facility] ARTERITIS SERV FOUNDATION 5845 ACUTE 09-14-2014 [facility] KIDNEY SERV FAILURE FOUNDATION W/LESION TUBULAR NECROSIS 38280 SEPTIC 09-14-2014 [facility] SHOCK SERV FOUNDATION 43860 OTHER 09-13-2014 [facility] SPECIFIED SERV CARDIAC FOUNDATION DYSRHYTHMIA S 75726 SHORTNESS 09-11-2014 [facility] OF BREATH SERV FOUNDATION 72316 OTHER 09-06-2014 [facility] PREMATURE SERV BEATS FOUNDATION 5168 OTH SPEC 09-06-2014 [facility] ALVEOL&BUBBA SERV ETOALVEOL FOUNDATION PNEUMONOPAT HIES 39578 HYPOXEMIA 09-06-2014 [facility] 2762 ACIDOSIS 09-01-2014 [facility] 10421 UNSPECIFIED 09-01-2014 [facility] SHOCK SERV [facility]OUNDATION 7873 FLATULENCE 09-01-2014 [facility] ERUCTATION SERV AND GAS FOUNDATION PAIN V5881 FITTING AND 08-31-2014 [facility] ADJUSTMENT SERV OF FOUNDATION VASCULAR CATHETER 07925 OTHER 08-29-2014 [facility] ASCITES SERV FOUNDATION 44549 SEPTICEMIA 08-28-2014 [facility] ESCHERICHIA COLI 47546 ANEMIA OF 08-28-2014 [facility] CHRONIC HOSPI DISEASE 32236 LEUKOCYTOPE 08-28-2014 [facility] UNSPECIFIED HOSPI 30355 CRITICAL 08-28-2014 [facility] MYOPATHY 4139 OTHER AND 08-28-2014 [facility] UNSPECIFIED [facility] ANGINA INC PECTORIS 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 5853 CHRONIC 08-28-2014 [facility] KIDNEY [facility] DISEASE STAGE III (MODERATE) 85594 OTHER 08-28-2014 [facility] BLOOD CELLS 7910 PROTEINURIA 07-23-2014 [facility] 4299 UNSPECIFIED 07-16-2014 [facility] DISEASE MEDICAL G 41329 CORONARY 07-14-2014 [facility] CORONARY ARTERY 2851 ACUTE 07-07-2014 [facility]IC ANEMIA MEDICAL G 4279 UNSPECIFIED 07-05-2014 [facility]LIN CARDIAC DYSRHYTHMIA 88132 ACUTE 07-02-2014 [facility] SYSTOLIC HEALTH HEART MEDICAL G FAILURE 67286 SWELLING OF 06-29-2014 [facility] MEDICAL G 2724 OTHER AND 06-28-2014 [facility] UNSPECIFIED [facility] HYPERLIPIDE ZEINAB 81553 ANEMIA IN 06-25-2014 [facility] CHRONIC KIDNEY CARE KIDNEY DISEASE 4539 EMBOLISM 06-25-2014 [facility] THROMBOSIS MEDICAL G OF UNSPECIFIED SITE 2839 ACQUIRED 06-24-2014 [facility]TIC [facility] UNSPECIFIED 7103 DERMATOMYOS 06-20-2014 NEW ITIS [facility] 7919 OTHER 06-19-2014 [facility] [place] NONSPECIFIC RADIOLOGY FINDING EXAMINATION OF URINE 55760 ACUTE ON 06-18-2014 [facility] SYSTOLIC HEART FAILURE 4599 UNSPECIFIED 06-18-2014 [facility] CIRCULATORY INC SYSTEM DISORDER 5187 TRANSFUSION 06-18-2014 [facility] ACUTE LUNG INJURY V148 PERSONAL 06-18-2014 [facility] HISTORY [facility] ALLERGY OTH INC SPEC MEDICINAL AGTS 66243 DEHYDRATION 06-15-2014 [facility] 4239 UNSPECIFIED 06-15-2014 [place] [facility] DISEASE OF SERV FOUNDATION PERICARDIUM 4589 UNSPECIFIED 06-15-2014 [facility] HYPOTENSION FOUNDATION 72203 HEMATURIA 06-15-2014 [facility] UNSPECIFIED SERV FOUNDATION 61714 MICROSCOPIC 06-13-2014 [facility] HEMATURIA [facility] INC 55857 ABDOMINAL 06-13-2014 [place] OTHER [place] SPECIFIED [...] SULFONAMIDE S 4289 UNSPECIFIED 05-18-2014 [facility]URE [facility] 56174 OTHER 05-09-2014 [facility] E[facility] ONCOLOGY A AND INFARCTION 6202 OTHER AND 05-09-2014 [facility] UNSPECIFIED [facility]IAN [facility] CYST 1120 CANDIDIASIS 10-07-2014 [facility], 4919 UNSPECIFIED 04-18-2014 [facility] CHRONIC GREYSON & BRONCHITIS DUBILIER 5183 PULMONARY 04-18-2014 [facility] EOSINOPHILI RADIOLOGY A ASSOC 3970 DISEASES OF 04-13-2014 [place] TRICUSPID CARDIOLOGY VALVE AT CENT 18690 OTHER 04-13-2014 [facility] PULMONARY AMBULANCE INSUFFICIEN SERVICE CY NEC 40202 OTHER 04-13-2014 [facility] DYSPNEA AND [facility] [place] [address] OTHER 04-13-2014 [facility]EMOPTYSIS [facility] V642 SURG/OTH 04-10-2014 [facility] PROC NOT [facility] CARRIED OUT INC BECAUSE PTS DECN 5859 CHRONIC 03-31-2014 [facility] KIDNEY PHYSICIANS DISEASE GROUP UNSPECIFIED 5939 UNSPECIFIED 03-31-2014 [facility] DISORDER [facility] OF KIDNEY INC AND URETER 7892 SPLENOMEGAL 03-31-2014 [facility] Y PHYSICIANS GROUP 6259 UNSPEC 03-22-2014 [facility] WOMEN'S W/FEMALE CARE GENITAL ORGANS V7231 ROUTINE 03-22-2014 [facility] GYNECOLOGIC HEALTH AL WOMEN'S EXAMINATION CARE 61881 ABDOMINAL 03-19-2014 [facility], LEFT N EMERGENCY LOWER PHYS QUADRANT 5756 CHOLESTEROL 03-08-2014 [place] [facility] GALLBLADDER IMAGING ASS 66170 ABDOMINAL 03-08-2014 [place] PAIN, MEDICAL UNSPECIFIED IMAGING ASS SITE V1090 PERSONAL 03-08-2014 [facility] HISTORY [facility] UNSPECIFIED INC MALIGNANT NEOPLASM 15265 DIAB W/O 02-26-2014 [facility] COMP TYPE PHYSICIANS II/UNS NOT GROUP STATED UNCNTRL 4011 ESSENTIAL 02-26-2014 [facility] HYPERTENSIO PHYSICIANS N, BENIGN GROUP 29753 OTHER 02-19-2014 [facility]UTROPENIA [facility] 00230 HTN CKD UNS 02-19-2014 [facility] W/CKD [facility] STAGE I INC THRU STAGE IV/UNS 5239 UNSPECIFIED 02-19-2014 [facility] GINGIVAL [facility] PERIODONTAL DISEASE 7291 UNSPECIFIED 02-19-2014 [facility] MYALGIA [facility] MYOSITIS 7862 COUGH 02-19-2014 [facility] AMBULANCE SERVICE 08233 OTHER 02-19-2014 [facility] RES[place]AT[place] [address] FEVER 01-26-2014 [facility] PRESENTING [facility] CONDITIONS INC CLASSIFIED ELSEWHERE 7804 DIZZINESS 08-21-2013 [facility] GIDDINESS SERVICES [id number] Neutropenic [facility] [id number] [facility] Allergies, Adverse Reactions, Alerts Type Drug Allergy [...] re d DI 63 12 0 No NC 32 -1 IV 30 2- Lo AN [...] Ab Titr Ser VASU (12-30-2016 11:51) dsDNA [id number] complet Ab Titr 017 07 ed Ser [...] Procedure DOS Code Location Performer Comment PROTHROMB 10184 [facility] BURROWS IN TIME 6 [facility] INC INC COLLECTIO 09233 [facility] BURROWS N VENOUS 6 [facility] BLOOD INC INC VENIPUNCT URE COMPLEMEN [address] [facility] [place] T ANTIGEN 6 Y Y EACH HOSPITAL HOSPITAL COMPONENT PROTHROMB 42643 [facility] UNIVERS IN TIME 6 Y Y HOSPITAL HOSPITAL C-REACTIV [address] [facility] E PROTEIN 6 Y Y [facility] HOSPITAL FLUORESCE 69173 [facility] UNIVERS NT [address] [facility] AGT ANTB TITER EA ANTIBODY SEDIMENTA [address] [facility] TION RATE [address] [facility] AUTOMATED FLUORESCE 72577 [facility] [address] [facility] AGT ANTB SCREEN EA ANTIBODY URNLS DIP 45691 [facility] UNIVERS 6 Y Y STICK/TAB [facility] LET REAGENT AUTO MICROSCOP Y BLOOD 35419 [facility] UNIVERS COUNT 6 Y Y COMPLETE HOSPITAL HOSPITAL AUTO&AUTO DIFRNTL WBC [address] [facility] HYDROXY 6 Y Y INCLUDES HOSPITAL HOSPITAL FRACTIONS IF PERFORMED COL-CHR/M [address] [facility] S NONDRUG 6 Y Y ANALYTE [facility] HOSPITAL AYDIN QUAL/PAULO EA SPEC CREATININ [address] [facility] E OTHER 6 Y Y SOURCE [facility] HOSPITAL DXA BONE 90090 RIGOBERTO ARROYO DENSITY 6 MEDICAL STUDY 1/> SERV SITES FOUNDATIO AXIAL N SKEL COMPREHEN [address] [facility] SIVE 6 Y [facility] PANEL PROTEIN [address] [facility] TOTAL [address] [facility] REFRACTOM ETRY URINE PROTHROMB 39975 [facility] BURROWS IN TIME 6 [facility] INC INC COLLECTIO 30464 [facility] BURROWS N VENOUS 6 [facility] H[facility] BLOOD INC INC VENIPUNCT URE CYTP 98245 [facility] CERVICAL/ 6 Y OF JENNA VAGINAL [facility] REQ HOSPI INTERP PHYSICIAN CYTP C/V [address] [facility] AUTO THIN [address] [facility] PREPJ SCR MNL RESCR PHYS IADNA [address] [facility] NEISSERIA [address] [facility] GONORRHOE AE AMPLIFIED PROBE TQ SUSCEPTIB [address] [facility] LTY STDY [address] [facility] IAL MICRO/AGA R DILUTJ SMR PRIM [address] [facility] SRC 6 Y Y GRAM/GIEM [facility] SA STAIN BCT FUNGI/MARLON L CUL BACT [address] [facility] XCPT [address] [facility] BLOOD/STO OL AEROBIC ISOL CUL BACT [address] [facility] [place] AEROBIC [address] [facility] METHS DEFINITIV E EA ISOL IADNA [address] [facility] [place] CHLAMYDIA [address] [facility] TRACHOMAT IS AMPLIFIED PROBE TQ IADNA [id number] [facility] [place] HUMAN [address] [facility] VIRUS HIGH-RISK TYPES COLLECTIO 45010 [facility] N VENOUS 6 [facility] BLOOD INC INC VENIPUNCT URE PROTHROMB 77510 [facility] TIME 6 [facility] INC INC PROTHROMB 79986 [facility] B[facility] IN TIME 6 [facility] INC INC COLLECTIO 24782 [facility] N VENOUS 6 [facility] BLOOD INC INC VENIPUNCT URE COLLECTIO 64349 [facility] N VENOUS 6 [facility] BLOOD INC INC VENIPUNCT URE PROTHROMB 16144 [facility] IN TIME 6 [facility] INC INC PROTHROMB 85637 [facility] TIME 6 [facility] INC INC COLLECTIO 77819 [facility] N VENOUS 6 [facility] [place] [address] [facility] IRON 6 [facility] INC INC COLLECTIO 21507 [facility] N VENOUS 6 [facility] BLOOD INC INC VENIPUNCT URE PROTHROMB 45572 [facility] IN TIME 6 [facility] INC INC COLLECTIO 15233 [facility] UNIVERS N VENOUS [address] [facility] VENIPUNCT URE COMPLEMEN [address] [facility] [place] T ANTIGEN 6 Y Y EACH [facility] COMPONENT C-REACTIV [address] [facility] [place] E PROTEIN 6 Y Y [facility] FLUORESCE 86481 [facility] NT [address] [facility] AGT ANTB TITER EA ANTIBODY SEDIMENTA [address] [facility] [place] TION RATE [address] [facility] AUTOMATED FLUORESCE [address] [facility] [place] NT [address] [facility] AGT ANTB SCREEN EA ANTIBODY [id number] [facility] [place] HYDROXY 6 Y Y INCLUDES HOSPITAL HOSPITAL FRACTIONS IF PERFORMED COL-CHR/M [id number] [facility] [facility] [place] S NONDRUG [address] [facility] AYDIN QUAL/PAULO EA SPEC BLOOD 14576 [facility] UNIVERSIT COUNT [address] [facility] AUTO&AUTO DIFRNTL WBC URNLS DIP 04499 [facility] UNIVERS 6 Y Y STICK/TAB [facility] LET REAGENT AUTO MICROSCOP Y CREATININ 60502 [facility] UNIVERS E OTHER 6 Y Y SOURCE [facility] COMPREHEN [address] [facility] [place] SIVE [address] [facility] PANEL PROTEIN [address] [facility] TOTAL [address] [facility] REFRACTOM ETRY URINE COLLECTIO 12455 [facility] BUR[facility]OWS N VENOUS 6 [facility] BLOOD INC INC VENIPUNCT URE PROTHROMB 20183 [facility] BURROWS IN TIME 6 [facility] INC INC PROTHROMB 95318 [facility] B[facility] IN TIME 6 [facility] INC INC IAADI 68879 [facility] B[facility] INFLUENZA 6 [facility] B VIRUS INC INC IAADI 27295 [facility] B[facility] INFFLUENZ 6 [facility] A A VIRUS INC INC RADIOLOGI 10457 ST[facility] BURROWS C EXAM 6 [facility] CHEST 2 INC INC VIEWS FRONTAL&L ATERAL BLOOD 52226 [facility] B[facility]OWS COUNT 6 [facility] COMPLETE INC INC AUTO&AUTO DIFRNTL WBC ECG 09542 STORMY WISEMAN JR ROUTINE 6 [facility] W/LEAST P 12 LDS I&R ONLY ECG 03038 [facility] BURROWS ROUTINE 6 [facility] ECG INC INC W/LEAST 12 LDS TRCG ONLY W/O I&R COMPREHEN 17058 [facility]OWS SIVE 6 [facility] METABOLIC INC INC PANEL PROTHROMB 56465 [facility] BURROWS IN TIME 6 [facility] INC INC COLLECTIO 57268 [facility] BURROWS N VENOUS 6 [facility] BLOOD INC INC VENIPUNCT URE COLLECTIO 11595 [facility] N VENOUS 6 [facility] BLOOD INC INC VENIPUNCT URE PROTHROMB 90353 [facility] BURROWS IN TIME 6 [facility] INC INC PROTHROMB 87192 ST[facility] BURROWS IN TIME 5 [facility] INC INC COLLECTIO 64584 [facility] BURROWS N VENOUS 5 [facility] BLOOD INC INC VENIPUNCT URE COLLECTIO 62247 ST[facility] BURROWS N VENOUS 5 [facility] BLOOD INC INC VENIPUNCT URE PROTHROMB 78706 [facility] BURROWS IN TIME 5 [facility] INC INC PROTHROMB 67247 ST[facility]MY BURROWS IN TIME 5 [facility] INC INC COLLECTIO 15798 [facility] BUR[facility]OWS N VENOUS 5 [facility] BLOOD INC INC VENIPUNCT URE COLLECTIO 10880 STORMYJASON BURROWS N VENOUS 5 [facility] BLOOD INC INC VENIPUNCT URE PROTHROMB 70620 [facility] B[facility]OWS IN TIME 5 [facility] INC INC RADIOLOGI 23862 [facility] BUR[facility]OWS C EXAM 5 [facility] CHEST 2 INC INC VIEWS FRONTAL&L ATERAL CULTURE 73624 [facility] B[facility] BCT 5 [facility] ISOL&PRSM INC INC PTV ID ISOLATE EA URINE CULTURE 21456 STORMYJASON BURROWS BACTERIAL 5 [facility] INC INC QUANTTATI VE COLONY COUNT URINE SUSCEPTIB 00166 [facility] B[facility] LTY STDY 5 [facility] ANTIMICRB INC INC IAL MICRO/[place] [address] [facility] BURROWS INFUSION 5 [facility] THERAPY/P INC INC ROPHYLAXI S /DX 1ST TO 1 HR BLOOD 96685 [facility] COUNT 5 [facility] COMPLETE INC INC AUTO&AUTO DIFRNTL WBC URNLS DIP 51835 [facility] 5 [facility] STICK/TAB INC INC LET REAGENT AUTO MICROSCOP Y COMPREHEN 97617 [facility] SIVE 5 [facility] METABOLIC INC INC PANEL VISUAL 66422 [place] [facility] XM 5 MEDICAL JR BETHANY UNI/BI SERV W/INTERP FOUNDATIO EXTENDED N EXAM COMPREHEN 65025 [facility] 5 Y Y [facility] PANEL [facility]OTEIN [address] [facility] TOTAL [address] [facility] REFRACTOM ETRY URINE CREATININ [address] [facility] E OTHER 5 Y Y SOURCE [facility] HOSPITAL CHROMATOG [address] [facility] ALYSHA 5 Y Y [facility] COLUMN 1 ANALYTE AYDIN URNLS DIP [address] [facility] 5 Y Y STICK/TAB [facility] LET REAGENT AUTO MICROSCOP Y BLOOD 07374 [facility] [address] [facility] AUTO&AUTO DIFRNTL WBC SEDIMENTA 91485 [facility] UNIVERS TION RATE 5 Y Y [facility]PITAL AUTOMATED COLLECTIO 82869 [facility] UNIVERS N VENOUS 5 Y Y BLOOD [facility] HOSPITAL VENIPUNCT URE COMPLEMEN [address] [facility] [place] T ANTIGEN 5 Y Y EACH [facility] HOSPITAL COMPONENT C-REACTIV [address] [facility] [place] E PROTEIN 5 Y Y [facility] DNA 62505 [facility] UNIVERS ANTIBODY 5 Y Y [place] HOSPITAL UBLE STRANDED COLLECTIO 97382 [facility] N VENOUS 5 [facility] BLOOD INC INC VENIPUNCT URE PROTHROMB 88803 [facility] B[facility] IN TIME 5 [facility] HOSP [...] MEDICAL MEDICAL 85%/>02 EQUIPMENT EQUIPMENT [facility] FLW RATE PRTBLE E0431 MURPHY MURPHY GASEOUS 5 MEDICAL MEDICAL O2 SYS EQUIPMENT EQUIPMENT RENT; FLWMTR HUMIDFR&M ASK SERVICE G0151 [facility] 5 HOME HOME [facility] HOME AGENCY AGENCY HLTH/HOSP ICE EA 15 MIN PROTHROMB 02839 [place] 5 [place] [facility] MEDICINE P SERVICE G0151 [facility] 5 HOME HOME THERAP [facility] HEALTH HOME AGENCY AGENCY HLTH/HOSP ICE EA 15 MIN DIRECT G0154 [facility] SKILL 5 HOME HOME NURSE HEALTH HEALTH SERVICES AGENCY AGENCY HH/HOSPIC E EA 15 MIN SEDIMENTA 54654 [facility] UNIVERSIT TION RATE [address] [facility] AUTOMATED COMPLEMEN 51171 [facility]IT UNIVERSIT T ANTIGEN 5 Y Y EACH [facility]OSPITAL HOSPITAL COMPONENT COLLECTIO 35065 [facility] UNIVERS N VENOUS [address] [facility] VENIPUNCT URE SYPHILIS 41643 [facility] UNIVERS TEST 5 Y Y NON-TREPO [facility] NEMAL ANTIBODY QUAL SYPHILIS 11457 [facility] UNIVERS TEST [address] [facility] CRISTIAN C-REACTIV 50812 [facility] UNIVERS E PROTEIN [address] [facility] DNA 16175 [facility] UNIVERS ANTIBODY 5 Y Y KALSKAG/DO [facility] UBLE STRANDED ANTIBODY [address] [facility] [place] TREPONEMA [address] [facility] BLOOD 73107 [facility] UNIVERSIT COUNT 5 Y Y COMPLETE [facility] HOSPITAL AUTO&AUTO DIFRNTL WBC URNLS DIP 40257 [facility] UNIVERSIT 5 Y Y STICK/TAB [facility] LET REAGENT AUTO MICROSCOP Y 25 57539 [facility]IT UNIVERSIT HYDROXY 5 Y Y INCLUDES HOSPITAL HOSPITAL FRACTIONS IF PERFORMED COMPREHEN 62732 [facility] UNIVERS SIVE 5 Y Y METABOLIC [facility] HOSPITAL PANEL SERVICE G0151 [facility] [...] AGENCY HH/HOSPIC E EA 15 MIN PROTHROMB 15414 [place] 5 [place] [facility] P SERVICE G0151 [facility] 5 HOME HOME THERAP [facility] HEALTH HOME AGENCY AGENCY HLTH/HOSP ICE EA 15 MIN SERVICE G0151 [facility] PH[facility] 5 HOME HOME THERAP [facility] HEALTH HOME AGENCY AGENCY HLTH/HOSP ICE EA 15 MIN DIRECT G0154 [facility] SKILL 5 HOME HOME NURSE [facility] HEALTH SERVICES AGENCY AGENCY HH/HOSPIC E EA 15 MIN PROTHROMB 19712 RIGOBERTO PAREDES IN TIME 5 MEDICAL ESTEBAN SERV FOUNDATIO N COLLECTIO 63655 [facility] N VENOUS 5 [facility] BLOOD INC INC VENIPUNCT URE BLOOD 24266 [facility] COUNT 5 [facility] MEM [...] AGENCY HH/HOSPIC E EA 15 MIN PROTHROMB 12559 RIGOBERTO PAREDES IN TIME 5 MEDICAL ESTEBAN [...] MEDICAL MEDICAL 85%/>02 EQUIPMENT EQUIPMENT [facility] FLW RATE PRTBLE E0431 MURPHY MURPHY [...] AGENCY HH/HOSPIC E EA 15 MIN COLLECTIO 65110 [facility] N VENOUS 5 [facility] [place] [address] [facility] B[facility] THYROID 5 MEM HOSP MEM [...] AGENCY HLTH/HOSP ICE EA 15 MIN SEDIMENTA 89142 UNIVERSIT UNIVERS TI RATE 5 Y Y [facility] AUTOMATED URNLS DIP 50851 [facility] UNIVERS 5 Y Y STICK/TAB HOSPITAL HOSPITAL LET REAGENT AUTO MICROSCOP Y COLLECTIO 07540 [facility] UNIVERS N VENOUS [address] [facility] VENIPUNCT URE COMPLEMEN 90471 [facility] UNIVERS T ANTIGEN 5 Y Y EACH [facility] HOSPITAL COMPONENT ANTIBODY [address] [facility] [place] TREPONEMA 5 Y Y [facility] CARDIOLIP 89397 [facility] UNIVERS IN [address] [facility] EACH IG CLASS DNA 71045 [facility] UNIVERS ANTIBODY 5 Y Y KALSKAG/DO [facility] UBLE STRANDED C-REACTIV [address] [facility] E PROTEIN [address] [facility] SYPHILIS [address] [facility] [place] TEST 5 Y [facility] [address] [facility] [place] TEST [address] Y Y NON-[facility] NEMAL ANTIBODY QUAL CLOTTING 99842 [facility] UNIVERS INHIBITOR [address] [facility] ANTITHROM BIN III ACTIVITY BLOOD 77927 [facility] UNIVERS COUNT [address] [facility] AUTO&AUTO DIFRNTL WBC BETA-[address] [facility] MICROGLOB 5 Y Y [facility] CREATININ 73698 [facility] UNIVERS E OTHER [address] [facility] CHROMATOG 60433 [facility] UNIVERS ALYSHA 5 Y Y [facility] COLUMN 1 ANALYTE AYDIN COMPREHEN [address] [facility] SIVE [address] [facility] PANEL PROTEIN 85997 [facility] UNIVERS TOTAL [address] [facility] REFRACTOM ETRY URINE SERVICE G0151 [facility] [...] MEDICAL O2 SYS EQUIPMENT EQUIPMENT RENT; FLWMTR [facility] 59358 [facility] 5 NURSE LESLEY DAY PRACTITIO MANAGEMEN NER GR T 30 MIN/< SBSQ 87990 [place] [address] MEDICAL CARE/DAY SERV 25 FOUNDATIO MINUTES N SBSQ 44136 [place] [address] MEDICAL CARE/DAY SERV 25 FOUNDATIO MINUTES N SBSQ 47628 [facility] 5 NURSE LESLEY CARE/DAY PRACTITIO 25 NER GR MINUTES COMMODE E0163 [facility] 5 MOBILE OR STATIONAR Y W/FIXED ARMS SBSQ 61259 [place] [address] NURSE LESLEY CARE/DAY PRACTITIO 25 NER GR MINUTES SBSQ 52574 [place] [address] MEDICAL CARE/DAY SERV 25 FOUNDATIO MINUTES N SBSQ 60445 [facility] 5 MEDICAL CARE/DAY SERV 25 FOUNDATIO MINUTES N SBSQ 74596 [facility] 5 MEDICAL CARE/DAY SERV 25 FOUNDATIO MINUTES N SBSQ 31348 [facility] 5 MEDICAL CARE/DAY SERV 25 FOUNDATIO MINUTES N SBSQ 75598 [facility] 5 MEDICAL CARE/DAY SERV 25 FOUNDATIO MINUTES N WALKER E0143 [facility] FOLDING 5 WHEELED ADJUSTABL E/FIXED HEIGHT SBSQ 85988 [facility] 5 NURSE LESLEY CARE/DAY PRACTITIO 25 NER GR MINUTES SBSQ 80850 [facility] 5 NURSE LESLEY CARE/DAY PRACTITIO 25 NER GR MINUTES SBSQ 79553 [facility] 5 NURSE LESLEY CARE/DAY PRACTITIO 25 NER GR MINUTES SBSQ 76819 [facility] 5 NURSE LESLEY CARE/DAY PRACTITIO 25 NER GR MINUTES SBSQ 42343 [facility] 5 NURSE LESLEY CARE/DAY PRACTITIO 25 NER GR MINUTES SWALLOWIN 71308 RIGOBERTO SIERRACJ 5 MEDICAL SCO W/CINERAD SERV IOGRAPY/V FOUNDATIO IDRADIOG N SBSQ 04463 [facility] 5 MEDICAL IHA CARE/DAY SERV 25 FOUNDATIO MINUTES N SBSQ 53086 [facility] 5 MEDICAL IHA CARE/DAY SERV 25 FOUNDATIO MINUTES N SBSQ 49560 [facility] 5 NURSE LESLEY CARE/DAY PRACTITIO 25 NER GR MINUTES SBSQ 22064 [place] [address] NURSE LESLEY CARE/DAY PRACTITIO 25 NER GR MINUTES SBSQ 09434 [facility] 5 MEDICAL CARE/DAY [place] [address] [place] MEDRAN[facility] ANH ABDOMINAL 5 MEDICAL REAL SERV TIME FOUNDATIO W/IMAGE N LIMITED SBSQ 03538 [facility] 5 MEDICAL CARE/DAY SERV 25 FOUNDATIO MINUTES N SBSQ 57566 [facility] 5 MEDICAL CARE/DAY SERV 25 FOUNDATIO MINUTES N INITIAL 81864 [facility] INPATIENT 5 MEDICAL CONSULT SERV NEW/ESTAB FOUNDATIO PT 55 N MIN SBSQ 41202 [facility] 5 MEDICAL CARE/DAY SERV 25 FOUNDATIO MINUTES N SBSQ 70239 [facility] 5 MEDICAL TRACIE CARE/DAY SERV 25 FOUNDATIO MINUTES N SBSQ 07012 [facility] 5 NURSE LESLEY CARE/DAY PRACTITIO 25 NER GR MINUTES SBSQ 16613 [facility] 5 MEDICAL KIRIT CARE/DAY SERV 35 FOUNDATIO MINUTES N INITIAL 10315 [facility] INPATIENT 5 MEDICAL KAN JARVIS CONSULT SERV NEW/ESTAB FOUNDATIO PT 110 N MIN SBSQ 11962 [facility] 5 MEDICAL TRACIE CARE/DAY SERV 25 FOUNDATIO MINUTES N SBSQ 35795 [facility] 5 MEDICAL KIRIT CARE/DAY SERV 35 FOUNDATIO MINUTES N SBSQ 99966 [facility] 5 NURSE LESLEY CARE/DAY PRACTITIO 25 NER GR MINUTES SBSQ 47292 [facility] 5 NURSE LESLEY CARE/DAY PRACTITIO 25 NER GR MINUTES SBSQ 89485 [facility] 5 NURSE LESLEY CARE/DAY PRACTITIO 25 NER GR MINUTES SBSQ 00498 [place] [address] MEDICAL KIRIT CARE/DAY SERV 35 FOUNDATIO MINUTES N SBSQ 02043 [place] [address] MEDICAL KIRIT CARE/DAY SERV 35 FOUNDATIO MINUTES N SBSQ 23117 [place] [address] MEDICAL GIPSON CARE/DAY SERV ADO 25 FOUNDATIO MINUTES N ECG 83883 [facility] 5 MEDICAL NAN ECG SERV W/LEAST FOUNDATIO 12 LDS N I&R ONLY SBSQ 55518 [place] [address] MEDICAL KIRIT CARE/DAY SERV 35 FOUNDATIO MINUTES N INITIAL 56793 [facility] INPATIENT 5 MEDICAL THO CONSULT SERV NEW/ESTAB FOUNDATIO PT 110 N MIN O2 CONC 1 E1390 [facility] [place] 5 MEDICAL MEDICAL 85%/>02 EQUIPMENT EQUIPMENT CONC AT PRS FLW RATE SBSQ 33602 [place] [address] MEDICAL KIRIT CARE/DAY SERV 35 FOUNDATIO MINUTES N ECHO 69078 [place] OLVIN TTHRC R-T 5 MEDICAL PAULO 2D SERV W/WOM-MOD FOUNDATIO E COMPL N SPEC&COLR D PRTBLE E0431 MURPHY MURPHY GASEOUS 5 MEDICAL MEDICAL O2 SYS EQUIPMENT EQUIPMENT RENT; FLWMTR HUMIDFR&M ASK SBSQ 44227 [place] [address] MEDICAL KIRIT CARE/DAY SERV 35 FOUNDATIO MINUTES N SBSQ 88760 [place] [address] MEDICAL KIRIT CARE/DAY SERV 35 FOUNDATIO MINUTES N SBSQ 28853 [place] [address] MEDICAL KIRIT CARE/DAY SERV 35 FOUNDATIO MINUTES N RADIOLOGI 46347 [place] [address] MEDICAL ASH EXAMINATI SERV ON CHEST FOUNDATIO SINGLE N VIEW FRONTAL RADIOLOGI 93477 [place] ARSLAN [facility] 5 MEDICAL ASH EXAMINATI SERV ON CHEST FOUNDATIO SINGLE N VIEW FRONTAL RADIOLOGI 15368 [place] [facility] 5 MEDICAL ASH EXAMINATI SERV ON CHEST FOUNDATIO SINGLE N VIEW FRONTAL SBSQ 54837 [place] [address] MEDICAL KIRIT CARE/DAY SERV 35 FOUNDATIO MINUTES N RADIOLOGI 00343 [place] [facility] 5 MEDICAL ASH EXAMINATI SERV ON CHEST FOUNDATIO SINGLE N VIEW FRONTAL SBSQ 00459 [place] [address] MEDICAL LEI CARE/DAY SERV 35 FOUNDATIO MINUTES N RADIOLOGI 19955 [place] [facility] 5 MEDICAL KAMILLA EXAMINATI SERV ON CHEST FOUNDATIO SINGLE N VIEW FRONTAL RADIOLOGI 92016 [place] [facility] 5 MEDICAL KAMILLA EXAMINATI SERV ON CHEST FOUNDATIO SINGLE N VIEW FRONTAL SBSQ 98263 [place] [address] MEDICAL LEI CARE/DAY SERV 35 FOUNDATIO MINUTES N SBSQ 23974 [place] [address] MEDICAL CARE/DAY SERV 35 FOUNDATIO MINUTES N RADIOLOGI 07166 [place] [facility] 5 MEDICAL EXAMINATI SERV ON CHEST FOUNDATIO SINGLE N [place]IEW FRONTAL SWALLOWIN 95462 [place] DISANTIS G FUNCJ 5 MEDICAL SILVIANO W/CINERAD SERV IOGRAPY/V FOUNDATIO IDRADIOG N SBSQ 54664 [place] [address] MEDICAL CARE/DAY SERV 35 FOUNDATIO MINUTES N SBSQ 50992 [place] [address] MEDICAL CARE/DAY SERV 35 FOUNDATIO MINUTES N SBSQ 89592 [place] [address] MEDICAL CARE/DAY SERV 35 FOUNDATIO MINUTES N RADIOLOGI 31782 [place] [facility] 5 MEDICAL ASH EXAMINATI SERV ON CHEST FOUNDATIO SINGLE N VIEW FRONTAL RADEX 33126 [place] DISANTIS ABDOMEN 1 5 MEDICAL SILVIANO SERV ANTEROPOS FOUNDATIO TERIOR N VIEW RADIOLOGI 17944 [place] [facility] 5 MEDICAL ASH EXAMINATI SERV ON CHEST FOUNDATIO SINGLE N VIEW FRONTAL SBSQ 49928 [place] [address] MEDICAL CARE/DAY SERV 35 FOUNDATIO MINUTES N DUP-SCAN 83712 [place] MINION XTR VEINS 5 MEDICAL SILVIANO COMPLETE SERV FOUNDATIO BILATERAL N STUDY CRITICAL 83722 [place] [facility] 5 MEDICAL GILBERT ILL/INJUR SERV ED FOUNDATIO PATIENT N INIT 30-74 MIN RADIOLOGI 86889 [place] SESAR NATHAN C 5 MEDICAL EXAMINATI SERV ON CHEST FOUNDATIO SINGLE N VIEW FRONTAL RADIOLOGI 06881 [place] SESAR NTAHAN C 5 MEDICAL EXAMINATI SERV ON CHEST FOUNDATIO SINGLE N VIEW FRONTAL CRITICAL 06865 [place] [facility] 5 MEDICAL GILBERT ILL/INJUR SERV ED FOUNDATIO PATIENT N INIT 30-74 MIN RADIOLOGI 54641 [place] BOYLE IJEOMA C 5 MEDICAL EXAMINATI SERV ON CHEST FOUNDATIO SINGLE N VIEW FRONTAL SBSQ 09828 [place] [facility] 5 MEDICAL CARE/DAY SERV 35 FOUNDATIO MINUTES N SBSQ 49862 [place] [facility] 5 MEDICAL CARE/DAY SERV 35 FOUNDATIO MINUTES N RADIOLOGI 90927 [place] CANDELARIA C 5 MEDICAL ASH EXAMINATI SERV ON CHEST FOUNDATIO SINGLE N VIEW FRONTAL SBSQ 32871 [place] [facility] 5 MEDICAL CARE/DAY SERV 35 FOUNDATIO MINUTES N RADIOLOGI 99182 [place] ARSLAN C 5 MEDICAL ASH EXAMINATI SERV ON CHEST FOUNDATIO SINGLE N VIEW FRONTAL CT THORAX 70568 [place] BOYLE IJEOMA W/O 5 MEDICAL CONTRAST SERV MATERIAL FOUNDATIO N SBSQ 64868 [place] [facility] 5 MEDICAL CARE/DAY SERV 35 FOUNDATIO MINUTES N SBSQ 02647 [place] [facility] 5 MEDICAL CARE/DAY SERV 35 FOUNDATIO MINUTES N RADIOLOGI 64481 [place] ARSLAN C 5 MEDICAL ASH EXAMINATI SERV ON CHEST FOUNDATIO SINGLE N VIEW FRONTAL CRITICAL 71585 [place] [facility] 5 MEDICAL SILVIANO ILL/INJUR SERV ED FOUNDATIO PATIENT N INIT 30-74 MIN CRITICAL 85886 [place] [facility] 5 MEDICAL SILVIANO ILL/INJUR SERV ED FOUNDATIO PATIENT N INIT 30-74 MIN RADIOLOGI 47233 [place] SES[facility] NATHAN C 5 MEDICAL EXAMINATI SERV ON CHEST FOUNDATIO SINGLE N VIEW FRONTAL RADIOLOGI 87033 [place] [facility] 5 MEDICAL EXAMINATI SERV ON CHEST FOUNDATIO SINGLE N VIEW FRONTAL SBSQ 44331 [place] [facility] 5 MEDICAL CARE/DAY SERV 35 FOUNDATIO MINUTES N TEMPORARY 311 [facility] Y Y TRACHEOST [facility] CRITICAL 87984 [place] [facility] 5 MEDICAL HANSEL ILL/INJUR SERV IJEOMA ED FOUNDATIO PATIENT N INIT 30-74 MIN TRACHEOST 32939 [place] [facility] 5 MEDICAL MANE PLANNED SERV SEPARATE FOUNDATIO PROCEDURE N CRITICAL 42538 [facility] 5 MEDICAL HANSEL ILL/INJUR SERV IJEOMA ED FOUNDATIO PATIENT N INIT 30-74 MIN CRITICAL 58055 [facility] 5 MEDICAL HANSEL ILL/INJUR SERV IJEOMA ED FOUNDATIO PATIENT N INIT 30-74 MIN O2 CONC 1 E1390 [facility] [place] 5 MEDICAL MEDICAL 85%/>02 EQUIPMENT EQUIPMENT [facility]C AT [facility] FLW RATE PRTBLE E0431 MURPHY MURPHY GASEOUS 5 MEDICAL MEDICAL O2 SYS EQUIPMENT EQUIPMENT RENT; FLWOHR HUMIDFR&M ASK RADIOLOGI 08787 [place] CANDELARIA C 5 MEDICAL ASH EXAMINATI SERV ON CHEST FOUNDATIO SINGLE N VIEW FRONTAL ECHO 63675 [place] RHONDA SOTO TTHRC R-T 5 MEDICAL 2D SERV W/WOM-MOD FOUNDATIO E COMPL N SPEC&COLR D SBSQ 98212 [place] [facility] 5 MEDICAL CARE/DAY SERV [address] THORAX [address] [place] [facility] IJEOMA W/O 5 MEDICAL CONTRAST SERV MATERIAL FOUNDATIO N CRITICAL 53332 [place] [facility] 5 MEDICAL Y-BUSTAMANTE ILL/INJUR SERV MANE ED FOUNDATIO PATIENT N INIT 30-74 MIN CRITICAL 31964 [place] [facility] 5 MEDICAL Y-BUSTAMANTE ILL/INJUR SERV MANE ED FOUNDATIO PATIENT N INIT 30-74 MIN RADIOLOGI 18610 [place] [facility] NATH[facility] C 5 MEDICAL EXAMINATI SERV ON CHEST FOUNDATIO SINGLE N VIEW FRONTAL RADIOLOGI 06178 [place] [facility] 5 MEDICAL EXAMINATI SERV ON CHEST FOUNDATIO SINGLE [place] SOFT 57712 [place] KRISTAL JUST[facility] TISSUE 5 MEDICAL NECK W/O SERV CONTRAST FOUNDATIO MATERIAL N CRITICAL 59238 [place] [facility] 5 MEDICAL Y-BUSTAMANTE ILL/INJUR SERV MANE ED FOUNDATIO PATIENT N INIT 30-74 MIN US SOFT 77637 [place] [facility] TISSUE 5 MEDICAL SUSANNA HEAD & SERV NECK REAL FOUNDATIO TIME N IMGE DOCM CRITICAL 14682 [place] [facility] 5 MEDICAL HANSEL ILL/INJUR SERV IJEOMA ED FOUNDATIO PATIENT N INIT 30-74 MIN RADIOLOGI 63455 [place] [facility] C 5 MEDICAL ASH EXAMINATI SERV ON CHEST FOUNDATIO SINGLE N VIEW FRONTAL SBSQ [address] [facility] 5 MEDICAL CARE/DAY SERV 35 FOUNDATIO MINUTES N SBSQ 59278 [place] [address] MEDICAL FER CARE/DAY SERV 35 FOUNDATIO MINUTES N RADIOLOGI 55174 [place] [facility] IJEOMA C 5 MEDICAL EXAMINATI SERV ON CHEST FOUNDATIO SINGLE N VIEW FRONTAL ECG 09661 [place] [facility] ROUTINE 5 MEDICAL ECG SERV W/LEAST FOUNDATIO 12 LDS N I&R ONLY CRITICAL 21442 [facility] 5 MEDICAL HANSEL ILL/INJUR SERV IJEOMA ED FOUNDATIO PATIENT N INIT 30-74 MIN INITIAL 84534 [facility] INPATIENT 5 [facility] CONSULT NEW/ESTAB PT 40 MIN CRITICAL 98434 [facility] 5 MEDICAL HANSEL ILL/INJUR SERV IJEOMA ED FOUNDATIO PATIENT N INIT 30-74 MIN SBSQ 55188 [place] [address] MEDICAL FER CARE/DAY SERV 35 FOUNDATIO MINUTES N SBSQ 77130 [place] [address] MEDICAL AMR CARE/DAY SERV 35 FOUNDATIO MINUTES N RADIOLOGI 54103 [place] [facility] [facility] 5 MEDICAL EXAMINATI SERV ON CHEST FOUNDATIO SINGLE N VIEW FRONTAL CRITICAL 35558 [facility] 5 MEDICAL HANSEL ILL/INJUR SERV IJEOMA ED FOUNDATIO PATIENT N INIT 30-74 MIN DUP-SCAN 99293 [place] [facility] [place] [facility] 5 MEDICAL COMPLETE SERV FOUNDATIO BILATERAL N STUDY CRITICAL 83672 [facility] 5 MEDICAL HANSEL ILL/INJUR SERV IJEOMA ED FOUNDATIO PATIENT N INIT 30-74 MIN RADIOLOGI 65029 [place] [facility] 5 MEDICAL EXAMINATI SERV ON CHEST FOUNDATIO SINGLE N VIEW FRONTAL SBSQ 60189 [place] [facility] 5 MEDICAL AMR CARE/DAY SERV 35 FOUNDATIO MINUTES N RADIOLOGI 23643 [place] [facility] 5 MEDICAL EXAMINATI SERV ON CHEST FOUNDATIO SINGLE N VIEW FRONTAL CRITICAL 25228 [facility] 5 MEDICAL LEI ILL/INJUR SERV ED FOUNDATIO PATIENT N INIT 30-74 MIN CRITICAL 20779 [place] [facility] 5 MEDICAL LEI ILL/INJUR SERV ED FOUNDATIO PATIENT N INIT 30-74 MIN RADIOLOGI 89883 [place] [facility] 5 MEDICAL EXAMINATI SERV ON CHEST FOUNDATIO SINGLE N VIEW FRONTAL SBSQ 41042 [place] [facility] 5 MEDICAL BETHANY CARE/DAY SERV 35 FOUNDATIO MINUTES N SBSQ 57165 [facility] 5 MEDICAL SILVIANO CARE/DAY SERV 35 FOUNDATIO MINUTES N ECG 22135 [place] [facility] MEDICAL ECG SERV W/LEAST FOUNDATIO 12 LDS N I&R ONLY RADIOLOGI 15230 [place] [facility] 5 MEDICAL EXAMINATI SERV ON CHEST FOUNDATIO SINGLE N VIEW FRONTAL ECG 52108 [place] [facility] 5 MEDICAL ECG SERV W/LEAST FOUNDATIO 12 LDS N I&R ONLY SBSQ 47186 [place] [facility] 5 MEDICAL CARE/DAY SERV 35 FOUNDATIO MINUTES N SBSQ 16581 [place] [facility] 5 MEDICAL CARE/DAY SERV 35 FOUNDATIO MINUTES N DUP-SCAN 25507 [place] [facility] 5 MEDICAL MEAGAN COMPLETE SERV FOUNDATIO BILATERAL N STUDY CRITICAL 39284 [place] [facility] 5 MEDICAL SILVIANO ILL/INJUR SERV ED FOUNDATIO PATIENT N INIT 30-74 MIN SBSQ 76245 [place] [facility] 5 MEDICAL AMR CARE/DAY SERV 35 FOUNDATIO MINUTES N RADIOLOGI 06058 [place] [facility] 5 MEDICAL ASH EXAMINATI SERV ON CHEST FOUNDATIO SINGLE N VIEW FRONTAL INITIAL 72126 [place] [facility] INPATIENT 5 MEDICAL CONSULT SERV NEW/ESTAB FOUNDATIO PT 110 N MIN CRITICAL 23678 [place] [facility] 5 MEDICAL SILVIANO ILL/INJUR SERV ED FOUNDATIO PATIENT N INIT 30-74 MIN CRITICAL 02615 [place] [facility] CARE 5 MEDICAL ILL/INJUR SERV ED FOUNDATIO PATIENT N INIT 30-74 MIN RADEX 28063 [place] MIN[facility] [facility] ABDOMEN 1 5 MEDICAL SERV ANTEROPOS FOUNDATIO TERIOR N VIEW RADIOLOGI 87514 [place] [facility] 5 MEDICAL EXAMINATI SERV ON CHEST FOUNDATIO SINGLE N VIEW FRONTAL SBSQ 23510 [place] [facility] 5 MEDICAL OS DIETER CARE/DAY SERV 35 FOUNDATIO MINUTES N SBSQ [address] [facility] 5 MEDICAL OS DIETER CARE/DAY SERV 35 FOUNDATIO MINUTES N RADIOLOGI 10903 [place] MIN[place] [facility] C 5 MEDICAL EXAMINATI SERV ON CHEST FOUNDATIO SINGLE N VIEW FRONTAL CRITICAL 47044 [place] [facility] CARE 5 MEDICAL ILL/INJUR SERV ED FOUNDATIO PATIENT N INIT 30-74 MIN CRITICAL 76806 [place] [facility] 5 MEDICAL SILVIANO ILL/INJUR SERV ED FOUNDATIO PATIENT N INIT 30-74 MIN RADIOLOGI 54650 [place] [facility]RSAL[facility] C 5 MEDICAL ASH EXAMINATI SERV ON CHEST FOUNDATIO SINGLE N VIEW FRONTAL SBSQ 03742 [place] [facility] 5 MEDICAL AMR CARE/DAY SERV 35 FOUNDATIO MINUTES N SBSQ 59837 [place] [facility] 5 MEDICAL AMR CARE/DAY SERV 35 FOUNDATIO MINUTES N RADIOLOGI 37426 [place] [facility]RS[facility] 5 MEDICAL ASH EXAMINATI SERV ON CHEST FOUNDATIO SINGLE N VIEW FRONTAL CRITICAL 78894 [place] [facility] 5 MEDICAL SILVIANO ILL/INJUR SERV ED FOUNDATIO PATIENT N INIT 30-74 MIN CRITICAL 72071 [place] [facility] 5 MEDICAL SILVIANO ILL/INJUR SERV ED FOUNDATIO PATIENT N INIT 30-74 MIN BLOOD 17866 [facility] 5 [facility] PHYS W/WRIT REPORT RADIOLOGI 79122 [place] [facility] IJEOMA C 5 MEDICAL EXAMINATI SERV ON [place] [address] [place] MEDRANO ANH RETROPERI 5 MEDICAL TONEAL SERV REAL TIME FOUNDATIO W/IMAGE N COMPLETE SBSQ 65278 [place] [facility] 5 MEDICAL AMR CARE/DAY SERV 35 FOUNDATIO MINUTES N ARTL 40404 [place] VICTOR M KET CATHJ/CAN 5 MEDICAL NULJ SERV MNTR/HEATON FOUNDATIO SFUSION N SPX PRQ INSJ 60714 [place] [facility] NON-TUNNE 5 MEDICAL SILVIANO LED SERV CENTRAL FOUNDATIO VENOUS N CATH AGE 5 YR/> CULTURE 26883 [facility] BACTERIAL 5 [facility] BLOOD INC INC AEROBIC W/ID ISOLATES CYTP 03789 [facility] S[facility] SLCTV 5 Y OF [facility]LL [facility] INTERPJ XCPT C/V COLLECTIO 69493 [facility] N VENOUS 5 [facility] BLOOD INC INC VENIPUNCT URE RADIOLOGI 65500 [facility] C 5 [facility] EXAMINATI INC INC ON CHEST SINGLE VIEW FRONTAL INITIAL 18131 [place] [facility] INPATIENT 5 MEDICAL AMR CONSULT SERV NEW/ESTAB FOUNDATIO PT 110 N MIN CUL BACT 85479 [facility] AEROBIC 5 [facility] ADDL INC INC METHS DEFINITIV E EA ISOL BRNCHSC 11730 [place] [facility] W/BRNCL 5 MEDICAL SILVIANO ALVEOLAR SERV LAVAGE FOUNDATIO N SUSCEPTIB 79502 [facility] LTY STDY 5 [facility] ANTIMICRB INC INC IAL MICRO/AGA R DILUTJ THERAPEUT 75731 ST[facility] ST[facility]MY IC 5 [facility] INJECTION INC INC IV PUSH EACH NEW DRUG CREATINE 03023 ST[facility] KINASE 5 [facility] TOTAL INC INC ECG 07567 ST[facility] STORMY ROUTINE 5 [facility] ECG INC INC W/LEAST 12 LDS TRCG ONLY W/O I&R ECG 01588 ST[facility] PETRONA ROUTINE 5 [facility] W/LEAST P 12 LDS I&R ONLY ECHO 12281 [facility] 5 MEDICAL 2D SERV W/WOM-MOD FOUNDATIO E COMPL N SPEC&COLR D PRESSURIZ 97801 [facility] ED/NONPRE 5 [facility] SSURIZED [place] [address] ST[facility] INFUSION 5 [facility] THERAPY/P INC INC ROPHYLAXI S /DX 1ST TO [address] [place] [address] [facility] TROPONIN 5 [facility] QUANTITAT INC INC CRISTIAN BLOOD 10086 [facility] COUNT 5 [facility] COMPLETE INC INC AUTO&AUTO DIFRNTL WBC BLOOD 85900 [facility] ESAU SMEAR 5 Y OF JARVIS PERIPHERA [facility] INTERP HOSPI PHYS W/WRIT REPORT DUP-SCAN 75836 [place] SORIAL XTR VEINS 5 MEDICAL EHA COMPLETE SERV FOUNDATIO BILATERAL N STUDY CONT [address] [facility] [place] INVASIVE 5 Y Y [facility] 96 CONSECUTI VE HRS/MORE CENTRAL [address] [facility] VENOUS [address] [facility] PLACEMENT WITH GUIDANCE ARTERIAL [address] [facility] [place] CATHETER 5 Y Y [facility] INSERTION 9604 [facility] 5 Y Y [facility] [place] [address] [facility] INFUSION 5 [facility] THER INC INC PROPH ADDL SEQUENTIA L TO 1 HR CRITICAL 42526 R[facility]ERT[facility] CARE 5 MEDICAL SILVIANO ILL/INJUR SERV ED FOUNDATIO PATIENT N INIT 30-74 MIN COMPREHEN 55804 [facility] SIVE 5 [facility] METABOLIC INC INC PANEL CREATINE 75713 [facility] KINASE MB 5 [facility] FRACTION INC INC ONLY BLOOD 68855 [facility] COUNT 5 [facility] COMPLETE INC INC AUTO&AUTO DIFRNTL WBC COLLECTIO 95329 [facility] B[facility] N VENOUS 5 [facility] BLOOD INC INC VENIPUNCT URE COLLECTIO 54718 [facility] N VENOUS 5 [facility] BLOOD INC INC VENIPUNCT URE BLOOD 67004 [facility] COUNT 5 [facility] COMPLETE INC INC AUTO&AUTO DIFRNTL WBC PRTBLE E0431 MURPHY MURPHY GASEOUS 5 MEDICAL MEDICAL O2 SYS EQUIPMENT EQUIPMENT RENT; FLWMTR HUMIDFR&M ASK O2 CONC 1 E1390 MURPHY MURPHY [place] 5 MEDICAL MEDICAL 85%/>02 EQUIPMENT EQUIPMENT CONC AT [facility] FLW RATE TRANSFUSI 79914 ST[facility] BURROWS ON 5 [facility] BLOOD/BLO INC INC OD COMPONENT S BLOOD 68432 [facility] COUNT 5 [facility] HEMOGLOBI INC INC N RED BLOOD P9016 [facility] CELLS 5 [facility] LEUKOCYTE INC INC S REDUCED EACH UNIT BLOOD 38304 [facility] B[facility]OWS COUNT 5 [facility] HEMATOCRI INC INC T BLOOD 24366 [facility] COUNT 5 [facility] COMPLETE INC INC AUTO&AUTO DIFRNTL WBC COLLECTIO 47874 [facility] N VENOUS 5 [facility] BLOOD INC INC VENIPUNCT URE ANTIBODY 07015 [facility] B[facility] SCREEN 5 [facility] RBC EACH INC INC SERUM TECHNIQUE BLOOD 87689 [facility] TYPING 5 [facility] SEROLOGIC INC INC ABO ANTIBODY 16289 [facility] ID RBC 5 [facility] ANTIBODIE INC INC S EA PANEL EA SERUM TQ COMPATIBI 48433 [facility] LITY EACH 5 [facility] UNIT INC INC ANTIGLOBU HARINI COMPATIBI 71871 STORYM BURROWS LITY EACH 5 [facility] UNIT INC INC IMMEDIATE SPIN TECHNIQUE BLOOD 55063 [facility] TYPING 5 [facility] SEROLOGIC INC INC RH (D) COLLECTIO 30640 STORMYJASON BURROWS N VENOUS 5 [facility] BLOOD INC INC VENIPUNCT URE BLOOD 39452 ST[facility] [place] COUNT 5 [facility] COMPLETE INC INC AUTO&AUTO DIFRNTL WBC BLOOD 69010 [facility] COUNT 5 [facility] HEMOGLOBI INC INC N RED BLOOD P9016 ST[facility] [place]ON CELLS 5 [facility] LEUKOCYTE INC INC S REDUCED EACH UNIT TRANSFUSI 17073 ST[facility] BURROWS ON 5 [facility] BLOOD/BLO INC INC OD COMPONENT S BLOOD 41546 [facility] COUNT 5 [facility] HEMATOCRI INC INC T COMPREHEN 46073 [facility] SIVE 5 [facility] METABOLIC INC INC PANEL ANTIBODY 20207 [facility] ID RBC 5 [facility] ANTIBODIE INC INC S EA PANEL EA SERUM TQ BLOOD 76613 [facility] TYPING 5 [facility] SEROLOGIC INC INC ABO ANTIBODY 27124 [facility] SCREEN 5 [facility] RBC EACH INC INC SERUM TECHNIQUE BLOOD 76366 [facility] TYPING 5 [facility] SEROLOGIC INC INC RH (D) COMPATIBI 77201 [facility] LITY EACH 5 [facility] UNIT INC INC IMMEDIATE SPIN TECHNIQUE COMPATIBI 13969 [facility] LITY EACH 5 [facility] UNIT INC INC ANTIGLOBU HARINI BLOOD 11970 [facility] COUNT 5 [facility] COMPLETE INC INC AUTO&AUTO DIFRNTL WBC BLOOD 25945 [facility] COUNT 4 [facility] COMPLETE INC INC AUTO&AUTO DIFRNTL WBC COMPREHEN 36582 [facility] B[facility] SIVE 4 [facility] METABOLIC INC INC PANEL HOSP[facility] 02920 [place] [facility] 4 [facility] CL[facility] MANAGEMEN PSC T > 30 MIN PRTBLE E0431 MURPHY MURPHY GASEOUS 4 MEDICAL MEDICAL O2 SYS EQUIPMENT EQUIPMENT RENT; FLWMTR HUMIDFR&M ASK O2 CONC 1 E1390 MURPHY MURPHY [place] 4 MEDICAL MEDICAL 85%/>02 EQUIPMENT EQUIPMENT CONC AT [facility] FLW RATE SBSQ [address] [place] CARE/DAY CLINIC 25 PSC MINUTES SBSQ [address] [place] CARE/DAY CLINIC 25 PSC MINUTES RADIOLOGI 69533 [facility] [place] C EXAM 4 RADIOLOGY CAR CHEST 2 VIEWS FRONTAL&L ATERAL SBSQ [address] [facility]EN[place] CARE/DAY CLINIC 25 PSC MINUTES SBSQ [address] CAIN CARE/DAY CLINIC 25 PSC MINUTES SBSQ [address] [place] CARE/DAY CLINIC 35 PSC MINUTES SBSQ [address] [place] CARE/DAY CLINIC 25 PSC MINUTES SBSQ [address] MAT CARE/DAY CLINIC 15 PSC MINUTES SBSQ [address] [place] CARE/DAY CLINIC 25 PSC MINUTES SBSQ [address] CARE/DAY MEDICAL 25 G MINUTES SBSQ [address] MAT CARE/DAY CLINIC 15 PSC MINUTES SBSQ [address] [place] CARE/DAY CLINIC 35 PSC MINUTES RADIOLOGI 46171 [facility] [place] PRAJAPATI C EXAM 4 RADIOLOGY [place] CHEST 2 VIEWS FRONTAL&L ATERAL ECHO 23204 [facility] CLIN[facility] W/WOM-MOD PSC E COMPL SPEC&COLR D SBSQ [address] [place] CARE/DAY CLINIC 25 PSC MINUTES SBSQ [address] [place] CARE/DAY CLINIC 25 PSC MINUTES SBSQ 26826 [facility] 4 [place] CARE/DAY CLINIC 25 PSC MINUTES SBSQ 03298 [facility] 4 [place] CARE/DAY CLINIC 25 PSC MINUTES SBSQ 63319 [facility] CARE/DAY MEDICAL 35 G MINUTES SBSQ 47540 [facility] 4 NE HEALTH GRA CARE/DAY MEDICAL 35 G MINUTES SBSQ 78415 [facility] 4 [place] CARE/DAY CLINIC 25 PSC MINUTES RADIOLOGI 25237 [facility] [place] C 4 RADIOLOGY LD IV ALL EXAMINATI ON CHEST SINGLE VIEW FRONTAL ECG 78835 LAURIE SHEEHAN ROUTINE 4 BAR ECG W/LEAST 12 LDS I&R ONLY SBSQ 80350 [facility] 4 NE [facility]ALTH GRA CARE/DAY MEDICAL 35 G MINUTES SBSQ [address] [place] CARE/DAY CLINIC 25 PSC MINUTES RADIOLOGI 78261 [facility] [place] TANVIR C 4 RADIOLOGY MAGGIE EXAMINATI [place] [address] [facility] [place] KOSTELIC ANGIOGRAP 4 RADIOLOGY ESTEBAN HY CHEST W/CONTRAS T/NONCONT RAST SBSQ [address] JENNA CARE/DAY CLINIC 25 PSC MINUTES SBSQ 50320 [facility] 4 NE HEALTH GRA CARE/DAY MEDICAL 25 G MINUTES SBSQ 33560 [facility] 4 [place] CARE/DAY CLINIC 35 PSC MINUTES RADIOLOGI 86521 [facility] [place] C EXAM 4 RADIOLOGY LD IV ALL CHEST 2 VIEWS FRONTAL&L ATERAL SBSQ 66305 [facility] 4 [place] CARE/DAY CLINIC 25 PSC MINUTES SBSQ [address] CARE/DAY CLINIC 25 PSC MINUTES SBSQ [address] CARE/DAY CLINIC 25 PSC MINUTES SBSQ [address] CARE/DAY CLINIC 25 PSC MINUTES DUP-SCAN 19633 [facility] THO XTR VEINS 4 [facility] MEDICAL UNILATERA G L/LIMITED STUDY SBSQ 83027 [facility] 4 [place] CARE/DAY CLINIC 15 PSC MINUTES RADIOLOGI 36169 [facility] [place] KOSTELIC C EXAM 4 RADIOLOGY ESTEBAN CHEST 2 VIEWS FRONTAL&L ATERAL SBSQ [address] CARE/DAY CLINIC 25 PSC MINUTES SBSQ [address] CARE/DAY CLINIC 25 PSC MINUTES SBSQ 70712 [facility] 4 [facility] CARE/DAY MEDICAL 35 G MINUTES SBSQ [address] CARE/DAY CLINIC 25 PSC MINUTES SBSQ [address] CARE/DAY CARE 25 MINUTES SBSQ [address] CARE/DAY CLINIC 35 PSC MINUTES RADIOLOGI 04278 [facility] [place] C EXAM 4 RADIOLOGY LD IV ALL CHEST 2 VIEWS FRONTAL&L ATERAL SBSQ [address] CARE/DAY CLINIC 25 PSC MINUTES SBSQ [address] CARE/DAY CLINIC 25 PSC MINUTES SBSQ [address] CARE/DAY CLINIC 15 PSC MINUTES SBSQ [address] CARE/DAY CLINIC 15 PSC MINUTES SBSQ 66448 [facility] 4 [facility] CARE/DAY MEDICAL 35 G MINUTES RADIOLOGI 21435 [facility] [place] C 4 RADIOLOGY CAR EXAMINATI ON CHEST SINGLE VIEW FRONTAL SBSQ [address] CARE/DAY CLINIC 25 PSC MINUTES SBSQ [address] CARE/DAY CLINIC 25 PSC MINUTES INITIAL [address] MAT CONSULT CLINIC NEW/ESTAB PSC PT 40 MIN SBSQ 54194 [facility] 4 [place] RAC CARE/DAY CLINIC 25 PSC MINUTES RADIOLOGI 07969 [facility] [place] TANVIR C 4 RADIOLOGY MAGGIE EXAMINATI ON CHEST SINGLE VIEW FRONTAL ECHO 51796 [facility] M[facility] TTHRC R-T 4 [place] CAIN 2D CLINIC W/WOM-MOD PSC E COMPL SPEC&COLR D INITIAL 07224 [facility] 4 [place] CARE/DAY CLINIC 30 PSC MINUTES SBSQ 87615 [facility] 4 [place] K[place] CARE/DAY CARE 35 MINUTES SBSQ 38594 [facility] 4 [place] JENNA CARE/DAY CLIN[place] 25 [place] [address] [facility] [place] RETROPERI 4 RADIOLOGY CAR TONEAL REAL TIME W/IMAGE LIMITED INITIAL 08907 [facility] 4 [place] KIDNEY [place] CARE/DAY CARE 50 MINUTES INITIAL 09968 [facility] INPATIENT 4 [facility] CONSULT MEDICAL NEW/ESTAB G PT [address] THORAX 60545 [facility] [place] W/O 4 RADIOLOGY CAR CONTRAST MATERIAL DUP-SCAN 94923 [facility] XTR VEINS [address] [place] [address] COMPLETE CLINIC PSC BILATERAL STUDY AMB A0427 [facility] SERVICE 4 AMBULANCE AMBULANCE ALS SERVICE SERVICE EMERGENCY TRANSPORT LEVEL 1 GROUND A0425 [facility] MILEAGE 4 AMBULANCE AMBULANCE PER SERVICE SERVICE STATUTE MILE INITIAL 49590 [facility] 4 [place]ENNA CARE/DAY CLINIC 70 PSC MINUTES RADIOLOGI 56861 [facility] [place] ANGELICAERALLIE C 4 RADIOLOGY LD IV ALL EXAMINATI ON CHEST SINGLE VIEW FRONTAL ECG 00728 STORMY WISEMAN JR ROUTINE 4 [facility] W/LEAST P 12 LDS I&R ONLY RADIOLOGI 68543 [facility] JAIRON C 4 MEDICAL LIZZIE EXAMINATI IMAGING ON CHEST ASS SINGLE VIEW FRONTAL ECHO 45651 RIGOBERTO [facility]AH [facility] R-T 4 MEDICAL PAULO 2D SERV W/WOM-MOD FOUNDATIO E COMPL N SPEC&COLR D HOSPITAL 52611 [place] [facility] DIS[facility]GE 4 [facility] DAY INTERNAL MANAGEMEN MED T 30 MIN/< SBSQ 28642 [facility] 4 [place] CARE/DAY INTERNAL 25 MED MINUTES INITIAL 40363 [place] [facility] 4 [facility] CARE/DAY INTERNAL 50 MED MINUTES INSJ PRPH 43877 [facility] REENA TOD CTR VAD 4 PHYSICIAN W/SUBQ S GROUP PORT AGE 5 YR/> TRANSFUSI 9904 [facility] ON OF 4 [facility] PACKED INC INC CELLS VENOUS 3893 [facility] CATHETERI 4 [facility] HOSP ZATION INC INC NOT ELSEWHERE CLASSIFIE D URNLS DIP 18580 [place] JYOTSNA 4 [place] GENNA STICK/TAB INTERNAL LET RGNT MED NON-AUTO W/O [facility] G0378 [facility] OBSERVATI 4 [facility]OS[facility] ON INC INC SERVICE PER HOUR BLOOD 94229 [facility] COUNT 4 [facility] HOSP HEMATOCRI INC INC T UNCLASSIF J3490 [facility] B[facility] IED DRUGS 4 [facility] INC INC OBSERVATI 01068 [place] [facility] CARE 4 [facility] DISCHARGE INTERNAL MED MANAGEMEN T RED BLOOD P9016 [facility] CELLS 4 [facility] HOSP LEUKOCYTE INC INC S REDUCED EACH UNIT BLOOD 38824 [facility] OCCULT 4 [facility] HOSP PEROXIDAS INC INC E ACTV QUAL FECES 1-3 SPEC BLOOD 78190 [facility] COUNT 4 [facility] HEMOGLOBI INC INC N BLOOD 72540 [facility] COUNT 4 [facility] COMPLETE INC INC AUTO&AUTO DIFRNTL WBC PROTHROMB 63947 [facility] B[facility] IN TIME 4 [facility]OS[facility] INC INC ANTIBODY 06301 [facility] ID RBC 4 [facility] ANTIBODIE INC INC S EA PANEL EA SERUM TQ ANTIBODY 10949 [facility] SCREEN 4 [facility]OS[facility] RBC EACH INC INC SERUM TECHNIQUE BLOOD 18883 [facility] TYPING 4 [facility] SEROLOGIC INC INC ABO URNLS DIP 64127 STORMYJASON BURROWS 4 [facility] STICK/TAB INC INC LET REAGENT AUTO MICROSCOP Y INITIAL 83508 [place] [facility] OBSERVATI 4 [facility] INTER[facility] CARE/DAY MED 30 MINUTES COMPATIBI 75907 [facility] B[facility] LITY EACH 4 [facility] UNIT INC INC ANTIGLOBU HARINI COMPATIBI 67624 [facility] LITY EACH 4 [facility]OS[facility] UNIT INC INC IMMEDIATE SPIN TECHNIQUE BLOOD 71892 [facility] TYPING 4 [facility] SEROLOGIC INC INC RH (D) UNCLASSIF J3490 ST[facility] BUR[facility]OWS IED DRUGS 4 [facility] INC INC HOSPITAL G0378 [facility] B[facility] OBSERVATI 4 [facility] ON INC INC SERVICE PER HOUR COMPREHEN 23136 [facility] SIVE 4 [facility] METABOLIC INC INC PANEL PROTHROMB 77343 [facility] BURROWS IN TIME 4 [facility] INC INC PROTHROMB 28279 [facility] IN TIME 4 [facility] INC INC PROTHROMB 85251 [facility] B[facility] IN TIME 4 [facility] INC INC TRANSFUSI 41101 [facility] ON 4 [facility] BLOOD/BLO INC INC OD COMPONENT S BLOOD 67706 [facility] COUNT 4 [facility] HEMOGLOBI INC INC N RED BLOOD P9016 [facility] BUR[facility]OWS CELLS 4 [facility] LEUKOCYTE INC INC S REDUCED EACH UNIT BLOOD 95539 [facility] COUNT 4 [facility] HEMATOCRI INC INC T UNCLASSIF [id number] [facility] B[facility] IED DRUGS 4 [facility] INC INC BASIC 47402 [facility] METABOLIC 4 [facility] CALCIUM TOTAL NATRIURET 29826 [facility] IC 4 [facility] BLOOD 19196 [facility] COUNT 4 [facility] AUTOMATED PROTHROMB 13080 [facility] IN TIME 4 [facility] PROTHROMB 31002 [facility] IN TIME 4 [facility] COLLECTIO 14021 [facility] N VENOUS 4 [facility] BLOOD [facility]OS[facility] HOSP VENIPUNCT URE BLOOD 77555 [facility] COUNT 4 [facility] HOSP AUTO&AUTO DIFRNTL WBC PROTHROMB 68577 [facility] IN TIME 4 [facility] INC INC SBSQ 98654 [facility] 4 MEDICINE CARE/DAY SERVICES, 25 MINUTES SBSQ 74556 [facility] 4 MEDICINE CARE/DAY SERVICES, 35 MINUTES SBSQ 43233 [facility] 4 MEDICINE DEN CARE/DAY SERVICES, 35 MINUTES SBSQ [phone] [place] [address] MEDICINE DEN CARE/DAY SERVICES, 35 MINUTES SBSQ [phone] [place] [address] 4 PULMONARY SHE CARE/DAY & 25 CRITICAL MINUTES SBSQ [phone] [place] [address] ARV CARE/DAY ONCOLOGY 15 A MINUTES RADIOLOGI 07963 [facility] PELAEZ C 4 RADIOLOGY WARD EX[facility]I [facility] ON [place] FRONTAL SBSQ [phone] [place] [address] 4 PULMONARY S KIRIT CARE/DAY & 25 CRITICAL MINUTES SBSQ [phone] [place] [address] 4 PULMONARY S KIRIT CARE/DAY & 25 CRITICAL MINUTES SBSQ [phone] [place] [address] AN ARV CARE/DAY ONCOLOGY 15 A MINUTES RADIOLOGI 33179 [facility] ELLIS ADA C 4 RADIOLOGY EXAMINATI ASSOC ON [place] FRONTAL SBSQ [phone] [place] [address] ARV CARE/DAY ONCOLOGY 25 A MINUTES SBSQ [address] [place] [address] 4 PULMONARY MAT CARE/DAY & 35 CRITICAL MINUTES SBSQ [address] [place] [address] 4 PULMONARY MAT CARE/DAY & 35 CRITICAL MINUTES SBSQ 67171 [facility] 4 PULMONARY MAT CARE/DAY & 35 CRITICAL MINUTES CYTP 28119 [facility] SL[facility]V 4 GREYSON & ER JR SANDEEP CELL DUBILIER ENHANCEME NT INTERP[place] XCP[place] C/[place] L[place] [address] [facility] SURG 4 [facility]YS[facility] & ER JR SANDEEP PATHOLOGY DUBILIER GROSS&ASH ROSCOPIC EXAM RADIOLOGI 73988 [facility] C 4 RADIOLOGY WARD EXAMINATI ASSOC ON [place] FRONTAL SBSQ 76190 [facility] [place] 4 [facility] ARV CARE/DAY ONCOLOGY 15 A MINUTES CONTROL 2101 [facility] OF 4 [facility] BY ANTERIOR NASAL PACKING CLOSED 3324 [facility] BIOPSY OF 4 [facility] INITIAL 11115 [facility] INPATIENT 4 SURGICAL THO CONSULT ASSOCIATE NEW/ESTAB S PT 80 MIN RADIOLOGI 20020 [facility] BLACK MAR C 4 RADIOLOGY EXAMINATI ASSOC ON [place] FRONTAL SBSQ 77595 [facility] [place] 4 [facility] ARV CARE/DAY ONCOLOGY 35 A MINUTES SBSQ 37174 [facility] 4 JAM CARE/DAY CARDIOLOG 25 Y AT CENT MINUTES RADIOLOGI 63776 [facility] PELAEZ C 4 RADIOLOGY WARD EXAMINATI ASSOC ON [place] FRONTAL SBSQ 07806 [facility] 4 PULMONARY MAT CARE/DAY & 35 CRITICAL MINUTES INITIAL 08968 [facility] INPATIENT 4 IV HEN CONSULT CARDIOLOG NEW/ESTAB Y AT CENT PT 40 MIN RADIOLOGI 82835 [facility] C 4 RADIOLOGY WARD EXAMINATI ASS[facility] ON [place] FRONTAL DUP-SCAN 20610 [facility] XTR VEINS 4 [facility] CARDIOLOG [place] Y AT CENT L/LIMITED STUDY SBSQ 36661 [facility] 4 PULMONARY EIN DON CARE/DAY & 25 CRITICAL MINUTES RADIOLOGI 41082 [facility] PELAEZ C 4 RADIOLOGY WARD EXAMINATI [facility] ON [place] FRONTAL SBSQ 39770 [facility] 4 PULMONARY EIN DON CARE/DAY & 35 CRITICAL MINUTES IAADI 07020 [facility] BURRWOS INFLUENZA 4 [facility] B VIRUS INC INC IAADI 23653 [facility] INFFLUENZ 4 [facility] A A VIRUS INC INC CULTURE 57752 [facility] BUR[facility]OWS BACTERIAL 4 [facility] BLOOD INC INC AEROBIC W/ID ISOLATES GROUND [id number] [facility] 4 AMBULANCE AMBULANCE PER SERVICE SERVICE STATUTE MILE ROTARY [id number] AIR [facility] WING AIR 4 METHODS [facility] PER STATUTE MILE ECHO 23325 [facility] TTH[facility] R-T 4 JAM 2D CARDIOLOG W/WOM-MOD Y AT CENT E COMPL SPEC&[place] [address] [facility] INFUSION 4 [facility] THERAPY/P INC INC ROPHYLAXI S /DX 1ST TO 1 HR BLOOD 90790 [facility] COUNT 4 [facility] COMPLETE INC INC AUTO&[place] [address] [facility] B[facility] TROPONIN 4 [facility] QUANTITAT INC INC CRISTIAN NATRIURET 71443 [facility] B[facility] IC 4 [facility] PEPTIDE INC INC BLOOD 46231 [facility] OCCULT 4 [facility] PEROXIDAS INC INC E ACTV QUAL FECES 1-3 SPEC BLOOD 22129 [facility] GASES ANY 4 [facility] INC INC COMBINATI ON PH PCO2 PO2 CO2 HCO3 RADIOLOGI 82981 [place] [facility] 4 MEDICAL LIZZIE EXAMINATI IMAGING ON CHEST ASS SINGLE VIEW FRONTAL AMB A0431 AIR AIR SERVICE 4 METHODS METHODS CONVNTION [facility] SRVC TRANSPORT [address] THERAPEUT 93604 [facility] IC 4 [facility] INJECTION INC INC IV PUSH EACH NEW DRUG CREATINE 97789 [facility] B[facility] KINASE 4 [facility] TOTAL INC INC ECG 90950 [facility] ROUTINE 4 [facility] ECG INC INC W/LEAST 12 LDS TRCG ONLY W/O I&R CRITICAL 39467 [facility] CARE 4 [facility] ILL/INJUR INC INC ED PATIENT INIT 30-74 MIN INJECTION J0456 [facility] 4 [facility] AZITHROMY INC INC KIANNA 500 MG CREATINE 53250 [facility] B[facility] KINASE MB 4 [facility] FRACTION INC INC ONLY INSERTION 9604 [facility] OF 4 [facility] EAL TUBE VENOUS 3893 [facility] CATHETERI 4 [facility] HOSP NOT ELSEWHERE CLASSIFIE D CONT 9671 [facility] INVASIVE 4 [facility] HOSP < 96 CONSECUTI VE HOURS AMB A0427 [facility] SERVICE 4 AMBULANCE AMBULANCE ALS SERVICE SERVICE [place]ERG[place]SP[place] 1 [place] [address] [facility] INFUSION 4 [facility] THER INC INC PROPH ADDL SEQUENTIA L TO 1 HR COMPREHEN 22895 [facility] B[facility] SIVE 4 [facility] METABOLIC INC INC PANEL COMPREHEN 84143 [facility] B[facility] SIVE 4 [facility] METABOLIC INC INC PANEL CREATINE 22867 [facility] B[facility] KINASE MB 4 [facility] FRACTION INC INC ONLY CREATINE 05363 [facility] B[facility] KINASE 4 [facility] [place] [address] [facility] B[facility] TROPONIN 4 [facility] QUANTITAT INC INC CRISTIAN NATRIURET 37048 [facility] B[facility] IC 4 [facility] PEPTIDE INC INC BLOOD 02321 [facility] COUNT 4 [facility] COMPLETE INC INC AUTO&AUTO DIFRNTL WBC RADIOLOGI 82856 [facility] B[facility] C EXAM 4 [facility] CHEST 2 INC INC VIEWS FRONTAL&L [facility] 47487 [facility] 4 PHYSICIAN ASH DAY S GROUP MANAGEMEN T 30 MIN/< SBSQ 81135 [facility] 4 PHYSICIAN ASH CARE/DAY S GROUP 15 MINUTES INITIAL 42330 [facility] 4 PHYSICIAN ASH CARE/DAY S GROUP 50 MINUTES US PELVIC 33125 NICHELLE MORAN 4 [facility] REAL-TIME IMAGE COMPLETE BLOOD 94494 [facility] COUNT 4 [facility] COMPLETE INC INC AUTO&AUTO DIFRNTL WBC CULTURE 48274 [facility] BACTERIAL 4 [facility] BLOOD INC INC AEROBIC W/ID ISOLATES COMPREHEN 81422 [facility] B[facility] SIVE 4 [facility] METABOLIC INC INC PANEL UNCLASSIF J3490 [facility] IED DRUGS 4 [facility] INC INC BLOOD 91028 [facility] COUNT 4 [facility] HEMATOCRI INC INC T TRANSFUSI 04304 [facility] ON 4 [facility] BLOOD/BLO INC INC OD COMPONENT S BLOOD 17544 [facility] COUNT 4 [facility] HEMOGLOBI INC INC N RED BLOOD P9016 [facility] CELLS 4 [facility] LEUKOCYTE INC INC S REDUCED EACH UNIT BLOOD 12321 [facility] COUNT 4 [facility] COMPLETE INC INC AUTO&AUTO DIFRNTL WBC ANTIBODY 96815 [facility] ID RBC 4 [facility] ANTIBODIE INC INC S EA PANEL EA SERUM TQ BLOOD 38193 [facility] TYPING 4 [facility] SEROLOGIC INC INC ABO ANTIBODY 43257 [facility] B[facility] SCREEN 4 [facility] RBC EACH INC INC SERUM TECHNIQUE RADIOLOGI 45553 [facility] B[facility] C EXAM 4 [facility] CHEST 2 INC INC VIEWS FRONTAL&L ATERAL COMPATIBI 85445 [facility] LITY EACH 4 [facility] UNIT INC INC ANTIGLOBU HARINI BLOOD 49890 [facility] TYPING 4 [facility] SEROLOGIC INC INC RH (D) COMPATIBI 58669 [facility] LITY EACH 4 [facility] UNIT INC INC IMMEDIATE SPIN TECHNIQUE BLOOD 33520 [facility] TYPING 4 [facility] SEROLOGIC INC INC RH (D) THROMBOPL 51140 [facility] ASTIN 4 [facility] TIME INC INC PARTIAL PLASMA/WH OLE BLOOD SUSCEPTIB 65363 [facility] LTY STDY 4 [facility] ANTIMICRB INC INC IAL MICRO/AGA R DILUTJ COMPATIBI 32170 [facility] LITY EACH 4 [facility] UNIT INC INC IMMEDIATE SPIN TECHNIQUE COMPATIBI 41502 [facility] LITY EACH 4 [facility] UNIT INC INC ANTIGLOBU HARINI CULTURE 94050 [facility] B[facility] BCT 4 [facility] ISOL&PRSM INC INC PTV ID ISOLATE EA URINE CULTURE 31912 [facility] [place] BACTERIAL 4 [facility] INC INC QUANTTATI VE COLONY COUNT URINE ANTIBODY 58262 ST[facility] ST[facility]MY SCREEN 4 [facility] RBC EACH INC INC SERUM TECHNIQUE BLOOD 15865 ST[facility] ST[facility]MY TYPING 4 [facility] SEROLOGIC INC INC ABO ANTIBODY 89430 [facility] B[facility] ID RBC 4 [facility] ANTIBODIE INC INC S EA PANEL EA SERUM TQ PROTHROMB 05756 [facility] IN TIME 4 [facility] INC INC BLOOD 46108 ST[facility] ST[facility]MY COUNT 4 [facility] COMPLETE INC INC AUTO&AUTO DIFRNTL WBC URNLS DIP 54479 [facility] B[facility]OWS 4 [facility] STICK/TAB INC INC [place] [address] [place] [place] [facility] O ABDOMINAL 4 MEDICAL LIZZIE REAL IMAGING [place] W/[place] [address] [facility] ABDOMINAL 4 [facility] REAL INC INC TIME [place] [address] [facility] B[facility] TRANSVAGI 4 [facility] NAL INC INC FIBRIN 72373 [facility] B[facility] DGRADJ 4 [facility] PRODUCTS INC INC D-DIMER QUAL/SEMI PAULO COMPREHEN 35879 [facility] SIVE 4 [facility] METABOLIC INC INC PANEL HOSPITAL 40183 [facility] DISCHARGE 4 PHYSICIAN ASH DAY S GROUP MANAGEMEN T 30 MIN/< SBSQ 74336 [facility] 4 PHYSICIAN ASH CARE/DAY S GROUP 15 MINUTES INITIAL 95399 [facility] 4 PHYSICIAN ASH CARE/DAY S GROUP 50 MINUTES HOSPITAL 92455 [facility] 4 MEDICINE MAR DAY SERVICES, MANAGEMEN T 30 MIN/< SBSQ 11950 [place] [address] MEDICINE CARE/DAY SERVICES, 35 MINUTES SBSQ 19184 [place] [address] MEDICINE CARE/DAY SERVICES, 35 MINUTES SBSQ [address] CARE/DAY CARDIOLOG 25 Y AT CENT MINUTES SBSQ 65313 [place] [address] MEDICINE CARE/DAY SERVICES, 35 MINUTES ECG 67050 [facility] ROUTINE 4 TYLER ECG CARDIOLOG W/LEAST Y AT CENT 12 LDS I&R ONLY FLOW 92001 [place] CYTOMETRY [facility] INTERPRET FOUNDATIO INC ATION N 16/> MARKERS INITIAL 51064 [facility] INPATIENT 4 [facility] CONSULT CARDIOLOG NEW/ESTAB Y AT CENT PT 40 MIN ONDANSETR S0119 [facility] ON ORAL 4 4 [facility] MG INC INC BASIC 71614 [facility] B[facility] METABOLIC 4 [facility] PANEL INC INC CALCIUM TOTAL RADIOLOGI 93288 [facility] 4 RADIOLOGI PET EXAMINATI C ON CHEST PROFESSIO SINGLE VIEW FRONTAL GROUND A0425 [facility]ANCE AM[place]UL[place] [address] [facility] INFUSION 4 [facility] THERAPY/P INC INC ROPHYLAXI S /DX 1ST TO 1 HR BLOOD 02944 [facility] COUNT 4 [facility] COMPLETE INC INC AUTO&AUTO DIFRNTL WBC INITIAL 71554 [facility] 4 MEDICINE CARE/DAY SERVICES, 70 MINUTES BLOOD 34505 [facility] COUNT 4 [facility] COMPLETE INC INC AUTO&AUTO DIFRNTL WBC HEMOGLOBI 76379 [facility] N 4 [facility] GLYCOSYLA INC INC MALIKA A1C LIPID 04369 [facility] B[facility] PANEL 4 [place] [address] [place] [facility] 4 MEDICAL PATY TONEAL IMAGING REAL TIME ASS W/[place] [address] [facility] B[facility] RETROPERI 4 [facility] TONEAL INC INC REAL TIME W/IMAGE COMPLETE CYANOCOBA 29008 [facility] BOBBI 4 [facility] VITAMIN INC INC B-12 [place] [address] [facility] THYROXINE 4 [facility] [place] [address] [facility] B[facility] THYROID 4 [facility] STIMULATI INC INC NG HORMONE TSH THERAPEUT 75915 [facility] IC 4 PHYSICIAN ASH PROPHYLAC S GROUP TIC/DX INJECTION SUBQ/IM HOSPITAL 78383 [facility] DISCHARGE 4 PHYSICIAN ASH DAY S GROUP MANAGEMEN T 30 MIN/< SBSQ 69187 [facility] 4 PHYSICIAN ASH CARE/DAY S GROUP 15 MINUTES ECG [address] [facility] ROUTINE 4 DIMITRI ASH ECG EMERGENCY W/LEAST PHYS 12 LDS I&R ONLY INITIAL 59906 [facility] 4 PHYSICIAN ASH CARE/DAY S GROUP 50 MINUTES BLOOD 18183 [facility] COUNT 4 [facility] COMPLETE INC INC AUTO&AUTO DIFRNTL WBC RED BLOOD P9016 [facility] CELLS 4 [facility] LEUKOCYTE INC INC S REDUCED EACH UNIT HOSPITAL G0378 [facility] OBSERVATI 4 [facility] ON INC INC SERVICE PER HOUR UNCLASSIF J3490 [facility] IED DRUGS 4 [facility] INC INC UNCLASSIF J3490 [facility] B[facility] IED DRUGS 4 [facility] INC INC COMPREHEN 02569 [facility] B[facility] SIVE 4 [facility] METABOLIC INC INC PANEL HOSPITAL G0378 [facility] OBSERVATI 4 [facility] ON INC INC SERVICE PER HOUR UNCLASSIF C9399 [facility] IED DRUGS 4 [facility] OR INC INC BIOLOGICA LS BLOOD 53139 [facility] COUNT 4 [facility] COMPLETE INC INC AUTO&AUTO DIFRNTL WBC RADIOLOGI 26811 [facility] [place] 4 MEDICAL LIZZIE EXAMINATI IMAGING [place] [address] [facility] INFUSION 4 [facility] THERAPY/P INC INC ROPHYLAXI S /DX 1ST TO 1 HR URNLS DIP 62205 [facility] [place] 4 [facility] STICK/TAB INC INC LET REAGENT AUTO MICROSCOP Y COMPATIBI 79788 [facility] LITY EACH 4 [facility] UNIT INC INC ANTIGLOBU HARINI BLOOD 86033 [facility] TYPING 4 [facility] SEROLOGIC INC INC RH (D) COMPATIBI 87502 [facility] LITY EACH 4 [facility] UNIT INC INC IMMEDIATE SPIN TECHNIQUE CULTURE 70840 [facility] BACTERIAL 4 [facility] BLOOD INC INC AEROBIC W/ID ISOLATES ANTIBODY 50090 [facility] ID RBC 4 [facility] ANTIBODIE INC INC S EA PANEL EA SERUM TQ BLOOD 80129 [facility] TYPING 4 [facility] SEROLOGIC INC INC ABO ANTIBODY 21379 [facility] SCREEN 4 [facility] RBC EACH INC INC SERUM TECHNIQUE ECHO 20840 VERENA LEW T[facility]RC R-T 4 JAM 2D CARDIOLOG W/WOM-MOD Y AT CENT E COMPL SPEC&COLR D BLOOD 36348 [facility] COUNT 4 [facility] COMPLETE INC INC AUTO&[place] [address] [facility] FERRITIN 4 [facility] INC INC RHEUMATOI 07610 [facility] B[facility] D FACTOR 4 [facility] QUANTITAT INC INC CRISTIAN ANTINUCLE 59169 [facility] B[facility] AR 4 [facility] [place] [address] [facility] B[facility] THYROID 4 [facility] STIMULATI INC INC NG HORMONE TSH COMPREHEN 65423 [facility] SIVE 4 [facility] METABOLIC INC INC PANEL BLOOD 78073 [facility] COUNT 4 [facility] [place] [address] [facility] B[facility] THYROXINE 4 [facility] TOTAL INC INC BASIC 76395 [facility] METABOLIC 4 [place] PANEL [facility]OS[facility] HOSP CALCIUM TOTAL NATRIURET 34203 [facility] IC 4 [place] PEPTIDE [facility]OS[facility] HOSP BLOOD 42453 [facility]TRAL COUNT 4 [place] COMPLETE [facility]OSP HOSP AUTOMATED BLOOD 19420 [facility] COUNT 4 [facility] COMPLETE INC INC AUTO&[place] [address] [facility] B[facility] TROPONIN 4 [facility] QUANTITAT INC INC CRISTIAN CREATINE 64314 [facility] B[facility] KINASE 4 [facility] TOTAL INC INC ECG 33685 [facility] B[facility] ROUTINE 4 [facility] ECG INC INC W/LEAST 12 LDS TRCG ONLY W/O I&R THROMBOPL 35921 [facility] ASTIN 4 [facility] TIME INC INC PARTIAL PLASMA/WH OLE BLOOD RADIOLOGI 68155 [facility] C EXAM 4 [facility] CHEST 2 INC INC VIEWS FRONTAL&L ATERAL CULTURE 92971 [facility] BACTERIAL 4 [facility] BLOOD INC INC AEROBIC W/ID ISOLATES PROTHROMB 45116 [facility] IN TIME 4 [facility] INC INC COMPREHEN 21751 [facility] B[facility] SIVE 4 [facility] METABOLIC INC INC PANEL CREATINE 10131 [facility] KINASE MB 4 [facility] FRACTION INC INC ONLY RADIOLOGI 17421 [facility] C EXAM 4 [facility] CHEST 2 INC INC VIEWS FRONTAL&L ATERAL BLOOD 01196 [facility] COUNT 4 [facility] COMPLETE INC INC AUTO&[place] [address] [facility] B[facility] ABDOMINAL 4 [facility] REAL INC INC TIME W/IMAGE DOCUMENTA TION INSERT 96.04 DENISE ENDOTRACH SHASTA DO EAL TUBE VENOUS 38.93 Andrea INIGUEZ MD NEC Encounters Encounter Start End Date Code Location Performer Type Date [facility] STORMY - 6 6 [facility] [place] [address] [place] [facility] [facility] MEDICAL T [facility]ISIT SERV 25 FOUNDATIO MINUTES [facility] UNIVERSIT [facility] 6 6 Y [facility] STORMY - 6 6 [facility] OFFICE 15618 [facility] 6 6 [place] [facility] T [facility]ISIT MEDICINE 15 P MINUTES [facility] UNIVERS[facility] - 6 6 Y [facility] STORMY - 6 6 [facility] - 6 6 [facility] [place] EMERGENCY 64374 [facility] NAVAS 6 6 PHYSICIAN ASH GUZMAN SSHARIF T VISIT MODERATE SEVERITY [facility] STORMY - 6 6 [facility] STOR[facility] - 6 6 [facility] STORMY - 6 6 [facility] UNIVERSIT - 6 6 Y [facility] OFFICE [address] [place] ZAMUDIO [facility] 6 6 MEDICAL T VISIT SERV 25 FOUNDATIO MINUTES [facility] STORMY - 6 6 [facility] ST[facility] - 6 6 [facility] [place] EMERGENCY 88552 MARLON GERBER 6 6 PHYSICIAN JR DISLA VISIT S, PLLC HIGH SEVERITY& THREAT FUNCJ EMERGENCY 82085 [facility] 6 6 [facility] T VISIT MODERATE SEVERITY HOSPITAL [facility] - 6 6 [facility] OUTPATIEN [facility] STORMY - 6 6 [facility] OUTPATIEN [facility] STORMY [facility] 5 5 [facility] H[facility]PITAL STORMY - 5 5 [facility] OUT[facility]EN [facility] HOSPITAL STORMY [facility] 5 5 [facility] OUTPATIEN [facility] STORMY - 5 5 [facility]EN [facility] OFF[facility] 42143 NICHELLE LEW [facility] 5 5 [facility] T VISIT MEDICAL 15 GROUP MINUTES EMERGENCY 40507 [facility] SILVA 5 5 PHYSICIAN KARLY GUZMAN [facility], [facility] T VISIT HIGH/URGE NT SEVERITY HOSPITAL [facility] - 5 5 [facility] OUTPATIEN [facility] HOSPITAL UNIVERSIT [facility] 5 5 Y [facility] T OFFICE [address]32 [place] KRI OUTPATIEN 5 5 MEDICAL T VISIT SERV 40 FOUNDATIO MINUTES HOSPITAL ST[facility] - 5 5 [facility] [place] [facility] 5 5 HOME INPATIENT HEALTH AGENCY OFFICE 39176 [facility] OUTPATIEN 5 5 [place] FAMILY ELL T VISIT MEDICINE 15 P MINUTES HOSPITAL [facility]ERS[facility] - 5 [facility] [address]011 [place] MIS OUTPATIEN 5 5 MEDICAL JR TRACIE T VISIT SERV 40 FOUNDATIO MINUTES N HOME [facility], 5 5 HOME INPATIENT HEALTH AGENCY OFFICE 93933 [facility] OUTPAT[facility] 5 5 [place] FAM[place] SARAH T VISIT MEDICINE 15 P MINUTES OFFICE 19182 [place] PAREDES OUTPATIEN 5 5 MEDICAL ESTEBAN T VISIT SERV 25 FOUNDATIO MINUTES HOSPITAL ST[facility] - 5 5 [facility] OUTPATIEN INC T HOME [facility], 5 5 HOME INPATIENT HEALTH AGENCY OFFICE 28615 RIGOBERTO PAREDES OUTPATIEN 5 5 MEDICAL ESTEBAN T VISIT SERV 15 FOUNDATIO MINUTES N OFFICE 80418 SYNAGOGUETabatha LEW OUTPATIEN 5 5 HEALTH JAM T VISIT MEDICAL 15 GROUP MINUTES HOSPITAL ST[facility] - 5 5 [facility] OUTPATIEN INC T OFFICE 96353 RIGOBERTO ZAMUDIO OUTPATIEN 5 5 MEDICAL T VISIT SERV 40 FOUNDATIO MINUTES [facility] - 5 5 [facility] 12651 [facility] 5 5 [place] FAMILY GUERRERO T NEW 45 MEDICINE MINUTES P HOME [facility] 5 5 HOME INPATIENT HEALTH AGENCY HOME [facility], [facility] 5 [facility] UNIVERSIT - 5 5 Y INPATIENT HOSPITAL EMERGENCY 29361 [facility] DEPT 5 5 [facility] VISIT INC HIGH SEVERITY& THREAT FUNCJ EMERGENCY 74160 [facility] NAVAS [address] [facility] T VISIT P HIGH/URGE NT SEVERITY HOSPITAL [facility] - 5 5 [facility] OUTPATIEN INC [facility] STORMY - 5 5 [facility]PATIEN [facility] STORMY - 5 5 [facility] STORMY - 5 5 [facility]PATIEN [facility] STORMY - 5 5 [facility] OUTPATIEN [facility] STORMY [facility] 5 5 [facility]IEN [facility] HOSPITAL STORMY [facility] 5 5 [facility] OUTPATIEN [facility] HOSPITAL STROMY [facility] 4 4 [facility]IEN [facility] OFFICE [id number] [facility] OUT[facility]IEN 4 4 [facility] T [facility] CLINIC 25 [facility] [place] [id number] 4 HOSPITAL INPATIENT [facility]ICE 26133 [place] [facility] OUTPATIEN 4 4 [facility] VISIT INTERNAL 15 MED [facility] STORMY - 4 4 [facility] INPATIENT INC OFFICE [id number] [facility] REENA BRIGHT OUTPATIEN 4 4 [facility] STORMY - 4 4 [facility] OUTPATIEN [facility] STORMY [facility] 4 4 [facility] OUTPATIEN [facility] HOSPITAL STORMY [facility] 4 4 [facility] OUTPATIEN [facility] STORMY [facility] 4 4 [facility] OUTPATIEN [facility] HOSPITAL STORMY [facility] 4 4 [facility] OUTPATIEN [facility] CENTRAL - 4 4 [place] OUTPATIEN [facility] OFFICE [id number] [place] [facility] OUTPATIEN 4 4 HEART AND TRA T VISIT VASCULAR 25 I MINUTES OFFICE [id number] [place] [facility] OUTPATIEN 4 4 [place] AN ARV T VISIT ONCOLOGY 15 A MINUTES [facility] CENTRAL - 4 4 [place] OUTPATIEN [facility] HOSPITAL TSORMY [facility] 4 4 [facility] OUTPATIEN [facility] CENTRAL - 4 4 [place] INPATIENT [facility]PITAL ST[facility] 4 4 [facility] OUTPATIEN [facility] EMERGENCY 16060 [facility] 4 4 [facility] DEPARTMEN INC T VISIT HIGH/URGE NT SEVERITY HOSPITAL [facility] - 4 4 [facility] INPATIENT INC EMERGENCY 36649 [facility] SARY DEPT 4 4 DIMITRI MOH VISIT EMERGENCY HIGH PHYS SEVERITY& THREAT FUNJ OFFICE 40764 [place] [facility] OUTPATIEN 4 4 HEALTH HOP T VISIT WOMEN'S 15 CARE MINUTES OFFICE 12343 [facility] OUTPATIEN 4 4 [facility] T [facility]ISIT CARDIOLOG [facility] [address] [facility] - 4 4 [facility] OUTPATIEN [facility] T EMERGENCY 11858 [facility] 4 4 [facility] DEPARTMEN INC T VISIT LOW/MODER SEVERITY EMERGENCY 85326 [facility] YOSEF DEPT 4 4 DIMITRI ASH VISIT EMERGENCY HIGH PHYS SEVERITY& THREAT [facility] STORMY - 4 4 [facility] OUTPATIEN INC T HOSPITAL [facility] - 4 4 [facility] OUTPATIEN [facility] T OFFICE 26000 [facility] YOSEF OUTEVAEN 4 4 PHYSICIAN ASH T VISIT S GROUP 10 MINUTES EMERGENCY 40249 [facility] 4 4 [facility] DEPARTMEN INC T VISIT MODERATE SEVERITY HOSPITAL [facility] - 4 4 [facility] OUTPATIEN INC T HOSPITAL [facility] 4 4 [facility] INPATIENT INC EMERGENCY 45376 JUAN GIRALDO DEPT 4 4 DIMITRI VISIT EMERGENCY HIGH PHYS SEVERITY& THREAT FUN EMERGENCY 79234 [facility] 4 4 [facility] DEPARTMEN INC T VISIT HIGH/URGE NT SEVERITY EMERGENCY 90177 JUAN GIRALDO DEPT 4 4 DIMITRI VISIT EMERGENCY HIGH PHYS SEVERITY& THREAT [facility] A[facility]ST[facility] - 4 4 [place] INPATIENT [facility] ST[facility] - 4 4 [facility] OUTPAT[facility]EN [facility] PHYSICIAN ASH T VISIT 5 S GROUP [facility] STORMY - 4 4 [facility] INPATIENT INC EMERGENCY [address] [facility] [place] [facility] DEPT 4 4 DIMITRI ASH VISIT EMERGENCY HIGH PHYS SEVERITY& THREAT FUN EMERGENCY [id number] STORMY 4 4 [facility] DEPARTMEN INC T VISIT HIGH/URGE NT SEVERITY HOSPITAL STORMY - 4 4 [facility] OUTPATIEN [facility] HOSPITAL CENTRAL [facility] 4 4 [place] OUTPATIEN [facility] STORMY [facility] 4 4 [facility] OUTPATIEN [facility] OFFICE [id number] STORMY MERRY OUTPATIEN [address] CENTRAL - 4 4 [place] OUTPATIEN [facility] Emergency LINDA BALLARD MD (ER) 4 10:31 4 12:21 [facility] STORMY - 4 4 [facility] OUTPATIEN [facility] EMERGENCY [id number] STORMY DEPT 4 4 [facility] VISIT INC HIGH [facility]VERITY& THREAT [facility] STORMY - 4 4 [facility] OUTPATIEN [facility] Emergency LINDA VEGAS DO (ER) 3 04:33 3 10:15 [facility] Emergency LINDA Moe MD (ER) 3 10:21 3 12:18 [facility] Emergency LINDA OKEEFE (ER) 3 12:32 3 16:57 [facility]
--- OUTSIDE RECORDS SUMMARY | 2017-05-22 15:16 | External Medical Summary Rpt | CCD ---
Author Author , AYSE Organization AYSE Address Unknown Phone [email or web address] Care Team Providers Care Racing Car Driver Name Role Phone ABBAS JAZMINE, ABBAS JAZMINE Unavailable Unavailable [facility], [facility] Unavailable Unavailable [facility], [facility] Unavailable Unavailable TANVIR MAGGIE, TANVIR Unavailable Unavailable MAGGIE HENDRIX SILVIANO, HENDRIX Unavailable Unavailable SILVIANO SARAHY KAN JARVIS, Unavailable Unavailable SARAHY KAN JARVIS [facility], Unavailable Unavailable [facility] [place] [facility], Unavailable Unavailable [facility] ALFARIS MOH, ALFARIS Unavailable Unavailable MOH ALMAGDUB IHA, Unavailable Unavailable ALMAGDUB IHA [facility] MOS, [facility] MOS Unavailable Unavailable BERRY KAMILLA, BERRY KAMILLA Unavailable Unavailable AYACH JUAN R, AYACH JUAN R Unavailable Unavailable PAREDES ESTEBAN, PAREDES Unavailable Unavailable ESTEBAN [facility] Unavailable Unavailable MEDICAL GROUP, [facility] Unavailable Unavailable [facility]OM[facility], [facility] Unavailable Unavailable ONCOLOGY A, [facility] BEINEKE PATY, BEINEKE Unavailable Unavailable PATY BELCASTRO MAR, Unavailable Unavailable BELCASTRO MAR BESSON IJEOMA, BESSON Unavailable Unavailable IJEOMA KAYLEEN CHEVY, KAYLEEN CHEVY Unavailable Unavailable BOLIEK TYLER, BOLIEK Unavailable Unavailable TYLER BREAZEALE GRA, Unavailable Unavailable BREAZEALE GRA GARCIA SARAH, GARCIA Unavailable Unavailable SARAH CANDELARIA ASH, CANDELARIA Unavailable Unavailable ASH [facility] Unavailable Unavailable SERVICE, [facility] Unavailable Unavailable SERVICE, [facility] VICTOR M KET, VICTOR M KET Unavailable Unavailable MARINA CAR, MARINA Unavailable Unavailable CAR CARDOZA LEI, Unavailable Unavailable CARDOZA LEI CAMP TYLER, CAMP TYLER Unavailable Unavailable BRUSH DIETER, Unavailable Unavailable [facility], Unavailable Unavailable [facility] Unavailable Unavailable CARE, [facility] [...] BLACK MAR, BLACK MAR Unavailable Unavailable FRANCISCO, ELZ, Unavailable Unavailable SINGH, ELZ YOSEF ASH, YOSEF Unavailable Unavailable ASH KARMEN SUSANNA, KARMEN Unavailable Unavailable SUSANNA GERHARDSTEIN DON, Unavailable Unavailable GERHARDSTEIN DON HARTMAN CHEVY, HARTMAN CHEVY Unavailable Unavailable LIZZIE THO, LIZZIE THO Unavailable Unavailable PRAJAPATI BERHANE, PRAJAPATI Unavailable Unavailable BERHANE PRAJAPATI RAC, PRAJAPATI Unavailable Unavailable RAC [facility] Unavailable Unavailable INC, [facility] Unavailable Unavailable HOSPITAL P, [facility] Unavailable Unavailable INC, [facility] WILSON LESLEY, WILSON Unavailable Unavailable LESLEY [facility], Unavailable Unavailable [facility] BOYLE IJEOMA, BOYLE IJEOMA Unavailable Unavailable HOLLAN TRA, HOLLAN Unavailable Unavailable TRA HORN ASH, HORN ASH Unavailable [facility]available [facility] Un[facility] Unavailable [facility],, [facility], PELAEZ WARD, PELAEZ Unavailable Unavailable WARD ROSANGELA RYA, ROSANGELA RYA Unavailable Unavailable [facility] Un[facility], [facility] Unavailable Unavailable MEDICAL G, [facility] MEDICAL G ESAU CONLEY, ESAU Unavailable Unavailable JARVIS KRISTAL JUSTUS, KRISTAL JUSTUS Unavailable Unavailable SESAR NATHAN, SESAR NATHAN Unavailable Unavailable [facility] NURSE Unavailable Unavailable PRACTITIONER GR, [facility] N[facility] PRACTITIONER GR MARYAM KRUGERN, Unavailable Unavailable KOSTELIC ESTEBAN KSEIBI VIANNA, KSEIBI Unavailable Unavailable IVANNA APRYL CHI, APRYL [facility] Unavailable [facility] LENERT KIRIT, LENERT Unavailable Unavailable KIRIT BOWEN JR DWI, BOWEN Unavailable Unavailable JR DWI [facility] Unavailable Unavailable AT [facility], [facility] Unavailable Unavailable INTERNAL MED, [facility] GIOVANNA JENNA, GIOVANNA Unavailable Unavailable JENNA MIS JR TRACIE, Unavailable Unavailable MIS JR TRACIE MONISHA KRI, MONISHA KRI Unavailable Unavailable [facility], [facility] Unavailable Unavailable RICARDO KARLY, RICARDO Unavailable Unavailable KARLY [facility] Unavailable Unavailable SERVICES, [facility] MASKEY MANE, MASKEY Unavailable Unavailable MANE MAWAD ARROYO, MAWAD ARROYO Unavailable Unavailable [facility], [facility] Unavailable Unavailable [facility] CARDONA MAT, Unavailable Unavailable CARDONA MAT SULLIVAN MERLNI, SULLIVAN MERLIN Unavailable Unavailable MINION SILVIANO, MINION Unavailable Unavailable SILVIANO MOHAMED [facility], [facility]AM[facility] Unavailable Unavailable [facility], Unavailable Unavailable [facility]E MEDRANO ANH, MEDRANO ANH Unavailable Unavailable [facility] Unavailable Unavailable [facility], [facility] RADHA TRACIE, Unavailable Unavailable RADHA TRACIE HARRIS TER, HARRIS Unavailable Unavailable TER JERI ARV, Unavailable Unavailable JERI ARV [facility], Unavailable [facility]available [facility], [facility] MACKENZIE GIPSON ADO, Unavailable Unavailable MACKENZIE GIPSON ADO JOHNS DEN, Unavailable Unavailable JOHNS DEN PICKLESIMER JR SANDEEP, Unavailable Unavailable PICKLESIMER JR SANDEEP REENA TOD, REENA TOD Unavailable Unavailable REKHRAJ CAIN, REKHRAJ Unavailable Unavailable CAIN VACA IV HEN, Unavailable Unavailable VACA IV HEN BARTLETT FER, Unavailable Unavailable BARTLETT FER GRAYSON YOLANDA, GRAYSON Unavailable Unavailable YOLANDA SALAM MAA, SALAM MAA Unavailable Unavailable SCHUMER BAR, SCHUMER Unavailable Unavailable BAR SCHWARCZ THO, Unavailable Unavailable SCHWARCZ THO REINA NINOSKA, REINA Unavailable Unavailable NINOSKA ATIF ELL, ATIF Unavailable Unavailable ELL SHAKIL SHA, SHAKIL Unavailable Unavailable SHA ELLIS ADA, ELLIS ADA Unavailable Unavailable ELLIS MARISOL, ELLIS MARISOL Unavailable Unavailable ELLIS NINOSKA, ELLIS NINOSKA Unavailable Unavailable ELLIS BRITTANY, ELLIS BRITTANY Unavailable Unavailable SORIAL EHA, SORIAL Unavailable Unavailable EHA OLVIN PAULO, OLVIN Unavailable Unavailable PAULO [facility] BUDDY KAMILLA, BUDDY Unavailable Unavailable KAMILLA JESS JENNA, JESS Unavailable Unavailable JENNA [facility], Unavailable Unavailable [facility] BAUMAN SCO, BAUMAN Unavailable Unavailable SCO SUPINSKI GILBERT, Unavailable Unavailable SUPINSKI GILBERT YOUNG HANSEL IJEOMA, Unavailable Unavailable YOUNG HANSEL IJEOMA TZOUANAKIS KIRIT, Unavailable Unavailable TZOUANAKIS KIRIT [facility] Unavailable Unavailable MEDICINE P, [facility] P [facility], Unavailable Unavailable [facility] Unavailable Unavailable [facility] USERY AND, USERY AND Unavailable Unavailable VERHEY PET, VERHEY Unavailable Unavailable PET [facility] Unavailable Unavailable [facility], [facility] K[facility]ST[facility], [facility] KRISTAL Unavailable Unavailable WEST SILVIANO, WEST SILVIANO Unavailable Unavailable SIMON IV ALL, Unavailable Unavailable SIMON IV ALL WHAYNE JR THO, WHAYNE Unavailable Unavailable JR THO ARSLAN ASH, ARSLAN Unavailable Unavailable ASH WOODY WARD, WOODY WARD Unavailable Unavailable XENOS [facility], XENOS [facility] Unavailable Unavailable ALBERTS MAT, Unavailable Unavailable ALBERTS MAT Purpose Continuity of Care Document - 08-04-2013 through 2016 Problems Code Diagnosis DOS Provider Status Z5181 ENCOUNTER 12-23-2015 [facility] THERAPEUTIC INC DRUG LEVEL MONITORING Z7901 SNF 12-23-2015 [facility] CURRENT USE [facility] OF INC ANTICOAGULA NTS E559 VITAMIN D 12-12-2015 [facility] UNSPECIFIED [id number] ACUTE EMBO 12-12-2015 [facility] DEEP VEINS UNS LOW EXTREM M329 SYSTEMIC 12-12-2015 [place] [facility] ERYTHEMATOS US UNSPECIFIED R760 RAISED 12-12-2015 [facility] TITER Z7952 SNF 12-12-2015 [facility] STEROIDS N61005 OTHER LONG 12-12-2015 [facility] CURRENT DRUG THERAPY N950 POSTMENOPAU 11-12-2015 [facility] N952 POSTMENOPAU 11-12-2015 [facility] VAGINITIS J44717 SATISFACTOR 11-12-2015 [facility] LACKING HOSPI TRANSFORMAT N ZONE H109 UNSPECIFIED 10-25-2015 [facility] CONJUNCTIVI PLLC TIS D509 IRON 10-16-2015 [facility] ANEMIA INC UNSPECIFIED I352 NONRHEUMATI 10-16-2015 [facility] VALVE INC STENOSIS W/INSUFF B373 CANDIDIASIS 10-03-2015 [facility]VA SERV AND VAGINA [facility] H2513 AGE-RELATED 10-03-2015 [facility] CATARACT BILATERAL Z9119 PATIENTS 10-03-2015 [facility] NONCOMPLIAN SERV CE W/OTH FOUNDATION MED TX & REGIMEN E876 HYPOKALEMIA 08-23-2015 [facility] J101 FLU D/T OTH 08-23-2015 [facility] P RESP MANIFESTATI ONS J1189 FLU D/T 08-23-2015 [facility] UNIDENTIFIE PHYSICIANS, D FLU VIRUS PLLC W/OTH MANIF R05 COUGH 08-23-2015 [facility] R509 FEVER 08-23-2015 [facility] I509 HEART 06-18-2015 [facility] UNSPECIFIED MEDICAL GROUP R0600 DYSPNEA 06-18-2015 [facility]PEC[facility]ICAL GROUP E871 HYPO-OSMOLA 05-24-2015 [facility] LITY AND PHYSICIANS, HYPONATREMI PLLC A I10 ESSENTIAL 05-24-2015 [facility] HYPERTENSIO INC N N3000 ACUTE 05-24-2015 [facility] CYSTITIS PHYSICIANS, WITHOUT PLLC HEMATURIA N390 URINARY 05-24-2015 [facility] TRACT PHYSICIANS, INFECTION [facility] SITE NOT SPECIFIED 5259 UNSPECIFIED 03-28-2015 [facility] DISORDER [facility] TEETH&SUPPO FOUNDATION RTING STRUCTURES 7100 SYSTEMIC 03-28-2015 [facility] [place] [address] OTHER&UNSPE 03-28-2015 [facility] C SERV NONSPECIFIC [facility]OUNDATION IMMUNOLOGIC AL FINDINGS V1251 PERSONAL 03-28-2015 [facility] HISTORY, SERV VENOUS [facility]OUNDATION THROMBOSIS AND EMBOLISM V1581 PERS HX 03-28-2015 [facility] NONCOMPLIAN SERV CE W/MED TX FOUNDATION PRS HAZARDS HLTH V5869 LONG-TERM 03-28-2015 [facility] (CURRENT) SERV USE OF FOUNDATION OTHER MEDICATIONS V5883 ENCOUNTER 03-28-2015 [facility] FOR SERV THERAPEUTIC [facility] DRUG MONITORING 01207 AC CHENCHO 03-27-2015 [facility] THROMB INC UNSPEC DEEP VES LOWER EXT 4019 UNSPECIFIED 02-27-2015 [facility] HYPERT[place]SIO [place]ENCY N 46257 UNSPECIFIED 02-27-2015 [facility] SYSTOLIC HEALTH HEART AGENCY FAILURE 6959 UNSPECIFIED 02-27-2015 [facility] HEALTH ERYTHEMATOU AGENCY S CONDITION 55443 MUSCLE 02-27-2015 [facility] WEAKNESS HEALTH (GENERALIZE AGENCY D) V5861 LONG-TERM 02-27-2015 [facility] (CURRENT) HEALTH USE [place] 54846 STEELE 02-15-2015 [facility] SYNDROME MEDICAL EQUIPMENT 486 PNEUMONIA, 02-15-2015 [facility] ORGANISM MEDICAL UNSPECIFIED EQUIPMENT 78365 VOMITING 01-01-2015 [facility] ALONE [facility] 93911 DIARRHEA 01-01-2015 [facility] 2830 AUTOIMMUNE 12-31-2014 [facility]EMOLYT[facility] ANEMIAS INC 86692 SUPRAVENTRI 12-19-2014 [facility] PREMATURE MEDICAL BEATS GROUP 4280 CONGESTIVE 12-19-2014 [facility] FAILURE MEDICAL UNSPECIFIED GROUP 97783 OTHER 11-26-2014 [facility] A 7906 OTHER 11-26-2014 [facility] ABNORMAL FAMILY BLOOD MEDICINE P CHEMISTRY 09978 NEUTROPENIA 11-14-2014 [facility] UNSPECIFIED FOUNDATION 44239 CHRONIC 11-14-2014 [facility] SYSTOLIC SERV HEART [facility]OUND[facility] FAILURE 22412 ACUT CHENCHO 11-14-2014 [facility] EMBO&THROMB SERV DEEP VES FOUNDATION PROX LOWR EXTREM 4820 PNEUMONIA 11-13-2014 [facility] DUE TO KLEBSIELLA PNEUMONIAE 47983 SEPSIS 11-13-2014 [facility] 0539 HERPES 11-12-2014 [facility] NURSE ZOSTER PRACTITIONE WITHOUT R GR MENTION OF COMPLICATIO N 20975 DYSPHAGIA 11-02-2014 [facility] UNSPECIFIED SERV FOUNDATION 2639 UNSPECIFIED 10-31-2014 [facility] PROTEIN-DEBI [facility]OUNDATION [place]IE MALNUTRITIO N 90452 CALCU 10-28-2014 [facility] GALLBLADD SERV W/O MENTION FOUNDATION CHOLECYST/O BST 3561 PERONEAL 10-26-2014 [facility] MUSCULAR [facility] ATROPHY [facility] 3599 UNSPECIFIED 10-26-2014 [facility] MYOPATHY SERV [facility] 62961 OTHER 10-26-2014 [facility] MALAISE AND SERV FATIGUE [facility]OUNDATION 2761 HYPOSMOLALI 10-24-2014 [facility] TY AND/OR SERV HYPONATREMI FOUNDATION A 9499 UNSPECIFIED 10-23-2014 [facility] ANEMIA SERV [facility] V5865 LONG-TERM 10-23-2014 [facility] USE OF SERV STEROIDS FOUNDATION 87806 OTH & UNS E 10-22-2014 [facility] COLI [facility] INFECTION [facility] CLASS ELSW UNS SITE 28138 ACUT VA 10-22-2014 [facility] SUBENDOCARD SERV IAL INFARCT FOUNDATION INIT EPIS CARE 57179 ACUTE 10-22-2014 [facility] RESPIRATORY SERV FAILURE [facility] 8208 CLOSED 10-22-2014 [place] [facility] FRACTURE SERV UNSPECIFIED FOUNDATION PART NECK FEMUR 27320 SEVERE 10-22-2014 [facility] SEPSIS [facility] V7281 PRE-OPERATI 10-22-2014 [facility] VE [facility] CARDIOVASCU [facility]OUND[facility] LAR EXAMINATION 10219 ACUTE AND 10-19-2014 [facility] N[facility]SE CHRONIC PRACTITIONE RESPIRATORY R GR FAILURE 4254 OTHER 10-18-2014 [facility] PRIMARY SERV CARDIOMYOPA FOUNDATION PETRA 4293 CARDIOMEGAL 10-18-2014 [facility] Y [facility] 98126 NONSPECIFIC 10-18-2014 [facility] ABNORMAL SERV ELECTROCARD FOUNDATION IOGRAM 4240 MITRAL 10-16-2014 [facility] VAL[facility] DISORDERS [facility] 58735 CHRONIC 10-15-2014 [facility] RESPIRATORY SERV FAILURE [facility]OUND[facility] 48745 OTHER 10-11-2014 [facility] NONSPECIFIC SERV ABNORMAL [facility]OUND[facility] FINDING OF LUNG FIELD 5119 UNSPECIFIED 10-10-2014 [facility] PLEURAL SERV EFFUSION [facility] 5180 PULMONARY 10-10-2014 [facility] COLLAPSE [facility] V5882 ENCOUNTER 10-10-2014 [facility] FITTING&ADJ SERV [facility] NON-VASCULA R CATHETER NEC 0417 PSEUDOMONAS 10-07-2014 [facility] INFECTION SERV IN CCE & FOUNDATION UNS SITE 5990 URINARY 10-07-2014 [facility] TRACT [facility] INFECTION [facility] SITE NOT SPECIFIED 75099 FEVER 10-02-2014 [facility] UNSPECIFIED SERV FOUNDATION 48154 OTHER FLUID 09-30-2014 [facility] OVERLOAD SERV [facility] 44688 OTHER 09-28-2014 [facility] DISEASES OF SERV LUNG NOT FOUNDATION ELSEWHERE CLASSIFIED 514 PULMONARY 09-26-2014 [facility] CONGESTION SERV AND FOUNDATION HYPOSTASIS 32536 NEUROGENIC 09-25-2014 [facility] BLADDER, SERV NOS FOUNDATION 4590 UNSPECIFIED 09-22-2014 [facility] HEMORRHAGE SERV [facility] 81928 OTHER 09-21-2014 [facility] SEPTICEMIA SERV DUE TO FOUNDATION GRAM-NEGATI VE ORGANISM 5846 ACUTE 09-21-2014 [facility] KIDNEY SERV FAILURE [facility] W/LES RENAL CORTICAL NECRO V4611 DEPENDENCE 09-20-2014 [facility] ON [facility] RESPIRATOR [facility] STATUS 5289 OTHER&UNSPE 09-19-2014 [facility] CIFIED SERV DISEASES FOUNDATION THE ORAL SOFT TISSUES 0389 UNSPECIFIED 09-17-2014 [facility] SEPTICEMIA SERV [facility]OUND[facility] 10692 OTHER 09-15-2014 [facility] DISEASES OF SERV NASAL FOUNDATION CAVITY AND SINUSES 5849 ACUTE 09-15-2014 [facility] FAILURE [facility]OUND[facility] UNSPECIFIED 7842 SWELLING 09-15-2014 [facility] MASS OR SERV LUMP IN FOUNDATION HEAD AND NECK 2760 HYPEROSMOLA 09-14-2014 [facility] LITY AND/OR SERV FOUNDATION HYPERNATREM IA 4476 UNSPECIFIED 09-14-2014 [facility] ARTERITIS SERV [facility] 5845 ACUTE 09-14-2014 [facility] FAILURE [facility] W/LESION TUBULAR NECROSIS 74353 SEPTIC 09-14-2014 [facility] SHOCK [facility] 85274 OTHER 09-13-2014 [facility] SPECIFIED SERV CARDIAC FOUNDATION DYSRHYTHMIA S 56613 SHORTNESS 09-11-2014 [facility] OF BREATH SERV [facility]OUNDATION 12338 OTHER 09-06-2014 [facility] PREMATURE SERV BEATS [facility]OUND[facility] 5168 OTH SPEC 09-06-2014 [facility] ALVEOL&BUBBA SERV ETOALVEOL FOUNDATION PNEUMONOPAT HIES 97500 HYPOXEMIA 09-06-2014 [place] [facility] 2762 ACIDOSIS 09-01-2014 [facility] 14211 UNSPECIFIED 09-01-2014 [facility] SHOCK [facility] 7873 FLATULENCE 09-01-2014 [facility] ERUCTATION SERV AND GAS FOUNDATION PAIN V5881 FITTING AND 08-31-2014 [facility] ADJUSTMENT SERV OF FOUNDATION VASCULAR CATHETER 88309 OTHER 08-29-2014 [facility] ASCITES SERV [facility] 13757 SEPTICEMIA 08-28-2014 [place] DUE TO HOSPITAL ESCHERICHIA COLI 72413 ANEMIA OF 08-28-2014 [facility] CHRONIC HOSPI DISEASE 39373 LEUKOCYTOPE 08-28-2014 [facility] UNSPECIFIED HOSPI 63348 CRITICAL 08-28-2014 [facility] MYOPATHY 4139 OTHER AND 08-28-2014 [facility] UNSPECIFIED [facility] ANGINA INC PECTORIS 4271 PAROXYSMAL 08-28-2014 [place] [facility] TACHYCARDIA 5853 CHRONIC 08-28-2014 [place] [facility]NEY [facility] DISEASE STAGE III (MODERATE) 97581 OTHER 08-28-2014 [facility] BLOOD CELLS 7910 PROTEINURIA 07-23-2014 [facility] 4299 UNSPECIFIED 07-16-2014 [facility] HEART HEALTH DISEASE MEDICAL G 45045 CORONARY 07-14-2014 [facility] OS COUNCIL [facility] CORONARY ARTERY 2851 ACUTE 07-07-2014 [facility] POSTHEMORRH HEALTH AGIC ANEMIA MEDICAL G 4279 UNSPECIFIED 07-05-2014 [facility] CARDIAC DYSRHYTHMIA 60046 ACUTE 07-02-2014 [facility] HEART MEDICAL G FAILURE 60473 SWELLING OF 06-29-2014 [facility] 2724 OTHER AND 06-28-2014 NEW UNSPECIFIED [facility] HYPERLIPIDE ZEINAB 41474 ANEMIA IN 06-25-2014 [facility] KIDNEY DISEASE 4539 EMBOLISM 06-25-2014 [facility] THROMBOSIS MEDICAL G OF UNSPECIFIED SITE 2839 ACQUIRED 06-24-2014 [facility] UNSPECIFIED 7103 DERMATOMYOS 06-20-2014 NEW ITIS [facility] 7919 OTHER 06-19-2014 [facility] [place] NONSPECIFIC RADIOLOGY FINDING EXAMINATION OF URINE 78963 ACUTE ON 06-18-2014 [facility] SYSTOLIC HEART FAILURE 4599 UNSPECIFIED 06-18-2014 [facility] CIRCULATORY INC SYSTEM DISORDER 5187 TRANSFUSION 06-18-2014 [facility] ACUTE LUNG INJURY V148 PERSONAL 06-18-2014 [facility] HISTORY [facility] ALLERGY OTH INC SPEC MEDICINAL AGTS 39308 DEHYDRATION 06-15-2014 [facility] 4239 UNSPECIFIED 06-15-2014 [facility] DISEASE OF SERV FOUNDATION PERICARDIUM 4589 UNSPECIFIED 06-15-2014 [facility] HYPOTENSION FOUNDATION 84833 HEMATURIA 06-15-2014 [facility] UNSPECIFIED SERV FOUNDATION 83422 MICROSCOPIC 06-13-2014 [facility] HEMATURIA [facility] INC 46975 ABDOMINAL 06-13-2014 [place] OTHER [place] SPECIFIED [...] SULFONAMIDE S 4289 UNSPECIFIED 05-18-2014 [facility] 66794 OTHER 05-09-2014 [facility] PULMONARY [facility] EMBOLISM ONCOLOGY A AND INFARCTION 6202 OTHER AND 05-09-2014 [facility] UNSPECIFIED [facility] OVARIAN [facility] CYST 1120 CANDIDIASIS 05-01-2014 [facility], 4919 UNSPECIFIED 04-18-2014 [facility] CHRONIC GREYSON & BRONCHITIS DUBILIER 5183 PULMONARY 04-18-2014 [facility] EOSINOPHILI RADIOLOGY A ASSOC 3970 DISEASES OF 04-13-2014 [facility] TRICUSPID CARDIOLOGY VALVE AT CENT 85825 OTHER 04-13-2014 [facility] PULMONARY AMBULANCE INSUFFICIEN SERVICE CY NEC 02844 OTHER 04-13-2014 AIR METHODS D[place]SPNE[place] [address] OTHER 04-13-2014 [facility] HEMOPTYSIS [facility] V642 SURG/OTH 04-10-2014 [facility] PROC NOT MEM HOSP CARRIED OUT INC BECAUSE PTS DECN 5859 CHRONIC 03-31-[address] [facility] KIDNEY PHYSICIANS DISEASE GROUP UNSPECIFIED 5939 UNSPECIFIED 03-31-2014 [facility] DISORDER [facility] OF KIDNEY INC AND URETER 7892 SPLENOMEGAL 03-31-[address] [facility] Y PHYSICIANS GROUP 6259 UNSPEC 03-22-2014 [facility] WOMEN'S W/FEMALE CARE GENITAL ORGANS V7231 ROUTINE 03-22-2014 [facility] GYNECOLOGIC HEALTH AL WOMEN'S EXAMINATION CARE 30267 ABDOMINAL 03-19-2014 [facility], LEFT N EMERGENCY LOWER PHYS QUADRANT 5756 CHOLESTEROL 03-08-2014 [facility] OF MEDICAL GALLBLADDER IMAGING ASS 92324 ABDOMINAL 03-08-2014 [place] PAIN, MEDICAL UNSPECIFIED IMAGING ASS SITE V1090 PERSONAL 03-08-2014 [facility] HISTORY [facility] UNSPECIFIED INC MALIGNANT NEOPLASM 70766 DIAB W/O 02-26-[address] [facility] COMP TYPE PHYSICIANS II/UNS NOT GROUP STATED UNCNTRL 4011 ESSENTIAL 02-26-[address] [facility] HYPERTENSIO PHYSICIANS N, BENIGN GROUP 32722 OTHER 02-19-2014 [facility] NEUTROPENIA [facility] 56179 HTN CKD UNS 02-19-2014 [facility] W/CKD [facility] STAGE I INC THRU STAGE IV/UNS 5239 UNSPECIFIED 02-19-2014 [facility] GINGIVAL [facility] PERIODONTAL DISEASE 7291 UNSPECIFIED 02-19-2014 [facility] MYALGIA [facility] MYOSITIS 7862 COUGH 02-19-2014 [facility] AMBULANCE SERVICE 27941 OTHER 02-19-2014 [facility] [place] [address] FEVER 01-26-2014 [facility] PRESENTING [facility] CONDITIONS INC CLASSIFIED ELSEWHERE 7804 DIZZINESS 08-21-2013 [facility] AND [facility]ERGENCY GIDDINESS SERVICES Procedures Procedure DOS Code Location Performer Comment PROTHROMB 74602 [facility] BURROWS IN TIME 6 [facility]OS[facility] INC INC COLLECTIO 96557 [facility] BURROWS N VENOUS 6 [facility] BLOOD INC INC VENIPUNCT URE C-REACTIV 75148 [facility] E PROTEIN 6 Y Y [facility] PROTEIN 18042 UNIVERSIT UNIVERSIT TOTAL 6 Y Y [facility]ITAL HOSPITAL REFRACTOM ETRY URINE CREATININ 03067 [facility] E OTHER 6 [facility] PROTHROMB 99497 [facility] IN TIME 6 Y Y HOSPITAL HOSPITAL COMPLEMEN 13597 [facility] T ANTIGEN 6 Y Y EACH HOSPITAL HOSPITAL COMPONENT DXA BONE 69618 RIGOBERTO ATKINSON ARROYO DENSITY 6 MEDICAL STUDY 1/> SERV SITES FOUNDATIO AXIAL N SKEL COMPREHEN 23294 [facility] SIVE 6 Y Y [facility] PANEL FLUORESCE 45487 [facility] NT 6 Y Y NONNFCT [facility] AGT ANTB TITER EA ANTIBODY 25 [id number] [facility] HYDROXY 6 Y Y INCLUDES HOSPITAL HOSPITAL FRACTIONS IF PERFORMED COL-CHR/M 75506 [facility] S NONDRUG 6 Y Y ANALYTE [facility] AYDIN QUAL/PAULO EA SPEC URNLS DIP 14480 [facility] UNIVERS 6 Y Y STICK/TAB [facility] LET REAGENT AUTO MICROSCOP Y SEDIMENTA 79024 [facility] TION RATE 6 Y Y RBC [facility] AUTOMATED FLUORESCE 76720 [facility] NT 6 Y Y NONNFCT [facility] AGT ANTB SCREEN EA ANTIBODY BLOOD [id number] [facility] COUNT 6 Y Y COMPLETE [facility] AUTO&AUTO DIFRNTL WBC PROTHROMB [id number] ST[facility]MYJASON [facility] IN TIME 6 [facility] INC INC COLLECTIO [id number] STORMYJASON BURROWS N VENOUS 6 [facility] BLOOD INC INC VENIPUNCT URE IADNA [id number] [facility] NEISSERIA 6 Y Y HOSPITAL HOSPITAL GONORRHOE AE AMPLIFIED PROBE TQ CYTP 11810 [facility] JSES CERVICAL/ 6 Y OF [place] [facility] [place] RE[facility] INTERP PHYSICIAN CYTP C/V 53245 [facility] AUTO THIN 6 Y Y LYR [place] [facility] PREP[facility] SCR MNL RESCR PHYS SUSCEPTIB [id number] [facility] LTY STDY 6 [facility] I[facility] MICRO/AGA R DILUTJ SMR PRIM [id number] [facility] SRC 6 Y Y GRAM/GIEM [facility] SA STAIN BCT FUNGI/MARLON L IADNA 92195 [facility] CHLAMYDIA 6 Y Y [facility] TRACHOMAT IS AMPLIFIED PROBE TQ IADNA 10490 [facility] HUMAN 6 Y Y PAPILLOMA [facility] VIRUS HIGH-RISK TYPES CUL BACT 26668 [facility] XCPT 6 Y Y URINE [facility] BLOOD/STO OL AEROBIC ISOL CUL BACT 63979 [facility] AEROBIC 6 Y Y ADDL [facility] METHS DEFINITIV E EA ISOL PROTHROMB 47317 [facility] 6 [facility] INC INC COLLECTIO 06283 [facility] B[facility] N VENOUS 6 [facility] BLOOD INC INC VENIPUNCT URE COLLECTIO 38498 [facility] N VENOUS 6 [facility] BLOOD INC INC VENIPUNCT URE PROTHROMB 76275 [facility] IN TIME 6 [facility] INC INC PROTHROMB 46911 [facility] B[facility] IN TIME 6 [facility] INC INC COLLECTIO 65740 [facility] N VENOUS 6 [facility] BLOOD INC INC VENIPUNCT URE COLLECTIO 13696 [facility] B[facility] N VENOUS 6 [facility] [place] [address] [facility] B[facility] IRON 6 [facility] INC INC PROTHROMB 77878 [facility] IN TIME 6 [facility] INC INC PROTHROMB 77922 [facility] IN TIME 6 [facility] INC INC COLLECTIO 24465 [facility] N VENOUS 6 [facility] BLOOD INC INC VENIPUNCT URE C-REACTIV 57151 [facility] E PROTEIN 6 Y Y [facility] COLLECTIO 52941 [facility] N VENOUS 6 Y Y BLOOD [facility] VENIPUNCT URE PROTEIN 58854 [facility] TOTAL 6 Y Y XCPT [facility] REFRACTOM ETRY URINE CREATININ 40585 [facility] E OTHER 6 Y [facility] COMPREHEN 27786 [facility] SIVE 6 [facility] PANEL COMPLEMEN 12540 [facility] T ANTIGEN 6 Y Y [facility] COMPONENT FLUORESCE 06998 [facility] NT 6 Y Y NONNFCT [facility] AGT ANTB TITER EA ANTIBODY BLOOD 63487 [facility] COUNT 6 Y Y COMPLETE [facility] AUTO&AUTO DIFRNTL WBC SEDIMENTA 90006 [facility] TION RATE 6 Y Y RBC HOSPITAL HOSPITAL AUTOMATED FLUORESCE 75738 [facility] NT 6 Y Y NONNFCT [facility] AGT ANTB SCREEN EA ANTIBODY URNLS DIP 96668 [facility] 6 Y Y STICK/TAB [facility] LET REAGENT AUTO MICROSCOP Y COL-CHR/M 09419 [facility] S NONDRUG 6 Y Y ANALYTE [facility] AYDIN QUAL/PAULO EA SPEC 25 [phone] [facility] HYDROXY 6 Y Y INCLUDES HOSPITAL HOSPITAL FRACTIONS IF PERFORMED PROTHROMB 15533 [facility] TIME 6 [facility] INC INC COLLECTIO 08410 [facility] N VENOUS 6 [facility] BLOOD INC INC VENIPUNCT URE PROTHROMB 92460 [facility] IN TIME 6 [facility] INC INC IAADI 48455 [facility] B[facility] INFLUENZA 6 [facility] B VIRUS INC INC COMPREHEN 63119 [facility] SIVE 6 [facility] METABOLIC INC INC PANEL IAADI 94713 [facility] B[facility] INFFLUENZ 6 [facility] A A VIRUS INC INC RADIOLOGI 68711 [facility] C EXAM 6 [facility] CHEST 2 INC INC VIEWS FRONTAL&L ATERAL ECG 14953 [facility] WISEMAN JR ROUTINE 6 [facility] W/LEAST P 12 LDS I&R ONLY ECG 31706 [facility] ROUTINE 6 [facility] ECG INC INC W/LEAST 12 LDS TRCG ONLY W/O I&R BLOOD 76597 [facility] COUNT 6 [facility] COMPLETE INC INC AUTO&AUTO DIFRNTL WBC PROTHROMB 46174 [facility] IN TIME 6 [facility] INC INC COLLECTIO 62689 [facility] B[facility] N VENOUS 6 [facility] BLOOD INC INC VENIPUNCT URE COLLECTIO 79670 [facility] N VENOUS 6 [facility] BLOOD INC INC VENIPUNCT URE PROTHROMB 79888 [facility] B[facility] IN TIME 6 [facility] INC INC PROTHROMB 67156 [facility] B[facility] IN TIME 5 [facility] INC INC COLLECTIO 45616 [facility] B[facility] N VENOUS 5 [facility] BLOOD INC INC VENIPUNCT URE COLLECTIO 30880 [facility] B[facility] N VENOUS 5 [facility] BLOOD INC INC VENIPUNCT URE PROTHROMB 58871 [facility] B[facility] IN TIME 5 [facility] INC INC PROTHROMB 33012 [facility] B[facility] IN TIME 5 [facility] INC INC COLLECTIO 36634 [facility] B[facility] N VENOUS 5 [facility] BLOOD INC INC VENIPUNCT URE COLLECTIO 54975 [facility] B[facility] N VENOUS 5 [facility] BLOOD INC INC VENIPUNCT URE PROTHROMB 64575 [facility] B[facility] IN TIME 5 [facility] INC INC COMPREHEN 23212 [facility] SIVE 5 [facility] METABOLIC INC INC PANEL RADIOLOGI 30060 [facility] B[facility] C EXAM 5 [facility] CHEST 2 INC INC VIEWS FRONTAL&L ATERAL SUSCEPTIB 99495 [facility] LTY STDY 5 [facility] ANTIMICRB INC INC IAL MICRO/AGA R DILUTJ BLOOD 91664 [facility] COUNT 5 [facility] COMPLETE INC INC AUTO&AUTO DIFRNTL WBC URNLS DIP 82487 [facility] 5 [facility] STICK/TAB INC [place] [address] [facility] B[facility] INFUSION 5 [facility] THERAPY/P INC INC ROPHYLAXI S /DX 1ST TO 1 HR CULTURE 88901 [facility] BACTERIAL 5 [facility] INC INC QUANTTATI VE COLONY COUNT URINE CULTURE 80157 [facility] BCT 5 [facility] ISOL&PRSM INC INC PTV ID ISOLATE EA URINE VISUAL 15494 RIGOBERTO HERMOSILLO FIELD XM 5 MEDICAL JR BETHANY UNI/BI SERV W/INTERP FOUNDATIO EXTENDED N EXAM DNA 90885 [facility] ANTIBODY 5 Y Y COUNCIL/DO [facility] UBLE STRANDED C-REACTIV 17741 [facility] E PROTEIN 5 Y Y [facility] COLLECTIO 04321 [facility] N VENOUS 5 Y Y BLOOD [facility] VENIPUNCT URE PROTEIN 92968 [facility] TOTAL 5 Y Y XCPT [facility] REFRACTOM ETRY URINE CREATININ 38514 [facility] E OTHER 5 Y Y SOURCE [facility] CHROMATOG 67563 [facility] ALYSHA 5 Y Y PAULO [facility] COLUMN 1 ANALYTE AYDIN URNLS DIP 51844 [facility] 5 Y Y STICK/TAB [facility] LET REAGENT AUTO MICROSCOP Y BLOOD 85276 [facility] COUNT 5 Y Y COMPLETE [facility] AUTO&AUTO DIFRNTL WBC SEDIMENTA 16350 [facility] TION RATE 5 Y Y RBC [facility] AUTOMATED COMPREHEN 75220 [facility] SIVE 5 Y Y METABOLIC [facility] PANEL COMPLEMEN 28523 [facility] T ANTIGEN 5 Y Y [facility] HOSPITAL COMPONENT PROTHROMB 80852 [facility] IN TIME 5 [facility] INC INC COLLECTIO 41833 [facility] N VENOUS 5 [facility] BLOOD INC INC VENIPUNCT URE DIRECT G0154 [facility] SK[facility] 5 HOME [...] EQUIPMENT EQUIPMENT CONC AT PRSC FLW RATE SERVICE G0151 [facility] PHYS 5 HOME HOME [facility] HOME AGENCY AGENCY HLTH/HOSP ICE EA 15 MIN PRTBLE E0431 [facility] GASEOUS 5 MEDICAL MEDICAL O2 SYS EQUIPMENT EQUIPMENT RENT; [facility] HUMIDFR&M ASK SERVICE G0151 [facility] HOME HOME [facility] HOME AGENCY AGENCY HLTH/HOSP ICE EA 15 MIN PROTHROMB 19138 [facility] ZAKIYA SRIVASTAVA [facility] TIME 5 [place] [facility] MEDICINE P SERVICE G0151 [facility] 5 HOME HOME [facility] HOME AGENCY AGENCY HLTH/HOSP ICE EA 15 MIN DIRECT G0154 [facility] SKILL 5 HOME HOME [facility] SERVICES AGENCY AGENCY HH/HOSPIC E EA 15 MIN COLLECTIO 65433 [facility] N VENOUS 5 Y Y BLOOD [facility] VENIPUNCT URE C-REACTIV 11197 [facility] E PROTEIN 5 Y Y [facility] SYPHILIS 45355 [facility] TEST 5 Y Y NON-TREPO [facility] NEMAL ANTIBODY QUAL SYPHILIS 43591 [facility] TEST 5 Y Y QUANTITAT [facility] CRISTIAN DNA 91221 [facility] ANTIBODY 5 Y Y COUNCIL/DO [facility] UBLE STRANDED BLOOD 10502 [facility] COUNT 5 Y Y COMPLETE [facility] AUTO&AUTO DIFRNTL WBC SEDIMENTA 52732 [facility] TION RATE 5 Y Y RBC [facility] AUTOMATED URNLS DIP 85098 [facility] 5 Y Y STICK/TAB [facility] LET REAGENT AUTO MICROSCOP Y 25 54886 [facility] HYDROXY 5 Y Y INCLUDES HOSPITAL HOSPITAL FRACTIONS IF PERFORMED COMPLEMEN 30094 [facility] T ANTIGEN 5 Y Y [facility] COMPONENT COMPREHEN 91655 [facility] SIVE 5 Y Y [facility] PANEL ANTIBODY 58022 [facility] TREPONEMA 5 Y Y [facility] SERVICE G0151 [facility] 5 HOME [...] AGENCY AGENCY HLTH/HOSP ICE EA 15 MIN PRTBLE E0431 [facility] GASEOUS 5 MEDICAL MEDICAL O2 SYS EQUIPMENT EQUIPMENT RENT; [facility] HUMIDFR&M ASK DIRECT G0154 [facility] SKILL 5 HOME [facility] AGENCY AGENCY HH/HOSPIC E EA 15 MIN O2 CONC 1 E1390 [facility] M[facility] [place] 5 MEDICAL MEDICAL 85%/>02 EQUIPMENT EQUIPMENT CONC AT PRSC FLW RATE SERVICE G0151 [facility] PHYS 5 HOME HOME TH[facility] HE[facility] HOME AGENCY AGENCY HLTH/HOSP ICE EA 15 MIN SERVICE G0151 [facility] PHYS 5 HOME HOME [facility] HOME AGENCY AGENCY HLTH/HOSP ICE EA 15 MIN DIRECT G0154 [facility] SKILL 5 HOME HOME [facility] AGENCY AGENCY HH/HOSPIC E EA 15 MIN PROTHROMB 16028 [place] IN TIME 5 [place] [facility] P SERVICE G0151 [facility] PH[facility] 5 HOME HOME [facility] HOME AGENCY AGENCY HLTH/HOSP ICE EA 15 MIN DIRECT G0154 [facility] SKILL 5 HOME HOME [facility] AGENCY AGENCY HH/HOSPIC E EA 15 MIN SERVICE G0151 [facility] PH[facility] 5 HOME HOME [facility] HOME AGENCY AGENCY HLTH/HOSP ICE EA 15 MIN PROTHROMB 94964 [place] [facility] IN TIME 5 MEDICAL ESTEBAN SERV FOUNDATIO N BLOOD 92605 [facility] COUNT 5 [facility] COMPLETE INC INC AUTO&AUTO DIFRNTL WBC COLLECTIO 43152 [facility] N VENOUS 5 [facility] BLOOD INC INC VENIPUNCT URE DIRECT G0154 [facility] SKILL 5 HOME HOME [facility] AGENCY AGENCY /HOSPIC E EA 15 MIN SERVICE G0151 [facility] PHYS 5 HOME HOME [facility] HOME AGENCY AGENCY TH/HOSP ICE EA 15 MIN SERVICE G0151 [facility] PHYS 5 HOME HOME [facility] HOME AGENCY AGENCY TH/HOSP ICE EA 15 MIN DIRECT G0154 [facility] SKILL 5 HOME HOME [facility] AGENCY AGENCY /HOSPIC E EA 15 MIN PROTHROMB 84520 [place] PAREDES IN TIME 5 MEDICAL ESTEBAN SERV FOUNDATIO N SERVICE G0151 [facility]YS 5 HOME HOME [facility] HOME AGENCY AGENCY TH/HOSP ICE EA 15 MIN SERVICE G0151 [facility] PH[facility] 5 HOME HOME [facility] HOME AGENCY AGENCY TH/HOSP ICE EA 15 MIN PRTBLE E0431 [facility] M[facility] GASEOUS 5 MEDICAL MEDICAL O2 SYS EQUIPMENT EQUIPMENT RENT; [facility] HUMIDFR&M ASK O2 CONC 1 E1390 [facility] [place] 5 MEDICAL MEDICAL 85%/>02 EQUIPMENT EQUIPMENT CONC AT [facility] FLW RATE SERVICE G0151 [facility] PHYS 5 HOME [...] AGENCY HH/HOSPIC E EA 15 MIN COLLECTIO 27860 [facility] N VENOUS 5 [facility] [place] [address] [facility] B[facility] THYROID 5 MEM HOSP MEM [...] AGENCY AGENCY HLTH/HOSP ICE EA 15 MIN CLOTTING 58903 [facility] INHIBITOR 5 Y Y S [facility] ANTITHROM BIN III ACTIVITY BLOOD 96584 [facility] COUNT 5 Y Y COMPLETE [facility] AUTO&AUTO DIFRNTL WBC BETA-2 86212 [facility] MICROGLOB 5 Y Y ULIN [facility] URNLS DIP 81850 [facility] 5 Y Y STICK/TAB [facility] LET REAGENT AUTO MICROSCOP Y SEDIMENTA 09245 [facility] TION RATE 5 Y Y RBC [facility] AUTOMATED ANTIBODY 61911 [facility] TREPONEMA 5 Y Y [facility] C[facility] 33723 [facility] IN 5 Y Y ANTIBODY [facility] EACH IG CLASS COMPLEMEN 54221 [facility] T ANTIGEN 5 Y Y [facility]OSPITAL COMPONENT COMPREHEN 75288 [facility] SIVE 5 Y Y METABOLIC [facility] PANEL CHROMATOG 69808 [facility] ALYSHA 5 Y Y [facility] COLUMN 1 ANALYTE AYDIN CREATININ 58380 [facility] E OTHER 5 Y Y SOURCE [facility] COLLECTIO 56847 [facility] N VENOUS 5 Y Y BLOOD [facility] VENIPUNCT URE C-REACTIV 84869 [facility] E PROTEIN 5 Y Y HOSPITAL HOSPITAL DNA 60859 [facility] ANTIBODY 5 Y Y COUNCIL/DO HOSPITAL [facility] UBLE STRANDED SYPHILIS 73512 [facility] TEST 5 Y Y QUANTITAT [facility] CRISTIAN SYPHILIS 68530 [facility] TEST 5 Y Y NON-TREPO [facility] NEMAL ANTIBODY QUAL PROTEIN 77624 [facility] TOTAL 5 Y Y XCPT [facility] REFRACTOM ETRY URINE SERVICE G0151 [facility]YS 5 HOME HOME [facility] HOME AGENCY AGENCY HLTH/HOSP ICE EA 15 MIN DIRECT G0154 [facility] SKILL 5 HOME [facility] AGENCY AGENCY HH/HOSPIC E EA 15 MIN O2 CONC 1 E1390 [facility] [place] 5 MEDICAL MEDICAL 85%/>02 EQUIPMENT EQUIPMENT CONC AT [facility] FLW RATE PRTBLE E0431 [facility] M[facility] GASEOUS 5 MEDICAL MEDICAL O2 SYS EQUIPMENT EQUIPMENT RENT; FLWMTR [facility] [address]13 [facility] [place] 5 NURSE LESLEY DAY PRACTITIO MANAGEMEN NER GR T 30 MIN/< SBSQ 93866 [place] [address] MEDICAL CARE/DAY SERV 25 FOUNDATIO MINUTES N SBSQ 04364 [place] [address] MEDICAL CARE/DAY SERV 25 FOUNDATIO MINUTES N SBSQ 59772 [facility] 5 NURSE LESLEY CARE/DAY PRACTITIO 25 NER GR MINUTES COMMODE E0163 [facility] CHAIR 5 MOBILE OR STATIONAR Y W/FIXED ARMS SBSQ 97136 [facility] 5 NURSE LESLEY CARE/DAY PRACTITIO 25 NER GR MINUTES SBSQ 81673 [facility] 5 MEDICAL CARE/DAY SERV 25 FOUNDATIO MINUTES N SBSQ 35424 [facility] 5 MEDICAL CARE/DAY SERV 25 FOUNDATIO MINUTES N SBSQ 64935 [facility] 5 MEDICAL CARE/DAY SERV 25 FOUNDATIO MINUTES N SBSQ 06395 [facility] 5 MEDICAL CARE/DAY SERV 25 FOUNDATIO MINUTES N SBSQ 12574 [facility] 5 MEDICAL CARE/DAY SERV 25 FOUNDATIO MINUTES N WALKER E0143 [facility] 5 WHEELED ADJUSTABL E/FIXED HEIGHT SBSQ 12944 [facility] 5 NURSE LESLEY CARE/DAY PRACTITIO 25 NER GR MINUTES SBSQ 66371 [facility] 5 NURSE LESLEY CARE/DAY PRACTITIO 25 NER GR MINUTES SBSQ 33003 [facility] 5 NURSE LESLEY CARE/DAY PRACTITIO 25 NER GR MINUTES SBSQ 70486 [place] [address] NURSE LESLEY CARE/DAY PRACTITIO 25 NER GR MINUTES SBSQ 60201 [facility] 5 NURSE LESLEY CARE/DAY PRACTITIO 25 NER GR MINUTES SWALLOWIN 07245 [facility] 5 MEDICAL SCO W/CINERAD SERV IOGRAPY/V [facility]AD[facility]G [facility] 8[facility] 5 MEDICAL IHA CARE/DAY SERV 25 FOUNDATIO MINUTES N SBSQ 86016 [facility] 5 MEDICAL IHA CARE/DAY SERV 25 FOUNDATIO MINUTES N SBSQ 23753 [facility] 5 NURSE LESLEY CARE/DAY PRACTITIO 25 NER GR MINUTES SBSQ 38355 [facility] 5 NURSE LESLEY CARE/DAY PRACTITIO 25 NER GR MINUTES SBSQ 44091 [facility] 5 MEDICAL CARE/DAY [place] [address] [place] [facility] A[facility]OMINAL 5 MEDICAL REAL SERV TIME FOUNDATIO W/IMAGE N LIMITED SBSQ 22434 [facility] 5 MEDICAL CARE/DAY SERV 25 FOUNDATIO MINUTES N SBSQ 01926 [facility] 5 MEDICAL CARE/DAY SERV 25 FOUNDATIO MINUTES N INITIAL 48640 [facility] INPATIENT 5 MEDICAL CONSULT SERV NEW/ESTAB FOUNDATIO PT 55 N MIN SBSQ 07644 [facility] 5 MEDICAL CARE/DAY SERV 25 FOUNDATIO MINUTES N SBSQ 04495 [facility] 5 MEDICAL TRACIE CARE/DAY SERV 25 FOUNDATIO MINUTES N SBSQ 03855 [facility] 5 NURSE LESLEY CARE/DAY PRACTITIO 25 NER GR MINUTES SBSQ 19001 [facility] 5 MEDICAL KIRIT CARE/DAY SERV 35 FOUNDATIO MINUTES N SBSQ 71057 [facility] 5 MEDICAL KIRIT CARE/DAY SERV 35 FOUNDATIO MINUTES N SBSQ 13627 [facility] 5 MEDICAL TRACIE CARE/DAY SERV 25 FOUNDATIO MINUTES N INITIAL 32575 [facility] INPATIENT 5 MEDICAL KAN JARVIS CONSULT SERV NEW/ESTAB FOUNDATIO PT 110 N MIN SBSQ 56479 [facility] 5 NURSE LESLEY CARE/DAY PRACTITIO 25 NER GR MINUTES SBSQ 98274 [facility] 5 NURSE LESLEY CARE/DAY PRACTITIO 25 NER GR MINUTES SBSQ 30568 [facility] 5 NURSE LESLEY CARE/DAY PRACTITIO 25 NER GR MINUTES SBSQ 93919 [facility] 5 MEDICAL KIRIT CARE/DAY SERV 35 FOUNDATIO MINUTES N SBSQ 17352 [facility] 5 MEDICAL KIRIT CARE/DAY SERV 35 FOUNDATIO MINUTES N ECG 40340 [facility] 5 MEDICAL NAN ECG SERV W/LEAST FOUNDATIO 12 LDS N I&R ONLY SBSQ 17328 [facility] 5 MEDICAL GIPSON CARE/DAY SERV ADO 25 FOUNDATIO MINUTES N INITIAL 58954 [facility] INPATIENT 5 MEDICAL THO CONSULT SERV NEW/ESTAB FOUNDATIO PT 110 N MIN SBSQ 63370 [facility] 5 MEDICAL KIRIT CARE/DAY SERV 35 FOUNDATIO MINUTES N SBSQ 74505 [place] [address] MEDICAL KIRIT CARE/DAY SERV 35 FOUNDATIO MINUTES N ECHO 73553 [facility]-T 5 MEDICAL PAULO 2D SERV W/WOM-MOD FOUNDATIO E COMPL N SPEC&COLR D PRTBLE E0431 [facility]UR[facility] GASEOUS 5 MEDICAL MEDICAL O2 SYS EQUIPMENT EQUIPMENT RENT; [facility] HUMIDFR&M ASK O2 CONC 1 E1390 [facility] M[facility] [place] 5 MEDICAL MEDICAL 85%/>02 EQUIPMENT EQUIPMENT CONC AT [facility] FLW RATE SBSQ 73156 [place] [address] MEDICAL KIRIT CARE/DAY SERV 35 FOUNDATIO MINUTES N SBSQ 92871 [place] [address] MEDICAL KIRIT CARE/DAY SERV 35 FOUNDATIO MINUTES N SBSQ 21374 [place] [address] MEDICAL KIRIT CARE/DAY SERV 35 FOUNDATIO MINUTES N RADIOLOGI 27826 [facility] 5 MEDICAL ASH EXAMINATI SERV ON CHEST FOUNDATIO SINGLE N VIEW FRONTAL RADIOLOGI 00720 [facility] 5 MEDICAL ASH EXAMINATI SERV ON CHEST FOUNDATIO SINGLE N VIEW FRONTAL RADIOLOGI 40259 [facility] 5 MEDICAL ASH EXAMINATI SERV ON CHEST FOUNDATIO SINGLE N VIEW FRONTAL SBSQ 62748 [place] [address] MEDICAL KIRIT CARE/DAY SERV 35 FOUNDATIO MINUTES N RADIOLOGI 52962 [facility] 5 MEDICAL ASH EXAMINATI SERV ON CHEST FOUNDATIO SING[place] RADIOLOGI 53228 [place] 5 MEDICAL [place] EXAMINATI SERV ON CHEST FOUNDATIO SING[place] N [place] FRONTAL SBSQ 36025 [place] [address] MEDICAL LEI CARE/DAY SERV 35 FOUNDATIO MINUTES N RADIOLOGI 24676 [place] 5 MEDICAL [place] EXAMINATI SERV ON CHEST FOUNDATIO SINGLE N VIEW FRONTAL SBSQ 41910 [facility] 5 MEDICAL LEI CARE/DAY SERV 35 FOUNDATIO MINUTES N SBSQ 00604 [facility] 5 MEDICAL CARE/DAY SERV 35 FOUNDATIO MINUTES N SWALLOWIN 56018 [place] DISANTIS G FUNCJ 5 MEDICAL S[place]VIANO W/CINERAD SERV IOGRAPY/V FOUNDATIO IDRADIOG N RADIOLOGI 47833 [place] IJEOMA C 5 MEDICAL EXAMINATI SERV ON CHEST FOUNDATIO SING[place] N [place] FRONTAL SBSQ 42756 [place] [address] MEDICAL CARE/DAY SERV 35 FOUNDATIO MINUTES N SBSQ 06301 [place] [facility] 5 MEDICAL CARE/DAY SERV 35 FOUNDATIO MINUTES N SBSQ 76171 [place] [address] MEDICAL CARE/DAY SERV 35 FOUNDATIO MINUTES N RADIOLOGI 48446 [place] ARSLAN C 5 MEDICAL ASH EXAMINATI SERV ON CHEST FOUNDATIO SING[place] FRONTAL RADEX 67294 [place] DISANTIS ABDOMEN 1 5 MEDICAL [place]VI[place] SERV ANTEROPOS FOUNDATIO TERIOR N VIEW RADIOLOGI 31588 [place] ARSLAN C 5 MEDICAL ASH EXAMINATI SERV ON CHEST FOUNDATIO SINGLE N [place] FRONTAL DUP-SCAN 85530 [place] MINION XTR VEINS 5 MEDICAL [place] COMPLETE SERV FOUNDATIO BILATERAL N STUDY SBSQ 78930 [place] [address] MEDICAL CARE/DAY SERV 35 FOUNDATIO MINUTES N RADIOLOGI 97591 [place] SESAR NATHAN C 5 MEDICAL EXAMINATI SERV ON CHEST FOUNDATIO SINGLE N VIEW FRONTAL CRITICAL 56353 [place] SUPINS[facility] CARE 5 MEDICAL GILBERT ILL/INJUR SERV ED FOUNDATIO PATIENT N INIT 30-74 MIN CRITICAL 65742 [place] [facility] 5 MEDICAL GILBERT ILL/INJUR SERV ED FOUNDATIO PATIENT N INIT 30-74 MIN RADIOLOGI 90029 [place] SESAR NATHAN C 5 MEDICAL EXAMINATI SERV ON CHEST FOUNDATIO SINGLE N [place] FRONTAL RADIOLOGI 41801 [place] IJEOMA C 5 MEDICAL EXAMINATI SERV ON CHEST FOUNDATIO SINGLE N [place] FRONTAL SBSQ 20948 [place] [address] MEDICAL CARE/DAY SERV 35 FOUNDATIO MINUTES N SBSQ 71199 [place] [address] MEDICAL CARE/DAY SERV 35 FOUNDATIO MINUTES N RADIOLOGI 95771 [place] CANDELARIA C 5 MEDICAL ASH EXAMINATI SERV ON CHEST FOUNDATIO SING[place] FRONT[place] RADIOLOGI 73308 [place] ARSLAN C 5 MEDICAL ASH EXAMINATI SERV ON CHEST FOUNDATIO S[place] THORAX 41165 [place] IJEOMA W/O 5 MEDICAL CONTRAST SERV MATERIAL FOUNDATIO N SBSQ 52176 [place] [address] MEDICAL CARE/DAY SERV 35 FOUNDATIO MINUTES N SBSQ 78087 [place] [facility] 5 MEDICAL CARE/DAY SERV 35 FOUNDATIO MINUTES N SBSQ 00015 [place] [address] MEDICAL CARE/DAY SERV 35 FOUNDATIO MINUTES N RADIOLOGI 44181 [place] ARSLAN C 5 MEDICAL ASH EXAMINATI SERV ON CHEST FOUNDATIO SING[place] FRONTAL CRITICAL 58890 [place] [facility] 5 MEDICAL SILVIANO ILL/INJUR SERV ED FOUNDATIO PATIENT N INIT 30-74 MIN CRITICAL 69250 [place] [facility] 5 MEDICAL SILVIANO ILL/INJUR SERV ED FOUNDATIO PATIENT N INIT 30-74 MIN RADIOLOGI 41733 [place] SES[facility] NATHAN C 5 MEDICAL EXAMINATI SERV ON CHEST FOUNDATIO SINGLE N [place] FRONTAL RADIOLOGI 29395 [place] IJEOMA C 5 MEDICAL EXAMINATI SERV ON CHEST FOUNDATIO SING[place] N [place] FRONTAL SBSQ 99502 [place] [address] MEDICAL HANSEL CARE/DAY SERV IJEOMA 35 FOUNDATIO MINUTES N TEMPORARY 311 [facility] 5 Y [facility] [place] [address] [place] [facility] 5 MEDICAL HANSEL ILL/INJUR SERV IJEOMA ED FOUNDATIO PATIENT N INIT 30-74 MIN TRACHEOST 59534 [place] [facility] 5 MEDICAL MANE PLANNED SERV SEPARATE FOUNDATIO PROCEDURE N CRITICAL 67864 [place] [facility] 5 MEDICAL HANSEL ILL/INJUR SERV IJEOMA ED FOUNDATIO PATIENT N INIT 30-74 MIN CRITICAL 13866 [place] [facility] 5 MEDICAL HANSEL ILL/INJUR SERV IJEOMA ED FOUNDATIO PATIENT N INIT 30-74 MIN PRTBLE E0431 MURPHY MURPHY GASEOUS 5 MEDICAL MEDICAL O2 SYS EQUIPMENT EQUIPMENT RENT; FLWMTR HUMIDFR&M ASK O2 CONC 1 E1390 [place] M[place] 5 MEDICAL MEDICAL 85%/>02 EQUIPMENT EQUIPMENT CONC AT [facility] FLW RATE SBSQ 47614 [facility] 5 MEDICAL CARE/DAY SERV [address] THORAX 45224 [place] IJEOMA W/O 5 MEDICAL CONTRAST SERV MATERIAL FOUNDATIO N CRITICAL 73435 [place] [facility] 5 MEDICAL Y-BUSTAMANTE ILL/INJUR SERV MANE ED FOUNDATIO PATIENT N INIT 30-74 MIN ECHO 39519 RIGOBERTO ELLIS [facility] R-T 5 MEDICAL 2D SERV W/WOM-MOD FOUNDATIO E COMPL N SPEC&COLR D RADIOLOGI 31138 [place] [facility] 5 MEDICAL ASH EXAMINATI SERV ON CHEST FOUNDATIO SINGLE N VIEW FRONTAL RADIOLOGI 52678 [place] [facility] NATHAN C 5 MEDICAL EXAMINATI SERV ON CHEST FOUNDATIO SINGLE N VIEW FRONTAL CRITICAL 33652 [place] [facility] 5 MEDICAL Y-BUSTAMANTE ILL/INJUR SERV MANE ED FOUNDATIO PATIENT N INIT 30-74 MIN CRITICAL 77256 [place] [facility] 5 MEDICAL Y-BUSTAMANTE ILL/INJUR SERV MANE ED FOUNDATIO PATIENT N INIT 30-74 MIN US SOFT 38588 [place] K[facility] 5 MEDICAL SUSANNA HEAD & SERV NECK REAL FOUNDATIO TIME N IMGE DOCM CT SOFT 13441 [place] KRISTAL JUSTUS TISSUE 5 MEDICAL NECK W/O SERV CONTRAST FOUNDATIO MATERIAL N RADIOLOGI 29369 [place] [facility] NATHAN C 5 MEDICAL EXAMINATI SERV ON CHEST FOUNDATIO SINGLE N VIEW FRONTAL RADIOLOGI 79509 [place] ARSLAN C 5 MEDICAL ASH EXAMINATI SERV ON CHEST FOUNDATIO SINGLE N VIEW FRONTAL CRITICAL 28162 [facility] 5 MEDICAL HANSEL ILL/INJUR SERV IJEOMA ED FOUNDATIO PATIENT N INIT 30-74 MIN SBSQ 81429 [facility] 5 MEDICAL CARE/DAY SERV 35 FOUNDATIO MINUTES N SBSQ 47111 [facility] 5 MEDICAL FER CARE/DAY SERV 35 FOUNDATIO MINUTES N CRITICAL 12569 [facility] 5 MEDICAL HANSEL ILL/INJUR SERV IJEOMA ED FOUNDATIO PATIENT N INIT 30-74 MIN ECG 05704 [place] [facility] CHI ROUTINE 5 MEDICAL ECG SERV W/LEAST FOUNDATIO 12 LDS N I&R ONLY RADIOLOGI 55942 [place] IJEOMA C 5 MEDICAL EXAMINATI SERV ON CHEST FOUNDATIO SINGLE N VIEW FRONTAL INITIAL 93354 [facility] INPATIENT 5 CLINIC TYLER CONSULT NEW/ESTAB PT 40 MIN CRITICAL 79214 [facility] 5 MEDICAL HANSEL ILL/INJUR SERV IJEOMA ED FOUNDATIO PATIENT N INIT 30-74 MIN SBSQ 10426 [place] [address] MEDICAL FER CARE/DAY SERV 35 FOUNDATIO MINUTES N SBSQ 71006 [place] [address] MEDICAL AMR CARE/DAY SERV 35 FOUNDATIO MINUTES N CRITICAL 23101 [facility] 5 MEDICAL HANSEL ILL/INJUR SERV IJEOMA ED FOUNDATIO PATIENT N INIT 30-74 MIN RADIOLOGI 87595 [facility] IJEOMA C 5 MEDICAL EXAMINATI SERV ON CHEST FOUNDATIO SINGLE N VIEW FRONTAL DUP-SCAN 87137 [place] [facility] [place] XTR VEINS 5 MEDICAL COMPLETE SERV FOUNDATIO BILATERAL N STUDY RADIOLOGI 83907 [place] IJEOMA C 5 MEDICAL EXAMINATI SERV ON CHEST FOUNDATIO SINGLE N VIEW FRONTAL CRITICAL 07602 [facility] 5 MEDICAL HANSEL ILL/INJUR SERV IJEOMA ED FOUNDATIO PATIENT N INIT 30-74 MIN SBSQ 77377 [facility] 5 MEDICAL AMR CARE/DAY SERV 35 FOUNDATIO MINUTES N CRITICAL 82259 [facility] 5 MEDICAL LEI ILL/INJUR SERV ED FOUNDATIO PATIENT N INIT 30-74 MIN RADIOLOGI 00276 [place] [facility] NATHAN C 5 MEDICAL EXAMINATI SERV ON CHEST FOUNDATIO SINGLE N VIEW FRONTAL RADIOLOGI 68034 [place] [facility] NATH[facility] C 5 MEDICAL EXAMINATI SERV ON CHEST FOUNDATIO SINGLE N VIEW FRONTAL CRITICAL 40566 [place] [facility] 5 MEDICAL LEI ILL/INJUR SERV ED FOUNDATIO PATIENT N INIT 30-74 MIN SBSQ 86071 [place] [facility] 5 MEDICAL BETHANY CARE/DAY SERV 35 FOUNDATIO MINUTES N SBSQ 46351 [place] [facility] 5 MEDICAL CARE/DAY SERV 35 FOUNDATIO MINUTES N ECG 63662 [place] [facility] 5 MEDICAL ECG SERV W/LEAST FOUNDATIO 12 LDS N I&R ONLY RADIOLOGI 80491 [place] IJEOMA C 5 MEDICAL EXAMINATI SERV ON CHEST FOUNDATIO SINGLE N VIEW FRONTAL ECG [address] [facility] ROUTINE 5 MEDICAL ECG SERV W/LEAST FOUNDATIO 12 LDS N I&R ONLY SBSQ 30745 [place] [facility] 5 MEDICAL CARE/DAY SERV 35 FOUNDATIO MINUTES N SBSQ 15656 [place] [facility] 5 MEDICAL CARE/DAY SERV 35 FOUNDATIO MINUTES N DUP-SCAN 24860 [place] ENDEAN XTR VEINS 5 MEDICAL MEAGAN COMPLETE SERV FOUNDATIO BILATERAL N STUDY RADIOLOGI 37555 [place] [facility] 5 MEDICAL ASH EXAMINATI SERV ON CHEST FOUNDATIO SINGLE N VIEW FRONTAL CRITICAL 22061 [place] [facility] 5 MEDICAL SILVIANO ILL/INJUR SERV ED FOUNDATIO PATIENT N INIT 30-74 MIN INITIAL 08740 [place] [facility] INPATIENT 5 MEDICAL CONSULT SERV NEW/ESTAB FOUNDATIO PT 110 N MIN SBSQ 15554 [place] [facility] 5 MEDICAL AMR CARE/DAY SERV 35 FOUNDATIO MINUTES N CRITICAL 52919 [place] [facility] 5 MEDICAL SILVIANO ILL/INJUR SERV ED FOUNDATIO PATIENT N INIT 30-74 MIN CRITICAL 01337 [place] [facility] 5 MEDICAL ILL/INJUR SERV ED FOUNDATIO PATIENT N INIT 30-74 MIN RADEX 02715 [place] [facility]OM[facility] 1 5 MEDICAL SERV ANTEROPOS FOUNDATIO TERIOR N VIEW RADIOLOGI 97335 [place] [facility] 5 MEDICAL EXAMINATI SERV ON CHEST FOUNDATIO SINGLE N VIEW FRONTAL SBSQ [address] [facility] 5 MEDICAL OS DIETER CARE/DAY SERV 35 FOUNDATIO MINUTES N SBSQ [address] [facility] 5 MEDICAL OS DIETER CARE/DAY SERV 35 FOUNDATIO MINUTES N RADIOLOGI 98274 [place] [facility] 5 MEDICAL EXAMINATI SERV ON CHEST FOUNDATIO SINGLE N VIEW FRONTAL CRITICAL 76145 [facility] CARE 5 MEDICAL ILL/INJUR SERV ED FOUNDATIO PATIENT N INIT 30-74 MIN RADIOLOGI 53411 [place] ARSL[facility] 5 MEDICAL ASH EXAMINATI SERV ON CHEST FOUNDATIO SINGLE N VIEW FRONTAL CRITICAL 08290 [facility] 5 MEDICAL SIVLIANO ILL/INJUR SERV ED FOUNDATIO PATIENT N INIT 30-74 MIN SBSQ 98635 [facility] 5 MEDICAL AMR CARE/DAY SERV 35 FOUNDATIO MINUTES N SBSQ 04212 [facility] 5 MEDICAL SHA CARE/DAY SERV 35 FOUNDATIO MINUTES N CRITICAL 14625 [facility] 5 MEDICAL SILVIANO ILL/INJUR SERV ED FOUNDATIO PATIENT N INIT 30-74 MIN RADIOLOGI 27811 [place] [facility] 5 MEDICAL ASH EXAMINATI SERV ON CHEST FOUNDATIO SINGLE N VIEW FRONTAL RADIOLOGI 94220 [place] [facility] IJEOMA C 5 MEDICAL EXAMINATI SERV ON CHEST FOUNDATIO SINGLE N VIEW FRONTAL CRITICAL 21622 [facility] 5 MEDICAL SILVIANO ILL/INJUR SERV ED FOUNDATIO PAT[place] N INIT 30-[place] [address] [place] MEDRAN[facility] ANH RETROPERI 5 MEDICAL TONEAL SERV REAL TIME FOUNDATIO W/IMAGE N COMPLETE ARTL 85518 [facility] CATHJ/CAN 5 MEDICAL NULJ SERV MNTR/HEATON FOUNDATIO SFUSION N SPX PRQ SBSQ 74714 [facility] 5 MEDICAL SHA CARE/DAY SERV 35 FOUNDATIO MINUTES N BLOOD 27306 [facility] 5 [place] [facility] PHYS W/WRIT REPORT BLOOD 44981 [facility] 5 [facility] [place]YS W/[place] [address] [facility] INFUSION 5 [facility] THER INC INC PROPH ADDL SEQUENTIA L TO 1 HR CYTP 60356 [facility] SILVIANO SLCTV 5 Y OF [place] [facility] NT INTERPJ XCPT C/V COLLECTIO 06537 [facility] N VENOUS 5 [facility] BLOOD INC INC VENIPUNCT URE CONT 9672 [facility] INVASIVE 5 Y Y [facility] 96 CONSECUTI VE HRS/MORE CENTRAL 3897 [facility] VENOUS Y Y [facility] PLACEMENT WITH GUIDANCE ARTERIAL [address]1 [place] [address] Y Y [facility] INSERTION 9604 [place] [address] Y Y [facility] EAL TUBE CREATINE 28236 [facility] B[facility] KINASE MB 5 [facility] FRACTION INC INC ONLY INSJ 69570 RIGOBERTO HENDRIX NON-TUNNE 5 MEDICAL SILVIANO LED SERV CENTRAL FOUNDATIO VENOUS N CATH AGE 5 YR/> SUSCEPTIB 14610 [facility] LTY STDY 5 [facility] ANTIMICRB INC INC IAL MICRO/AGA R DILUTJ CULTURE 82575 [facility] BACTERIAL 5 [facility] BLOOD INC INC AEROBIC W/ID ISOLATES INITIAL 59902 RIGOBERTO MOHAMED INPATIENT 5 MEDICAL AMR CONSULT SERV NEW/ESTAB FOUNDATIO PT 110 N MIN COMPREHEN 96338 [facility] SIVE 5 [facility] METABOLIC INC INC PANEL CRITICAL 08862 RIGOBERTO HENDRIX CARE 5 MEDICAL SILVIANO ILL/INJUR SERV ED FOUNDATIO PATIENT N INIT 30-74 MIN DUP-SCAN 55154 RIGOBERTO SORIAL XTR VEINS 5 MEDICAL EHA COMPLETE SERV FOUNDATIO BILATERAL N STUDY RADIOLOGI 45765 [facility] C 5 [facility] EXAMINATI INC INC ON CHEST SINGLE VIEW FRONTAL BRNCHSC 94889 RIGOBERTO HENDRIX W/BRNCL 5 MEDICAL SILVIANO ALVEOLAR SERV LAVAGE FOUNDATIO N BLOOD 03215 [facility] COUNT 5 [facility] COMPLETE INC INC AUTO&AUTO DIFRNTL WBC CUL BACT 94237 [facility] AEROBIC 5 [facility] ADDL INC [place] [address] [facility] B[facility] TROPONIN 5 [facility] QUANTITAT INC INC CRISTIAN ECG 76592 [facility] ROUTINE 5 [facility] ECG INC INC W/LEAST 12 LDS TRCG ONLY W/O I&R ECG 21302 [facility] RUSS ROUTINE 5 [facility] W/LEAST P 12 LDS I&R ONLY CREATINE 20258 [facility] B[facility] KINASE 5 [facility] TOTAL INC INC ECHO 08290 [place] [facility] R-T 5 MEDICAL 2D SERV W/WOM-MOD FOUNDATIO E COMPL N SPEC&COLR D PRESSURIZ 98438 [facility] ED/NONPRE 5 [facility] SSURIZED [place] [address] [facility] INFUSION 5 [facility] THERAPY/P INC INC ROPHYLAXI S /DX 1ST TO 1 HR THERAPEUT 64156 [facility] IC 5 [facility] INJECTION INC INC IV PUSH EACH NEW DRUG BLOOD 37290 [facility] COUNT 5 [facility] COMPLETE INC INC AUTO&AUTO DIFRNTL WBC COLLECTIO 26908 [facility] N VENOUS 5 [facility] BLOOD INC INC VENIPUNCT URE COLLECTIO 47864 [facility] N VENOUS 5 [facility] BLOOD INC INC VENIPUNCT URE BLOOD 29000 [facility] COUNT 5 [facility] COMPLETE INC INC AUTO&AUTO DIFRNTL WBC PRTBLE E0431 MURPHY MURPHY GASEOUS 5 MEDICAL MEDICAL O2 SYS EQUIPMENT EQUIPMENT RENT; FLWMTR HUMIDFR&M ASK O2 CONC 1 E1390 [place] M[place] 5 MEDICAL MEDICAL 85%/>02 EQUIPMENT EQUIPMENT CONC AT [facility] FLW RATE BLOOD 78649 [facility] COUNT 5 [facility] HEMATOCRI INC INC T TRANSFUSI 60694 [facility] ON 5 [facility] BLOOD/BLO INC INC OD COMPONENT S RED BLOOD P9016 [facility] [place] CELLS 5 [facility] LEUKOCYTE INC INC S REDUCED EACH UNIT BLOOD 32238 [facility]MY COUNT 5 [facility] HEMOGLOBI INC INC N COMPATIBI 01511 [facility] LITY EACH 5 [facility] UNIT INC INC IMMEDIATE SPIN TECHNIQUE COMPATIBI 07259 [facility] LITY EACH 5 [facility] UNIT INC INC ANTIGLOBU HARINI BLOOD 64546 [facility] TYPING 5 [facility] SEROLOGIC INC INC RH (D) BLOOD 20876 [facility] [place] COUNT 5 [facility] COMPLETE INC INC AUTO&AUTO DIFRNTL WBC ANTIBODY 69986 [facility] ID RBC 5 [facility] ANTIBODIE INC INC S EA PANEL EA SERUM TQ COLLECTIO 97691 [facility] N VENOUS 5 [facility] BLOOD INC INC VENIPUNCT URE ANTIBODY 09338 [facility] SCREEN 5 [facility] RBC EACH INC INC SERUM TECHNIQUE BLOOD 69849 [facility] TYPING 5 [facility] SEROLOGIC INC INC ABO COLLECTIO 01002 [facility] [place] N VENOUS 5 [facility] BLOOD INC INC VENIPUNCT URE BLOOD 02058 [facility] [place] COUNT 5 [facility] COMPLETE INC INC AUTO&AUTO DIFRNTL WBC BLOOD 24156 [facility] COUNT 5 [facility] HEMOGLOBI INC INC N RED BLOOD P9016 [facility] [place] CELLS 5 [facility] LEUKOCYTE INC INC S REDUCED EACH UNIT TRANSFUSI 79315 [facility] ON 5 [facility] BLOOD/BLO INC INC OD COMPONENT S BLOOD 22171 ST[facility] COUNT 5 [facility] HEMATOCRI INC INC T BLOOD 44529 [facility] [place] TYPING 5 [facility] SEROLOGIC INC INC ABO ANTIBODY 54538 [facility] B[facility] SCREEN 5 [facility] RBC EACH INC INC SERUM TECHNIQUE ANTIBODY 90567 [facility] ID RBC 5 [facility] ANTIBODIE INC INC S EA PANEL EA SERUM TQ COMPREHEN 92705 [facility] SIVE 5 [facility] METABOLIC INC INC PANEL BLOOD 00875 [facility] COUNT 5 [facility] COMPLETE INC INC AUTO&AUTO DIFRNTL WBC COMPATIBI 83347 [facility] LITY EACH 5 [facility] UNIT INC INC ANTIGLOBU HARINI BLOOD 42051 [facility] TYPING 5 [facility] SEROLOGIC INC INC RH (D) COMPATIBI 82571 [facility] LITY EACH 5 [facility] UNIT INC INC IMMEDIATE SPIN TECHNIQUE BLOOD 27127 [facility] COUNT 4 [facility] COMPLETE INC INC AUTO&AUTO DIFRNTL WBC COMPREHEN 95230 [facility] SIVE 4 [facility] METABOLIC INC INC PANEL PRTBLE E0431 MURPHY MURPHY GASEOUS 4 MEDICAL MEDICAL O2 SYS EQUIPMENT EQUIPMENT RENT; FLWMTR [facility] 55735 [facility] 4 [place] DAY CLINIC MANAGEMEN PSC T > 30 MIN O2 CONC 1 E1390 MURPHY MURPHY [place] 4 MEDICAL MEDICAL 85%/>02 EQUIPMENT EQUIPMENT CONC AT PRSC FLW RATE SBSQ [address] CARE/DAY CLINIC 25 PSC MINUTES SBSQ [address] JENNA CARE/DAY CLINIC 25 PSC MINUTES RADIOLOGI 24567 [facility] [place] MARINA C EXAM 4 RADIOLOGY CAR CHEST 2 VIEWS FRONTAL&L ATERAL SBSQ [address] CARE/DAY CLINIC 25 PSC MINUTES SBSQ [address] CARE/DAY CLINIC 25 PSC MINUTES SBSQ [address] CARE/DAY CLINIC 35 PSC MINUTES SBSQ [address]/DAY MEDICAL 25 G MINUTES SBSQ 30355 [facility] 4 [place] MAT CARE/DAY CLINIC 15 PSC MINUTES SBSQ 16945 [facility] CARE/DAY MEDICAL 25 G MINUTES SBSQ [address] [facility] 4 [facility] CARE/DAY MEDICAL 25 G MINUTES SBSQ 44051 [facility] 4 [place] MAT CARE/DAY CLINIC 15 PSC MINUTES SBSQ [address] [place] CARE/DAY CLINIC 35 PSC MINUTES RADIOLOGI 57939 [facility] [place] PRAJAPATI C EXAM 4 RADIOLOGY BERHANE CHEST 2 VIEWS FRONTAL&L ATERAL SBSQ [address] [place] CARE/DAY CLINIC 25 PSC MINUTES ECHO 64196 [facility] R[facility]T [address] [place] [address] 2D CLINIC W/WOM-MOD PSC E COMPL SPEC&COLR D SBSQ [address] [place] CARE/DAY CLINIC 25 PSC MINUTES SBSQ [address] [place] CARE/DAY CLINIC 25 PSC MINUTES SBSQ [address] [facility] CARE/DAY CLINIC 25 PSC MINUTES SBSQ 94873 [facility]/DAY MEDICAL 35 G MINUTES SBSQ 41454 [facility] 4 [facility] CARE/DAY MEDICAL 35 G MINUTES SBSQ [address] [place] CARE/DAY CLINIC 25 PSC MINUTES RADIOLOGI 45902 [facility] [place] WESTERFIE C 4 RADIOLOGY LD IV ALL EXAMINATI ON CHEST SINGLE VIEW FRONTAL RADIOLOGI 95851 [facility] [place] TANVIR C 4 RADIOLOGY MAGGIE EXAMINATI ON CHEST SINGLE VIEW FRONTAL ECG 66816 LAURIE SHEEHAN ROUTINE 4 BAR ECG W/LEAST 12 LDS I&R ONLY SBSQ [address] [place] CARE/DAY CLINIC 25 PSC MINUTES SBSQ 61121 [facility] 4 [facility] CARE/DAY MEDICAL [address] [place] [address] [facility] [place] KOSTELIC ANGIOGRAP 4 RADIOLOGY ESTEBAN HY CHEST W/CONTRAS T/NONCONT RAST SBSQ [address] [place] CARE/DAY CLINIC 25 PSC MINUTES SBSQ 95954 [facility] 4 [facility] CARE/DAY MEDICAL 25 G MINUTES SBSQ [address] [place] CARE/DAY CLINIC 35 PSC MINUTES RADIOLOGI 02693 [facility] [place] WESTER[place] C EXAM 4 RADIOLOGY LD IV ALL CHEST 2 VIEWS FRONTAL&L ATERAL SBSQ 21119 [facility] 4 [facility] CARE/DAY MEDICAL 25 G MINUTES SBSQ [address] CARE/DAY CLINIC 25 PSC MINUTES SBSQ [address] CARE/DAY CLINIC 25 PSC MINUTES SBSQ [address] CARE/DAY CLINIC 25 PSC MINUTES DUP-SCAN 35833 [facility] LIZZIE THO XTR VEINS 4 [facility] UNILATERA G L/LIMITED STUDY SBSQ [address] [place] CARE/DAY CLINIC 25 PSC [address] SBSQ [address]21 [facility] 4 [place] CARE/DAY CLINIC 15 PSC MINUTES RADIOLOGI 82496 [facility] [place] KOSTELIC C EXAM 4 RADIOLOGY ESTEBAN CHEST 2 VIEWS FRONTAL&L ATERAL SBSQ [address] [place] CARE/DAY CLINIC 25 PSC MINUTES SBSQ 75102 [facility] 4 [place] CARE/DAY CLINIC 25 PSC MINUTES SBSQ [address] [facility] 4 [facility] CARE/DAY MEDICAL 35 G MINUTES SBSQ [address] [place] CARE/DAY CLINIC 35 PSC MINUTES RADIOLOGI 51884 [facility] [place] WESTERFIE C EXAM 4 RADIOLOGY LD IV ALL CHEST 2 VIEWS FRONTAL&L ATERAL SBSQ 90183 [facility] 4 SC KIDNEY [place] CARE/DAY CARE 25 MINUTES SBSQ 16954 [facility] 4 [place] [facility] CARE/DAY CARE 25 MINUTES SBSQ [address] MAT CARE/DAY CLINIC 15 PSC MINUTES SBSQ 08301 [facility] 4 [place] KIDNEY CARE/DAY CARE 25 MINUTES SBSQ [address] CARE/DAY CLINIC 15 PSC MINUTES SBSQ [address] CARE/DAY CLINIC 25 PSC MINUTES RADIOLOGI 77618 [facility] [place] C 4 RADIOLOGY CAR EXAMINATI ON CHEST SINGLE VIEW FRONTAL SBSQ [address]/DAY MEDICAL 35 G MINUTES SBSQ [address] CARE/DAY CLINIC 25 PSC MINUTES INITIAL 88402 [facility] [address] [place] [address] [facility] NEW/ESTAB PSC PT 40 MIN SBSQ [address] CARE/DAY CLINIC 25 PSC MINUTES INITIAL [address] CARE/DAY CLINIC 30 PSC MINUTES RADIOLOGI 84224 [facility] [place] TANVIR C 4 RADIOLOGY MAGGIE EXAMINATI ON CHEST SINGLE VIEW FRONTAL ECHO 13909 [facility] MOLINA TTC R-T 4 [place] 2D CLINIC W/WOM-MOD PSC E COMPL SPEC&COLR D SBSQ [address]/DAY MEDICAL 35 G MINUTES DUP-SCAN 59730 [facility] XTR VEINS [address] [place] [address] COMPLETE CLINIC PSC BILATERAL STUDY SBSQ [address] CARE/DAY CLIN[place] 25 [place] [address] [facility] [place] SALAS RETROPERI 4 RADIOLOGY CAR TONEAL REAL TIME W/IMAGE LIMITED INITIAL 16870 [facility] 4 [place] KIDNEY [place] CARE/DAY CARE 50 MINUTES INITIAL 33172 [facility] INPATIENT 4 [facility] CONSULT MEDICAL NEW/ESTAB G PT [address] THORAX 93672 [facility] RIGOBERTO MARINA W/O 4 RADIOLOGY CAR CONTRAST MATERIAL GROUND A0425 [facility] 4 AMBULANCE AMBULANCE PER SERVICE SERVICE STATUTE MILE INITIAL 25413 [facility] 4 [facility] CARE/DAY CLINIC 70 PSC MINUTES RADIOLOGI 56877 [facility] [place] C 4 RADIOLOGY LD IV ALL EXAMINATI ON CHEST SINGLE VIEW FRONTAL AMB A0427 [facility] SERVICE 4 AMBULANCE AMBULANCE ALS SERVICE SERVICE EMERGENCY TRANSPORT LEVEL 1 ECG 30518 [facility] JR ROUTINE 4 [facility] W/LEAST P 12 LDS I&R ONLY RADIOLOGI 11466 [place] [facility] [facility] 4 MEDICAL LIZZIE EXAMINATI IMAGING ON CHEST ASS SINGLE VIEW FRONTAL ECHO 78552 RIGOBERTO OLVIN TTHRC R-T 4 MEDICAL PAULO 2D SERV W/WOM-MOD FOUNDATIO E COMPL N SPEC&COLR D HOSP[facility] 34557 [facility] 4 [facility] INTERNAL MANAGEMEN MED T 30 MIN/< SBSQ 04861 [facility] AND [address] CARE/DAY INTERNAL 25 MED MINUTES INITIAL [address] [place] [address] CARE/DAY INTERNAL 50 MED MINUTES URNLS DIP [address] [place] [address] STICK/TAB INTERNAL LET RGNT MED NON-AUTO W/O MICRSCP INSJ PRPH [address] [facility] REENA TOD CTR VAD 4 PHYSICIAN W/SUBQ S GROUP PORT AGE 3 YR/> TRANSFUSI 9904 [facility] ON OF 4 [facility] PACKED INC INC CELLS VENOUS 3893 [facility] CATHETERI 4 [facility] ZATION INC INC NOT ELSEWHERE CLASSIFIE D BLOOD 24079 [facility] COUNT 4 [facility] HEMATOCRI INC INC [facility] G0378 [facility] OBSERVATI 4 [facility] ON INC INC SERVICE PER HOUR RED BLOOD P9016 [facility] CELLS 4 [facility] LEUKOCYTE INC INC S REDUCED EACH UNIT OBSERVATI 85634 [facility] [place] ON CARE 4 [place] IJ[place]OMA DISCHARGE INTERNAL MED MANAGEMEN BLOOD 17703 [facility] OCCULT 4 [facility] PEROXIDAS INC INC E ACTV QUAL FECES 1-3 SPEC BLOOD 10263 [facility] COUNT 4 [facility] HEMOGLOBI INC INC N UNCLASSIF J3490 [facility] IED DRUGS 4 [facility] INC INC UNCLASSIF J3490 [facility] IED DRUGS 4 [facility] INC INC BLOOD 76989 [facility] COUNT 4 [facility] COMPLETE INC INC AUTO&AUTO DIFRNTL WBC COMPATIBI 97174 [facility] LITY EACH 4 [facility] UNIT INC INC ANTIGLOBU HARINI COMPATIBI 30211 [facility] LITY EACH 4 [facility] UNIT INC INC IMMEDIATE SPIN TECHNIQUE BLOOD 14936 [facility] TYPING 4 [facility] SEROLOGIC INC INC RH (D) URNLS DIP 16116 [facility] 4 [facility] STICK/TAB INC INC LET REAGENT AUTO MICROSCOP Y INITIAL 03913 [facility] USERY AND OBSERVATI 4 [place] ON INTERNAL CARE/DAY MED 30 MINUTES COMPREHEN 47384 [facility] SIVE 4 [facility] METABOLIC INC INC PANEL ANTIBODY 45111 [facility] ID RBC 4 [facility] ANTIBODIE INC INC S EA PANEL EA SERUM TQ PROTHROMB 27462 [facility] IN TIME 4 [facility] INC INC BLOOD 45821 [facility] B[facility] TYPING 4 [facility] SEROLOGIC INC INC [facility] G0378 [facility] B[facility] OBSERVATI 4 [facility] ON INC INC SERVICE PER HOUR ANTIBODY 72837 [facility] SCREEN 4 [facility] RBC EACH INC INC SERUM TECHNIQUE PROTHROMB 33716 [facility] B[facility] IN TIME 4 [facility] INC INC PROTHROMB 94627 [facility] B[facility] IN TIME 4 [facility] INC INC PROTHROMB 87079 [facility] IN TIME 4 [facility] INC INC TRANSFUSI 33822 [facility] ON 4 [facility] BLOOD/BLO INC INC OD COMPONENT S RED BLOOD P9016 [facility] CELLS 4 [facility] LEUKOCYTE INC INC S REDUCED EACH UNIT BLOOD 83547 [facility] COUNT 4 [facility] HEMOGLOBI INC INC N UNCLASSIF J3490 [facility] IED DRUGS 4 [facility] INC INC BLOOD 27899 [facility] COUNT 4 [facility] HEMATOCRI INC INC T BLOOD 51748 [facility] [facility] COUNT 4 [facility]TE [facility] HOSP AUTOMATED NATRIURET 58969 [facility] IC 4 [facility] PEPTIDE [facility] HOSP BASIC 63267 [facility] METABOLIC 4 [facility] PANEL [facility]OS[facility] HOSP CALCIUM TOTAL PROTHROMB 87176 [facility] IN TIME 4 [facility] HOSP PROTHROMB 27195 [facility] IN TIME 4 [facility] HOSP BLOOD 06020 [facility] COUNT 4 [facility] COMPLETE [facility] HOSP AUTO&AUTO DIFRNTL WBC COLLECTIO 49888 [facility]AL N VENOUS 4 [facility]UD[facility]IST [facility] BLOOD HOSP HOSP VENIPUNCT URE PROTHROMB 76739 [facility] IN TIME 4 [facility] HOSP INC INC SBSQ 10732 [place] [address] MEDICINE CARE/DAY SERVICES, 25 MINUTES SBSQ 62600 [place] [address] MEDICINE CARE/DAY SERVICES, 35 MINUTES SBSQ 55135 [place] [address] MEDICINE DEN CARE/DAY SERVICES, 35 MINUTES SBSQ 73021 [place] [address] MEDICINE DEN CARE/DAY SERVICES, 35 MINUTES SBSQ 35734 [facility] 4 PULMONARY SHE CARE/DAY & 25 CRITICAL MINUTES SBSQ 68079 [facility] 4 [place] AN ARV CARE/DAY ONCOLOGY 15 A MINUTES RADIOLOGI 45136 CENTRAL PELAEZ C 4 RADIOLOGY WARD EXAMINATI ASSOC ON CHEST SINGLE VIEW FRONTAL SBSQ 02136 [facility] 4 PULMONARY S KIRIT CARE/DAY & 25 CRITICAL MINUTES SBSQ 42766 [facility] 4 PULMONARY S KIRIT CARE/DAY & 25 CRITICAL MINUTES SBSQ 03120 [facility] 4 [place] AN ARV CARE/DAY ONCOLOGY 15 A MINUTES SBSQ 03106 [facility] 4 [place] AN ARV CARE/DAY ONCOLOGY 25 A MINUTES RADIOLOGI 27645 CENTRAL ELLIS CHANEL C 4 RADIOLOGY EXAMINATI ASSOC ON CHEST SING[place] VIEW FRONTAL SBSQ 87506 [facility] 4 PULMONARY MAT CARE/DAY & 35 CRITICAL MINUTES SBSQ 59555 [facility] 4 PULMONARY MAT CARE/DAY & 35 CRITICAL MINUTES CYTP 28060 [facility] SL[facility]V 4 GREYSON & ER JR SANDEEP CELL DUBILIER ENHANCEME NT INTERP[place] XCP[place] C/[place] [address] [facility] SURG 4 GREYSON & ER JR SANDEEP PATHOLOGY DUBILIER GROSS&ASH ROSCOPIC EXAM CONTROL 2101 C[facility]AL CENTRAL OF 4 [facility]UDDHIST [facility] EPISTAXIS [facility] HOSP BY ANTERIOR NASAL PACKING CLOSED 3324 [facility]ENTRAL CENTRAL BIOPSY OF 4 [facility]UDDHIST [facility] HOSP RADIOLOGI 41712 CENTRAL PELAEZ C 4 RADIOLOGY WARD EXAMINATI ASSOC ON CHEST [place] FRONTAL SBSQ 91253 [facility] 4 [place] AN ARV CARE/DAY ONCOLOGY 15 A MINUTES SBSQ 73595 [facility] 4 PULMONARY MAT CARE/DAY & 35 CRITICAL MINUTES SBSQ 23509 [facility] 4 JAM CARE/DAY CARDIOLOG 25 Y AT CENT MINUTES RADIOLOGI 39164 CENTRAL BLACK MAR C 4 RADIOLOGY EXAMINATI ASSOC ON CHEST [place] FRONTAL INITIAL 96128 [facility] INPATIENT 4 SURGICAL THO CONSULT ASSOCIATE NEW/ESTAB S PT 80 MIN SBSQ 72129 [facility] 4 [place] AN ARV CARE/DAY ONCOLOGY 35 A MINUTES RADIOLOGI 90517 [facility]ENTRAL PELAEZ C 4 RADIOLOGY WARD EXAMINATI ASSOC ON CHEST S[place] FRONTAL INITIAL 30159 [facility] INPATIENT 4 IV HEN CONSULT CARDIOLOG NEW/ESTAB Y AT CENT PT 40 MIN SBSQ 62972 [facility] 4 PULMONARY MAT CARE/DAY & 35 CRITICAL MINUTES SBSQ 99324 [facility] [place] 4 PULMONARY EIN DON CARE/DAY & 25 CRITICAL MINUTES RADIOLOGI 83685 [facility] PELAEZ C 4 RADIOLOGY WARD EXAMINATI ASSOC ON CHEST SING[place] VIEW FRONTAL DUP-SCAN 79595 [facility] XTR VEINS 4 [facility] CARDIOLOG UNILATERA Y AT CENT L/LIMITED STUDY RADIOLOGI 63906 CENTRAL PELAEZ C 4 RADIOLOGY WARD EXAMINATI ASSOC ON CHEST S[place] FRONTAL SBSQ 71807 [facility] [place] 4 PULMONARY EIN DON CARE/DAY & 35 CRITICAL MINUTES COMPREHEN 74421 [facility] SIVE 4 [facility] METABOLIC INC INC PANEL ROTARY A0436 AIR AIR WING AIR 4 METHODS METHODS [facility] PER STATUTE MILE GROUND A0425 [facility] MILEA 4 AMBULANCE AMBULANCE PER SERVICE SERVICE STATUTE MILE CULTURE 76220 [facility] BACTERIAL 4 [facility] BLOOD INC INC AEROBIC W/ID ISOLATES IAADI 24123 [facility] B[facility] INFFLUENZ 4 [facility] A A VIRUS INC INC IAADI 99085 [facility] B[facility] INFLUENZA 4 [facility] B VIRUS INC INC CRITICAL 98545 [facility] CARE 4 [facility] ILL/INJUR INC INC ED PATIENT INIT 30-74 MIN AMB A0431 AIR AIR SERVICE 4 METHODS METHODS CONVNTION [facility] AIR SRVC TRANSPORT [address] BLOOD 01681 [facility] COUNT 4 [facility] COMPLETE INC INC AUTO&AUTO DIFRNTL WBC RADIOLOGI 17235 [place] JAIRON L[facility] 4 MEDICAL LIZZIE EXAMINATI IMAGING ON CHEST ASS SINGLE VIEW FRONTAL ECG 76933 [facility] ROUTINE 4 [facility]OS[facility] ECG INC INC W/LEAST 12 LDS TRCG ONLY W/O I&R INJECTION J0456 [facility] 4 [facility] HOSP AZITHROMY INC INC KIANNA 500 MG ECHO 47955 VERENA LEW TTHRC R-T 4 JAM 2D CARDIOLOG W/WOM-MOD Y AT CENT E COMPL SPEC&COLR D CREATINE 06574 [facility] KINASE 4 [facility] TOTAL INC INC BLOOD 35422 [facility] OCCULT 4 [facility] PEROXIDAS INC INC E ACTV QUAL FECES 1-3 SPEC BLOOD 89695 [facility] GASES ANY 4 [facility] INC INC COMBINATI ON PH PCO2 PO2 CO2 HCO3 THERAPEUT 10192 [facility] IC [facility] INJECTION [place] [address] [facility] INFUSION 4 [facility] THERAPY/P INC INC ROPHYLAXI S /DX 1ST TO 1 [place] [address] [facility] B[facility] TROPONIN 4 [facility]OS[facility] QUANTITAT INC INC CRISTIAN NATRIURET 26963 [facility] B[facility] IC 4 [facility] PEPTIDE INC INC AMB A0427 [facility] SERVICE 4 AMBULANCE AMBULANCE ALS SERVICE SERVICE [place]ER[place]SP[place] 1 [place] [address] [facility] INFUSION 4 [facility] THER INC INC PROPH ADDL SEQUENTIA L TO 1 HR CONT 9671 CEN[facility]AL CENTRAL INVASIVE 4 BUDDHIST BUDDHIST [facility] HOSP < 96 CONSECUTI VE HOURS VENOUS 3893 CENTRAL CENTRAL CATHETERI 4 BUDDHIST [facility] ZATION HOSP HOSP NOT ELSEWHERE CLASSIFIE D INSERTION 9604 CENTRAL CENTRAL OF 4 BUDDHIST [facility] HOSP EAL TUBE CREATINE 91442 [facility] B[facility] KINASE MB 4 [facility] FRACTION INC INC ONLY CREATINE 61196 [facility] B[facility] KINASE MB 4 [facility] [place] [address] [facility] B[facility] TROPONIN 4 [facility] QUANTITAT INC INC CRISTIAN NATRIURET 31399 [facility] B[facility] IC 4 [facility] PEPTIDE INC INC CREATINE 85509 [facility] B[facility] KINASE 4 [facility] TOTAL INC INC BLOOD 75109 [facility] COUNT 4 [facility] COMPLETE INC INC AUTO&AUTO DIFRNTL WBC RADIOLOGI 00860 [facility] B[facility] C EXAM 4 [facility] CHEST 2 INC INC VIEWS FRONTAL&L ATERAL COMPREHEN 64009 [facility] SIVE 4 [facility] METABOLIC INC INC PANEL HOSPITAL 60973 [facility] 4 PHYSICIAN ASH DAY S GROUP MANAGEMEN T 30 MIN/< SBSQ 18235 [facility] 4 PHYSICIAN ASH CARE/DAY S GROUP 15 MINUTES INITIAL 56409 [facility] 4 PHYSICIAN ASH CARE/DAY S GROUP 50 MINUTES US PELVIC 18304 [facility] NONOBSTET [facility] CARE REAL-TIME IMAGE COMPLETE COMPREHEN 73484 [facility] SIVE 4 [facility] METABOLIC INC INC PANEL CULTURE 37817 [facility] BACTERIAL 4 [facility] BLOOD INC INC AEROBIC W/ID ISOLATES BLOOD 86672 [facility] COUNT 4 [facility] COMPLETE INC INC AUTO&AUTO DIFRNTL WBC UNCLASSIF J3490 [facility] IED DRUGS 4 [facility] INC INC BLOOD 26828 [facility] B[facility] COUNT 4 [facility] HEMATOCRI INC INC T BLOOD 30010 [facility] COUNT 4 [facility] HEMOGLOBI INC INC N TRANSFUSI 74531 [facility] ON 4 [facility] BLOOD/BLO INC INC OD COMPONENT S RED BLOOD P9016 [facility]JASON [facility] CELLS 4 [facility] LEUKOCYTE INC INC S REDUCED EACH UNIT ANTIBODY 93597 [facility] B[facility] ID RBC 4 [facility] ANTIBODIE INC INC S EA PANEL EA SERUM TQ RADIOLOGI 95361 [facility] C EXAM 4 [facility] CHEST 2 INC INC VIEWS FRONTAL&L ATERAL COMPATIBI 13289 [facility] LITY EACH 4 [facility] UNIT INC INC ANTIGLOBU HARINI COMPATIBI 20794 [facility] B[facility] LITY EACH 4 [facility] UNIT INC INC IMMEDIATE SPIN TECHNIQUE BLOOD 94075 [facility] TYPING 4 [facility] SEROLOGIC INC INC RH (D) BLOOD 43491 [facility] COUNT 4 [facility] COMPLETE INC INC AUTO&AUTO DIFRNTL WBC ANTIBODY 98182 [facility] B[facility] SCREEN 4 [facility] RBC EACH INC INC SERUM TECHNIQUE BLOOD 49096 [facility] TYPING 4 [facility] SEROLOGIC INC INC ABO ANTIBODY 07413 [facility] SCREEN 4 [facility] RBC EACH INC INC SERUM TECHNIQUE BLOOD 70539 [facility] TYPING 4 [facility] SEROLOGIC INC INC ABO BLOOD 29213 ST[facility] ST[facility]MY COUNT 4 [facility] COMPLETE INC INC AUTO&AUTO DIFRNTL WBC CULTURE 74701 [facility] BCT 4 [facility] ISOL&PRSM INC INC PTV ID ISOLATE EA URINE FIBRIN 40610 [facility] DGRADJ 4 [facility] PRODUCTS INC INC D-DIMER QUAL/SEMI PAULO BLOOD 70622 [facility] TYPING 4 [facility] SEROLOGIC INC INC RH (D) THROMBOPL 93305 [facility] ASTIN 4 [facility] TIME INC INC PARTIAL PLASMA/WH OLE BLOOD COMPATIBI 10382 [facility] LITY EACH 4 [facility] UNIT INC INC IMMEDIATE SPIN TECHNIQUE COMPATIBI 24008 [facility] LITY EACH 4 [facility] UNIT INC INC ANTIGLOBU HARINI CULTURE 12741 [facility] BACTERIAL 4 [facility] INC INC QUANTTATI VE COLONY COUNT URINE URNLS DIP 59064 [facility] 4 [facility] STICK/TAB INC INC LET REAGENT AUTO MICROSCOP Y SUSCEPTIB 57718 [facility] LTY STDY 4 [facility] ANTIMICRB INC INC IAL MICRO/AGA R DILUTJ COMPREHEN 06283 [facility] SIVE 4 [facility] METABOLIC INC INC PANEL ANTIBODY 26807 [facility] ID RBC 4 [facility] ANTIBODIE INC INC S EA PANEL EA SERUM TQ PROTHROMB 67221 [facility] B[facility] IN TIME 4 [place] [address] [facility] 4 MEDICAL LIZZIE REAL IMAGING TIME ASS W/[place] [address] [facility] ABDOMINAL 4 [facility] REAL INC INC TIME [place] [address] [facility] B[facility] TRANSVAGI 4 [facility] NAL INC INC HOSPITAL 89788 [facility] DISCHARGE 4 PHYSICIAN ASH DAY S GROUP MANAGEMEN T 30 MIN/< SBSQ 63023 [facility] 4 PHYSICIAN ASH CARE/DAY S GROUP 15 MINUTES INITIAL 61663 [facility] 4 PHYSICIAN ASH CARE/DAY S GROUP 50 MINUTES HOSPITAL 92220 [facility] DIS[facility] 4 MEDICINE MAR DAY SERVICES, MANAGEMEN T 30 MIN/< SBSQ 10185 [facility] 4 MEDICINE CARE/DAY SERVICES, [address] [facility] 4 MEDICINE CARE/DAY SERVICES, 35 MINUTES SBSQ 68991 [facility] 4 JAM CARE/DAY CARDIOLOG 25 Y AT CENT MINUTES INITIAL 58316 [facility] INPATIENT 4 TYLER CONSULT CARDIOLOG NEW/ESTAB Y AT CENT PT [address] [facility] 4 MEDICINE CARE/DAY SERVICES, 35 MINUTES ECG 18146 [facility] ROUTINE 4 TYLER ECG CARDIOLOG W/LEAST Y AT CENT 12 LDS I&R ONLY FLOW 22596 [facility]TOMETRY [address] [facility] INTERPRET FOUNDATIO INC ATION N 16/> [place] [address] [facility] INFUSION 4 [facility] THERAPY/P INC INC ROPHYLAXI S /DX 1ST TO 1 HR RADIOLOGI 95638 [facility] 4 RADIOLOGI PET EXAMINATI C ON CHEST PROFESSIO [place]ING[place] FRONTAL BLOOD 83591 [facility] COUNT 4 [facility] COMPLETE INC INC AUTO&AUTO DIFRNTL WBC GROUND A0425 [facility] MILEAGE 4 AMBULANCE AMBULANCE PER SERVICE SERVICE STATUTE MILE INITIAL 06746 HOSPITAL DAY [facility] 4 MEDICINE CARE/DAY SERVICES, 70 MINUTES BASIC 98374 [facility] METABOLIC 4 [facility] PANEL INC INC CALCIUM TOTAL ONDANSETR S0119 [facility] ON ORAL 4 4 [facility] [place] [place] [address] [facility] THYROID 4 [facility] STIMULATI [place] [address] [facility] B[facility] THYROXINE 4 [place] [address] [facility] RETROPERI 4 [facility] TONEAL INC INC REAL TIME W/IMAGE COMPLETE LIPID 24735 [facility] PANEL 4 [place] [address] [place] BEINEKE RETROPERI 4 MEDICAL PATY TONEAL IMAGING REAL TIME ASS W/IMAGE LIMITED BLOOD 90826 [facility] COUNT 4 [facility] COMPLETE INC INC AUTO&AUTO DIFRNTL WBC CYANOCOBA 30506 [facility] BOBBI 4 [facility] VITAMIN INC INC B-12 HEMOGLOBI 09150 [facility] B[facility] N 4 [facility] GLYCOSYLA INC INC MALIKA A1C THERAPEUT [address] [facility] YOSEF IC 4 PHYSICIAN ASH PROPHYLAC S GROUP TIC/DX INJECTION SUBQ/ HOSPITAL [address] [facility] YOSEF DISCHARGE 4 PHYSICIAN ASH DAY S GROUP MANAGEMEN T 30 MIN/< SBSQ 46227 [facility] 4 PHYSICIAN ASH CARE/DAY S GROUP 15 MINUTES INITIAL 79291 [facility] 4 PHYSICIAN ASH CARE/DAY S GROUP 50 MINUTES ECG 86358 [facility] ROUTINE 4 DIMITRI ASH ECG EMERGENCY W/LEAST PHYS 12 LDS I&R ONLY BLOOD 73546 [facility] COUNT 4 [facility] COMPLETE INC INC AUTO&AUTO DIFRNTL WBC RED BLOOD P9016 [facility] CELLS 4 [facility] LEUKOCYTE INC INC S REDUCED EACH UNIT UNCLASSIF J3490 [facility] IED DRUGS 4 [facility] INC INC HOSPITAL G0378 [facility] B[facility] OBSERVATI 4 [facility] ON INC INC SERVICE [facility] G0378 [facility] OBSERVATI 4 [facility] ON INC INC SERVICE PER HOUR ANTIBODY 76815 [facility] SCREEN 4 [facility] RBC EACH INC INC SERUM TECHNIQUE BLOOD 54291 [facility] TYPING 4 [facility] SEROLOGIC INC INC ABO UNCLASSIF J3490 [facility] IED DRUGS 4 [facility] INC INC COMPREHEN 70842 [facility] B[facility] SIVE 4 [facility] METABOLIC INC INC PANEL CULTURE 72874 [facility] BACTERIAL 4 [facility] BLOOD INC INC AEROBIC W/ID ISOLATES ANTIBODY 67420 [facility] ID RBC 4 [facility] ANTIBODIE INC INC S EA PANEL EA SERUM TQ BLOOD 84040 [facility] COUNT 4 [facility] COMPLETE INC INC AUTO&AUTO DIFRNTL WBC RADIOLOGI 96999 [facility] 4 MEDICAL LIZZIE EXAMINATI IMAGING [place] [address] [facility] INFUSION 4 [facility] THERAPY/P INC INC ROPHYLAXI S /DX 1ST TO 1 HR URNLS DIP 45443 [facility] 4 [facility] STICK/TAB INC INC LET REAGENT AUTO MICROSCOP Y UNCLASSIF C9399 [facility] IED DRUGS 4 [facility] OR INC INC BIOLOGICA LS COMPATIBI 12089 [facility] B[facility] LITY EACH 4 [facility] UNIT INC INC ANTIGLOBU HARINI COMPATIBI 26209 [facility] LITY EACH 4 [facility] UNIT INC INC IMMEDIATE SPIN TECHNIQUE BLOOD 44145 [facility] TYPING 4 [facility] SEROLOGIC INC INC RH (D) ECHO 34796 VERENA NICOLEGILBERT TTHRC R-T 4 JAM 2D CARDIOLOG W/WOM-MOD Y AT CENT E COMPL SPEC&COLR D ANTINUCLE 40404 [facility] AR 4 [facility] [place] [address] [facility] FERRITIN 4 [facility] INC INC BLOOD 79557 [facility] COUNT 4 [facility] COMPLETE INC INC AUTO&AUTO DIFRNTL WBC COMPREHEN 17306 [facility] B[facility] SIVE 4 [facility] METABOLIC INC INC PANEL RHEUMATOI 07618 [facility] D FACTOR 4 [facility] QUANTITAT INC INC CRISTAIN BLOOD 58157 [facility] COUNT 4 [facility] [place]ICULOC [place] [address] ST[facility] HOUSTONON THYROXINE 4 [facility] [place] [address] [facility] THYROID 4 [facility] STIMULATI INC INC NG HORMONE TSH BASIC 89556 [facility]AL METABOLIC 4 BUDDHIST BUDDHIST PANEL HOSP HOSP CALCIUM TOTAL BLOOD 82631 [facility] C[facility]AL COUNT 4 BUDDHIST [facility]UD[facility]IST COMPLETE HOSP HOSP AUTOMATED NATRIURET 80669 [facility]AL CENTRAL IC 4 BUDDHIST BUDDHIST PEPTIDE HOSP HOSP ECG 67355 [facility] B[facility] ROUTINE 4 [facility] ECG INC INC W/LEAST 12 LDS TRCG ONLY W/O I&R CREATINE 47342 [facility] KINASE 4 [facility] TOTAL INC INC THROMBOPL 67462 [facility] B[facility] ASTIN 4 [facility] TIME INC INC PARTIAL PLASMA/[place] [address] [facility] TROPONIN 4 [facility] QUANTITAT INC INC CRISTIAN BLOOD 70274 [facility] COUNT 4 [facility] COMPLETE INC INC AUTO&AUTO DIFRNTL WBC CULTURE 53774 [facility] B[facility] BACTERIAL 4 [facility] BLOOD INC INC AEROBIC W/ID ISOLATES RADIOLOGI 38008 [facility] C EXAM 4 [facility] CHEST 2 INC INC VIEWS FRONTAL&L ATERAL COMPREHEN 60043 [facility] B[facility] SIVE 4 [facility] METABOLIC INC INC PANEL PROTHROMB 11503 [facility] IN TIME 4 [facility] INC INC CREATINE 12954 [facility] KINASE MB 4 [facility] FRACTION INC INC ONLY RADIOLOGI 49660 [facility] B[facility] C EXAM 4 [facility] CHEST 2 INC INC VIEWS FRONTAL&[place] [address] [facility] ABDOMINAL 4 [facility] REAL INC INC TIME W/IMAGE DOCUMENTA TION BLOOD 21094 [facility] COUNT 4 [facility] COMPLETE INC INC AUTO&AUTO DIFRNTL WBC Encounters Encounter Start End Date Code Location Performer Type Date [facility] - 6 6 [facility] T OFFICE [id number] [facility] 6 6 MEDICAL T VISIT SERV 25 FOUNDATIO MINUTES [facility] UNIVERSIT - 6 6 Y [facility] STORMY - 6 6 [facility] T OFFICE 11283 [facility] 6 6 [place] [facility] T [facility]ISIT MEDICINE 15 P MINUTES [facility] UNIVERSIT [facility] 6 6 Y [facility] STORMY - 6 6 [facility] [id number] [facility] 6 6 PHYSICIAN ASH GUZMAN S, [facility] T VISIT MODERATE [facility]VERITY [facility]OSPITAL ST[facility] - 6 6 [facility] OUT[facility]IEN [facility] STORMY - 6 6 [facility] STORMY - 6 6 [facility] UNIVERSIT [facility] 6 6 Y [facility] T OFFICE 19956 [facility] 6 6 MEDICAL T VISIT SERV 25 FOUNDATIO MINUTES [facility] 6 6 [facility] EMERGENCY 21580 [facility] S[facility] DEPT 6 6 PHYSICIAN JR DISLA VISIT [facility] HIGH [facility]VERITY& THREAT [facility] STORMY - 6 6 [facility] OUTPATIEN [facility] EMERGENCY 90565 [facility] 6 6 [facility] VISIT MODERATE [facility]VERITY [facility]OSPITAL [facility] - 6 6 [facility] STORMY - 6 6 [facility] STORMY - 5 5 [facility] STOR[facility] - 5 5 [facility] STOR[facility] - 5 5 [facility] STORMY - 5 5 [facility] OUTPATIEN [facility] OFFICE 43670 [facility] 5 5 [facility] T VISIT MEDICAL 15 GROUP MINUTES EMERGENCY 26110 [facility] SILVA 5 5 PHYSICIAN KARLY GUZMAN S, [facility] T VISIT HIGH/URGE NT SEVERITY HOSPITAL [facility] - 5 5 [facility] OUTPATIEN [facility] UNIVERSIT [facility] 5 5 [facility] 15987 [place] MONISHA KRI OUTPATIEN 5 5 MEDICAL T VISIT SERV 40 FOUNDATIO MINUTES N [facility]OSPITAL [facility] - 5 5 [facility], 5 5 HOME INPATIENT HEALTH AGENCY OFFICE 93444 UN[facility] ATIF OUTPATIEN 5 5 [place] FAMILY ELL T VISIT MEDICINE 15 P MINUTES OFFICE 83202 [place] MIS OUTPATIEN 5 5 MEDICAL JR TRACIE T VISIT SERV 40 FOUNDATIO MINUTES N HOSPITAL UNIVERSIT - 5 5 [facility] T [facility], 5 5 HOME INPATIENT HEALTH AGENCY OFFICE 35575 UNIV JOSE OUTPATIEN 5 5 [place] SARAH T VISIT MEDICINE 15 P MINUTES OFFICE 13585 [place] PAREDES OUTPATIEN 5 5 MEDICAL ESTEBAN T VISIT SERV 25 FOUNDATIO MINUTES N HOSPITAL ST[facility] - 5 5 [facility], [facility] 5 [facility] OFFICE 61545 [place] PAREDES OUTPATIEN 5 5 MEDICAL ESTEBAN T VISIT SERV 15 FOUNDATIO MINUTES N OFFICE 16384 BUDDHISTTabatha LEW OUTPATIEN 5 5 HEALTH JAM T VISIT MEDICAL 15 GROUP MINUTES [facility]PITAL [facility] - 5 5 [facility] OUTPATIEN INC T OFFICE 30363 UNIV GRAYSON OUTPATIEN 5 5 [place] [facility] GUERRERO T NEW 45 MEDICINE MINUTES P OFFICE 31547 [place] MONISHA KRI OUTPATIEN 5 5 MEDICAL T VISIT SERV 40 FOUNDATIO MINUTES N HOSPITAL [facility]ERSIT - 5 5 [facility], 5 5 HOME INPATIENT HEALTH AGENCY [facility], 5 5 HOME OUTPATIEN HEALTH T AGENCY EMERGENCY [id number] [facility] DEPT 5 5 [facility] VISIT INC HIGH SEVERITY& THREAT FUN [facility]OSPITAL UNIVERSIT - 5 [facility] EMERGENCY [id number] [facility] NAVAS 5 5 [facility] VISIT P HIGH/URGE NT SEVERITY HOSPITAL STORMY [...] STORMY [facility] 5 5 [facility] OUTPATIEN [facility] OFFICE 26621 [facility] 4 4 [facility] 25 [facility] STORMY [facility] 4 4 [facility] OUTPATIEN [facility] [place] [address] H[facility]PITAL INPATIENT [facility]ICE 09395 [place] [facility] OUT[facility] 4 4 [facility] VISIT INTERNAL 15 [facility]ICE [address] [facility] REENA TOLuan OUTPAT[facility]EN 4 4 PHYSICIAN T [facility] 20 S [facility] STORMY - 4 4 [facility]IENT [facility] STORMY [facility] 4 4 [facility] OUT[facility]EN [facility] STORMY - 4 4 [facility] STORMY [facility] 4 4 [facility] STORMY - 4 4 [facility]EN [facility] STORMY [facility] 4 4 [facility] OUTPATIEN [facility]PITAL CENTRAL - 4 4 [facility] T OFFICE 95521 [facility] 4 4 HEART AND TRA T [facility]ISIT [facility]ASCULAR 25 I MINUTES HOSPITAL CENTRAL - 4 4 [facility] T OFFICE 15579 [facility] 4 4 [place] AN ARV T [facility]ISIT ONCOLOGY 15 A MINUTES [facility] 4 [facility] OUTPATIEN [facility] CENTRAL - 4 4 [facility] INPATIENT [facility] STORMY [facility] 4 4 [facility] OUTPATIEN [facility] EMERGENCY 07133 [facility] 4 4 [facility] DEPARTMEN INC T VISIT [facility]IGH/URGE NT SEVERITY HOSPITAL STORMY - 4 4 [facility] INPATIENT INC EMERGENCY 62597 [facility] VISIT EMERGENCY HIGH PHYS SEVERITY& THREAT FUNCJ OFFICE 47984 [facility] 4 4 HEALTH HOP T [facility]ISIT WOMEN'S 15 CARE MINUTES OFFICE 24626 [facility] 4 4 JAM T [facility]ISIT CARDIOLOG 15 Y [facility] STORMY - 4 4 [facility] OUTPATIEN [facility] T EMERGENCY 79005 [facility] 2001 DEPT 4 4 [facility] VISIT EMERGENCY HIGH PHYS SEVERITY& THREAT FUNJ EMERGENCY 34481 [facility] 4 4 [facility] DEPARTMEN INC T VISIT LOW/MODER SEVERITY HOSPITAL STORMY - 4 4 [facility] OUTPATIEN INC HOSPITAL STORMY - 4 4 [facility] OUTPATIEN INC T OFFICE 64969 [facility] OUTPATIEN 4 4 PHYSICIAN ASH T VISIT S GROUP 10 MINUTES EMERGENCY 92101 [facility] T VISIT MODERATE [facility]VERITY HOSPITAL STORMY - 4 4 [facility] OUT[facility]EN [facility] STORMY [facility] 4 4 [facility] INPATIENT [facility] EMERGENCY 24104 [facility] DEE DEE GIRALDO DEPT 4 4 DIMITRI VISIT EMERGENCY HIGH PHYS SEVERITY& THREAT FUN EMERGENCY 64767 [facility] 4 4 [facility] T VISIT HIGH/URGE NT SEVERITY EMERGENCY 90212 [facility] DEE DEE GIRALDO DEPT 4 4 DIMITRI VISIT EMERGENCY HIGH PHYS SEVERITY& THREAT [facility] CENTRAL - 4 4 [facility] INPATIENT [facility] STORMY [facility] 4 4 [facility] 22327 [facility] PHYSICIAN ASH T VISIT 5 S GROUP MINUTES HOSPITAL STORMY - 4 4 [facility] INPATIENT [facility] EMERGENCY 60302 [facility] YOSEF DEPT 4 4 DIM[facility]RI ASH VISIT EMERGENCY HIGH PHYS SEVERITY& THREAT FUN EMERGENCY 94476 [facility] 4 4 [facility] T VISIT HIGH/URGE NT SEVERITY HOSPITAL STORMY - 4 4 [facility] CENTRAL [facility] 4 4 [facility] OUTPATIEN [facility] OFFICE 22634 [facility] [address] MINUTES HOSPITAL STORMY - 4 4 [facility] OUT[facility] CENTRAL - 4 4 [facility] OUTPATIEN [facility] STORMY - 4 4 [facility] OUTPATIEN INC T EMERGENCY 90030 [facility] DEPT 4 4 [facility] VISIT [facility] HIGH [facility]VERITY& THREAT [facility] STORMY [facility] 4 4 [facility] OUTPATIEN INC T
--- OUTSIDE RECORDS SUMMARY | 2017-05-22 15:16 | External Medical Summary Rpt | CCD ---
Author Author , AYSE Organization AYSE Address Unknown Phone [email or web address] Care Team Providers Care Gear Inspector Name Role Phone ABBAS JAZMINE, ABBAS JAZMINE Unavailable Unavailable [facility], [facility] Unavailable Unavailable [facility], [facility] Unavailable Unavailable TANVIR MAGGIE, TANVIR Unavailable Unavailable MAGGIE HENDRIX SILVIANO, HENDRIX Unavailable Unavailable SILVIANO SARAHY KAN JARVIS, Unavailable Unavailable SARAHY KAN JARVIS [facility], Unavailable Unavailable [facility] [place] [facility] Un[facility] ALFARIS MOH, ALFARIS Unavailable Unavailable MOH ALMAGDUB IHA, Unavailable Unavailable ALMAGDUB IHA [facility] MOS, [facility] MOS Unavailable Unavailable BERRY KAMILLA, BERRY KAMILLA Unavailable Unavailable AYACH JUAN R, AYACH JUAN R Unavailable Unavailable PAREDES ESTEBAN, PAREDES Unavailable Unavailable ESTEBAN [facility] Unavailable Unavailable MED[facility], [facility] Unavailable Unavailable [facility], [facility] Unavailable Unavailable ONCOLOGY A, [facility] BEINEKE PATY, BEINEKE Unavailable Unavailable PATY BELCASTRO MAR, Unavailable Unavailable BELCASTRO MAR BESSON IJEOMA, BESSON Unavailable Unavailable IJEOMA KAYLEEN CHEVY, KAYLEEN CHEVY Unavailable Unavailable BOLIEK TYLER, BOLIEK Unavailable Unavailable TYLER BREAZEALE GRA, Unavailable Unavailable BREAZEALE GRA GARCIA SARAH, GARCIA Unavailable Unavailable SARAH CANDELARIA ASH, CANDELARIA Unavailable Unavailable ASH [facility] Unavailable Unavailable SERVICE, [facility] Unavailable Unavailable SERVICE, [facility] VICTOR M KET, VICTOR M KET Unavailable Unavailable MARINA CAR, MARINA Unavailable Unavailable CAR CARDOZA LEI, Unavailable Unavailable CARDOZA LEI CAMP TYLER, CAMP TYLER Unavailable Unavailable [facility] DIETER, Unavailable Unavailable [facility], Unavailable Unavailable [facility] Unavailable Unavailable CARE, [...] BERHANE PRAJAPATI RAC, PRAJAPATI Unavailable Unavailable RAC [facility] Unavailable Unavailable INC, [facility] Unavailable Unavailable HOSPITAL P, [facility] Unavailable Unavailable INC, [facility] WILSON LESLEY, WILSON Unavailable Unavailable LESLEY [facility], Unavailable Unavailable [facility] BOYLE IJEOMA, BOYLE IJEOMA Unavailable Unavailable HOLLAN TRA, HOLLAN Unavailable Unavailable TRA HORN [facility], [facility]ORN [facility] Unavailable [facility]available [facility] Unavailable Unavailable [facility],, [facility], PELAEZ WARD, PELAEZ Unavailable Unavailable WARD ROSANGELA RYA, ROSANGELA RYA Unavailable Unavailable [facility] Un[facility], [facility] Unavailable Unavailable MEDICAL G, [facility] ESAU CONLEY, ESAU Unavailable Unavailable JARVIS KRISTAL JUSTUS, KRISTAL JUSTUS Unavailable Unavailable SESAR NATHAN, SESAR NATHAN Unavailable Unavailable [facility] NURSE Unavailable Unavailable PRACTITIONER GR, [facility] N[facility]SE PRACTITIONER GR MARYAM KRUGERN, Unavailable Unavailable KOSTELIC ESTEBAN KSEIBI IVANNA, KSEIBI Unavailable Unavailable IVANNA APRYL [facility], APRYL [facility] Unavailable [facility] LENERT KIRIT, LENERT Unavailable Unavailable KIRIT BOWEN JR DWI, BOWEN Unavailable Unavailable JR DWI [facility] Unavailable Unavailable [facility], [facility] Un[facility] Unavailable INTERNAL MED, [facility] GIOVANNA JENNA, GIOVANNA Unavailable Unavailable JENNA MIS JR TRACIE, Unavailable Unavailable MIS JR TRACIE MONISHA KRI, MONISHA KRI Unavailable Unavailable [facility], [facility] Unavailable Unavailable RICARDO KARLY, RICARDO Unavailable Unavailable KARLY [facility] Unavailable Unavailable SERVICES, [facility] MASKEY MANE, MASKEY Unavailable Unavailable MANE MAWAD ARROYO, MAWAD ARROYO Unavailable Unavailable MC VIRGINIA BETHANY, MC Unavailable Unavailable VIRGINIA BETHANY CARDONA MAT, Unavailable Unavailable CARDONA MAT SULLIVAN MERLIN, SULLIVAN MERLIN Unavailable Unavailable MINION SILVIANO, MINION Unavailable Unavailable SILVIANO MOHAMED [facility], M[facility]AM[facility] Unavailable Unavailable [facility] ELIZONDO-BUSTAMANTE MANE, Unavailable Unavailable ELIZONDO-BUSTAMANTE MANE MEDRANO ANH, MEDRANO ANH Unavailable Unavailable [facility] Unavailable Unavailable [facility], [facility] RADHA TRACIE, Unavailable Unavailable RADHA TRACIE [...] HEN BARTLETT FER, Unavailable Unavailable BARTLETT FER GARYSON YOLANDA, GRAYSON Unavailable Unavailable YOLANDA SALAM MAA, [...] KAMILLA JESS JENNA, JESS Unavailable Unavailable JENNA [facility], Unavailable Unavailable [facility] BAUMAN SCO, BAUMAN Unavailable Unavailable SCO SUPINSKI GILBERT, Unavailable Unavailable SUPINSKI GILBERT YOUNG HANSEL IJEOMA, Unavailable Unavailable YOUNG HANSEL IJEOMA TZOUANAKIS KIRIT, Unavailable Unavailable TZOUANAKIS KIRIT [facility] Unavailable Unavailable MEDICINE P, [facility]IC[facility], Unavailable Unavailable [facility] Unavailable Un[facility] USERY AND, USERY AND Unavailable Unavailable VERHEY PET, VERHEY Unavailable Unavailable PET [facility] Unavailable Unavailable AGENCY, [facility] KRISTAL, WELLS [...] HOSP THERAPEUTIC INC DRUG LEVEL MONITORING Z7901 HALFWAY 12-23-2015 [facility] CURRENT USE [facility] OF INC ANTICOAGULA NTS E559 VITAMIN D 12-12-2015 [facility] UNSPECIFIED [id number] ACUTE EMBO 12-12-2015 [facility] DEEP VEINS UNS LOW EXTREM M329 SYSTEMIC 12-12-2015 [facility] ERYTHEMATOS US UNSPECIFIED R760 RAISED 12-12-2015 [facility] TITER Z7952 HALFWAY 12-12-2015 [facility] STEROIDS [id number] OTHER LONG 12-12-2015 [facility] CURRENT DRUG THERAPY N950 POSTMENOPAU 11-12-2015 [facility] BLEEDING HOSPI N952 POSTMENOPAU 11-12-2015 [facility] ATROPHIC HOSPI VAGINITIS R17985 SATISFACTOR 11-12-2015 [facility] LACKING HOSPI TRANSFORMAT N ZONE H109 UNSPECIFIED 10-25-2015 [facility], CONJUNCTIVI PLLC TIS D509 IRON 10-16-2015 [facility] ANEMIA INC UNSPECIFIED I352 NONRHEUMATI 10-16-2015 [facility] AORTIC [facility] VALVE INC STENOSIS W/INSUFF B373 CANDIDIASIS 10-03-2015 [facility]ICAL OF VULVA SERV AND VAGINA FOUNDATION H2513 AGE-RELATED 10-03-2015 [facility] AZLE CATARACT BILATERAL Z9119 PATIENTS 10-03-2015 [facility] NONCOMPLIAN SERV CE W/OTH FOUNDATION MED TX & REGIMEN E876 HYPOKALEMIA 08-23-2015 [facility], PLLC J101 FLU D/T OTH 08-23-2015 [facility] ID [facility] P RESP MANIFESTATI ONS J1189 FLU D/T 08-23-2015 [facility] UNIDENTIFIE PHYSICIANS, D FLU VIRUS PLLC W/OTH MANIF R05 COUGH 08-23-2015 [facility] R509 FEVER 08-23-2015 [facility] I509 HEART 06-18-2015 [facility] FAILURE HEALTH UNSPECIFIED MEDICAL GROUP R0600 DYSPNEA 06-18-2015 [facility] UNSPECIFIED HEALTH MEDICAL GROUP E871 HYPO-OSMOLA 05-24-2015 [facility] LITY AND PHYSICIANS, HYPONATREMI PLLC A I10 ESSENTIAL 05-24-2015 [facility] HYPERTENSIO INC N N3000 ACUTE 05-24-2015 [facility] CYSTITIS PHYSICIANS, WITHOUT PLLC HEMATURIA N390 URINARY 05-24-2015 [facility] TRACT PHYSICIANS, INFECTION [facility] SITE NOT SPECIFIED 5259 UNSPECIFIED 03-28-2015 [facility] DISORDER SERV TEETH&SUPPO FOUNDATION RTING STRUCTURES 7100 SYSTEMIC 03-28-2015 [facility] [place] [address] OTHER&UNSPE 03-28-2015 [facility] C SERV NONSPECIFIC FOUNDATION IMMUNOLOGIC AL FINDINGS V1251 PERSONAL 03-28-2015 [facility] HISTORY, SERV VENOUS FOUNDATION THROMBOSIS AND EMBOLISM V1581 PERS HX 03-28-2015 [facility] NONCOMPLIAN SERV CE W/MED TX FOUNDATION PRS HAZARDS HLTH V5869 LONG-TERM 03-28-2015 [facility] (CURRENT) SERV USE OF FOUNDATION OTHER MEDICATIONS V5883 ENCOUNTER 03-28-2015 [facility] FOR SERV THERAPEUTIC FOUNDATION DRUG MONITORING 07792 AC CHENCHO 03-27-2015 [facility] THROMB INC UNSPEC DEEP VES LOWER EXT 4019 UNSPECIFIED 02-27-2015 [facility] E[facility] HYPERTENSIO AGENCY N 40561 UNSPECIFIED 02-27-2015 [facility] SYSTOLIC HEALTH HEART AGENCY FAILURE 6959 UNSPECIFIED 02-27-2015 [facility] HE[facility] ERYTHEMATOU AGENCY S CONDITION 05825 MUSCLE 02-27-2015 [facility] WEAKNESS HEALTH (GENERALIZE AGENCY D) V5861 LONG-TERM 02-27-2015 [facility] (CURRENT) HEALTH USE OF AGENCY ANTICOAGULA NTS 77369 STEELE 02-15-2015 [facility] SYNDROME MEDICAL EQUIPMENT 486 PNEUMONIA, 02-15-2015 [facility] ORGANISM MEDICAL UNSPECIFIED EQUIPMENT 51820 VOMITING 01-01-2015 [facility] ALONE SERV [facility]ATION 73841 DIARRHEA 01-01-2015 [facility] 2830 AUTOIMMUNE 12-31-2014 [facility] HEMOLYTIC [facility] ANEMIAS INC 72852 SUPRAVENTRI 12-19-2014 [facility] PREMATURE MEDICAL BEATS GROUP 4280 CONGESTIVE 12-19-2014 [facility] FAILURE MEDICAL UNSPECIFIED GROUP 75587 OTHER 11-26-2014 [facility] A 7906 OTHER 11-26-2014 [facility] ABNORMAL FAMILY BLOOD MEDICINE P CHEMISTRY 38914 NEUTROPENIA 11-14-2014 [facility] SERV UNSPECIFIED FOUNDATION 34205 CHRONIC 11-14-2014 [facility] SYSTOLIC SERV HEART FOUNDATION FAILURE 64606 ACUT CHENCHO 11-14-2014 [facility] EMBO&THROMB SERV DEEP VES FOUNDATION PROX LOWR EXTREM 4820 PNEUMONIA 11-13-2014 [facility] DUE TO KLEBSIELLA PNEUMONIAE 95944 SEPSIS 11-13-2014 [facility] 0539 HERPES 11-12-2014 [facility] NURSE ZOSTER PRACTITIONE WITHOUT R GR MENTION OF COMPLICATIO N 68708 DYSPHAGIA 11-02-2014 [facility] UNSPECIFIED SERV FOUNDATION 2639 UNSPECIFIED 10-31-2014 [facility] SERV PROTEIN-DEBI FOUNDATION ORIE MALNUTRITIO N 47802 CALCU 10-28-2014 [facility] GALLBLADD SERV W/O MENTION FOUNDATION CHOLECYST/O BST 3561 PERONEAL 10-26-2014 [facility] MUSCULAR SERV ATROPHY FOUNDATION 3599 UNSPECIFIED 10-26-2014 [facility] MYOPATHY SERV FOUNDATION 53533 OTHER 10-26-2014 [facility] MALAISE AND SERV FATIGUE FOUNDATION 2761 HYPOSMOLALI 10-24-2014 [facility] TY AND/OR SERV HYPONATREMI FOUNDATION A 3949 UNSPECIFIED 10-23-2014 [facility] ANEMIA SERV FOUNDATION V5865 LONG-TERM 10-23-2014 [facility] USE OF SERV STEROIDS FOUNDATION 94560 OTH & UNS E 10-22-2014 [facility] COLI SERV INFECTION FOUNDATION CLASS ELSW UNS SITE 24159 ACUT LA 10-22-2014 [facility] SUBENDOCARD SERV IAL INFARCT FOUNDATION INIT EPIS CARE 87049 ACUTE 10-22-2014 [facility] RESPIRATORY SERV FAILURE FOUNDATION 8208 CLOSED 10-22-2014 [place] [facility] FRACTURE SERV UNSPECIFIED FOUNDATION PART NECK FEMUR 57368 SEVERE 10-22-2014 [place] [facility] SEPSIS SERV [facility] V7281 PRE-OPERATI 10-22-2014 [facility] VE SERV CARDIOVASCU FOUNDATION LAR EXAMINATION 59057 ACUTE AND 10-19-2014 [facility] NURSE CHRONIC PRACTITIONE RESPIRATORY R GR FAILURE 4254 OTHER 10-18-2014 [facility] PRIMARY SERV CARDIOMYOPA FOUNDATION PETRA 4293 CARDIOMEGAL 10-18-2014 [facility] Y SERV FOUNDATION 19931 NONSPECIFIC 10-18-2014 [facility] ABNORMAL SERV ELECTROCARD FOUNDATION IOGRAM 4240 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-16-2014 [facility] VALVE SERV DISORDERS FOUNDATION 55952 CHRONIC 10-15-2014 [facility] RESPIRATORY SERV FAILURE FOUNDATION 67608 OTHER 10-11-2014 [facility] NONSPECIFIC SERV ABNORMAL FOUNDATION FINDING OF LUNG FIELD 5119 UNSPECIFIED 10-10-2014 [facility] PLEURAL SERV EFFUSION FOUNDATION 5180 PULMONARY 10-10-2014 [facility] COLLAPSE SERV FOUNDATION V5882 ENCOUNTER 10-10-2014 [facility] FITTING&ADJ SERV FOUNDATION NON-VASCULA R CATHETER NEC 0417 PSEUDOMONAS 10-07-2014 [facility] INFECTION SERV IN CCE & FOUNDATION UNS SITE 5990 URINARY 10-07-2014 [facility] TRACT SERV INFECTION FOUNDATION SITE NOT SPECIFIED 57248 FEVER 10-02-2014 [facility] UNSPECIFIED SERV FOUNDATION 15365 OTHER FLUID 09-30-2014 [facility] OVERLOAD SERV FOUNDATION 78888 OTHER 09-28-2014 [facility] DISEASES OF SERV LUNG NOT FOUNDATION ELSEWHERE CLASSIFIED 514 PULMONARY 09-26-2014 [facility] CONGESTION SERV AND FOUNDATION HYPOSTASIS 71200 NEUROGENIC 09-25-2014 [facility] BLADDER, SERV NOS FOUNDATION 4590 UNSPECIFIED 09-22-2014 [facility] HEMORRHAGE SERV FOUNDATION 80403 OTHER 09-21-2014 [facility] SEPTICEMIA SERV DUE TO FOUNDATION GRAM-NEGATI VE ORGANISM 5846 ACUTE 09-21-2014 [facility] KIDNEY SERV FAILURE FOUNDATION W/LES RENAL CORTICAL NECRO V4611 DEPENDENCE 09-20-2014 [facility] ON SERV RESPIRATOR FOUNDATION STATUS 5289 OTHER&UNSPE 09-19-2014 [facility] CIFIED SERV DISEASES FOUNDATION THE ORAL SOFT TISSUES 0389 UNSPECIFIED 09-17-2014 [facility] SEPTICEMIA SERV FOUNDATION 29343 OTHER 09-15-2014 [facility] DISEASES OF SERV NASAL FOUNDATION CAVITY AND SINUSES 5849 ACUTE 09-15-2014 [facility] KIDNEY SERV FAILURE FOUNDATION UNSPECIFIED 7842 SWELLING 09-15-2014 [facility] MASS OR SERV LUMP IN FOUNDATION HEAD AND NECK 2760 HYPEROSMOLA 09-14-2014 [facility] LITY AND/OR SERV FOUNDATION HYPERNATREM IA 4476 UNSPECIFIED 09-14-2014 [facility] ARTERITIS SERV FOUNDATION 5845 ACUTE 09-14-2014 [facility] KIDNEY SERV FAILURE FOUNDATION W/LESION TUBULAR NECROSIS 19381 SEPTIC 09-14-2014 [facility] SHOCK SERV FOUNDATION 16474 OTHER 09-13-2014 [facility] SPECIFIED SERV CARDIAC FOUNDATION DYSRHYTHMIA S 52803 SHORTNESS 09-11-2014 [facility]ICAL OF BREATH SERV FOUNDATION 15571 OTHER 09-06-2014 [facility] PREMATURE SERV BEATS FOUNDATION 5168 OTH SPEC 09-06-2014 [facility] ALVEOL&BUBBA SERV ETOALVEOL FOUNDATION PNEUMONOPAT HIES 23093 HYPOXEMIA 09-06-2014 [facility] 2762 ACIDOSIS 09-01-2014 [facility] 00950 UNSPECIFIED 09-01-2014 [facility] SHOCK SERV FOUNDATION 7873 FLATULENCE 09-01-2014 [facility] ERUCTATION SERV AND GAS FOUNDATION PAIN V5881 FITTING AND 08-31-2014 [facility] ADJUSTMENT SERV OF FOUNDATION VASCULAR CATHETER 74786 OTHER 08-29-2014 [facility] ASCITES SERV FOUNDATION 70290 SEPTICEMIA 08-28-2014 [facility] ESCHERICHIA COLI 93159 ANEMIA OF 08-28-2014 [facility] CHRONIC HOSPI DISEASE 97735 LEUKOCYTOPE 08-28-2014 [facility] UNSPECIFIED HOSPI 48449 CRITICAL 08-28-2014 [facility] MYOPATHY 4139 OTHER AND 08-28-2014 [facility] UNSPECIFIED [facility] HOSP ANGINA INC PECTORIS 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 5853 CHRONIC 08-28-2014 [facility] KIDNEY [facility] DISEASE STAGE III (MODERATE) 47726 OTHER 08-28-2014 [facility] BLOOD CELLS 7910 PROTEINURIA 07-23-2014 [facility]SC 4299 UNSPECIFIED 07-16-2014 [facility] HEART HEALTH DISEASE MEDICAL G 11000 CORONARY 07-14-2014 [facility] CORONARY ARTERY 2851 ACUTE 07-07-2014 [facility] POSTHEMORRH [facility]IC ANEMIA MEDICAL G 4279 UNSPECIFIED 07-05-2014 [facility]LIN CARDIAC DYSRHYTHMIA 75406 ACUTE 07-02-2014 [facility] HEALTH HEART MEDICAL G FAILURE 62038 SWELLING OF 06-29-2014 [facility] MEDICAL G 2724 OTHER AND 06-28-[address] [facility] PSC HYPERLIPIDE ZEINAB 26760 ANEMIA IN 06-25-2014 [facility]RON[facility] CARE KIDNEY DISEASE 4539 EMBOLISM 06-25-2014 [facility] THROMBOSIS MEDICAL G OF UNSPECIFIED SITE 2839 ACQUIRED 06-24-2014 [facility] UNSPECIFIED 7103 DERMATOMYOS 06-20-[address] [facility] PSC 7919 OTHER 06-19-2014 [facility] [place] NONSPECIFIC RADIOLOGY FINDING EXAMINATION OF URINE 67863 ACUTE ON 06-18-2014 [facility] SYSTOLIC HEART FAILURE 4599 UNSPECIFIED 06-18-2014 [facility] CIRCULATORY INC SYSTEM DISORDER 5187 TRANSFUSION 06-18-2014 [facility] ACUTE LUNG INJURY V148 PERSONAL 06-18-2014 [facility] HISTORY [facility] ALLERGY OTH INC SPEC MEDICINAL AGTS 39244 DEHYDRATION 06-15-2014 [facility] 4239 UNSPECIFIED 06-15-2014 [facility] DISEASE OF SERV FOUNDATION PERICARDIUM 4589 UNSPECIFIED 06-15-2014 [facility] HYPOTENSION FOUNDATION 01791 HEMATURIA 06-15-2014 [facility] UNSPECIFIED SERV FOUNDATION 06820 MICROSCOPIC 06-13-2014 [facility] HEMATURIA [facility]OS[facility] INC 03419 ABDOMINAL 06-13-2014 [place] [facility] OTHER [place] SPECIFIED [...] SULFONAMIDE S 4289 UNSPECIFIED 05-18-2014 [facility] FAILURE [facility]OSP 38548 OTHER 05-09-2014 [facility] PULMONARY [facility] EMBOLISM ONCOLOGY A AND INFARCTION 6202 OTHER AND 05-09-2014 [facility] UNSPECIFIED [facility] OVARIAN [facility] CYST 1120 CANDIDIASIS 05-01-2014 [facility], 4919 UNSPECIFIED 04-18-2014 [facility] CHRONIC GREYSON & BRONCHITIS DUBILIER 5183 PULMONARY 04-18-2014 [facility] EOSINOPHILI RADIOLOGY A ASSOC 3970 DISEASES OF 04-13-2014 [facility] TRICUSPID CARDIOLOGY VALVE AT CENT 18102 OTHER 04-13-2014 [facility] PULMONARY AMBULANCE INSUFFICIEN SERVICE CY NEC 41595 OTHER 04-13-2014 AIR [facility] D[place]SPNE[place] [address] OTHER 04-13-2014 [facility] HEMOPTYSIS [facility] V642 SURG/OTH 04-10-2014 [facility] PROC NOT MEM HOSP CARRIED OUT INC BECAUSE PTS DECN 5859 CHRONIC 03-31-2014 [facility] K[facility]NEY PHYSICIANS DISEASE GROUP UNSPECIFIED 5939 UNSPECIFIED 03-31-2014 [facility] DISORDER [facility]OS[facility] OF KIDNEY INC AND URETER 7892 SPLENOMEGAL 03-31-2014 [facility] Y PHYSICIANS GROUP 6259 UNSPEC 03-22-2014 [facility] WOMEN'S W/FEMALE CARE GENITAL ORGANS V7231 ROUTINE 03-22-2014 [facility] GYNECOLOGIC HEALTH AL WOMEN'S EXAMINATION CARE 55251 ABDOMINAL 03-19-2014 [facility], LEFT N EMERGENCY LOWER PHYS QUADRANT 5756 CHOLESTEROL 03-08-2014 [place] [facility] MEDICAL GALLBLADDER IMAGING ASS 45272 ABDOMINAL 03-08-2014 [place] [facility], MEDICAL UNSPECIFIED IMAGING ASS SITE V1090 PERSONAL 03-08-2014 [facility] HISTORY [facility]OS[facility] UNSPECIFIED INC MALIGNANT NEOPLASM 90711 DIAB W/O 02-26-2014 [facility] COMP TYPE PHYSICIANS II/UNS NOT GROUP STATED UNCNTRL 4011 ESSENTIAL 02-26-2014 [facility] HYPERTENSIO PHYSICIANS N, BENIGN GROUP 03526 OTHER 02-19-2014 [facility] NEUTROPENIA [facility] 81025 HTN CKD UNS 02-19-2014 [facility] W/CKD MEM [facility]OS[facility] STAGE I INC THRU STAGE IV/UNS 5239 UNSPECIFIED 02-19-2014 [facility] GINGIVAL [facility] PERIODONTAL DISEASE 7291 UNSPECIFIED 02-19-2014 [facility] MYALGIA [facility] MYOSITIS 7862 COUGH 02-19-2014 [facility] AMBULANCE SERVICE 36401 OTHER 02-19-2014 [facility] RES[place]AT[place] [address] FEVER 01-26-2014 [facility] PRESENTING [facility] CONDITIONS INC CLASSIFIED ELSEWHERE 7804 DIZZINESS 08-21-2013 [facility] GIDDINESS SERVICES Procedures Procedure DOS Code Location Performer Comment PROTHROMB 43085 [facility] IN TIME 6 [facility]OS[facility]OS[facility] INC INC COLLECTIO 41778 [facility] N VENOUS 6 MEM HOSP MEM [facility]OSP BLOOD INC INC VENIPUNCT URE C-REACTIV 06841 [facility] E PROTEIN 6 Y Y F F [facility] PROTEIN 57384 UNIVERSIT UNIVERSIT TOTAL 6 Y Y XCPT HOSPITAL HOSPITAL REFRACTOM ETRY URINE CREATININ 50751 [facility] UNIVERS E OTHER 6 Y Y SOURCE [facility]ITAL HOSPITAL PROTHROMB 35778 [facility] IN TIME 6 Y Y HOSPITAL HOSPITAL COMPLEMEN 37442 [facility] T ANTIGEN 6 Y Y EACH HOSPITAL HOSPITAL COMPONENT DXA BONE 32429 RIGOBERTO ATKINSON ARROYO DENSITY 6 MEDICAL STUDY 1/> SERV SITES FOUNDATIO AXIAL N SKEL COMPREHEN 15989 [facility] SIVE 6 Y Y METABOLIC [facility] HOSPITAL PANEL FLUORESCE 65183 [facility] NT 6 Y Y NONNFCT F F [facility] AGT ANTB TITER EA ANTIBODY 25 66564 [facility] HYDROXY 6 Y Y INCLUDES HOSPITAL HOSPITAL FRACTIONS IF PERFORMED COL-CHR/M 00976 [facility] S NONDRUG 6 Y Y ANALYTE F F [facility] AYDIN QUAL/PAULO EA SPEC URNLS DIP 60536 [facility] UNIVERS 6 Y Y STICK/TAB F F [facility] LET REAGENT AUTO MICROSCOP Y SEDIMENTA 80926 [facility] TION RATE 6 Y Y RBC [facility] HOSPITAL AUTOMATED FLUORESCE 27319 [facility] UNIVERS NT 6 Y Y NONNFCT F F [facility] AGT ANTB SCREEN EA ANTIBODY BLOOD 73035 [facility] COUNT 6 Y Y COMPLETE F F [facility] AUTO&AUTO DIFRNTL WBC PROTHROMB 43373 [facility] IN TIME 6 MEM HOS[facility]OS[facility] INC INC COLLECTIO 19116 [facility] BUR[facility] N VENOUS 6 MEM HOSP MEM HOSP BLOOD INC INC VENIPUNCT URE IADNA 55516 [facility] NEISSERIA 6 Y Y HOSPITAL HOSPITAL GONORRHOE AE AMPLIFIED PROBE TQ CYTP 33217 [facility] JESS CERVICAL/ 6 Y OF JENNA [facility]AL [place] [facility] INTERP PHYSICIAN CYTP C/V 15120 [facility] AUTO THIN 6 Y Y LYR F F [facility] PREPJ SCR MNL RESCR PHYS SUSCEPTIB 56538 [facility] LTY STDY 6 [facility] I[facility] MICRO/AGA R DILUTJ SMR PRIM 49112 [facility] SRC 6 Y Y GRAM/GIEM F F [facility] SA STAIN BCT FUNGI/MARLON L IADNA 10779 [facility] CHLAMYDIA 6 Y Y F F [facility] TRACHOMAT IS AMPLIFIED PROBE TQ IADNA 64136 [facility] HUMAN 6 Y Y PAPILLOMA F F [facility] VIRUS HIGH-RISK TYPES CUL BACT 29955 [facility] XCPT 6 Y Y URINE F F [facility] BLOOD/STO OL AEROBIC ISOL CUL BACT 64877 [facility] AEROBIC 6 Y Y ADDL F F [facility] METHS DEFINITIV E EA ISOL PROTHROMB 17247 [facility] 6 [facility] INC COLLECTIO 28593 [facility] N VENOUS 6 [facility] BLOOD INC INC VENIPUNCT URE COLLECTIO 72153 [facility] N VENOUS 6 [facility] BLOOD INC INC VENIPUNCT URE PROTHROMB 35137 [facility] IN TIME 6 [facility] INC PROTHROMB 89701 [facility] B[facility] IN TIME 6 [facility] INC COLLECTIO 24893 [facility] N VENOUS 6 [facility] BLOOD INC INC VENIPUNCT URE COLLECTIO 49596 [facility] N VENOUS 6 [facility] [place] [address] [facility] IRON 6 [facility] INC PROTHROMB 89828 [facility] IN TIME 6 [facility] INC PROTHROMB 27454 [facility] TIME 6 [facility] INC COLLECTIO 75399 [facility] N VENOUS 6 [facility] BLOOD INC INC VENIPUNCT URE C-REACTIV 71006 [facility] E PROTEIN 6 Y Y [facility] COLLECTIO 92215 [facility] N VENOUS 6 Y Y BLOOD F F [facility] VENIPUNCT URE PROTEIN 73728 [facility] TOTAL 6 Y Y XCPT F F [facility] REFRACTOM ETRY URINE CREATININ 42139 [facility] E OTHER [facility] COMPREHEN 57505 [facility] SIVE 6 Y [facility] PANEL COMPLEMEN 41573 [facility] T ANTIGEN 6 Y Y [facility] COMPONENT FLUORESCE 61437 [facility] Y Y NONNFCT F F [facility] AGT ANTB TITER EA ANTIBODY BLOOD 11068 [facility] UN[facility] COUNT 6 Y Y COMPLETE [facility] AUTO&AUTO DIFRNTL WBC SEDIMENTA 62087 [facility] TION RATE 6 Y Y [facility] AUTOMATED FLUORESCE 38757 [facility] NT 6 Y Y NONNFCT F F [facility] AGT ANTB SCREEN EA ANTIBODY URNLS DIP 40982 [facility] UNIVERS 6 Y Y STICK/TAB F F [facility] LET REAGENT AUTO MICROSCOP Y COL-CHR/M 49760 [facility] S NONDRUG 6 Y Y ANA[facility]TE [facility] AYDIN QUAL/PAULO EA SPEC 25 09087 [facility] HYDROXY 6 Y Y INCLUDES HOSPITAL HOSPITAL FRACTIONS IF PERFORMED PROTHROMB 14767 [facility] 6 [facility] INC INC COLLECTIO 24295 [facility] B[facility] N VENOUS 6 [facility] BLOOD INC INC VENIPUNCT URE PROTHROMB 15204 [facility] IN TIME 6 [facility] INC INC IAADI 18394 [facility] B[facility] INFLUENZA 6 [facility] B VIRUS INC INC COMPREHEN 88087 [facility] SIVE 6 [facility] METABOLIC INC INC PANEL IAADI 69760 [facility] B[facility] INFFLUENZ 6 [facility] A A VIRUS INC INC RADIOLOGI 58303 [facility] B[facility] C EXAM 6 [facility] CHEST 2 INC INC VIEWS FRONTAL&L ATERAL ECG 97775 [facility] WISEMAN JR ROUTINE 6 [facility] W/LEAST P 12 LDS I&R ONLY ECG 75729 [facility] ROUTINE 6 [facility] ECG INC INC W/LEAST 12 LDS TRCG ONLY W/O I&R BLOOD 43010 [facility] COUNT 6 [facility] COMPLETE INC INC AUTO&AUTO DIFRNTL WBC PROTHROMB 59458 [facility] IN TIME 6 [facility] INC INC COLLECTIO 07370 [facility] B[facility] N VENOUS 6 [facility] H[facility] BLOOD INC INC VENIPUNCT URE COLLECTIO 86417 [facility] N VENOUS 6 MEM H[facility] BLOOD INC INC VENIPUNCT URE PROTHROMB 19957 [facility] B[facility] IN TIME 6 [facility] INC INC PROTHROMB 41711 [facility] IN TIME 5 [facility] INC INC COLLECTIO 44007 [facility] B[facility] N VENOUS 5 MEM H[facility] BLOOD INC INC VENIPUNCT URE COLLECTIO 58563 [facility] N VENOUS 5 MEM HOS[facility] BLOOD INC INC VENIPUNCT URE PROTHROMB 04025 [facility] IN TIME 5 [facility] INC INC PROTHROMB 69458 [facility] IN TIME 5 [facility] INC INC COLLECTIO 89420 [facility] B[facility] N VENOUS 5 MEM H[facility] BLOOD INC INC VENIPUNCT URE COLLECTIO 81771 [facility] N VENOUS 5 MEM H[facility] BLOOD INC INC VENIPUNCT URE PROTHROMB 33629 [facility] B[facility] IN TIME 5 [facility] INC INC COMPREHEN 58297 [facility] B[facility] SIVE 5 [facility] METABOLIC INC INC PANEL RADIOLOGI 55049 [facility] C EXAM 5 [facility] CHEST 2 INC INC VIEWS FRONTAL&L ATERAL SUSCEPTIB 46293 [facility] LTY STDY 5 [facility] ANTIMICRB INC INC IAL MICRO/AGA R DILUTJ BLOOD 74882 [facility] COUNT 5 MEM H[facility] COMPLETE INC INC AUTO&AUTO DIFRNTL WBC URNLS DIP 86674 [facility] 5 [facility] STICK/TAB INC [place] [address] [facility] B[facility] INFUSION 5 [facility] THERAPY/P INC INC ROPHYLAXI S /DX 1ST TO 1 HR CULTURE 32480 [facility] BACTERIAL 5 [facility] INC INC QUANTTATI VE COLONY COUNT URINE CULTURE 79402 [facility] BCT 5 [facility] ISOL&PRSM INC INC PTV ID ISOLATE EA URINE VISUAL 71939 RIGOBERTO HERMOSILLO FIELD XM 5 MEDICAL JR BETHANY UNI/BI SERV W/INTERP FOUNDATIO EXTENDED N EXAM DNA 07369 [facility] ANTIBODY 5 Y Y KNIK/DO F [facility] UBLE STRANDED C-REACTIV 80900 [facility] E PROTEIN 5 Y Y F [facility] COLLECTIO 13324 [facility] N VENOUS 5 Y Y BLOOD F [facility] VENIPUNCT URE PROTEIN 86823 [facility] TOTAL 5 Y Y XCPT F [facility] REFRACTOM ETRY URINE CREATININ 76617 [facility] E OTHER 5 Y Y SOURCE F [facility] CHROMATOG 58580 [facility] ALYSHA 5 Y Y PAULO F [facility] COLUMN 1 ANALYTE AYDIN URNLS DIP 10960 [facility] 5 Y Y STICK/TAB F [facility] LET REAGENT AUTO MICROSCOP Y BLOOD 69266 [facility] COUNT 5 Y Y COMPLETE [facility] AUTO&AUTO DIFRNTL WBC SEDIMENTA 27283 [facility] TION RATE 5 Y Y RBC [facility] AUTOMATED COMPREHEN 99749 [facility] SIVE 5 Y Y METABOLIC [facility] PANEL COMPLEMEN 46019 [facility] ANTIGEN 5 [facility]PITAL COMPONENT PROTHROMB 66604 [facility] IN TIME 5 [facility] INC INC COLLECTIO 77150 [facility] B[facility] N VENOUS 5 MEM HOSP [...] AGENCY HLTH/HOSP ICE EA 15 MIN PROTHROMB 72742 [facility] ZAKIYA SRIVASTAVA IN [place] 5 [place] [facility] MEDICINE P SERVICE G0151 [facility] HOME [facility] AGENCY AGENCY HLTH/HOSP ICE EA 15 MIN DIRECT G0154 [facility] SKILL 5 HOME [facility] AGENCY AGENCY HH/HOSPIC E EA 15 MIN COLLECTIO 31753 [facility] N VENOUS 5 Y Y BLOOD [facility] VENIPUNCT URE C-REACTIV 45135 [facility] E PROTEIN 5 Y Y [facility] SYPHILIS 46877 [facility] TEST 5 Y Y NON-TREPO F [facility] NEMAL ANTIBODY QUAL SYPHILIS 23244 [facility] TEST 5 Y Y QUANTITAT F [facility] CRISTIAN DNA 30432 [facility] ANTIBODY 5 Y Y KNIK/DO F [facility] UBLE STRANDED BLOOD 06904 [facility] COUNT 5 Y Y COMPLETE [facility] AUTO&AUTO DIFRNTL WBC SEDIMENTA 73035 [facility] TION RATE 5 Y Y RBC F [facility] AUTOMATED URNLS DIP 11715 [facility] UNIVERSIT 5 Y Y STICK/TAB F [facility] LET REAGENT AUTO MICROSCOP Y 25 62332 [facility] HYDROXY 5 Y Y INCLUDES HOSPITAL HOSPITAL FRACTIONS IF PERFORMED COMPLEMEN 70547 [facility] ANTIGEN 5 Y [facility] H[facility]PITAL COMPONENT COMPREHEN 35242 [facility] SIVE 5 [facility] PANEL ANTIBODY 36790 [facility] TREPONEMA 5 Y Y [facility] [...] AGENCY HH/HOSPIC E EA 15 MIN PROTHROMB 53562 [place] TIME 5 [place] [facility] P SERVICE G0151 [facility] HOME [facility] HOME AGENCY AGENCY HLTH/HOSP ICE EA 15 MIN DIRECT G0154 [facility] SKILL 5 HOME HOME [facility] AGENCY AGENCY HH/HOSPIC E EA 15 MIN SERVICE G0151 [facility] 5 HOME HOME [facility] HOME AGENCY AGENCY HLTH/HOSP ICE EA 15 MIN PROTHROMB 81132 [place] IN TIME 5 MEDICAL ESTEBAN SERV FOUNDATIO N BLOOD 04898 [facility] COUNT 5 [facility] COMPLETE INC INC AUTO&AUTO DIFRNTL WBC COLLECTIO 53601 [facility] N VENOUS 5 MEM HOSP [...] AGENCY /HOSPIC E EA 15 MIN PROTHROMB 95372 [place] PAREDES IN TIME 5 MEDICAL ESTEBAN SERV FOUNDATIO N SERVICE G0151 [facility] 5 HOME HOME [facility] AGENCY AGENCY TH/HOSP ICE EA 15 MIN SERVICE G0151 [facility] 5 HOME HOME [facility] HOME AGENCY AGENCY TH/HOSP ICE EA 15 MIN PRTBLE E0431 M[facility] MUR[facility] GASEOUS 5 MEDICAL MEDICAL O2 SYS EQUIPMENT EQUIPMENT RENT; [facility] HUMIDFR&M ASK O2 CONC 1 E1390 [facility] [place] [place] 5 MEDICAL MEDICAL 85%/>02 EQUIPMENT EQUIPMENT CONC AT [facility] FLW RATE SERVICE G0151 [facility] PHYS [...] AGENCY HH/HOSPIC E EA 15 MIN COLLECTIO 31818 [facility] N VENOUS 5 [facility] [place] [address] [facility] B[facility] THYROID 5 MEM HOSP MEM [...] AGENCY HLTH/HOSP ICE EA 15 MIN CLOTTING 99035 [facility] INHIBITOR 5 Y Y S [facility] ANTITHROM BIN III ACTIVITY BLOOD 58812 [facility] COUNT 5 Y Y COMPLETE [facility] AUTO&AUTO DIFRNTL WBC BETA-2 27750 [facility] MICROGLOB 5 Y Y ULIN F [facility] URNLS DIP 27696 [facility] UNIVERS 5 Y Y STICK/TAB F [facility] LET REAGENT AUTO MICROSCOP Y SEDIMENTA 20970 [facility] TION RATE 5 Y Y RBC [facility] AUTOMATED ANTIBODY 53220 [facility] TREPONEMA 5 Y Y [facility] C[facility] 39899 [facility] UNIVERS IN 5 Y Y ANTIBODY F [facility] EACH IG CLASS COMPLEMEN 96880 [facility] UNIVERS T ANTIGEN 5 Y Y [facility]ITAL HOSPITAL COMPONENT COMPREHEN 57521 [facility] SIVE 5 Y Y METABOLIC F [facility] PANEL CHROMATOG 36535 [facility] ALYSHA 5 Y Y [facility] COLUMN 1 ANALYTE AYDIN CREATININ 33746 [facility] E OTHER 5 Y Y SOURCE [facility] HOSPITAL COLLECTIO 87434 [facility] N VENOUS 5 Y Y BLOOD [facility] VENIPUNCT URE C-REACTIV 47961 [facility] E PROTEIN 5 Y Y HOSPITAL HOSPITAL DNA 27318 [facility] ANTIBODY 5 Y Y KNIK/DO HOSPITAL [facility] UBLE STRANDED SYPHILIS 65740 [facility] TEST 5 Y Y QUANTITAT F [facility] CRISTIAN SYPHILIS 42093 [facility] TEST 5 Y Y NON-TREPO [facility] NEMAL ANTIBODY QUAL PROTEIN 15822 [facility] TOTAL 5 Y Y XCPT F [facility] REFRACTOM ETRY URINE SERVICE G0151 [facility] PHYS 5 HOME HOME [facility] AGENCY AGENCY HLTH/HOSP ICE EA 15 MIN DIRECT G0154 [facility] SKILL 5 HOME [facility] AGENCY AGENCY HH/HOSPIC E EA 15 MIN O2 CONC 1 E1390 [facility] [place] 5 MEDICAL MEDICAL 85%/>02 EQUIPMENT EQUIPMENT CONC AT [facility] FLW RATE PRTBLE E0431 M[facility] M[facility] GASEOUS 5 MEDICAL MEDICAL O2 SYS EQUIPMENT EQUIPMENT RENT; [facility] 10232 [facility] 5 NURSE LESLEY DAY PRACTITIO MANAGEMEN NER GR T 30 MIN/< SBSQ 44112 [place] [address] MEDICAL CARE/DAY SERV 25 FOUNDATIO MINUTES N SBSQ 31321 [place] [address] MEDICAL CARE/DAY SERV 25 FOUNDATIO MINUTES N SBSQ 15429 [facility] 5 NURSE LESLEY CARE/DAY PRACTITIO 25 NER GR MINUTES COMMODE E0163 [facility] 5 MOBILE OR STATIONAR Y W/FIXED ARMS SBSQ 34557 [facility] 5 NURSE LESLEY CARE/DAY PRACTITIO 25 NER GR MINUTES SBSQ 52361 [facility] 5 MEDICAL CARE/DAY SERV 25 FOUNDATIO MINUTES N SBSQ 60416 [facility] 5 MEDICAL CARE/DAY SERV 25 FOUNDATIO MINUTES N SBSQ 42104 [facility] 5 MEDICAL CARE/DAY SERV 25 FOUNDATIO MINUTES N SBSQ 94047 [facility] 5 MEDICAL CARE/DAY SERV 25 FOUNDATIO MINUTES N SBSQ 24948 [facility] 5 MEDICAL CARE/DAY SERV 25 FOUNDATIO MINUTES N WALKER E0143 [facility] 5 WHEELED ADJUSTABL E/FIXED HEIGHT SBSQ 42922 [facility] 5 NURSE LESLEY CARE/DAY PRACTITIO 25 NER GR MINUTES SBSQ 65079 [facility] 5 NURSE LESLEY CARE/DAY PRACTITIO 25 NER GR MINUTES SBSQ 95152 [facility] 5 NURSE LESLEY CARE/DAY PRACTITIO 25 NER GR MINUTES SBSQ 04276 [place] [address] NURSE LESLEY CARE/DAY PRACTITIO 25 NER GR MINUTES SBSQ 80132 [facility] 5 NURSE LESLEY CARE/DAY PRACTITIO 25 NER GR MINUTES SWALLOWIN 03415 [facility] 5 MEDICAL SCO W/CINERAD SERV IOGRAPY/V [facility]OUNDATIO IDRADIOG [facility] [address] [facility] 5 MEDICAL IHA CARE/DAY SERV 25 FOUNDATIO MINUTES N SBS[address]77 [facility] 5 MEDICAL IHA CARE/DAY SERV 25 FOUNDATIO MINUTES N SBSQ 00471 [facility] 5 NURSE LESLEY CARE/DAY PRACTITIO 25 NER GR MINUTES SBSQ 64457 [facility] 5 NURSE LESLEY CARE/DAY PRACTITIO 25 NER GR MINUTES SBSQ 79404 [facility] 5 MEDICAL CARE/DAY [place] [address] [place] [facility] ANH ABDOMINAL 5 MEDICAL REAL SERV TIME FOUNDATIO W/IMAGE N LIMITED SBSQ 07953 [facility] 5 MEDICAL CARE/DAY SERV 25 FOUNDATIO MINUTES N SBSQ 41678 [facility] 5 MEDICAL CARE/DAY SERV 25 FOUNDATIO MINUTES N INITIAL 37136 [facility] INPATIENT 5 MEDICAL CONSULT SERV NEW/ESTAB FOUNDATIO PT 55 N MIN SBSQ 68595 [facility] 5 MEDICAL CARE/DAY SERV 25 FOUNDATIO MINUTES N SBSQ 37289 [facility] 5 MEDICAL TRACIE CARE/DAY SERV 25 FOUNDATIO MINUTES N SBSQ 53155 [facility] 5 NURSE LESLEY CARE/DAY PRACTITIO 25 NER GR MINUTES SBSQ 78881 [facility] 5 MEDICAL KIRIT CARE/DAY SERV 35 FOUNDATIO MINUTES N SBSQ 92778 [facility] 5 MEDICAL KIRIT CARE/DAY SERV 35 FOUNDATIO MINUTES N SBSQ 21933 [facility] 5 MEDICAL TRACIE CARE/DAY SERV 25 FOUNDATIO MINUTES N INITIAL 40378 [facility] INPATIENT 5 MEDICAL KAN JARVIS CONSULT SERV NEW/ESTAB FOUNDATIO PT 110 N MIN SBSQ 67413 [facility] 5 NURSE LESLEY CARE/DAY PRACTITIO 25 NER GR MINUTES SBSQ 22580 [facility] 5 NURSE LESLEY CARE/DAY PRACTITIO 25 NER GR MINUTES SBSQ 95687 [facility] 5 NURSE LESLEY CARE/DAY PRACTITIO 25 NER GR MINUTES SBSQ 06030 [facility] 5 MEDICAL KIRIT CARE/DAY SERV 35 FOUNDATIO MINUTES N SBSQ 40603 [facility] 5 MEDICAL KIRIT CARE/DAY SERV 35 FOUNDATIO MINUTES N ECG 81061 [facility] 5 MEDICAL NAN ECG SERV W/LEAST FOUNDATIO 12 LDS N I&R ONLY SBSQ 12892 [facility] 5 MEDICAL GIPSON CARE/DAY SERV ADO 25 FOUNDATIO MINUTES N INITIAL 27310 [facility] INPATIENT 5 MEDICAL THO CONSULT SERV NEW/ESTAB FOUNDATIO PT 110 N MIN SBSQ 17169 [facility] 5 MEDICAL KIRIT CARE/DAY SERV 35 FOUNDATIO MINUTES N SBSQ 43019 [place] [address] MEDICAL KIRIT CARE/DAY SERV 35 FOUNDATIO MINUTES N ECHO 14270 PR OLVIN TTC R-T 5 MEDICAL PAULO 2D SERV W/WOM-MOD FOUNDATIO E COMPL N SPEC&COLR D PRTBLE E0431 MURPHY MURPHY GASEOUS 5 MEDICAL MEDICAL O2 SYS EQUIPMENT EQUIPMENT RENT; [facility] HUMIDFR&M ASK O2 CONC 1 E1390 [facility] [place] 5 MEDICAL MEDICAL 85%/>02 EQUIPMENT EQUIPMENT CONC AT [facility] FLW RATE SBSQ 91743 [place] [address] MEDICAL KIRIT CARE/DAY SERV 35 FOUNDATIO MINUTES N SBSQ 93291 [place] [address] MEDICAL KIRIT CARE/DAY SERV 35 FOUNDATIO MINUTES N SBSQ 89346 [place] [address] MEDICAL KIRIT CARE/DAY SERV 35 FOUNDATIO MINUTES N RADIOLOGI 31118 [facility] 5 MEDICAL ASH EXAMINATI SERV ON CHEST FOUNDATIO SINGLE N VIEW FRONTAL RADIOLOGI 55106 [facility] 5 MEDICAL ASH EXAMINATI SERV ON CHEST FOUNDATIO SINGLE N VIEW FRONTAL RADIOLOGI 33657 [facility] 5 MEDICAL ASH EXAMINATI SERV ON CHEST FOUNDATIO SINGLE N VIEW FRONTAL SBSQ 76780 [place] [address] MEDICAL KIRIT CARE/DAY SERV 35 FOUNDATIO MINUTES N RADIOLOGI 33667 PR ARSLAN C 5 MEDICAL ASH EXAMINATI SERV ON CHEST FOUNDATIO SINGLE N VIEW FRONTAL RADIOLOGI 83651 [place] [facility] 5 MEDICAL KAMILLA EXAMINATI SERV ON CHEST FOUNDATIO SINGLE N VIEW FRONTAL SBSQ 45040 [place] [address] MEDICAL LEI CARE/DAY SERV 35 FOUNDATIO MINUTES N RADIOLOGI 45725 [place] [facility]UD[facility] 5 MEDICAL KAMILLA EXAMINATI SERV ON CHEST FOUNDATIO SINGLE N VIEW FRONTAL SBSQ 48811 [facility] 5 MEDICAL LEI CARE/DAY SERV 35 FOUNDATIO MINUTES N SBSQ 75335 [facility] 5 MEDICAL CARE/DAY SERV 35 FOUNDATIO MINUTES N SWALLOWIN 55386 [place] DISANTIS G FUNCJ 5 MEDICAL SILVIANO W/CINERAD SERV IOGRAPY/V FOUNDATIO IDRADIOG N RADIOLOGI 12585 [place] BOYLE IJEOMA C 5 MEDICAL EXAMINATI SERV ON CHEST FOUNDATIO SINGLE N VIEW FRONTAL SBSQ 11428 [place] [address] MEDICAL CARE/DAY SERV 35 FOUNDATIO MINUTES N SBSQ 23116 [place] [facility] 5 MEDICAL CARE/DAY SERV 35 FOUNDATIO MINUTES N SBSQ 67608 [place] [address] MEDICAL CARE/DAY SERV 35 FOUNDATIO MINUTES N RADIOLOGI 58060 [place] ARSLAN C 5 MEDICAL ASH EXAMINATI SERV ON CHEST FOUNDATIO SINGLE N VIEW FRONTAL RADEX 98894 [place] DISANTIS ABDOMEN 1 5 MEDICAL SILVIANO SERV ANTEROPOS FOUNDATIO TERIOR N VIEW RADIOLOGI 12820 [place] ARSLAN C 5 MEDICAL ASH EXAMINATI SERV ON CHEST FOUNDATIO SINGLE N VIEW FRONTAL DUP-SCAN 98479 [place] MINION XTR VEINS 5 MEDICAL SILVIANO COMPLETE SERV FOUNDATIO BILATERAL N STUDY SBSQ 16508 [place] [address] MEDICAL CARE/DAY SERV 35 FOUNDATIO MINUTES N RADIOLOGI 03771 [place] SESAR NATHAN C 5 MEDICAL EXAMINATI SERV ON CHEST FOUNDATIO SINGLE N VIEW FRONTAL CRITICAL 02589 [place] [facility] 5 MEDICAL GILBERT ILL/INJUR SERV ED FOUNDATIO PATIENT N INIT 30-74 MIN CRITICAL 37201 [place] [facility] 5 MEDICAL GILBERT ILL/INJUR SERV ED FOUNDATIO PATIENT N INIT 30-74 MIN RADIOLOGI 23840 [place] SESAR NATHAN C 5 MEDICAL EXAMINATI SERV ON CHEST FOUNDATIO SINGLE N VIEW FRONTAL RADIOLOGI 41437 [place] IJEOMA C 5 MEDICAL EXAMINATI SERV ON CHEST FOUNDATIO SINGLE N VIEW FRONTAL SBSQ 69514 [place] [address] MEDICAL CARE/DAY SERV 35 FOUNDATIO MINUTES N SBSQ 47781 [place] [address] MEDICAL CARE/DAY SERV 35 FOUNDATIO MINUTES N RADIOLOGI 05473 [place] CANDELARIA C 5 MEDICAL ASH EXAMINATI SERV ON CHEST FOUNDATIO SINGLE N VIEW FRONTAL RADIOLOGI 47476 [place] ARSLAN C 5 MEDICAL ASH EXAMINATI SERV ON CHEST FOUNDATIO SINGLE N VIEW FRONTAL CT THORAX 73955 [place] IJEOMA W/O 5 MEDICAL CONTRAST SERV MATERIAL FOUNDATIO N SBSQ 93317 [place] [address] MEDICAL CARE/DAY SERV 35 FOUNDATIO MINUTES N SBSQ 23036 [place] [facility] 5 MEDICAL CARE/DAY SERV 35 FOUNDATIO MINUTES N SBSQ 36511 [place] [address] MEDICAL CARE/DAY SERV 35 FOUNDATIO MINUTES N RADIOLOGI 77476 [place] ARSLAN C 5 MEDICAL ASH EXAMINATI SERV ON CHEST FOUNDATIO SINGLE N VIEW FRONTAL CRITICAL [place] [facility] 5 MEDICAL SILVIANO ILL/INJUR SERV ED FOUNDATIO PATIENT N INIT 30-74 MIN CRITICAL 67486 [place] [facility] 5 MEDICAL SILVIANO ILL/INJUR SERV ED FOUNDATIO PATIENT N INIT 30-74 MIN RADIOLOGI 09209 [place] SESAR NATHAN C 5 MEDICAL EXAMINATI SERV ON CHEST FOUNDATIO SINGLE N VIEW FRONTAL RADIOLOGI 64045 [place] IJEOMA C 5 MEDICAL EXAMINATI SERV ON CHEST FOUNDATIO SINGLE N VIEW FRONTAL SBSQ 73196 [place] [address] MEDICAL HANSEL CARE/DAY SERV IJEOMA 35 FOUNDATIO MINUTES N TEMPORARY 311 [facility] [address] [facility] CRITICAL 17827 [place] [facility] 5 MEDICAL HANSEL ILL/INJUR SERV IJEOMA ED FOUNDATIO PATIENT N INIT 30-74 MIN TRACHEOST 33793 [place] [facility] 5 MEDICAL MANE PLANNED SERV SEPARATE FOUNDATIO PROCEDURE N CRITICAL 64595 [place] [facility] 5 MEDICAL HANSEL ILL/INJUR SERV IJEOMA ED FOUNDATIO PATIENT N INIT 30-74 MIN CRITICAL 90332 [place] [facility] 5 MEDICAL HANSEL ILL/INJUR SERV IJEOMA ED FOUNDATIO PATIENT N INIT 30-74 MIN PRTBLE E0431 [facility] MURPHY GASEOUS 5 MEDICAL MEDICAL O2 SYS EQUIPMENT EQUIPMENT RENT; [facility] HUMIDFR&M ASK O2 CONC 1 E1390 [facility] [place] 5 MEDICAL MEDICAL 85%/>02 EQUIPMENT EQUIPMENT CONC AT [facility] FLW RATE SBSQ 77636 [facility] 5 MEDICAL CARE/DAY SERV [address] THORAX 77720 [place] IJEOMA W/O 5 MEDICAL CONTRAST SERV MATERIAL FOUNDATIO N CRITICAL 14785 [place] [facility] 5 MEDICAL Y-BUSTAMANTE ILL/INJUR SERV MANE ED FOUNDATIO PATIENT N INIT 30-74 MIN ECHO 49444 [facility]O [facility] R-T 5 MEDICAL 2D SERV W/WOM-MOD FOUNDATIO E COMPL N SPEC&COLR D RADIOLOGI 89944 [place] CANDELARIA C 5 MEDICAL ASH EXAMINATI SERV ON CHEST FOUNDATIO SINGLE N VIEW FRONTAL RADIOLOGI 33155 [place] SESAR NATHAN C 5 MEDICAL EXAMINATI SERV ON CHEST FOUNDATIO SINGLE N VIEW FRONTAL CRITICAL 30812 [place] [facility] 5 MEDICAL Y-BUSTAMANTE ILL/INJUR SERV MANE ED FOUNDATIO PATIENT N INIT 30-74 MIN CRITICAL 07191 [place] [facility] 5 MEDICAL Y-BUSTAMANTE ILL/INJUR SERV MANE ED FOUNDATIO PATIENT N INIT 30-74 MIN US SOFT 32085 [place] KARMEN TISSUE 5 MEDICAL SUSANNA HEAD & SERV NECK REAL FOUNDATIO TIME N IMGE DOCM CT SOFT 86888 [place] KRISTAL JUSTUS TISSUE 5 MEDICAL NECK W/O SERV CONTRAST FOUNDATIO MATERIAL N RADIOLOGI 60773 [place] SESAR NATHAN C 5 MEDICAL EXAMINATI SERV ON CHEST FOUNDATIO SINGLE N VIEW FRONTAL RADIOLOGI 75144 [place] ARSLAN C 5 MEDICAL ASH EXAMINATI SERV ON CHEST FOUNDATIO SINGLE N VIEW FRONTAL CRITICAL 32414 [facility] 5 MEDICAL HANSEL ILL/INJUR SERV IJEOMA ED FOUNDATIO PATIENT N INIT 30-74 MIN SBSQ [id number] [facility] 5 MEDICAL CARE/DAY SERV 35 FOUNDATIO MINUTES N SBSQ 86102 [facility] 5 MEDICAL FER CARE/DAY SERV 35 FOUNDATIO MINUTES N CRITICAL 03141 [facility] 5 MEDICAL HANSEL ILL/INJUR SERV IJEOMA ED FOUNDATIO PATIENT N INIT 30-74 MIN ECG 25879 [place] APRYL CHI ROUTINE 5 MEDICAL ECG SERV W/LEAST FOUNDATIO 12 LDS N I&R ONLY RADIOLOGI 83467 [place] BOYLE IJEOMA C 5 MEDICAL EXAMINATI SERV ON CHEST FOUNDATIO SINGLE N VIEW FRONTAL INITIAL 63061 [facility] INPATIENT 5 [facility]IN[facility] CONSULT NEW/ESTAB PT 40 MIN CRITICAL 35179 [facility] 5 MEDICAL HANSEL ILL/INJUR SERV IJEOMA ED FOUNDATIO PATIENT N INIT 30-74 MIN SBSQ 44092 [place] [address] MEDICAL FER CARE/DAY SERV 35 FOUNDATIO MINUTES N SBSQ 61115 [place] [address] MEDICAL AMR CARE/DAY SERV 35 FOUNDATIO MINUTES N CRITICAL 41332 [facility] 5 MEDICAL HANSEL ILL/INJUR SERV IJEOMA ED FOUNDATIO PATIENT N INIT 30-74 MIN RADIOLOGI 66594 [facility] IJEOMA C 5 MEDICAL EXAMINATI SERV ON CHEST FOUNDATIO SINGLE N VIEW FRONTAL DUP-SCAN 63159 [place] [facility] [place] XTR VEINS 5 MEDICAL COMPLETE SERV FOUNDATIO BILATERAL N STUDY RADIOLOGI 17134 [place] [facility] IJEOMA C 5 MEDICAL EXAMINATI SERV ON CHEST FOUNDATIO SINGLE N VIEW FRONTAL CRITICAL 11530 [facility] 5 MEDICAL HANSEL ILL/INJUR SERV IJEOMA ED FOUNDATIO PATIENT N INIT 30-74 MIN SBSQ 28431 [facility] 5 MEDICAL AMR CARE/DAY SERV 35 FOUNDATIO MINUTES N CRITICAL 03672 [facility] 5 MEDICAL LEI ILL/INJUR SERV ED FOUNDATIO PATIENT N INIT 30-74 MIN RADIOLOGI 50594 [place] [facility] C 5 MEDICAL EXAMINATI SERV ON CHEST FOUNDATIO SINGLE N VIEW FRONTAL RADIOLOGI 96602 [place] [facility] NATH[facility] C 5 MEDICAL EXAMINATI SERV ON CHEST FOUNDATIO SINGLE N VIEW FRONTAL CRITICAL 30604 [facility] MEDICAL LEI ILL/INJUR SERV ED FOUNDATIO PATIENT N INIT 30-74 MIN SBSQ 35635 [place] [facility] 5 MEDICAL BETHANY CARE/DAY SERV 35 FOUNDATIO MINUTES N SBSQ 17990 [place] [facility] 5 MEDICAL CARE/DAY SERV 35 FOUNDATIO MINUTES N ECG 70391 [place] [facility] 5 MEDICAL ECG SERV W/LEAST FOUNDATIO 12 LDS N I&R ONLY RADIOLOGI 76953 [place] [facility] IJEOMA C 5 MEDICAL EXAMINATI SERV ON CHEST FOUNDATIO SINGLE N VIEW FRONTAL ECG 85799 [place] [facility] ROUTINE 5 MEDICAL ECG SERV W/LEAST FOUNDATIO 12 LDS N I&R ONLY SBSQ 78741 [place] [facility] 5 MEDICAL CARE/DAY SERV 35 FOUNDATIO MINUTES N SBSQ 28549 [place] [facility] 5 MEDICAL CARE/DAY SERV 35 FOUNDATIO MINUTES N DUP-SCAN 88988 [place] [facility] 5 MEDICAL MEAGAN COMPLETE SERV FOUNDATIO BILATERAL N STUDY RADIOLOGI 37563 [place] [facility] 5 MEDICAL ASH EXAMINATI SERV ON CHEST FOUNDATIO SINGLE N VIEW FRONTAL CRITICAL 70776 [place] [facility] 5 MEDICAL SILVIANO ILL/INJUR SERV ED FOUNDATIO PATIENT N INIT 30-74 MIN INITIAL 84695 [place] [facility] INPATIENT 5 MEDICAL CONSULT SERV NEW/ESTAB FOUNDATIO PT 110 N MIN SBSQ 96311 [place] [facility] 5 MEDICAL AMR CARE/DAY SERV 35 FOUNDATIO MINUTES N CRITICAL 57259 [place] [facility] 5 MEDICAL SILVIANO ILL/INJUR SERV ED FOUNDATIO PATIENT N INIT 30-74 MIN CRITICAL 36727 [place] [facility] 5 MEDICAL ILL/INJUR SERV ED FOUNDATIO PATIENT N INIT 30-74 MIN RADEX 05190 [place] [facility] 1 5 MEDICAL SERV ANTEROPOS FOUNDATIO TERIOR N VIEW RADIOLOGI 91104 [place] [facility] 5 MEDICAL EXAMINATI SERV ON CHEST FOUNDATIO SINGLE N VIEW FRONTAL SBSQ [id number] [facility] 5 MEDICAL OS DIETER CARE/DAY SERV 35 FOUNDATIO MINUTES N SBSQ 57547 [facility] 5 MEDICAL OS DIETRE CARE/DAY SERV 35 FOUNDATIO MINUTES N RADIOLOGI 78542 [place] HARTMAN CHEVY C 5 MEDICAL EXAMINATI SERV ON CHEST FOUNDATIO SINGLE N VIEW FRONTAL CRITICAL 68750 [facility] CARE 5 MEDICAL ILL/INJUR SERV ED FOUNDATIO PATIENT N INIT 30-74 MIN RADIOLOGI 87695 [place] ARSLAN C 5 MEDICAL ASH EXAMINATI SERV ON CHEST FOUNDATIO SINGLE N VIEW FRONTAL CRITICAL 13532 [facility] 5 MEDICAL SILVIANO ILL/INJUR SERV ED FOUNDATIO PATIENT N INIT 30-74 MIN SBSQ 20570 [facility] 5 MEDICAL AMR CARE/DAY SERV 35 FOUNDATIO MINUTES N SBSQ 33788 [facility] 5 MEDICAL SHA CARE/DAY SERV 35 FOUNDATIO MINUTES N CRITICAL 25867 [facility] 5 MEDICAL SILVIANO ILL/INJUR SERV ED FOUNDATIO PATIENT N INIT 30-74 MIN RADIOLOGI 04573 [place] ARSLAN C 5 MEDICAL ASH EXAMINATI SERV ON CHEST FOUNDATIO SINGLE N VIEW FRONTAL RADIOLOGI 04821 [place] BOYLE IJEOMA C 5 MEDICAL EXAMINATI SERV ON CHEST FOUNDATIO SINGLE N VIEW FRONTAL CRITICAL 99657 [facility] 5 MEDICAL SILVIANO ILL/INJUR SERV ED FOUNDATIO PATIENT N INIT 30-[place] [address] [place] MEDRANO ANH RETROPERI 5 MEDICAL TONEAL SERV REAL TIME FOUNDATIO W/IMAGE N COMPLETE ARTL 43811 [facility] CATHJ/CAN 5 MEDICAL NULJ SERV MNTR/HEATON FOUNDATIO SFUSION N SPX PRQ SBSQ 27683 [facility] 5 MEDICAL SHA CARE/DAY SERV 35 FOUNDATIO MINUTES N BLOOD 92255 [facility] 5 [place] INTER[facility]OS[facility] PHYS W/WRIT REPORT BLOOD 73825 [facility] SMEAR 5 [place] [facility] [place] W/[place] [address] [facility] INFUSION 5 [facility] THER INC INC PROPH ADDL SEQUENTIA L TO 1 HR CYTP 67477 [facility] SILVIANO SLCTV 5 Y OF [facility] INTERPJ XCPT C/V COLLECTIO 81115 [facility] N VENOUS 5 [facility] BLOOD INC INC VENIPUNCT URE CONT 9672 [facility] INVASIVE 5 Y Y [facility] 96 CONSECUTI VE HRS/MORE CENTRAL 3897 [facility] VENOUS Y Y [facility] PLACEMENT WITH GUIDANCE ARTERIAL [address] [place] [address] Y Y [facility]ION [address] [place] [address] Y Y [facility] EAL TUBE CREATINE 01516 [facility] KINASE MB 5 [facility] FRACTION INC INC ONLY INSJ 24859 RIGOBERTO HENDRIX NON-TUNNE 5 MEDICAL SILVIANO LED SERV CENTRAL FOUNDATIO VENOUS N CATH AGE 5 YR/> SUSCEPTIB 08847 [facility] LTY STDY 5 [facility] ANTIMICRB INC INC IAL MICRO/AGA R DILUTJ CULTURE 51139 [facility] BACTERIAL 5 [facility] BLOOD INC INC AEROBIC W/ID ISOLATES INITIAL 60031 RIGOBERTO MOHAMED INPATIENT 5 MEDICAL AMR CONSULT SERV NEW/ESTAB FOUNDATIO PT 110 N MIN COMPREHEN 06309 [facility] SIVE 5 [facility] METABOLIC INC INC PANEL CRITICAL 47815 RIGOBERTO HENDRIX CARE 5 MEDICAL SILVIANO ILL/INJUR SERV ED FOUNDATIO PATIENT N INIT 30-74 MIN DUP-SCAN 62133 RIGOBERTO SORIAL XTR VEINS 5 MEDICAL EHA COMPLETE SERV FOUNDATIO BILATERAL N STUDY RADIOLOGI 25704 [facility] C 5 [facility] EXAMINATI INC INC ON CHEST SINGLE VIEW FRONTAL BRNCHSC 99203 RIGOBERTO HENDRIX W/BRNCL 5 MEDICAL SILVIANO ALVEOLAR SERV LAVAGE FOUNDATIO N BLOOD 13026 [facility] COUNT 5 [facility] COMPLETE INC INC AUTO&AUTO DIFRNTL WBC CUL BACT 87877 [facility] AEROBIC 5 [facility] ADDL INC [place] [address] [facility] B[facility] TROPONIN 5 [facility] QUANTITAT INC INC CRISTIAN ECG 24081 [facility] ROUTINE 5 [facility] ECG INC INC W/LEAST 12 LDS TRCG ONLY W/O I&R ECG 83370 [facility] RUSS ROUTINE [address] [facility] W/LEAST P 12 LDS I&R ONLY CREATINE 12047 [facility] B[facility] KINASE 5 [facility] TOTAL INC INC ECHO 96165 [place] JAMAL KOHLI [facility] R-T 5 MEDICAL 2D SERV W/WOM-MOD FOUNDATIO E COMPL N SPEC&COLR D PRESSURIZ 49610 [facility] ED/NONPRE 5 [facility] SSURIZED [place] [address] [facility] INFUSION 5 [facility] THERAPY/P INC INC ROPHYLAXI S /DX 1ST TO 1 HR THERAPEUT 06728 [facility] IC 5 [facility] INJECTION INC INC IV PUSH EACH NEW DRUG BLOOD 07073 [facility] COUNT 5 [facility] COMPLETE INC INC AUTO&AUTO DIFRNTL WBC COLLECTIO 37945 [facility] B[facility] N VENOUS 5 [facility] BLOOD INC INC VENIPUNCT URE COLLECTIO 14394 [facility] N VENOUS 5 [facility] BLOOD INC INC VENIPUNCT URE BLOOD 98940 [facility] COUNT 5 [facility] COMPLETE INC INC AUTO&AUTO DIFRNTL WBC PRTBLE E0431 MURPHY MURPHY GASEOUS 5 MEDICAL MEDICAL O2 SYS EQUIPMENT EQUIPMENT RENT; FLWMTR HUMIDFR&M ASK O2 CONC 1 E1390 M[facility]PHY MURPHY [place] 5 MEDICAL MEDICAL 85%/>02 EQUIPMENT EQUIPMENT CONC AT [facility] FLW RATE BLOOD 97581 [facility] COUNT 5 [facility] HEMATOCRI INC INC T TRANSFUSI 43024 [facility] ON 5 [facility] BLOOD/BLO INC INC OD COMPONENT S RED BLOOD P9016 [facility] [place] CELLS 5 [facility] LEUKOCYTE INC INC S REDUCED EACH UNIT BLOOD 83204 ST[facility] STORMY COUNT 5 [facility] HEMOGLOBI INC INC N COMPATIBI 47869 [facility] LITY EACH 5 [facility] UNIT INC INC IMMEDIATE SPIN TECHNIQUE COMPATIBI 36700 [facility] LITY EACH 5 [facility] UNIT INC INC ANTIGLOBU HARINI BLOOD 92464 [facility] TYPING 5 [facility] SEROLOGIC INC INC RH (D) BLOOD 77122 [facility] [place] COUNT 5 [facility] COMPLETE INC INC AUTO&AUTO DIFRNTL WBC ANTIBODY 82564 [facility] ID RBC 5 [facility] ANTIBODIE INC INC S EA PANEL EA SERUM TQ COLLECTIO 01862 [facility] B[facility] N VENOUS 5 [facility] BLOOD INC INC VENIPUNCT URE ANTIBODY 99472 [facility] SCREEN 5 [facility] RBC EACH INC INC SERUM TECHNIQUE BLOOD 34721 [facility] TYPING 5 [facility] SEROLOGIC INC INC ABO COLLECTIO 73116 [facility] [place] N VENOUS 5 [facility] BLOOD INC INC VENIPUNCT URE BLOOD 87065 [facility] [place] COUNT 5 [facility] COMPLETE INC INC AUTO&AUTO DIFRNTL WBC BLOOD 79848 [facility] COUNT 5 [facility] HEMOGLOBI INC INC N RED BLOOD P9016 [facility] [place] CELLS 5 [facility] LEUKOCYTE INC INC S REDUCED EACH UNIT TRANSFUSI 98427 [facility] ON 5 [facility] BLOOD/BLO INC INC OD COMPONENT S BLOOD 48632 ST[facility] ST[facility]MY COUNT 5 [facility] HEMATOCRI INC INC T BLOOD 58014 [facility] [place] TYPING 5 [facility] SEROLOGIC INC INC ABO ANTIBODY 65860 [facility] SCREEN 5 [facility] RBC EACH INC INC SERUM TECHNIQUE ANTIBODY 55524 [facility] B[facility] ID RBC 5 [facility] ANTIBODIE INC INC S EA PANEL EA SERUM TQ COMPREHEN 92813 [facility] SIVE 5 [facility] METABOLIC INC INC PANEL BLOOD 64075 [facility] COUNT 5 [facility] COMPLETE INC INC AUTO&AUTO DIFRNTL WBC COMPATIBI 90028 [facility] LITY EACH 5 [facility] UNIT INC INC ANTIGLOBU HARINI BLOOD 44110 [facility] TYPING 5 [facility] SEROLOGIC INC INC RH (D) COMPATIBI 74982 [facility] LITY EACH 5 [facility] UNIT INC INC IMMEDIATE SPIN TECHNIQUE BLOOD 61855 [facility] COUNT 4 [facility] COMPLETE INC INC AUTO&AUTO DIFRNTL WBC COMPREHEN 38461 [facility] SIVE 4 [facility] METABOLIC INC INC PANEL PRTBLE E0431 MURPHY MURPHY GASEOUS 4 MEDICAL MEDICAL O2 SYS EQUIPMENT EQUIPMENT RENT; FLWMTR [facility] 17732 [facility] 4 [place] JENNA DAY CLINIC MANAGEMEN PSC T > 30 MIN O2 CONC 1 E1390 MURPHY MURPHY [place] 4 MEDICAL MEDICAL 85%/>02 EQUIPMENT EQUIPMENT CONC AT PRSC FLW RATE SBSQ [address] CARE/DAY CLINIC 25 PSC MINUTES SBSQ [address] JENNA CARE/DAY CLINIC 25 PSC MINUTES RADIOLOGI 24733 [facility] [place] MARINA C EXAM 4 RADIOLOGY CAR CHEST 2 VIEWS FRONTAL&L ATERAL SBSQ [address] CARE/DAY CLINIC 25 PSC MINUTES SBSQ [address]92 [address] CARE/DAY CLINIC 25 PSC MINUTES SBSQ 65336 [address] CARE/DAY CLINIC 35 PSC MINUTES SBSQ 59416 [address]/DAY MEDICAL 25 G MINUTES SBSQ 95850 [facility] 4 [place] MAT CARE/DAY CLINIC 15 PSC MINUTES SBSQ 48808 [facility] CARE/DAY MEDICAL 25 G MINUTES SBSQ 38776 [facility]/DAY MEDICAL 25 G MINUTES SBSQ 07251 [facility] 4 [place] MAT CARE/DAY CLINIC 15 PSC MINUTES SBSQ [address] JENNA CARE/DAY CLINIC 35 PSC MINUTES RADIOLOGI 08774 [facility] [place] PRAJAPATI C EXAM 4 RADIOLOGY [place]ER[place] CHEST 2 VIEWS FRONTAL&L ATERAL SBSQ [address] JENNA CARE/DAY CLINIC 25 PSC MINUTES ECHO 70926 [facility]T [address] [place] [address] 2D CLINIC W/WOM-MOD PSC E COMPL SPEC&COLR D SBSQ [address] JENNA CARE/DAY CLINIC 25 PSC MINUTES SBSQ [address] JENNA CARE/DAY CLINIC 25 PSC MINUTES SBSQ [address] JENNA CARE/DAY CLINIC 25 PSC MINUTES SBSQ 02377 [facility] CARE/DAY MEDICAL 35 G MINUTES SBSQ 33732 [facility] CARE/DAY MEDICAL 35 G MINUTES SBSQ [address] JENNA CARE/DAY CLINIC 25 PSC MINUTES RADIOLOGI 71890 [facility] [place] WESTERFIE C 4 RADIOLOGY LD IV ALL EXAMINATI ON CHEST SINGLE VIEW FRONTAL RADIOLOGI 66154 [facility] [place] TANVIR C 4 RADIOLOGY MAGGIE EXAMINATI ON CHEST SINGLE VIEW FRONTAL ECG 22200 LAURIE SHEEHAN ROUTINE 4 BAR ECG W/LEAST 12 LDS I&R ONLY SBSQ [address] JENNA CARE/DAY CLINIC 25 PSC MINUTES SBSQ 76956 [facility]/[place] [address] [place] [address] [facility] [place] KOSTELIC ANGIOGRAP 4 RADIOLOGY ESTEBAN HY CHEST W/CONTRAS T/NONCONT RAST SBSQ [address] JENNA CARE/DAY CLINIC 25 PSC MINUTES SBSQ 00448 [facility]/DAY MEDICAL 25 G MINUTES SBSQ [address] JENNA CARE/DAY CLINIC 35 PSC MINUTES RADIOLOGI 74051 [facility] [place] WESTERFIE C EXAM 4 RADIOLOGY LD IV ALL CHEST 2 VIEWS FRONTAL&L ATERAL SBSQ 40025 [facility]/DAY MEDICAL 25 G MINUTES SBSQ [address] CARE/DAY CLINIC 25 PSC MINUTES SBSQ [address] CARE/DAY CLINIC 25 PSC MINUTES SBSQ [address] CARE/DAY CLINIC 25 PSC MINUTES DUP-SCAN 34468 [facility] LIZZIE THO XTR VEINS 4 [facility] MEDICAL UNILATERA G L/LIMITED STUDY SBSQ [address] JENNA CARE/DAY CLINIC 25 PSC MINUTES SBSQ 21329 [facility] 4 [place] CARE/DAY CLINIC 15 PSC MINUTES RADIOLOGI 75097 [facility] [place] KOSTELIC C EXAM 4 RADIOLOGY ESTEBAN CHEST 2 VIEWS FRONTAL&L ATERAL SBSQ [address] [place] CARE/DAY CLINIC 25 PSC MINUTES SBSQ 10711 [facility] 4 [place]ENNA CARE/DAY CLINIC 25 PSC MINUTES SBSQ 56692 [facility]/DAY MEDICAL 35 G MINUTES SBSQ [address] JENNA CARE/DAY CLINIC 35 PSC MINUTES RADIOLOGI 74347 [facility] [place] WESTERFIE C EXAM 4 RADIOLOGY LD IV ALL CHEST 2 VIEWS FRONTAL&L ATERAL SBSQ 48116 [facility] 4 PR KIDNEY KAMILLA CARE/DAY CARE 25 MINUTES SBSQ 93553 [facility] 4 [place] CARE/DAY CARE 25 MINUTES SBSQ [address] MAT CARE/DAY CLINIC 15 PSC MINUTES SBSQ 81046 [facility] 4 PR KIDNEY CARE/DAY CARE 25 MINUTES SBSQ [address] CARE/DAY CLINIC 15 PSC MINUTES SBSQ [address] CARE/DAY CLINIC 25 PSC MINUTES RADIOLOGI 35215 [facility] [place] MARINA C 4 RADIOLOGY CAR EXAMINATI ON CHEST SINGLE VIEW FRONTAL SBSQ [address]/DAY MEDICAL 35 G MINUTES SBSQ [address] CARE/DAY CLINIC 25 PSC MINUTES INITIAL 24784 [facility] 4 [place] MAT CONSULT [facility] NEW/ESTAB PSC PT 40 MIN SBSQ [address] CARE/DAY CLINIC 25 PSC MINUTES INITIAL [address] CARE/DAY CLINIC 30 PSC MINUTES RADIOLOGI 16488 [facility] [place] TANVIR C 4 RADIOLOGY MAGGIE EXAMINATI ON CHEST SINGLE VIEW FRONTAL ECHO 46830 [facility] MOLINA TTC R-T 4 [place] 2D CLINIC W/WOM-MOD PSC E COMPL SPEC&COLR D SBSQ [address]/DAY MEDICAL 35 G MINUTES DUP-SCAN 78949 [facility] XTR VEINS [address] [address] COMPLETE CLINIC PSC BILATERAL STUDY SBSQ [address] CARE/DAY CLIN[place] 25 [place] [address] [facility] [place] SALAS RETROPERI 4 RADIOLOGY CAR TONEAL REAL TIME W/IMAGE LIMITED INITIAL 31876 [facility] 4 [place] KID[place] CARE/DAY CARE 50 MINUTES INITIAL 91737 [facility] INPATIENT 4 [facility] CONSULT MEDICAL NEW/ESTAB G PT [address] THORAX 60367 [facility] RIGOBERTO MARINA W/O 4 RADIOLOGY CAR CONTRAST MATERIAL GROUND A0425 SAR[facility] MILEAGE 4 AMBULANCE AMBULANCE PER SERVICE SERVICE STATUTE MILE INITIAL 98755 [facility] 4 [facility] CARE/DAY CLINIC 70 PSC MINUTES RADIOLOGI 32468 [facility] [place] WESTERFIE C 4 RADIOLOGY LD IV ALL EXAMINATI ON CHEST SINGLE VIEW FRONTAL AMB A0427 [facility] SERVICE 4 AMBULANCE AMBULANCE ALS SERVICE SERVICE EMERGENCY TRANSPORT LEVEL 1 ECG 65905 ST[facility] WISEMAN JR ROUTINE 4 [facility] W/LEAST P 12 LDS I&R ONLY RADIOLOGI 94417 [place] JA[place] C 4 MEDICAL LIZZIE EXAMINATI IMAGING ON CHEST ASS SINGLE VIEW FRONTAL ECHO 83436 RIGOBERTO OLVIN TTHRC R-T 4 MEDICAL [place] 2D SERV W/WOM-MOD FOUNDATIO E COMPL N SPEC&COLR D HOSPITAL 22747 [facility] 4 [place] INTERNAL MANAGEMEN MED T 30 MIN/< SBSQ 97871 [facility] [address] CARE/DAY INTERNAL 25 MED MINUTES INITIAL [address] [place] [address] CARE/DAY INTERNAL 50 MED MINUTES URNLS DIP [address] [place] [address] STICK/TAB INTERNAL LET RGNT MED NON-AUTO W/O MICRSCP INSJ PRPH 66377 [facility] TOD CTR VAD 4 PHYSICIAN W/SUBQ S GROUP PORT AGE 5 YR/> TRANSFUSI 9904 [facility] ON OF 4 [facility] PACKED INC INC CELLS VENOUS 3893 [facility] CATHETERI 4 [facility] ZATION INC INC NOT ELSEWHERE CLASSIFIE D BLOOD 10409 [facility] COUNT 4 [facility] HEMATOCRI INC INC [facility] G0378 [facility] OBSERVATI 4 [facility] ON INC INC SERVICE PER HOUR RED BLOOD P9016 [facility] [place] CELLS 4 [facility]OS[facility] LEUKOCYTE INC INC S REDUCED EACH UNIT OBSERVATI 83427 [facility] BESSON ON CARE 4 [place] IJEOMA DISCHARGE INTERNAL MED MANAGEMEN BLOOD 76913 [facility] OCCULT 4 [facility] PEROXIDAS INC INC E ACTV QUAL FECES 1-3 SPEC BLOOD 92476 [facility] COUNT 4 [facility] HEMOGLOBI INC INC N UNCLASSIF J3490 [facility] IED DRUGS 4 [facility] INC INC UNCLASSIF J3490 [facility] B[facility] IED DRUGS 4 [facility] INC INC BLOOD 96808 [facility] COUNT 4 [facility] COMPLETE INC INC AUTO&AUTO DIFRNTL WBC COMPATIBI 61742 [facility] B[facility] LITY EACH 4 [facility] UNIT INC INC ANTIGLOBU HARINI COMPATIBI 38686 [facility] LITY EACH 4 [facility] UNIT INC INC IMMEDIATE SPIN TECHNIQUE BLOOD 14949 [facility] TYPING 4 [facility] SEROLOGIC INC INC RH (D) URNLS DIP 68728 [facility] 4 [facility]OS[facility] STICK/TAB INC INC LET REAGENT AUTO MICROSCOP Y INITIAL 68446 [place] USERY AND OBSERVATI 4 [place] ON INTERNAL CARE/DAY MED 30 MINUTES COMPREHEN 06669 [facility] SIVE 4 [facility] METABOLIC INC INC PANEL ANTIBODY 96603 [facility] ID RBC 4 [facility] ANTIBODIE INC INC S EA PANEL EA SERUM TQ PROTHROMB 38121 [facility] BURR[facility] IN TIME 4 [facility] INC INC BLOOD 78889 [facility] TYPING 4 [facility] SEROLOGIC INC INC [facility] G0378 [facility] OBSERVATI 4 [facility] ON INC INC SERVICE PER HOUR ANTIBODY 31183 [facility] SCREEN 4 [facility] RBC EACH INC INC SERUM TECHNIQUE PROTHROMB 54329 [facility] B[facility] IN TIME 4 [facility] INC INC PROTHROMB 96158 [facility] B[facility] IN TIME 4 [facility] INC INC PROTHROMB 63213 STORMY STORMY IN TIME 4 [facility] INC INC TRANSFUSI 48647 [facility] ON 4 [facility] BLOOD/BLO INC INC OD COMPONENT S RED BLOOD P9016 STORMY STORMY CELLS 4 [facility] LEUKOCYTE INC INC S REDUCED EACH UNIT BLOOD 85076 [facility] COUNT 4 [facility] HEMOGLOBI INC INC N UNCLASSIF J3490 STORMY STORMY IED DRUGS 4 [facility] INC INC BLOOD 60167 [facility] COUNT 4 [facility] HEMATOCRI INC INC T BLOOD 65793 [facility] COUNT 4 [facility] AUTOMATED NATRIURET 52848 [facility] IC 4 [facility]PTIDE [facility] BASIC 18591 [facility] METABOLIC 4 [facility] PANEL [facility] HOSP CALCIUM TOTAL PROTHROMB 38642 [facility] IN TIME 4 [facility] PROTHROMB 26426 [facility] IN TIME 4 [facility] BLOOD 97093 [facility] COUNT 4 [facility]OSP AUTO&AUTO DIFRNTL WBC COLLECTIO 63853 [facility] N VENOUS 4 [facility] BLOOD [facility] HOSP VENIPUNCT URE PROTHROMB 33910 [facility] B[facility] IN TIME 4 [facility] INC INC SBSQ 61330 [place] [address] MEDICINE CARE/DAY SERVICES, 25 MINUTES SBSQ 91026 [place] [address] MEDICINE CARE/DAY SERVICES, 35 MINUTES SBSQ 17519 [place] [address] MEDICINE DEN CARE/DAY SERVICES, 35 MINUTES SBSQ 80373 [place] [address] MEDICINE DEN CARE/DAY SERVICES, 35 MINUTES SBSQ 25525 [facility] 4 PULMONARY SHE CARE/DAY & 25 CRITICAL MINUTES SBSQ 26883 [facility] 4 [place] AN ARV CARE/DAY ONCOLOGY 15 A MINUTES RADIOLOGI 73312 [facility] PELAEZ C 4 RADIOLOGY WARD EXAMINATI ASSOC ON CHEST SINGLE VIEW FRONTAL SBSQ 70823 [facility] 4 PULMONARY S KIRIT CARE/DAY & 25 CRITICAL MINUTES SBSQ 85184 [facility] 4 PULMONARY S KIRIT CARE/DAY & 25 CRITICAL MINUTES SBSQ 49841 [facility] 4 [place] AN ARV CARE/DAY ONCOLOGY 15 A MINUTES SBSQ 30513 [facility] 4 [place] AN ARV CARE/DAY ONCOLOGY 25 A MINUTES RADIOLOGI 00839 [facility] ELLIS CHANEL C 4 RADIOLOGY EXAMINATI ASSOC ON CHEST SINGLE VIEW FRONTAL SBSQ 16955 [facility] 4 PULMONARY MAT CARE/DAY & 35 CRITICAL MINUTES SBSQ 75771 [facility] 4 PULMONARY MAT CARE/DAY & 35 CRITICAL MINUTES CYTP 26223 [facility] SL[facility]V 4 [place] & ER JR SANDEEP CELL DUBILIER ENHANCEME NT INTERPJ XCP[place] C/[place] [address] [facility] SURG 4 GREYSON & ER JR SANDEEP PATHOLOGY DUBILIER GROSS&ASH ROSCOPIC EXAM CONTROL 2101 [facility] 4 [facility] BY ANTERIOR NASAL PACKING CLOSED 3324 [facility] BIOPSY OF 4 [facility] RADIOLOGI 06804 [facility] PELAEZ C 4 RADIOLOGY WARD EXAMINATI ASSOC ON CHEST SINGLE VIEW FRONTAL SBSQ 64406 [facility] 4 [place] AN ARV CARE/DAY ONCOLOGY 15 A MINUTES SBSQ 21903 [facility] 4 PULMONARY MAT CARE/DAY & 35 CRITICAL MINUTES SBSQ 99400 [facility] 4 JAM CARE/DAY CARDIOLOG 25 Y AT CENT MINUTES RADIOLOGI 84002 [facility] BLACK MAR C 4 RADIOLOGY EXAMINATI ASSOC ON CHEST SINGLE VIEW FRONTAL INITIAL 10238 [facility] INPATIENT 4 SURGICAL THO CONSULT ASSOCIATE NEW/ESTAB S PT 80 MIN SBSQ 07821 [facility] 4 [place] AN ARV CARE/DAY ONCOLOGY 35 A MINUTES RADIOLOGI 65763 [facility] PELAEZ C 4 RADIOLOGY WARD EXAMINATI ASSOC ON CHEST SINGLE VIEW FRONTAL INITIAL 94764 [facility] INPATIENT 4 IV HEN CONSULT CARDIOLOG NEW/ESTAB Y AT CENT PT 40 MIN SBSQ 53431 [facility] 4 PULMONARY MAT CARE/DAY & 35 CRITICAL MINUTES SBSQ 16344 [facility] 4 PULMONARY EIN DON CARE/DAY & 25 CRITICAL MINUTES RADIOLOGI 72971 [facility] C 4 RADIOLOGY WARD EXAMINATI ASSOC ON CHEST SINGLE VIEW FRONTAL DUP-SCAN 76709 [facility] XTR VEINS 4 [facility] CARDIOLOG [place] Y AT CENT L/LIMITED STUDY RADIOLOGI 69460 [facility] C 4 RADIOLOGY WARD EXAMINATI ASSOC ON CHEST SINGLE VIEW FRONTAL SBSQ 04990 [facility] 4 PULMONARY EIN DON CARE/DAY & 35 CRITICAL MINUTES COMPREHEN 00992 [facility] SIVE 4 [facility] METABOLIC INC INC PANEL ROTARY A0436 AIR [facility] WING AIR 4 METHODS METHODS [facility] PER STATUTE MILE GROUND A0425 [facility] MILEA 4 AMBULANCE AMBULANCE PER SERVICE SERVICE STATUTE MILE CULTURE 87557 [facility] BACTERIAL 4 [facility] BLOOD INC INC AEROBIC W/ID ISOLATES IAADI 77464 [facility] INFFLUENZ 4 [facility] A A VIRUS INC INC IAADI 32644 [facility] INFLUENZA 4 [facility] B VIRUS INC INC CRITICAL 08676 [facility] CARE 4 [facility] ILL/INJUR INC INC ED PATIENT INIT 30-74 MIN AMB A0431 AIR AIR SERVICE 4 METHODS METHODS CONVNTION [facility] AIR SRVC TRANSPORT [address] BLOOD 01729 [facility] COUNT 4 [facility] COMPLETE INC INC AUTO&AUTO DIFRNTL WBC RADIOLOGI 15529 [place] [facility] 4 MEDICAL LIZZIE EXAMINATI IMAGING ON CHEST ASS SINGLE VIEW FRONTAL ECG 61478 [facility] ROUTINE 4 [facility] ECG INC INC W/LEAST 12 LDS TRCG ONLY W/O I&R INJECTION [id number] [facility] 4 [facility] AZITHROMY INC INC KIANNA 500 MG ECHO 07605 VERENA LEW TTHRC R-T 4 JAM 2D CARDIOLOG W/WOM-MOD Y AT CENT E COMPL SPEC&COLR D CREATINE 37541 [facility] KINASE 4 [facility] TOTAL INC INC BLOOD 22435 [facility] OCCULT 4 [facility] PEROXIDAS INC INC E ACTV QUAL FECES 1-3 SPEC BLOOD 79753 [facility] GASES ANY 4 [facility] INC INC COMBINATI ON PH PCO2 PO2 CO2 HCO3 THERAPEUT 05543 [facility] IC 4 [facility] INJECTION INC [place] [address] [facility] INFUSION 4 [facility] THERAPY/P INC INC ROPHYLAXI S /DX 1ST [place] 1 [place] [address] [facility] TROPONIN 4 [facility] QUANTITAT INC INC CRISTIAN NATRIURET 76764 [facility] B[facility] IC 4 [facility] PEPTIDE INC INC AMB A0427 [facility] SERVICE 4 AMBULANCE AMBULANCE ALS SERVICE SERVICE [place]SP[place] 1 [place] [address] [facility] INFUSION 4 [facility] THER INC INC PROPH ADDL SEQUENTIA L TO 1 HR CONT 9671 [facility] INVASIVE 4 [facility] TAOISM [facility] < 96 CONSECUTI VE HOURS VENOUS 3893 [facility] CATHETERI 4 [facility] NOT ELSEWHERE CLASSIFIE D INSERTION 9604 [facility] C[facility] OF 4 [facility] ENDOTRACH [facility] HOSP EAL TUBE CREATINE 29146 [facility] KINASE MB 4 [facility] FRACTION INC INC ONLY CREATINE 24739 [facility] B[facility] KINASE MB 4 [facility] [place] [address] [facility] B[facility] TROPONIN 4 [facility] QUANTITAT INC INC CRISTIAN NATRIURET 27967 [facility] B[facility] IC 4 [facility] PEPTIDE INC INC CREATINE 25420 [facility] B[facility] KINASE 4 [facility] TOTAL INC INC BLOOD 87579 [facility] COUNT 4 [facility] COMPLETE INC INC AUTO&AUTO DIFRNTL WBC RADIOLOGI 17680 [facility] B[facility] C EXAM 4 [facility] CHEST 2 INC INC VIEWS FRONTAL&L ATERAL COMPREHEN 52426 [facility] B[facility] SIVE 4 [facility] METABOLIC INC INC PANEL HOSPITAL 67539 [facility] 4 PHYSICIAN ASH DAY S GROUP MANAGEMEN T 30 MIN/< SBSQ 58494 [facility] 4 PHYSICIAN ASH CARE/DAY S GROUP 15 MINUTES INITIAL 81253 [facility] 4 PHYSICIAN ASH CARE/DAY S GROUP 50 MINUTES US PELVIC 21612 [facility] NONOBSTET WOMEN'S [facility]VY CARE REAL-TIME IMAGE COMPLETE COMPREHEN 10316 [facility] SIVE 4 [facility] METABOLIC INC INC PANEL CULTURE 99390 [facility] BACTERIAL 4 [facility] BLOOD INC INC AEROBIC W/ID ISOLATES BLOOD 03277 [facility] COUNT 4 [facility] COMPLETE INC INC AUTO&AUTO DIFRNTL WBC UNCLASSIF J3490 [facility] IED DRUGS 4 [facility] INC INC BLOOD 83555 [facility] B[facility] COUNT 4 [facility] HEMATOCRI INC INC T BLOOD 29403 [facility] B[facility] COUNT 4 [facility] HEMOGLOBI INC INC N TRANSFUSI 54308 [facility] ON 4 [facility] BLOOD/BLO INC INC OD COMPONENT S RED BLOOD P9016 STORMYJASON [facility] CELLS 4 [facility] LEUKOCYTE INC INC S REDUCED EACH UNIT ANTIBODY 22801 [facility] B[facility] ID RBC 4 [facility] ANTIBODIE INC INC S EA PANEL EA SERUM TQ RADIOLOGI 25421 [facility] B[facility] C EXAM 4 [facility] CHEST 2 INC INC VIEWS FRONTAL&L ATERAL COMPATIBI 07486 [facility] B[facility] LITY EACH 4 [facility] UNIT INC INC ANTIGLOBU HARINI COMPATIBI 99908 [facility] B[facility] LITY EACH 4 [facility] UNIT INC INC IMMEDIATE SPIN TECHNIQUE BLOOD 88115 [facility] TYPING 4 [facility] SEROLOGIC INC INC RH (D) BLOOD 60666 [facility] COUNT 4 [facility] COMPLETE INC INC AUTO&AUTO DIFRNTL WBC ANTIBODY 71275 [facility] SCREEN 4 [facility] RBC EACH INC INC SERUM TECHNIQUE BLOOD 88164 [facility] TYPING 4 [facility] SEROLOGIC INC INC ABO ANTIBODY 46306 [facility] SCREEN 4 [facility] RBC EACH INC INC SERUM TECHNIQUE BLOOD 38887 [facility] TYPING 4 [facility] SEROLOGIC INC INC ABO BLOOD 47223 ST[facility]MY ST[facility]MY COUNT 4 [facility] COMPLETE INC INC AUTO&AUTO DIFRNTL WBC CULTURE 25797 [facility] B[facility] BCT 4 [facility] ISOL&PRSM INC INC PTV ID ISOLATE EA URINE FIBRIN 27990 [facility] DGRADJ 4 [facility] PRODUCTS INC INC D-DIMER QUAL/SEMI PAULO BLOOD 36208 [facility] TYPING 4 [facility] SEROLOGIC INC INC RH (D) THROMBOPL 54235 [facility] ASTIN 4 [facility] TIME INC INC PARTIAL PLASMA/WH OLE BLOOD COMPATIBI 86235 [facility] LITY EACH 4 [facility] UNIT INC INC IMMEDIATE SPIN TECHNIQUE COMPATIBI 69778 [facility] B[facility] LITY EACH 4 [facility] UNIT INC INC ANTIGLOBU HARINI CULTURE 53539 [facility] B[facility] BACTERIAL 4 [facility] INC INC QUANTTATI VE COLONY COUNT URINE URNLS DIP 78454 [facility] 4 [facility] STICK/TAB INC INC LET REAGENT AUTO MICROSCOP Y SUSCEPTIB 19898 [facility] LTY STDY 4 [facility] ANTIMICRB INC INC IAL MICRO/AGA R DILUTJ COMPREHEN 19236 [facility] SIVE 4 [facility] METABOLIC INC INC PANEL ANTIBODY 45537 [facility] B[facility] ID RBC 4 [facility] ANTIBODIE INC INC S EA PANEL EA SERUM TQ PROTHROMB 30167 [facility] B[facility] IN TIME 4 [place] [address] [facility] ABDOMINAL 4 MEDICAL LIZZIE REAL IMAGING [place] W/[place] [address] [facility] B[facility] ABDOMINAL 4 [facility] REAL INC INC TIME [place] [address] [facility] B[facility] TRANSVAGI 4 [facility] NAL INC INC HOSPITAL 77339 [facility] DISCHARGE 4 PHYSICIAN ASH DAY S GROUP MANAGEMEN T 30 MIN/< SBSQ 25529 [facility] 4 PHYSICIAN ASH CARE/DAY S GROUP 15 MINUTES INITIAL 65891 [facility] 4 PHYSICIAN ASH CARE/DAY S GROUP 50 MINUTES HOSPITAL 01408 [facility] DIS[facility] 4 MEDICINE MAR DAY SERVICES, MANAGEMEN T 30 MIN/< SBSQ 22177 [facility] 4 MEDICINE CARE/DAY SERVICES, 35 MINUTES SBSQ 28241 [facility] 4 MEDICINE CARE/DAY SERVICES, 35 MINUTES SBSQ 12199 [facility] 4 JAM CARE/DAY CARDIOLOG 25 Y AT CENT MINUTES INITIAL 10613 [facility] INPATIENT 4 TYLER CONSULT CARDIOLOG NEW/ESTAB Y AT CENT PT 40 MIN SBSQ 84136 [facility] 4 MEDICINE CARE/DAY SERVICES, 35 MINUTES ECG 55730 [facility] ROUTINE 4 TYLER ECG CARDIOLOG W/LEAST Y AT CENT 12 LDS I&R ONLY FLOW 67789 [facility] CYTOMETRY [address] [facility] FOUNDATIO INC ATION N 16/> [place] [address] [facility] INFUSION 4 [facility] THERAPY/P INC INC ROPHYLAXI S /DX 1ST TO 1 HR RADIOLOGI 68420 [facility] 4 RADIOLOGI PET EXAMINATI C ON CHEST PROFESSIO SINGLE VIEW FRONTAL BLOOD 73932 [facility] COUNT 4 [facility] COMPLETE INC INC AUTO&AUTO DIFRNTL WBC GROUND A0425 [facility] MILEAGE 4 AMBULANCE AMBULANCE PER SERVICE SERVICE STATUTE MILE INITIAL 15883 [facility] 4 MEDICINE CARE/DAY SERVICES, 70 MINUTES BASIC 38653 [facility] METABOLIC 4 [facility] PANEL INC INC CALCIUM TOTAL ONDANSETR S0119 [facility] ON ORAL 4 4 [facility] [place] [place] [address] [facility] B[facility] THYROID 4 [facility] STIMULATI [place] [address] [facility] B[facility] THYROXINE 4 [place] [address] [facility] B[facility] RETROPERI 4 [facility] TONEAL INC INC REAL TIME W/IMAGE COMPLETE LIPID 10944 [facility] PANEL 4 [place] [address] [facility] 4 MEDICAL PATY TONEAL IMAGING REAL TIME ASS W/IMAGE LIMITED BLOOD 58176 [facility] COUNT 4 [facility] COMPLETE INC INC AUTO&AUTO DIFRNTL WBC CYANOCOBA 96805 [facility] B[facility] BOBBI 4 [facility] VITAMIN INC INC B-12 HEMOGLOBI 32570 [facility] B[facility] N 4 [facility] GLYCOSYLA INC INC MALIKA A1C THERAPEUT 86823 [facility] YOSEF IC 4 PHYSICIAN ASH PROPHYLAC S GROUP TIC/DX INJECTION SUBQ/ HOSPITAL 78830 [facility] YOSFE DISCHARGE 4 PHYSICIAN ASH DAY S GROUP MANAGEMEN T 30 MIN/< SBSQ 21122 [facility] 4 PHYSICIAN ASH CARE/DAY S GROUP 15 MINUTES INITIAL 10433 [facility] 4 PHYSICIAN ASH CARE/DAY S GROUP 50 MINUTES ECG [address] [facility] ROUTINE 4 DIMITRI ASH ECG EMERGENCY W/LEAST PHYS 12 LDS I&R ONLY BLOOD 60578 [facility] COUNT 4 [facility] MEM [...] ON INC INC SERVICE PER HOUR ANTIBODY 50232 [facility] SCREEN 4 [facility] RBC EACH INC INC SERUM TECHNIQUE BLOOD 89672 [facility] TYPING 4 [facility] SEROLOGIC INC INC ABO UNCLASSIF J3490 [facility] IED DRUGS 4 [facility] INC INC COMPREHEN 96841 [facility] B[facility] SIVE 4 [facility] METABOLIC INC INC PANEL CULTURE 79792 [facility] B[facility] BACTERIAL 4 [facility] BLOOD INC INC AEROBIC W/ID ISOLATES ANTIBODY 81689 [facility] ID RBC 4 [facility] ANTIBODIE INC INC S EA PANEL EA SERUM TQ BLOOD 87941 [facility] COUNT 4 [facility] COMPLETE INC INC AUTO&AUTO DIFRNTL WBC RADIOLOGI 71327 [facility] 4 MEDICAL LIZZIE EXAMINATI IMAGING [place] [address] [facility] INFUSION 4 [facility] THERAPY/P INC INC ROPHYLAXI S /DX 1ST TO 1 HR URNLS DIP 82711 [facility] 4 [facility] STICK/TAB INC INC LET REAGENT AUTO MICROSCOP Y UNCLASSIF C9399 [facility] B[facility] IED DRUGS 4 [facility] OR INC INC BIOLOGICA LS COMPATIBI 34517 [facility] B[facility] LITY EACH 4 [facility] UNIT INC INC ANTIGLOBU HARINI COMPATIBI 19358 [facility] LITY EACH 4 [facility] UNIT INC INC IMMEDIATE SPIN TECHNIQUE BLOOD 24124 STORMYJASON B[facility]ROWS TYPING 4 [facility] SEROLOGIC INC INC RH (D) ECHO 24664 VERENA NICOLEGILBERT TTHRC R-T 4 JAM 2D CARDIOLOG W/WOM-MOD Y AT CENT E COMPL SPEC&COLR D ANTINUCLE 91608 [facility] AR 4 [facility] [place] [address] [facility] B[facility] FERRITIN 4 [facility] INC INC BLOOD 36212 [facility] COUNT 4 [facility] COMPLETE INC INC AUTO&AUTO DIFRNTL WBC COMPREHEN 82174 [facility] B[facility] SIVE 4 [facility] METABOLIC INC INC PANEL RHEUMATOI 82794 [facility] D FACTOR 4 [facility] QUANTITAT INC INC CRISTIAN BLOOD 13282 [facility] COUNT 4 [facility] [place]ICULOC [place] [address] ST[facility] [place] THYROXINE 4 MEM [facility] [place] [address] [facility] B[facility] THYROID 4 [facility] STIMULATI INC INC NG HORMONE TSH BASIC 26525 [facility] METABOLIC 4 [facility] HOSP CALCIUM TOTAL BLOOD 99352 [facility] COUNT 4 [facility] COMPLETE [facility]OSP HOSP AUTOMATED NATRIURET 85695 [facility] IC 4 [facility] PEPTIDE HOSP HOSP ECG 41596 [facility] B[facility] ROUTINE 4 [facility] ECG INC INC W/LEAST 12 LDS TRCG ONLY W/O I&R CREATINE 96294 [facility] KINASE 4 [facility] TOTAL INC INC THROMBOPL 72209 [facility] ASTIN 4 [facility] TIME INC INC PARTIAL PLASMA/[place] [address] [facility] TROPONIN 4 [facility] QUANTITAT INC INC CRISTIAN BLOOD 66604 [facility] COUNT 4 [facility] COMPLETE INC INC AUTO&AUTO DIFRNTL WBC CULTURE 30399 [facility] BACTERIAL 4 [facility] BLOOD INC INC AEROBIC W/ID ISOLATES RADIOLOGI 43327 [facility] C EXAM 4 [facility] CHEST 2 INC INC VIEWS FRONTAL&L ATERAL COMPREHEN 05690 [facility] SIVE 4 [facility] METABOLIC INC INC PANEL PROTHROMB 66874 [facility] IN TIME 4 [facility] INC INC CREATINE 37868 [facility] B[facility] KINASE MB 4 [facility] FRACTION INC INC ONLY RADIOLOGI 35238 [facility] B[facility] C EXAM 4 [facility] CHEST 2 INC INC VIEWS FRONTAL&[place] [address] [facility] ABDOMINAL 4 [facility] REAL INC INC TIME W/IMAGE DOCUMENTA TION BLOOD 23620 SOTRMY BURROWS COUNT 4 [facility] COMPLETE INC INC AUTO&AUTO DIFRNTL WBC Encounters Encounter Start End Date Code Location Performer Type Date [facility] STORMY - 6 6 [facility] T OFF[facility] 47789 [facility] 6 6 MEDICAL T [facility]ISIT SERV 25 FOUNDATIO MINUTES [facility] UNIVERSIT - 6 6 Y [facility] STORMY - 6 6 [facility] T OFF[facility] 13492 [facility] 6 6 [place] [facility] T VISIT MEDICINE 15 P MINUTES [facility] UNIVERSIT - 6 6 Y [facility] STORMY - 6 6 [facility] - 6 6 [facility] 53108 [facility] 6 6 PHYSICIAN ASH GUZMAN S, [facility] T VISIT MODERATE SEVERITY HOSPITAL STORMY - 6 6 [facility] OUTPATIEN [facility] STORMY - 6 6 [facility] 6 6 [facility] - 6 6 [facility] 70409 [facility] 6 6 MEDICAL T VISIT SERV 25 FOUNDATIO MINUTES HOSPITAL STORMY - 6 6 [facility] OUTPATIEN [facility] EMERGENCY 05959 [facility] SING[facility] DEPT 6 6 PHYSICIAN JR DISLA VISIT [facility] HIGH SEVERITY& THREAT [facility] STORMY - 6 6 [facility] OUTPATIEN [facility] EMERGENC[facility] 96584 [facility] 6 6 [facility] V[facility] MODERATE SEVERITY HOSPITAL STORMY [facility] 6 6 [facility] OUTPATIEN [facility] STORMY - 6 6 [facility] OUTPATIEN [facility] STORMY - 5 5 [facility] - 5 5 [facility] OUTPATIEN [facility] STORMY - 5 5 [facility] STORMY - 5 5 [facility] OUTPAT[facility]EN [facility] OFFICE 09127 [facility] 5 5 [facility] T VISIT MEDICAL 15 GROUP MINUTES EMERGENCY 30625 [facility] SILVA 5 5 PHYSICIAN KARLY GUZMAN S, [facility] T VISIT HIGH/URGE NT SEVERITY HOSPITAL ST[facility]MY - 5 5 [facility] OUTPATIEN [facility] UNIVERSIT - 5 5 [facility] 17661 [place] MONISHA KRI OUTPATIEN 5 5 MEDICAL T VISIT SERV 40 FOUNDATIO MINUTES N HOSPITAL ST[facility] - 5 5 [facility] OUTPATIEN INC T HOME [facility], 5 5 HOME INPATIENT HEALTH AGENCY OFFICE 70116 [facility] ATIF OUTPATIEN 5 5 [place] FAMILY ELL T VISIT MEDICINE 15 P MINUTES OFFICE 71931 [place] MIS OUTPATIEN 5 5 MEDICAL JR TRACIE T VISIT SERV 40 FOUNDATIO MINUTES N HOSPITAL [facility]ERSIT - 5 5 [facility] HOME INPATIENT HEALTH AGENCY OFFICE 42152 [facility] JOSE OUTPATIEN 5 5 [place] SARAH T VISIT MEDICINE 15 P MINUTES OFFICE 22421 [place] PAREDES OUTPATIEN 5 5 MEDICAL ESTEBAN T VISIT SERV 25 FOUNDATIO MINUTES N HOSPITAL [facility] - 5 5 [facility] OUTPATIEN INC T HOME [facility], 5 5 HOME INPATIENT HEALTH AGENCY OFFICE 72910 [place] PAREDES OUTPATIEN 5 5 MEDICAL ESTEBAN T VISIT SERV 15 FOUNDATIO MINUTES N OFFICE 24924 TAOISMTabatha LEW OUTPATIEN 5 5 HEALTH JAM T VISIT MEDICAL 15 GROUP MINUTES HOSPITAL STORMY - 5 5 [facility] OUTPATIEN INC T OFFICE 50550 [facility] GRA[facility] OUTPATIEN 5 5 [place] FAMILY GUERRERO T NEW 45 MEDICINE MINUTES P OFFICE 87877 [place] MONISHA KRI OUTPATIEN 5 5 MEDICAL T VISIT SERV 40 FOUNDATIO MINUTES N HOSPITAL UNIVERSIT - 5 5 Y [facility], 5 5 HOME INPATIENT HEALTH AGENCY [facility], 5 5 HOME OUTPATIEN HEALTH T AGENCY EMERGENCY 42969 [facility] DEPT 5 5 [facility] VISIT INC HIGH SEVERITY& THREAT [facility] UNIVERSIT - 5 5 Y INPATIENT HOSPITAL EMERGENCY 21855 [facility] NAVAS [address] [facility] VISIT P HIGH/URGE NT SEVERITY HOSPITAL [facility] - 5 5 [facility] - 5 5 [facility] - 5 5 [facility] - 5 5 [facility] - 5 5 [facility] - 5 5 [facility] ST[facility] - 5 5 [facility] OUTPATIEN [facility] OFFICE 67046 [facility] 4 4 [facility] VISIT CLINIC 25 [facility] STORMY - 4 4 [facility] [place] [address] HOSPITAL INPATIENT OFFICE 81697 [place] [facility] OUT[facility] 4 4 [facility] VISIT INTERNAL 15 [facility] OFF[facility] 33741 [facility] REENA [facility] OUTPATIEN 4 4 PHYSICIAN T [facility] 20 S [facility] STORMY - 4 4 MEM [facility] INPATIENT [facility] STORMY - 4 4 [facility]PAT[facility] - 4 4 [facility] - 4 4 [facility] - 4 4 [facility]PATI[facility] STORMY - 4 4 [facility] OUTPATIEN [facility] CENTRAL - 4 4 [facility] OUT[facility]OSP T OFFICE 00501 [facility] 4 4 HEART AND TRA T VISIT VASCULAR 25 I MINUTES HOSPITAL CENTRAL - 4 4 [facility] OUTPATIEN [facility]OSP T OFFICE 78681 [facility] 4 4 [place] AN ARV T VISIT ONCOLOGY 15 A MINUTES [facility] STORMY - 4 4 [facility]EN [facility] CENTRAL - 4 4 [facility] INPATIENT [facility] STORMY - 4 4 [facility] OUTPATIEN [facility] EMERGENCY 08862 [facility] 4 4 [facility] DEPARTMEN INC T VISIT HIGH/URGE NT SEVERITY HOSPITAL STORMY - 4 4 [facility] INPATIENT INC EMERGENCY 69254 [facility] DEPT 4 4 [facility]IM[facility] VISIT EMERGENCY HIGH PHYS SEVERITY& THREAT FUNCJ OFFICE 14686 [facility] 4 4 HEALTH HOP T VISIT WOMEN'S 15 CARE MINUTES OFFICE 96509 VERENA LEW [facility] 4 4 JAM T VISIT CARDIOLOG 15 Y [facility] STORMY - 4 4 [facility] OUTPATIEN [facility] T EMERGENCY [address] [facility] DEPT 4 4 [facility] VISIT EMERGENCY HIGH PHYS SEVERITY& THREAT FUNJ EMERGENCY 45036 [facility] 4 4 [facility] DEPARTMEN INC T VISIT LOW/MODER SEVERITY HOSPITAL ST[facility] - 4 4 [facility] OUTPATIEN INC HOSPITAL STORMY - 4 4 [facility] OUTPATIEN INC T OFFICE 55370 [facility] OUTPATIEN 4 4 PHYSICIAN ASH T VISIT S GROUP 10 MINUTES EMERGENCY 21059 [facility] 4 4 [facility] T VISIT MODERATE SEVERITY HOSPITAL STORMY - 4 4 [facility] OUTPATIEN [facility] STORMY - 4 4 [facility] INPAT[facility] EMERGENCY 01927 [facility] DEE DEE GIRALDO DEPT 4 4 DIMITRI VISIT EMERGENCY HIGH PHYS SEVERITY& THREAT FUN EMERGENCY 10077 [facility] 4 4 [facility] T VISIT HIGH/URGE NT SEVERITY EMERGENCY 92715 [facility] DEE DEE GIRALDO DEPT 4 4 DIMITRI VISIT EMERGENCY HIGH PHYS SEVERITY& THREAT [facility] CENTRAL - 4 4 [facility] INPATIENT [facility] STORMY - 4 4 [facility] OFF[facility] [id number] [facility] 4 PHYSICIAN ASH T VISIT 5 S GROUP MINUTES HOSPITAL STORMY - 4 4 [facility] INPATIENT [facility] EMERGENCY 32113 [facility] YOSEF DEPT 4 4 DIMITRI ASH VISIT EMERGENCY HIGH PHYS SEVERITY& THREAT FUN EMERGENCY [id number] ST[facility] 4 4 [facility] T VISIT HIGH/URGE NT SEVERITY HOSPITAL STORMY - 4 4 [facility] CENTRAL - 4 4 TAOISM OUTPATIEN [facility] OFFICE [id number] [facility] [address] MINUTES HOSPITAL STORMY - 4 4 [facility] OUTPATIEN [facility] - 4 4 TAOISM OUTPATIEN [facility] STORMY - 4 4 [facility] OUTPATIEN INC T EMERGENCY [id number] [facility]PT 4 4 [facility] HIGH SEVERITY& THREAT [facility] STORMY - 4 4 [facility] OUTPATIEN INC T
[2017-05-22 15:17] VITALS: BP 118/72
--- OUTSIDE RECORDS SUMMARY | 2017-05-22 15:18 | External Medical Summary Rpt | CCD ---
Demographics Preferred Language Kosovan Marital Status Unknown Voodoo Affiliation Unknown Race Unknown Ethnic Group Unknown Author Author , AYSE TAVERA Address Unknown Phone Immunization Unable to retrieve immunization data due to connection failure with Immunization Registry. Please try again later.
--- OUTSIDE RECORDS SUMMARY | 2017-05-22 15:18 | External Medical Summary Rpt | CCD ---
Demographics Preferred Language Yemeni Marital Status Unknown Confucianism Affiliation Unknown Race Unknown Ethnic Group Unknown Author Author , AYSE TAVERA Address Unknown Phone Immunization Unable to retrieve immunization data due to connection failure with Immunization Registry. Please try again later.
--- NOTE | 2017-05-22 15:27 | [facility] Report ---
History of Present Issue Date/Time Seen by Provider 05/22/17 7520 Visit Reason Pt arrived:Walked Presenting Problem:PT C/O OF HEADACHE SINCE TAKING NEW MEDICATION. Location if Accident: Onset of symptoms date/time:/ or onset unknown for:MEDICAL HX UNKNOWN Have you (or family members/close friends) recently traveled outside the [place]? N If Yes, where/when: Have you had exposure to infectious disease within the past month? TB? Other? Specify: Source patient, RN notes reviewed Exam Limitations no limitations Comment 52-year-old female presents for complaints of a headache on after taking a new medication that was prescribed to her. Patient states she has not taken the medicine since and headache has eased up but this morning she did have a tinge in her neck and wanted to be evaluated. Patient states she has lupus and takes antirejection drug to help with her blood disorder with lupus in the Dr. change the medication she took 1 pill on and on she had a headache then encircled her head and pain shot down her neck. Denies dizziness, vertigo, changes in vision, or balance ALLERGIES Coded Allergies: gentamicin (Intermediate, I-RASH 02/28/16) guaifenesin (Intermediate, I-RASH 02/28/16) phenobarbital (Intermediate, I-RASH 02/28/16) Penicillins (Mild, "TONGUE SORE" 02/28/16) acetaminophen (From TYLENOL) (Mild, CAN'T TAKE MORE THAN 500MG- PER PT- WAS TOLD PER MD 02/28/16) lisinopril (Mild, NA-NAUSEA/VOMITING 02/28/16) nitrofurantoin (From MACROBID) (Mild, UNKNOWN 02/28/16) Sulfa (Sulfonamide Antibiotics) (UNKOWN 02/28/16) amoxicillin (UNKNOWN 02/28/16) atropine (UNKOWN 02/28/16) cephalexin (From KEFLEX) (UNKNOWN 02/28/16) chlorcyclizine (From STAHIST AD) (UNKNOWN 02/28/16) pseudoephedrine (From STAHIST AD) (UNKNOWN 02/28/16) tetracycline (UNKNOWN 02/28/16) Home Medications Reported Medications Hydralazine Hcl (Hydralazine 25MG Tab) 25 MG PO DAILY Hydroxychloroquine Sulfate (Plaquenil) 200 MG PO BID WARFARIN SOD (Coumadin) 6 MG PO DAILY Metolazone (Metolazone 2.5MG) 2.5 MG PO DAILY Mycophenolate Sodium (Mycophenolic Acid) 2 TABS PO BID History Medical History General CAD? No Angina: Yes AK: No Hypertension? Yes Hyperlipidemia? No CHF? Yes DVT? No PE? No COPD? No Asthma? No Anemia? Yes GERD? No Gastric ulcers? No GI Bleed? No Hernia? No Thyroid Problems? No Hypothyroidism? No CVA? No Seizures? No Diabetes? No Renal Insuffiency? No UTI? Yes Stones? Yes BPH? No GB Disease: No Nephritic Syndrome? No Asplenia? No Hepatitis? No Sickle Cell Disease? No Arthritis? No Migraines? No Cataracts? No Glaucoma? No MRSA? No HIV? No TB? No Anxiety? No Depression? No Cancer? Yes Site: BASAL CELL SKIN CANCER More? Yes Additional hx: LUPUS Immunization HX DT/Tetanus > 10 Years Ago Flu Refused Pneumonia Refuses Surgical Hx Previous Surgery?Y BX MASS IN GLAND RIGHT SIDE OF NECK (BENIGN) BASAL CELL SKIN CANCER Family History Family HX Diabetes Yes CAD Yes Hypertension Yes Hyperlipidemia Yes Cancer No TB No Social History Smoking Hx Smoker: Never Smoker Tobacco: No Packs/day N/A Alcohol Alcohol: No Review of Systems All Other Systems Reviewed and Negative Constitutional denies no symptoms reported Eyes denies no symptoms reported ENT denies: no symptoms reported. Respiratory denies no symptoms reported Physical Exam Vital Signs Vital Signs Date Time Temp Pulse Resp B/P Pulse O2 O2 Flow FiO2 Ox Delivery Rate 05/22 1517 99.3 86 20 118/72 97 05/22 1509 99.3 86 20 118/72 97 - WBC >12,000 or <4,000 or 10% bands? 2 or more SIRS Criteria Met? B/P:118/72 MAP:87 Creatinine >2.0? UA output<0.5ml/kg/hr for 2 hrs? Platelet count >100,000? Lactate >2.0mmol/1? INR >1.2 or PTT > than 60 sec? Evidence of Organ Dysfunction? Provider documented clinical suspician of infection? Sepsis Criteria Count: 1 Sepsis Risk: General Appearance normal appearance, no apparent distress Eye Exam - bilateral eye normal exam, bilateral eye PERRL, bilateral eye EOMI Ear, Nose, Throat hearing grossly normal, normal ENT inspection, normal pharynx Neck normal inspection, non-tender, full range of motion Respiratory Status Yes: trachea midline, chest symmetrical, non tender chest. No: respiratory distress. Lung Sounds bilateral: normal breath sounds, lungs clear. 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 No Departure Departure Time of Disposition 1522 Disposition DC Home or Self Care(routine) Clinical Impression Primary Impression: Headache Qualifiers: Headache type: other headache syndrome Qualified Code: G44.89 - Other headache syndrome Condition STABLE Referrals Benjy Marcos MD (Family) Patient Instructions DI for Headache Additional Instructions Follow-up with PCP this week Tylenol as needed for pain-patient states she is not ALLERGIC to Tylenol she just is intolerable to high doses of Tylenol If symptoms worsen or do not improve return or be seen in the ER Discharge Counseling Counseled pt/family regarding diagnosis, medications/RX, home care, follow up needs Comments Offered patient to be transferred to the ER to have a further workup and patient denied she states that it's symptoms return or get worse she will come back and be seen in the ER at [id number]
== END 2017-05-22 15:28 | disposition home or self-care (01) ==
LOC: UTC 14:49
DX: G44.89 Other headache syndrome (principal); I10 Essential (primary) hypertension; Z79.01 Long term (current) use of anticoagulants; Z88.0 Allergy status to penicillin; Z88.6 Allergy status to analgesic agent; Z88.2 Allergy status to sulfonamides

== ENCOUNTER → 2017-06-23 | Outpatient (CLI) | payer OTHER, MEDICARE | LOC: LAB 08:45 | DX: I42.9 Cardiomyopathy, unspecified (principal); Z79.01 Long term (current) use of anticoagulants; Z51.81 Encounter for therapeutic drug level monitoring ==